=== PATIENT | male | born 1970 | race Caucasian/White ===

== ENCOUNTER 2017-12-03 15:19 | Inpatient (IN) | payer OTHER ==
[2017-12-03] VITALS (12 sets, daily range): BP systolic 71–128; BP diastolic 40–104
[~2017-12-03] VITALS: Ht 172.7 cm; Wt 186.4 kg
--- NOTE | 2017-12-03 15:19 | NUR ---
1516- PATIENT BIBA TO BED 2 AT THIS TIME.
[2017-12-03] MEDS ORDERED: ALBUTEROL 0.083% 2.5 MG/3 ML NEBU INH ONE (15:20)
[2017-12-03] MEDS ORDERED: IPRATROPIUM 0.02% 0.5 MG/2.5 ML NEBU INH ONE (15:20)
[2017-12-03] MEDS ORDERED: methylPREDNISolone SS 125 MG/2 ML VIAL IVP ONE (15:20)
--- NOTE | 2017-12-03 15:21 | NUR ---
PT BIB EMS ON CPAP PLACED ON COOK V60 ON ST 20\5 RR14 FIO2 100 ALARMS ON AND AUDIBLE PT IN HF IRRITABLE PLACED F\F MASK SIZE LG GEL PLACED UNDER MASK BS EXP WHEEZE HHN TO BE ORDERED AND ABG BIPAP PLUGGED INTO RED OUTLET RN UNABLE TO GET BP AT THIS TIME
[2017-12-03] MEDS ORDERED: DOXA2TAB1 PO (15:31)
[2017-12-03] MEDS ORDERED: CAR30 PO (15:31)
[2017-12-03] MEDS ORDERED: GLIM2TAB PO (15:32)
[2017-12-03] MEDS ORDERED: TAMS0.4C96 PO (15:34)
[2017-12-03] MEDS ORDERED: FAMO-90 PO (15:35)
--- NOTE | 2017-12-03 15:35 | NUR ---
DECREASE FIO2 TO 40 INCREASE RR TO [address] YANEZ
[2017-12-03] MEDS ORDERED: IPRA2.5S49 IH (15:37)
[2017-12-03] MEDS ORDERED: METO50TE2 PO (15:39)
[2017-12-03] MEDS ORDERED: PUL.5N INH (15:40)
[2017-12-03] MEDS ORDERED: PRON INH (15:41)
[2017-12-03] MEDS ORDERED: FURO-570 PO (15:43)
[2017-12-03 15:45] LABS: LYMPHOCYTES # (AUTO) 0.8 K/uL (2.0-11.5); MEAN CORPUSCULAR HGB CONC 31 g/dL (33-37)
[2017-12-03] MEDS ORDERED: WARF-18 PO (15:45)
--- NOTE | 2017-12-03 15:45 | NUR ---
X-Ray at bedside.
[2017-12-03] MEDS ORDERED: ACET-2619 PO (15:48)
[2017-12-03 15:53] LABS: BASOPHILS # (AUTO) 0.2 K/uL (0.00-0.22); BASOPHILS % (AUTO) 1.4 % (0.0-2.0); EOSINOPHILS # (AUTO) 0.2 K/uL (0-0.4); HEMOGLOBIN 10.4 g/dL (12.0-18.0); LYMPHOCYTES % (AUTO) 7.3 % (20.5-51.1); MEAN CORPUSCULAR HEMOGLOBIN 27 pg (27-31); MEAN CORPUSCULAR VOLUME 85 fL (80-94); MONOCYTES % (AUTO) 9.4 % (1.7-9.3); NEUTROPHILS # (AUTO) 8.6 K/uL (1.8-7.7); NEUTROPHILS % (AUTO) 79.9 % (42.2-75.2); PLATELET COUNT (AUTO) 247 K/uL (140-450); RED BLOOD CELL COUNT(AUTO) 3.88 MIL/uL (4.20-6.10); RED CELL DISTRIBUTION WIDTH 15.8 % (11.6-13.7); WHITE BLOOD COUNT (AUTO) 10.8 K/uL (4.8-10.8)
[2017-12-03 16:00] LABS: PROTHROMBIN TIME 13.9 secs (10.8-13.4)
[2017-12-03 16:02] LABS: ALBUMIN 3.3 g/dL (3.4-5.0); ANION GAP 15.1 (8-16); CARBON DIOXIDE 24.9 mmol/L (21-32); TOTAL BILIRUBIN 0.9 mg/dL (0.0-1.0)
[2017-12-03 16:07] LABS: CREATININE 4.6 mg/dL (0.7-1.3)
[2017-12-03] MEDS ORDERED: DEXTROSE 50% 50 ML SYR IVP ONE ×3 (16:10→20:20)
[2017-12-03] MEDS ORDERED: INSULIN REGULAR, HUMAN 100 UNIT/ML VIAL SUBQ ONE (16:10)
[2017-12-03] MEDS ORDERED: SODIUM BICARBONATE 8.4% PFS 50 MEQ/50 ML SYR IVP ONE (16:10)
--- NOTE | 2017-12-03 16:15 | NUR ---
patient brought in by ambulance for respiratory distress/sob. bipap applied out in the field by paramedics. patient is alert and oriented x 4. Dr. Linn at bedside when patient was brought in. RT at bedside and provided respiratory treatment. dyspnea observed upon assessment, no cough observed. lung sounds diminished upon auscultation. observed +3 edema to bilateral lower extremities. will continue to monitor.
[2017-12-03] MEDS ORDERED: MORPHINE SULFATE 4 MG/ML SYR IVP PRN ×2 (17:25→23:05)
[2017-12-03] MEDS ORDERED: HYDROcodone/APAP 5/325 MG 1 TAB TAB PO PRN (17:25)
[2017-12-03] MEDS ORDERED: ONDANSETRON 4 MG/2 ML VIAL IVP PRN (17:25)
[2017-12-03] MEDS ORDERED: DEXTROSE 50% 50 ML SYR IVP PRN (17:25)
[2017-12-03] MEDS ORDERED: LORazepam 2 MG/ML VIAL IVP PRN (17:25)
--- NOTE | 2017-12-03 17:35 | NUR ---
ADMITTED PT FROM ER BY [facility], PT ON BIPAP, ABLE TO FOLLOW SIMPLE COMMANDS, BEDSIDE MONITOR SHOWS A-FIB, NO S/S OF RESPIRATORY DISTRESS NOTED. LUNGS SOUND DIMINISHED. LARGE ABDOMEN, GENERALIZED +2 EDEMA NOTED. IV TO RIGHT HAND AV, SITE INTACT AND PATENT. HOB ELEVATED WITH 30 DEGREES WITH LOW BED POSITION, WILL CONTINUE TO MONITOR.
--- NOTE | 2017-12-03 17:39 | NUR ---
INCREASE RR TO 22 Addendum: 12/03/17 at 1741 by Brooke Clements RT TRANSFERRED TO ICU ON COOK V60
--- NOTE | 2017-12-03 17:49 | NUR ---
patient was transferred to ICU, bed 5 for continuation of care. patient is arousable and is able to converse with nurses. RT accompanied patient upon transfer. Patient will be admitted to care of Dr. Gallagher. Admited to ICU 5. Belongings list completed. Report given to REJI Watson.
--- NOTE | 2017-12-03 18:00 | NUR ---
DR. HOWARD IN TO SEE PT, WILL FOLLOW UP.
[2017-12-03] MEDS ORDERED: DEXT 5% / NACL 0.45% 1,000 ML IV SCH (18:05)
[2017-12-03] MEDS ORDERED: WARFARIN 5 MG TAB PO SCH (18:15)
--- NOTE | 2017-12-03 18:30 | NUR ---
PT IS NOT WAKE ENOUGH AT THIS TIME. UNABLE TO GIVE COUMADIN, CHARGE NURSE AWARE.
--- NOTE | 2017-12-03 18:36 | NUR ---
CALLED RT DUE TO O2 SATS DECREASED TO 70S
[2017-12-03] MEDS ORDERED: FUROSEMIDE 100 MG/10 ML VIAL IV SCH (19:00)
--- NOTE | 2017-12-03 19:00 | NUR ---
DR. SOARES IN TO SEE PT, PT'S SON AT BEDSIDE AT THIS TIME.
--- NOTE | 2017-12-03 19:10 | NUR ---
REPORT GIVEN TO MANAGING COGNITIVE ENGINEER RN
[2017-12-03] MEDS: BUDESONIDE 0.5 MG/2 ML NEBU INH SCH (19:16)
[2017-12-03] MEDS: ALBUTEROL SULFATE/IPRATROPIU 3 ML SOL INH PRN (19:17)
--- NOTE | 2017-12-03 19:20 | NUR ---
RECEIVED REPORT FROM MORNING RN FOR CONTINUITY OF CARE. PT LETHARGIC AND AFEBRILE. UNABLE TO COMMUNICATE NEEDS AND FOLLOW INSTRUCTION. VS STABLE AT THIS TIME. NO SIGNS OF RESPIRATORY DISTRESS NOTED. SKIN IS DRY AND WARM TO TOUCH. RESPIRATIONS ARE STRONG, EVEN, AND UNLABORED. LUNG SOUNDS RHONCHI AND COARSE. S1+S2 HEARD. PULSES PALPABLE. RHYTHM IS AFIB. ABDOMEN ROUND AND FIRM. NO URINE OUTPUT NOTED AND MD AWARE. PT HAS RIGHT AC 20G PERIPHERAL IV. LINE PATENT AND ASYMPTOMATIC. FAMILY CURRENTLY AT BEDSIDE. DR SOARES TO SEE PT. WILL CONTINUE TO MONITOR PT.
[2017-12-03 19:55] LABS: ANION GAP 14.7 (8-16); CARBON DIOXIDE 26.3 mmol/L (21-32)
[2017-12-03 20:00] LABS: CREATININE 4.7 mg/dL (0.7-1.3)
--- NOTE | 2017-12-03 20:00 | NUR ---
RECEIVED CRITICAL VALUES FOR POTASSIUM 7.0, CREATININE 4.7, BUN 61. DR. SOARES IN THE UNIT, NEW ORDERS GIVEN.
[2017-12-03] MEDS ORDERED: CALCIUM CHLORIDE 10% 100 MG/ML SYR IVP ONE ×2 (20:04→20:20)
[2017-12-03] MEDS ORDERED: INSULIN REGULAR, HUMAN 100 UNIT/ML VIAL IVP ONE (20:20)
--- NOTE | 2017-12-03 20:25 | NUR ---
I CALLED DR HOWARD AND DR SHAFER ANSWER ANS I TOLD HIM ABOUT THE ABG, AND HE TOLD ME TO INCREASED INSPIRATORY PRESSURE TO 26 FROM 20 , RR 16 AND IO2 OF 30% Addendum: 12/03/17 at 2031 by Binta Harley RT DID NOT WANT TO INTUBATE AT THIS TIME
--- NOTE | 2017-12-03 20:36 | NUR ---
DR. SOARES (CUTTING AND SPLICING SUPERVISOR) WANTED HEMODIALYSIS TO BE DONE [facility], CALLED ANGELICA TRUJILLO, HEMODIALYSIS NURSE AND STATED THAT [facility] WILL BE HERE AT 2130. DR. SOARES AWARE. BLOOD SUGAR AT THIS TIME IS 160.
[2017-12-03] MEDS: AZITHROMYCIN 500 MG in DEXTROSE 5% 250 ML IV SCH (20:42)
[2017-12-03] MEDS: SODIUM CHLORIDE FLUSH 10 ML SYR IVF SCH (20:45)
[2017-12-03] MEDS: BLOOD GLUCOSE MONITORING 1 DEV DEV FS SCH (20:45)
--- NOTE | 2017-12-03 20:50 | NUR ---
DR FULLER AT BEDSIDE ALONG WITH DR SOARES TO INSERT CENTRAL LINE. LINE SUCCESSFULLY INSERTED AND XRAY TO BE TAKEN.
[2017-12-03] MEDS: methylPREDNISolone SS 125 MG/2 ML VIAL IVP SCH (20:53)
[2017-12-03] MEDS: INSULIN LISPRO SLIDING SCALE 100 UNITS/ML VIAL SUBQ PRN (20:55)
--- NOTE | 2017-12-03 20:58 | NUR ---
CHEST X-RAY TAKEN AT BEDSIDE. DR FULLER REVIEWED THE X-RAY AT BEDSIDE AND ACCORDING TO HIM OKAY TO USE.
[2017-12-03] MEDS: FUROSEMIDE 40 MG/4 ML VIAL IVP SCH (21:00)
[2017-12-03] MEDS: DOXAZOSIN 2 MG TAB PO SCH (21:00)
[2017-12-03] MEDS: METOPROLOL SUCCINATE 50 MG TABER PO SCH (21:00)
[2017-12-03] MEDS ORDERED: DILTIAZEM 30 MG TAB PO SCH (21:00)
[2017-12-03] MEDS ORDERED: methylPREDNISolone SS 125 MG in WATER STERILE 2 ML IV SCH (21:00)
[2017-12-03] MEDS: DILTIAZEM 60 MG TAB PO SCH (21:00)
--- NOTE | 2017-12-03 21:32 | NUR ---
SPOKE WITH DR SHAFER REGARDING BREATHING STATUS, ORDERED ANOTHER ABG AND TO REPORT BACK RESULTS
--- NOTE | 2017-12-03 21:55 | NUR ---
ABG RESULTS REPORTED TO DR SHAFER, ORDERED TO CONTACT ER DR TO INTUBATE PER ABG RESULTS.
[2017-12-03] MEDS ORDERED: ALBUMIN HUMAN 25% 200 ML IV SCH (22:05)
[2017-12-03 22:10] LABS: BASOPHILS # (AUTO) 0.1 K/uL (0.00-0.22); BASOPHILS % (AUTO) 1.2 % (0.0-2.0); EOSINOPHILS # (AUTO) 0.1 K/uL (0-0.4); EOSINOPHILS % (AUTO) 1.1 % (0.0-4.0); HEMATOCRIT 32.9 % (36-52); HEMOGLOBIN 10.1 g/dL (12.0-18.0); LYMPHOCYTES # (AUTO) 0.3 K/uL (2.0-11.5); LYMPHOCYTES % (AUTO) 2.6 % (20.5-51.1); MEAN CORPUSCULAR HEMOGLOBIN 26 pg (27-31); MEAN CORPUSCULAR HGB CONC 31 g/dL (33-37); MEAN CORPUSCULAR VOLUME 85 fL (80-94); MONOCYTES % (AUTO) 0.3 % (1.7-9.3); NEUTROPHILS % (AUTO) 94.8 % (42.2-75.2); PLATELET COUNT (AUTO) 242 K/uL (140-450); RED BLOOD CELL COUNT(AUTO) 3.87 MIL/uL (4.20-6.10); RED CELL DISTRIBUTION WIDTH 15.9 % (11.6-13.7); WHITE BLOOD COUNT (AUTO) 10.5 K/uL (4.8-10.8)
[2017-12-03] MEDS ORDERED: NOREPINEPHRINE 4 MG/4 ML VIAL IV ONE (22:14)
[2017-12-03] MEDS: NOREPINEPHRINE 8 MG in DEXTROSE 5% 250 ML IV PRN (22:19)
--- NOTE | 2017-12-03 22:30 | NUR ---
DR. SHAFER AND DR. HOWARD AT BEDSIDE TO INTUBATE PT. WILL FOLLOW-UP WITH ANY NEW ORDERS.
[2017-12-03] MEDS ORDERED: ETOMIDATE 20 MG/10 ML VIAL IVP ONE (22:35)
[2017-12-03] MEDS ORDERED: MIDAZOLAM 2 MG/2 ML VIAL ONE (22:38)
[2017-12-03] MEDS ORDERED: PROPOFOL 1000 MG/100 ML PREMIX 100 ML IV PRN (22:45)
[2017-12-03 22:48] LABS: ANION GAP 14.7 (8-16); CARBON DIOXIDE 25.2 mmol/L (21-32)
[2017-12-03 22:55] LABS: CREATININE 4.7 mg/dL (0.7-1.3); POTASSIUM 6.9 mmol/L (3.5-5.1)
--- NOTE | 2017-12-03 22:55 | NUR ---
ASSISTED INTUBATION SUCCESSFULLY WITH [facility], DR SHAFER AND DR HOWARD, 7.5 ETT SECURED WITH ANCHORFAST AT 23 CM, PLACEMENT CONFRIMED WITH ETCO2 AND BILATERAL BREATH SOUNDS, 02 SAT 99%, VENT SETTINGS RECEIVED FROM DR SHAFER AC 12, VT 600, PEEP 5, FIO2 100%, ABG TO FOLLOW, WILL CONTINUE TO MONITOR.
[2017-12-03] MEDS ORDERED: PROPOFOL 1000 MG/100 ML PREMIX 100 ML IV ONE (22:58)
[2017-12-03] MEDS ORDERED: DESMOPRESSIN 4 MCG/ML AMP IV ONE (23:05)
--- NOTE | 2017-12-03 23:15 | NUR ---
PT STARTED ON DIALYSIS. ANTOINE, DIALYSIS NURSE, AT BEDSIDE.
--- NOTE | 2017-12-03 23:36 | NUR ---
INFORMED DR. SOARES REGARDING BMP RESULT FOR PT. RECEIVED NO NEW ORDERS. INFORMED DR. SOARES THAT PT ALREADY STARTED ON DIALYSIS
--- NOTE | 2017-12-03 23:44 | NUR ---
CALLED DR. SHAFER TO VERIFY THE DDAVP ORDER PER PHARMACY. PER DR. SHAFER D/C THE ORDER OF DDAVP. INFORMED HIM TOO REGARDING THE LOW BP OF PT. RECEIVED NEW ORDERS.
[2017-12-03] MEDS ORDERED: PHENYLEPHRINE 10 MG in NACL 0.9% 250 ML IV PRN (23:50)
[2017-12-03 23:57] LABS: CREATINE KINASE MB 4.9 ng/mL (0-3.6)
[2017-12-04] VITALS (104 sets, daily range): BP systolic 86–157; BP diastolic 37–111
--- NOTE | 2017-12-04 00:20 | NUR ---
PAGED DR SHAFER WITH ABG RESULTS, LISS MENDOZA AWARE
[2017-12-04] MEDS ORDERED: PHENYLEPHRINE 10 MG/ML VIAL ONE (00:25)
[2017-12-04] MEDS: MILD SOAP AND WATER TP SCH ×2 (01:02→16:00)
[2017-12-04] MEDS: ANTIFUNGAL CLEAR OINTMENT TP SCH ×2 (01:02→16:04)
[2017-12-04] MEDS ORDERED: MORPHINE SULFATE 4 MG/ML SYR IVP PRN (01:10)
--- NOTE | 2017-12-04 01:15 | NUR ---
DR SHAFER NOT RESPONDING AT THIS TIME AFTER MULTIPLE PAGES, ADJUSTED RESPIRATORY RATE TO 16 BPM PER ABG RESULTS USING DESIRED CO2 FORMULA, LISS MENDOZA AWARE, WILL CONT TO MONITOR. Addendum: 12/04/17 at 0537 by Herberth Ladnaverde RT RR 14
--- NOTE | 2017-12-04 01:46 | NUR ---
PT STILL HAVING DIALYSIS. VS STABLE AT THIS TIME. NO CHANGE IN CONDITION. NO SIGNS OF DISTRESS NOTED. PT ON LEVOPHED, ETHAN-SYNEPHRINE AND PROPOFOL DRIP. WILL CONTINUE TO MONITOR PT.
[2017-12-04] MEDS: PROPOFOL 1000 MG/100 ML PREMIX 100 ML IV PRN ×11 (02:23→22:38)
--- NOTE | 2017-12-04 02:30 | NUR ---
PT COMPLETED HEMODIALYSIS. 3L WAS REMOVED. VS STABLE AT THIS TIME. PT STILL ON PROPOFOL, LEVOPHED AND NEOSYNEPHRINE DRIP. CALL LIGHT WITHIN REACH, BED AT LOW POSSIBLE POSITION. ALL SAFETY PRECAUTIONS ARE IN PLACE. WILL CONTINUE TO MONITOR PT.
[2017-12-04] MEDS ORDERED: NOREPINEPHRINE 4 MG/4 ML VIAL IV ONE (02:32)
[2017-12-04] MEDS: NOREPINEPHRINE 8 MG in DEXTROSE 5% 250 ML IV PRN ×2 (02:37→22:16)
--- NOTE | 2017-12-04 03:25 | NUR ---
DR. SHAFER CALLED, INFORMED THAT [facility]/ PAGED HIM TO REPORT LAST ABG, GAVE MD THE RESULTS OF ABG, NEW ORDER TO DO ABG AT 0800, BERNIE/ INFORMED.
[2017-12-04 05:14] LABS: PROTHROMBIN TIME 13.6 secs (10.8-13.4)
--- NOTE | 2017-12-04 05:14 | NUR ---
PAGED DR. SHAFER AT 0512 D/T RUNS OF V-TACH. RECEIVED A CALL BACK AT 0514, RECEIVED NEW ORDERS FROM DR. SHAFER. LAB NOTIFIED REGARDING NEW ORDER. EKG TO BE DONE AND CHECKED BY Yana MCINTOSH. WILL CONTINUE TO MONITOR PT.
[2017-12-04 05:19] LABS: ALBUMIN 3.4 g/dL (3.4-5.0); ANION GAP 15.5 (8-16); CARBON DIOXIDE 25.7 mmol/L (21-32); MAGNESIUM 1.9 mg/dL (1.8-2.4); PHOSPHORUS 6.9 mg/dL (2.5-4.9); TOTAL BILIRUBIN 1.2 mg/dL (0.0-1.0)
[2017-12-04] MEDS: methylPREDNISolone SS 125 MG/2 ML VIAL IVP SCH ×3 (05:29→20:28)
[2017-12-04] MEDS: SODIUM CHLORIDE FLUSH 10 ML SYR IVF SCH ×3 (05:30→20:30)
[2017-12-04 05:48] LABS: POTASSIUM 6.2 mmol/L (3.5-5.1)
[2017-12-04 05:49] LABS: CREATININE 4.4 mg/dL (0.7-1.3)
[2017-12-04 05:58] LABS: BASOPHILS # (AUTO) 0.1 K/uL (0.00-0.22); BASOPHILS % (AUTO) 0.4 % (0.0-2.0); EOSINOPHILS # (AUTO) 0.1 K/uL (0-0.4); EOSINOPHILS % (AUTO) 0.8 % (0.0-4.0); HEMATOCRIT 33.9 % (36-52); HEMOGLOBIN 10.7 g/dL (12.0-18.0); LYMPHOCYTES # (AUTO) 0.3 K/uL (2.0-11.5); LYMPHOCYTES % (AUTO) 2.4 % (20.5-51.1); MEAN CORPUSCULAR HEMOGLOBIN 27 pg (27-31); MEAN CORPUSCULAR HGB CONC 31 g/dL (33-37); MEAN CORPUSCULAR VOLUME 86 fL (80-94); MONOCYTES # (AUTO) 0.2 K/uL (0.8-1.0); MONOCYTES % (AUTO) 1.3 % (1.7-9.3); NEUTROPHILS # (AUTO) 12.2 K/uL (1.8-7.7); NEUTROPHILS % (AUTO) 95.1 % (42.2-75.2); PLATELET COUNT (AUTO) 229 K/uL (140-450); RED BLOOD CELL COUNT(AUTO) 3.94 MIL/uL (4.20-6.10); RED CELL DISTRIBUTION WIDTH 15.9 % (11.6-13.7); WHITE BLOOD COUNT (AUTO) 12.9 K/uL (4.8-10.8)
--- NOTE | 2017-12-04 06:13 | NUR ---
AT 0608 DR. SHAFER WAS PAGED. RECEIVED A CALLBACK AT 0613 AND RECEIVED NEW ORDERS.
[2017-12-04] MEDS ORDERED: SODIUM POLYSTYRENE 15 GM/60 ML UDBTL NG ONE (06:25)
[2017-12-04] MEDS ORDERED: MAG SULF 2000 MG/WATER PREMIX 50 ML IV ONE (06:25)
[2017-12-04] MEDS ORDERED: CALCIUM CHLORIDE 10% 100 MG/ML SYR IVP ONE (06:30)
[2017-12-04] MEDS ORDERED: SODIUM BICARBONATE 8.4% PFS 50 MEQ/50 ML SYR IVP ONE (06:30)
[2017-12-04] MEDS: BLOOD GLUCOSE MONITORING 1 DEV DEV FS SCH ×4 (06:48→20:30)
[2017-12-04] MEDS: INSULIN LISPRO SLIDING SCALE 100 UNITS/ML VIAL SUBQ PRN ×4 (06:51→20:31)
[2017-12-04] MEDS: BUDESONIDE 0.5 MG/2 ML NEBU INH SCH ×2 (06:56→20:16)
--- NOTE | 2017-12-04 07:18 | NUR ---
RCV'D PT ON MECHANICAL VENTILATION WITH SETTINGS AC 14,600,60%,+5. PT IS NOT ALERT. VENT IS CONNECTED TO RED OUTLET. ALARMS ARE AUDIBLE.AMBU BAG AT BEDSIDE. NO DISTRESS NOTED. HHN TX OF PULMICORT GIVEN. CUFF PRESSURE [id number]. WILL CONTINUE TO MONITOR. Addendum: 12/04/17 at 0721 by Zuleyka Aden RT 29 CMH2O
--- NOTE | 2017-12-04 07:25 | NUR ---
REPORT GIVEN TO MORNING RN FOR CONTINUITY OF CARE. PT IS STABLE CONDITION
--- NOTE | 2017-12-04 07:25 | NUR ---
RECEIVED REPORT FROM NOC SHIFT RN. PT RESTING IN BED ON SEDATION, RASS -4. ST ON MONITOR. SKIN DRY AND WARM TO TOUCH. PUPILS REACTIVE TO LIGHT. PT ON ETT TO VENT AC 14 FIO2 60 TV 600 PEEP 5. OG TUBE IN PLACE ATTACHED TO CONTAINER, NO DRAINAGE NOTED. RIGHT IJ DOUBLE LUMEN INTACT, WITH GOOD BLOOD RETURNS. LEVOPHED RUNNING AT 5 MCG/MIN AND MG 25 ML/HR. LUNGS SOUND CLEAR ON AUSCULTATION. RIGHT AC INTACT. PROPOFOL RUNNING AT 50 MCG/KG/MIN. ABDOMEN FIRM ROUNG AND NON-TENDER. HYPOACTIVE BOWEL SOUND ON AUSCULTATION. EDEMATOUS SCROTUM NOTED. PT NOTED ON CONDOM CATH NO OUTPUT NOTED. GENERALED BODY EDEMA. TATOOS ON LEFT AND RIGHT ARM. KEPT HOB ELEVATED. BED IN LOW POSITION, LOCKED. WILL CONTINUE TO MONITOR.
--- NOTE | 2017-12-04 07:30 | NUR ---
PT OFF FROM RESTRAIN. ON CONTINUOUS CLOSE MONITORING.
--- NOTE | 2017-12-04 07:33 | NUR ---
PROVIDED MORNING CARE. KEPT PT CLEAN AND DRY.
--- NOTE | 2017-12-04 07:55 | NUR ---
DRESSING CHANGED TO RIGHT IJ. KEPT SITE CLEAN. SITE INTACT WITH GOOD BLOOD RETURNS.
--- NOTE | 2017-12-04 08:01 | NUR ---
ABG DONE WITH NO INCIDENT. PAGED DR SHAFER FOR RESULTS. WILL CONTINUE TO MONITOR.
--- NOTE | 2017-12-04 08:09 | NUR ---
VENT CHECK DONE. STILL WAITING FOR DR SHAFER CALL BACK FOR ABG RESULTS. REJI SANTOS.
[2017-12-04 08:10] LABS: CREATINE KINASE MB 3.5 ng/mL (0-3.6)
[2017-12-04 08:14] LABS: HEPATITIS A ANTIBODY IGM Negative (Negative); HEPATITIS B CORE AB TOTAL Negative (Negative); HEPATITIS B SURFACE ANTIBODY Non Reactive (.); HEPATITIS B SURFACE ANTIGEN Negative (Negative)
--- NOTE | 2017-12-04 08:30 | NUR ---
ABG DRAWN AND GOT RESULT AT [address] HOWARD AND NICHELLE. RECEIVED CALLED FROM [facility], REPORTED ABG VALUES. SAID CONTINUE SAME TREATMENT UNTILL SEEN BY DR HOWARD.
--- NOTE | 2017-12-04 09:20 | NUR ---
PT SEEN BY DR. ALONZO. ORDERED TO KEEP PT ON NPO EXCEPT MEDS. WILL FOLLOW UP ON ORDER.
--- NOTE | 2017-12-04 09:27 | NUR ---
CALLED LAB TO DRAW POTASSIUM LEVEL.
[2017-12-04] MEDS: PANTOPRAZOLE 40 MG INJ VIAL IVP SCH (09:31)
[2017-12-04] MEDS: FUROSEMIDE 40 MG/4 ML VIAL IVP SCH ×2 (09:31→20:29)
[2017-12-04] MEDS: DILTIAZEM 60 MG TAB PO SCH ×4 (09:34→20:28)
[2017-12-04] MEDS: TAMSULOSIN 0.4 MG CAP PO SCH (09:35)
[2017-12-04] MEDS: METOPROLOL SUCCINATE 50 MG TABER PO SCH ×2 (09:36→20:27)
--- NOTE | 2017-12-04 09:43 | NUR ---
PT SEEN BY DR HOWARD. WILL FOLLOW UP ON ORDER.
--- NOTE | 2017-12-04 09:50 | NUR ---
PATIENT HAS BEEN SCREENED AND CATEGORIZED HIGH NUTRITION RISK. PATIENT WILL BE SEEN WITHIN 1-2 DAYS OF ADMISSION. 12/03/18-12/04/[address]
--- NOTE | 2017-12-04 09:50 | NUR ---
GAVE ABG RESULTS TO DR BARRIGA IN ICU. NO CHANGES REQUESTED. KEEPING SAME VENT SETTINGS. VENT CHECK DONE. PT IS NOT AWAKE. SPO2 96% ON 60% FIO2. WILL CONTINUE TO MONITOR.
--- NOTE | 2017-12-04 10:00 | NUR ---
FAMILY AT BED SIDE. UPDATED PT CONDITION TO FAMILY BY DR. HOWARD.
--- NOTE | 2017-12-04 10:43 | NUR ---
CALLED [facility] REGARDING MEDICAL INSURANCE. SS AT BEDSIDE EXPLAINING TO SON.
--- NOTE | 2017-12-04 11:20 | NUR ---
PT SEEN BY DR. SOARES. WILL FOLLOW UP ON ORDER.
--- NOTE | 2017-12-04 11:29 | NUR ---
DR HOWARD MADE CHANGES ON SETTINGS. AC 18,600,60%,+5. PER RN CAROL[place].
--- NOTE | 2017-12-04 11:30 | NUR ---
ABG DONE WITH NO INCIDENT. PAGED DR HOWARD FOR RESULTS. WAITING FOR CALL BACK.
--- NOTE | 2017-12-04 11:50 | NUR ---
PAGED DR HOWARD AGAIN. STILL NO CALL BACK.
--- NOTE | 2017-12-04 11:55 | NUR ---
GOT CALL BACK FROM DR HOWARD. PER DR HOWARD NO CHANGES AND KEEP SAME SETTINGS.
--- NOTE | 2017-12-04 11:59 | NUR ---
VENT CHECK DONE. PT IS IRRITABLE. SENSITIVE TO TOUCH. SXN'D SML AMT OF THIN CLEAR SECRETIONS. NO DISTRESS NOTED. WILL CONTINUE TO MONITOR
--- NOTE | 2017-12-04 12:15 | NUR ---
CALLED [facility] PER FAMILY REQUEST. LEFT VOICE MESSAGED. WAITING FOR CALL BACK.
--- NOTE | 2017-12-04 12:23 | NUR ---
STARTED DIALYSIS AT 1215. DIALYSIS NURSE AT BEDSIDE. FAMILY AT BEDSIDE. NO RESPIRATORY DISTRESS NOTED. VS P 84, BP 124/76, R 18, SPO2 96. WILL CONTINUE TO MONITOR.
--- NOTE | 2017-12-04 12:39 | NUR ---
12/04/2017 RD INITIAL ASSESSMENT COMPLETED PLEASE REFER TO NUTRITION ASSESSMENT UNDER CARE ACTIVITY FOR ESTIMATED NUTRITIONAL NEEDS. DIET CONSULT COMPLETED TODAY, REASON FOR CONSULT: TUBE FEEDING. ESTIMATED CALORIE NEEDS ARE BASED ON ACTUAL BODY WEIGHT 212.7 KG FOR OBESE III, VENT DEPENDENT. CALORIES: 8915-3497 KCAL/DAY (11-14 KCAL/KG ACTUAL BODY WEIGHT) PROTEIN: 127-137 GM PRO/DAY (1.2-1.3 G/KG ADJUSTED BODY WEIGHT) FLUID: PER MD ML/DAY (1 ML/KCAL) PT CURRENTLY RECEIVING PROPOFOL @ 40.53 ML/HR. THIS IS PROVIDING 1069 KCALS/DAY RECOMMENDATION: NOVASOURCE RENAL @ 35 ML/HR + PROTEIN PACK TID THIS WILL PROVIDE 1860 KCALS AND 121 GM PRO/DAY WITH THE ADDITION OF PROPOFOL @ 40.53 ML/HR, PT WILL RECEIVE A TOTAL OF 2929 KCALS AND 121 GM PRO/DAY. THIS WILL MEET 100% ES KCAL AND 95% EST PRO NEEDS/DAY. ONCE PT NO LONGER RECEIVING PROPOFOL, MAY CONSIDER INCREASING RATE OF TUBE FEED AND ELIMINATING PROTEIN PACKS TO: NOVASOURCE RENAL @ 60 ML/HR. THIS WILL PROVIDE 2880 KCALS AND 131 GM PRO/DAY, TO MEET 100% ESTIMATED ENERGY AND PROTEIN NEEDS PER DAY. RD TO FOLLOW-UP IN 2-3 DAYS PATIENT IS HIGH RISK. ZAIN WALDROP RD
--- NOTE | 2017-12-04 15:54 | NUR ---
DIALYSIS COMPLETED AT 1515. DIALYSIS OUTPUT 1.6 LTR NOTED ACCORDING TO DIALYSIS NURSE. BP 124/60 HR 108. NO RESPIRATORY DISTRESS. NO CHANGE IN LOC. WILL CONTINUE TO MONITOR.
--- NOTE | 2017-12-04 16:11 | NUR ---
DECREASED FIO2 TO 40%. SPO2 IS STILL 100%. RN MARY AWARE.
[2017-12-04] MEDS: WARFARIN 5 MG TAB PO SCH (17:38)
--- NOTE | 2017-12-04 17:38 | NUR ---
VENT CHECK DONE. SXN'D SML AMT OF THIN WHITE SECRETION. PT IS RESTING COMFORTABLY. NO DISTRESS NOTED. FAMILY AT BEDSIDE. FIO2 STILL AT 40% WITH SPO2 OF 94%. HME AND BLANK CHANGED. CUFF PRESSURE 29 CMH2O.
--- NOTE | 2017-12-04 17:38 | NUR ---
ADMINISTERED COUMADIN AND HOLD CARDIZEM PER PHARMACY RECOMMENDATION. . TOO CLOSE TO GIVEN NEXT SCHEDULED. 1300 CARDIZEM WAS ADMINISTERED AROUND 1600 BECAUSE PT WAS ON DIALYSIS.
--- NOTE | 2017-12-04 18:12 | NUR ---
PT RESTING IN BED, SEDATED WITH PROPOFOL. RASS -4. NO ACUTE RESPIRATORY DISTRESS NOTED. NO CHANGE IN LOC. HR 76 BP 131/74, RR 19 SPO2 94. WILL CONTINUE TO MONITOR.
--- NOTE | 2017-12-04 19:30 | NUR ---
ENDORSED TO NOC SHIFT RN. PT ON STABLE CONDITION.
--- NOTE | 2017-12-04 19:30 | NUR ---
RECEIVED REPORT FROM MORNING RN FOR CONTINUITY OF CARE. PT VS STABLE AT THIS TIME. AFEBRILE. NO SIGNS OF DISTRESS NOTED. RASS -4. PT OF PROPOFOL AND LEVOPHED DRIP. LUNG SOUNDS RHONCHI AND COARSE. ETT TO VENT WITH SETTINGS: AC18, FIO2 40, TV 600, AND PEEP 5. S1+S2 HEARD. PULSES PALPABLE IN ALL EXTREMITIES. ATRIAL FIBRILLATION ON MONITOR. OGT TO FEEDING. NO RESIDUAL NOTED. PT RECEIVING NOVASOURCE RENAL 40ML/HR WITH H20 FLUSH OF 20ML Q4H. PT HAS CONDOM CATH IN PLACE. NO URINE OUTPUT NOTED. NO BLADDER DISTENTION NOTED. PT HAS RIGHT IJ TRU CATH. DRESSING DRY AND INTACT. SITE CLEAR. LINE IS PATENT AND ASYMPTOMATIC. PT HAS PERIPHERAL IV ON RIGHT AC 20G, LINE PATENT AND ASYMPTOMATIC. HOB AT 30 DEGREES. SIDE RAILS UP. CALL LIGHT WITHIN REACH. BED AT LOW POSSIBLE POSITION. WILL CONTINUE TO MONITOR PT.
[2017-12-04] MEDS: DOXAZOSIN 2 MG TAB PO SCH (20:28)
[2017-12-04] MEDS: AZITHROMYCIN 500 MG in DEXTROSE 5% 250 ML IV SCH (20:30)
--- NOTE | 2017-12-04 20:40 | NUR ---
ALL SCHEDULED MEDICATIONS ADMINISTERED. TOLERATED WELL BY PT. NO CHANGE IN CONDITION AT THIS TIME. WILL CONTINUE TO MONITOR PT.
--- NOTE | 2017-12-04 22:02 | NUR ---
INFORMED ANGELICA TRUJILLO THAT PT HAS HEMODIALYSIS ORDER IN THE MORNING.
--- NOTE | 2017-12-04 23:17 | NUR ---
CALLED DR. SOARES TO REPORT PT'S CURRENT POTASSIUM LEVEL. NO NEW ORDERS. PER DR. SOARES PT TO HAVE HEMODIALYSIS. INFORMED HIM THAT ANGELICA TRUJILLO FROM DIALYSIS CENTER ALREADY NOTIFIED. WILL CONTINUE TO MONITOR PT.
[2017-12-05] VITALS (108 sets, daily range): BP systolic 99–167; BP diastolic 61–110
[2017-12-05] MEDS: PROPOFOL 1000 MG/100 ML PREMIX 100 ML IV PRN ×12 (00:13→22:00)
[2017-12-05] MEDS: ANTIFUNGAL CLEAR OINTMENT TP SCH ×2 (01:42→12:14)
[2017-12-05] MEDS: MILD SOAP AND WATER TP SCH ×2 (01:43→12:22)
--- NOTE | 2017-12-05 02:39 | NUR ---
VS STABLE. NO CHANGE IN PT CONDITION AT THIS TIME. PT NO LONGER ON LEVOPHED DRIP BUT STILL ON PROPOFOL DRIP. RASS -4. NO URINE OUTPUT. CENTRAL LINE PATENT AND INTACT. PERIPHERAL IV PATENT AND INTACT. PT HAS SISTER AT BEDSIDE. AFIB ON MONITOR. ALL SAFETY PRECAUTIONS IN PLACE. WILL CONTINUE TO MONITOR PT.
--- NOTE | 2017-12-05 04:10 | NUR ---
MORNING CARE PROVIDED. LINENS CHANGED. PT TOLERATED BEING TURNED WELL. VS STABLE AT THIS TIME. NO SIGNS OF DISTRESS NOTED. NO CHANGE IN CONDITION AT THIS TIME. CURRENTLY NO URINE OUTPUT. PT STILL ON PROPOFOL DRIP. ALL SAFETY PRECAUTIONS ARE IN PLACE. WILL CONTINUE TO MONITOR PT.
[2017-12-05] MEDS: SODIUM CHLORIDE FLUSH 10 ML SYR IVF SCH ×3 (04:27→20:58)
[2017-12-05] MEDS: methylPREDNISolone SS 125 MG/2 ML VIAL IVP SCH ×3 (04:27→20:57)
[2017-12-05 06:06] LABS: PROTHROMBIN TIME 13.5 secs (10.8-13.4)
[2017-12-05 06:11] LABS: ALBUMIN 2.9 g/dL (3.4-5.0); CARBON DIOXIDE 24.8 mmol/L (21-32); CREATININE 3.8 mg/dL (0.7-1.3); POTASSIUM 4.8 mmol/L (3.5-5.1); TOTAL BILIRUBIN 0.8 mg/dL (0.0-1.0)
--- NOTE | 2017-12-05 06:18 | NUR ---
PAGED DR. SOARES TO REPORT BMP RESULT FOR PT. WILL WAIT FOR A CALL BACK.
--- NOTE | 2017-12-05 06:28 | NUR ---
DR. EMMANUEL CALLED BACK. REPORTED LAB RESULTS. RECEIVED NO NEW ORDERS.
[2017-12-05 07:06] LABS: BASOPHILS % (AUTO) 0.6 % (0.0-2.0); EOSINOPHILS # (AUTO) 0.1 K/uL (0-0.4); EOSINOPHILS % (AUTO) 0.7 % (0.0-4.0); HEMATOCRIT 30.8 % (36-52); HEMOGLOBIN 9.8 g/dL (12.0-18.0); LYMPHOCYTES # (AUTO) 0.4 K/uL (2.0-11.5); LYMPHOCYTES % (AUTO) 5.5 % (20.5-51.1); MEAN CORPUSCULAR HEMOGLOBIN 27 pg (27-31); MEAN CORPUSCULAR HGB CONC 32 g/dL (33-37); MEAN CORPUSCULAR VOLUME 84 fL (80-94); MONOCYTES # (AUTO) 0.3 K/uL (0.8-1.0); MONOCYTES % (AUTO) 3.2 % (1.7-9.3); NEUTROPHILS # (AUTO) 7.1 K/uL (1.8-7.7); PLATELET COUNT (AUTO) 238 K/uL (140-450); RED BLOOD CELL COUNT(AUTO) 3.66 MIL/uL (4.20-6.10); RED CELL DISTRIBUTION WIDTH 15.9 % (11.6-13.7)
[2017-12-05 07:08] LABS: WHITE BLOOD COUNT (AUTO) 7.9 K/uL (4.8-10.8)
--- NOTE | 2017-12-05 07:15 | NUR ---
REPORT GIVEN TO MORNING RN FOR CONTINUITY OF CARE. PT IN STABLE CONDITION
[2017-12-05] MEDS ORDERED: PROBIOTIC SCREEN 1 EA MISC MC PRN (07:20)
--- NOTE | 2017-12-05 07:20 | NUR ---
RECEIVED BEDSIDE REPORT FROM DRAPERY AND UPHOLSTERY ESTIMATOR RNJEANNE FOR CONTINUITY OF CARE. PATIENT IS SEDATED ON PROPOFOL 50 MCG/KG/MIN. PATIENT HAS ETT TO VENT, BILATERAL LUNG SOUNDS ARE DIMINISHED. S1 AND S2 HEART SOUNDS HEARD, ATRIAL FIBRILLATION ON MONITOR, CAP REFILL LESS THAN 3 SECS. PATIENT HAS OG TUBE TO TUBE FEEDING, 50ML RESIDUAL, RETURNED BACK. SKIN IS INTACT, WARM AND DRY, SLIGHT REDNESS IN LOWER ABDOMINAL FOLD. ABDOMEN IS ROUND. PATIENT HAS RIGHT IJ TRU CATH AND RIGHT AC PERIPHERAL SITE, BOTH PATENT, ASYMPTOMATIC. PATIENT HAS A CONDOM CATH TO NO OUTPUT. PATIENT IS LAYING IN BED IN SEMI-FOWLERS IN LOWEST POSSIBLE POSITION, CALL LIGHT WITHIN REACH, NO SIGNS OF DISTRESS NOTED. WILL CONTINUE TO MONITOR.
[2017-12-05] MEDS: BUDESONIDE 0.5 MG/2 ML NEBU INH SCH ×2 (07:25→18:56)
[2017-12-05] MEDS: ALBUTEROL SULFATE/IPRATROPIU 3 ML SOL INH PRN ×2 (07:26→18:56)
[2017-12-05] MEDS: INSULIN LISPRO SLIDING SCALE 100 UNITS/ML VIAL SUBQ PRN ×4 (07:46→21:01)
[2017-12-05] MEDS: BLOOD GLUCOSE MONITORING 1 DEV DEV FS SCH ×4 (07:47→21:00)
--- NOTE | 2017-12-05 08:00 | NUR ---
TURNED AND REPOSITION PATIENT, ORAL CARE GIVEN. PATIENT TOLERATED PROCEDURE WELL. NO SIGNS OF DISTRESS NOTED.
--- NOTE | 2017-12-05 08:11 | NUR ---
SON AT BEDSIDE, UPDATED ON PATIENT'S CONDITION. WILL CONTIUE TO MONITOR.
--- NOTE | 2017-12-05 08:15 | NUR ---
FINANCIAL RESERVE CLERKANTOINE AT BEDSIDE. PATIENT STARTED ON HEMODIALYSIS.
[2017-12-05] MEDS: TAMSULOSIN 0.4 MG CAP PO SCH (08:28)
[2017-12-05] MEDS: PANTOPRAZOLE 40 MG INJ VIAL IVP SCH (08:28)
[2017-12-05] MEDS: LACTOBACILLUS RHAMNOSUS GG 1 EACH CAP NG SCH (08:28)
[2017-12-05] MEDS: FUROSEMIDE 40 MG/4 ML VIAL IVP SCH ×2 (09:00→20:58)
[2017-12-05] MEDS: METOPROLOL SUCCINATE 50 MG TABER PO SCH ×2 (09:00→20:56)
--- NOTE | 2017-12-05 09:28 | NUR ---
AT BEDSIDE, UPDATED ON PATIENT'S CONDITION. WILL FOLLOW UP ON ANY ORDERS.
--- NOTE | 2017-12-05 10:05 | NUR ---
TANDEM MILL OPERATOR AT BEDSIDE FOR ECHOCARDIOGRAM. PATIENT SHOWS NO SIGNS OF DISTRESS AT THIS TIME. HEMODIALYSIS IS STILL ON GOING. WILL CONTINUE TO MONITOR
--- NOTE | 2017-12-05 11:45 | NUR ---
HEMODIALYSIS COMPLETED, 3 LITERS OUTPUT, PER STATION CAPTAINANTOINE. BP IS 128/99, HR 113. NO SIGNS OF DISTRESS NOTED, PATIENT TOLERATED PROCEDURE WELL. WILL CONTINUE TO MONITOR
[2017-12-05] MEDS: DILTIAZEM 60 MG TAB PO SCH ×4 (12:03→20:57)
--- NOTE | 2017-12-05 12:25 | NUR ---
PROVIDED VAP ORAL CARE, PATIENT TOLERATED PROCEDURE WELL. PATIENT'S FAMILY AT BEDSIDE, EDUCATED ON IMPORTANCE OF VAP ORAL CARE. PATIENT SHOWS NO SIGNS OF DISTRESS AT THIS TIME. CALL LIGHT WITHIN REACH. WILL CONTINUE TO MONITOR.
--- NOTE | 2017-12-05 14:14 | NUR ---
CM NOTE NO REVIEW FAXED TO [facility] PER INSURANCE'S REQUEST.
--- NOTE | 2017-12-05 14:45 | NUR ---
CHANGED AND CLEANED PATIENT, NO SIGNS OF DISTRESS NOTED. PATIENT TURNED AND REPOSITIONED, HOB AT 30 DEGREES IN LOWEST POSSIBLE POSITION. CALL LIGHT WITHIN REACH
--- NOTE | 2017-12-05 15:45 | NUR ---
IN TO SEE PATIENT, UPDATED ON PATIENT'S CONDITION. WILL FOLLOW UP ON ANY ORDERS.
--- NOTE | 2017-12-05 16:05 | NUR ---
ORAL CARE GIVEN, VIA VAP ORAL KIT. PATIENT TOLERATED PROCEDURE WELL. WILL CONTINUE TO MONITOR
[2017-12-05] MEDS: WARFARIN 5 MG TAB PO SCH (16:22)
--- NOTE | 2017-12-05 16:41 | NUR ---
PATIENT FAMILY AT BEDSIDE. UPDATED ON PATIENT'S CONDITION
--- NOTE | 2017-12-05 19:06 | NUR ---
RECEIVED PT STABLE ON VENT SUPPORT AT DOCUMENTED SETTINGS, SUCTIONED SMALL AMOUNTS OF THICK CREAMY WHITE SECRETIONS, HHN TX GIVEN, TOLERATED WELL, NO RESP DISTRESS OR SOB NOTED AT THIS TIME, 7.5 ETT SECURED AT 23 CM AT THE GUM/TEETH, ALARMS SET AND AUDIBLE, AMBU BAG AT BEDSIDE, VENT PLUGGED INTO RED OUTLET, WILL CONT TO MONITOR.
--- NOTE | 2017-12-05 19:17 | NUR ---
GAVE BEDSIDE REPORT TO BULLET SLUGS INSPECTOR RN, BRET, FOR CONTINUITY OF CARE. PATIENT SHOWS NO SIGNS OF DISTRESS AT THIS TIME.
--- NOTE | 2017-12-05 19:20 | NUR ---
RECEIVED REPORT FROM MIRI RN AT BEDSIDE, PT IS SEDATED, RASS -4. ETT TO VENT WITH SETTING OF FIO2 35, AC 18, TV 600, PEEP 5, MALCOLM. DIMINISHED LUNG SOUNDS. TRU CATH TO RIJ, PATENT, RUNNING PROPOFOL DRIP AT 45MCG/MIN. A-FIB ON REAL ESTATE INVESTOR, CAP REFILL LESS THAN 3 SECS, GENERALIZED NON-PITTING EDEMA NOTED, OGT IN PLACE, FEEDING WITH NOVASOURCE RENAL AT 40ML/HR, 80ML RESIDUALS NOTED. LARGE ROUND ABDOMEN NOTED, SKIN IS INTACT, WARM AND DRY, SLIGHT REDNESS IN LOWER ABDOMINAL FOLD. SCROTAL SWOLLEN NOTED, PERIPHERAL LINE TO RIGHT AC, 20 GA, PATENT AND SL. NO URINE OUTPUT AND BOWEL MOVEMENT PER REPORT. ORAL CARE PROVIDED, POSITION CHANGED FOR OFF LOAD PRESSURE, SAFETY MEASURES IN PLACE, VSS, WILL CONTINUE TO MONITOR.
[2017-12-05] MEDS: AZITHROMYCIN 500 MG in DEXTROSE 5% 250 ML IV SCH (19:57)
[2017-12-05] MEDS: DOXAZOSIN 2 MG TAB PO SCH (20:56)
--- NOTE | 2017-12-05 22:00 | NUR ---
PT IS AWAKE, TRYING TO PULL THE TUBES, EXPLAINED THE USE OF TUBES, PT CALM DOWN. VSS AT THIS TIME, NO S/S OF DISTRESS, POSITION CHANGED FOR OFF LOAD PRESSURE.
[2017-12-06] VITALS (106 sets, daily range): BP systolic 106–146; BP diastolic 17–99
--- NOTE | 2017-12-06 | NUR ---
NO CHANGE OF CONDITION AT THIS TIME, VSS, ORAL CARE PROVIDED, POSITION CHANGED FOR OFF LOAD PRESSURE.
[2017-12-06] MEDS: PROPOFOL 1000 MG/100 ML PREMIX 100 ML IV PRN ×13 (00:21→22:06)
[2017-12-06] MEDS: MILD SOAP AND WATER TP SCH ×2 (01:00→13:30)
[2017-12-06] MEDS: ANTIFUNGAL CLEAR OINTMENT TP SCH ×2 (01:00→13:30)
--- NOTE | 2017-12-06 02:00 | NUR ---
PT IS STILL SEDATED, RASS -4, VSS, NO S/S OF DISTRESS, POSITION CHANGED FOR OFF LOAD PRESSURE.
--- NOTE | 2017-12-06 04:00 | NUR ---
AM CARE AND ORAL CARE PROVIDED, NO CHANGE OF CONDITION AT THIS TIME, VSS, POSITION CHANGED FOR OFF LOAD PRESSURE.
[2017-12-06] MEDS: SODIUM CHLORIDE FLUSH 10 ML SYR IVF SCH ×3 (04:41→20:59)
[2017-12-06] MEDS: methylPREDNISolone SS 125 MG/2 ML VIAL IVP SCH ×3 (04:41→20:59)
--- NOTE | 2017-12-06 06:00 | NUR ---
VSS, NO S/S OF DISTRESS, STILL ON SEDATION, RASS -4, POSITION CHANGED FOR OFF LOAD PRESSURE.
[2017-12-06 06:12] LABS: PROTHROMBIN TIME 12.4 secs (10.8-13.4)
[2017-12-06] MEDS: BLOOD GLUCOSE MONITORING 1 DEV DEV FS SCH ×4 (06:45→20:59)
[2017-12-06] MEDS: INSULIN LISPRO SLIDING SCALE 100 UNITS/ML VIAL SUBQ PRN ×3 (06:47→21:03)
[2017-12-06] MEDS: ALBUTEROL SULFATE/IPRATROPIU 3 ML SOL INH PRN ×2 (07:06→18:49)
[2017-12-06] MEDS: BUDESONIDE 0.5 MG/2 ML NEBU INH SCH ×2 (07:06→18:49)
--- NOTE | 2017-12-06 07:10 | NUR ---
REPORT GIVEN TO REJI ANDERSON AND MIRI RN AT BEDSIDE FOR CONTINUE OF CARE, PT IS IN STABLE CONDITION AT THIS TIME. VSS.
--- NOTE | 2017-12-06 07:15 | NUR ---
RECEIVED BEDSIDE REPORT FROM HEART SURGEON RNBRET FOR CONTINUITY OF CARE. PATIENT IS SEDATED, ON PROPOFOL 45MCG/KG/MIN, RASS-4. PATIENT HAS A ETT TO VENT, BILATERAL LUNG SOUNDS ARE CLEAR AND SYMMETRICAL. S1 AND S2 HEART SOUNDS HEARD, WOOD LATHE OPERATOR SHOWS A.FIB, CAP REFILL LESS THAN 3 SECS. HYPOACTIVE BOWEL SOUNDS HEARD IN ALL FOUR QUADS, PATIENT HAS OGT TO TUBE FEEDING, NO RESIDUAL OBSERVED. PATIENT HAS SCROTAL SWELLING. PATIENT HAS GENERALIZED EDEMA, SKIN INTACT, SLIGHT REDNESS IN ABDOMINAL FOLDS. PATIENT HAS RIGHT IJ TRU CATH AND RIGHT AC PERIPHERAL LINE 20 GAUGE, BOTH IV SITES ARE ASYMPTOMATIC, PATENT, AND INTACT. NO DISTRESS NOTED AT THIS TIME, CALL LIGHT WITHIN REACH, WILL CONTINUE TO MONITOR.
[2017-12-06 07:37] LABS: HEMATOCRIT 30.8 % (36-52); HEMOGLOBIN 9.8 g/dL (12.0-18.0); MEAN CORPUSCULAR HEMOGLOBIN 26 pg (27-31); MEAN CORPUSCULAR HGB CONC 32 g/dL (33-37); MEAN CORPUSCULAR VOLUME 83 fL (80-94); PLATELET COUNT (AUTO) 227 K/uL (140-450); RED BLOOD CELL COUNT(AUTO) 3.71 MIL/uL (4.20-6.10); RED CELL DISTRIBUTION WIDTH 15.9 % (11.6-13.7); WHITE BLOOD COUNT (AUTO) 8.3 K/uL (4.8-10.8)
[2017-12-06 07:48] LABS: ANION GAP 15.5 (8-16); CARBON DIOXIDE 25.9 mmol/L (21-32); CREATININE 3.5 mg/dL (0.7-1.3); LYMPHOCYTES % (MANUAL) 4 % (20-46); POTASSIUM 4.4 mmol/L (3.5-5.1)
[2017-12-06 07:49] LABS: MONOCYTES % (MANUAL) 4 % (5-12)
--- NOTE | 2017-12-06 07:49 | NUR ---
RECIVED PT ON VENT WITH SETTINGS CHARTED BREATH SOUNDS PRESENT BILAT CLEAR SXN PT WITH SMALL AMT OFF WHITE SECS AMBU BAG AT BEDSIDE VENT PLUGGED INTO RED OUTLET WILL CONTINUE TO MONITOR PT ON VENT
--- NOTE | 2017-12-06 08:00 | NUR ---
TURNED AND REPOSITIONED PATIENT, ORAL CARE GIVEN. PATIENT TOLERATED PROCEDURE WELL, NO SIGNS OF DISTRESS NOTED.
--- NOTE | 2017-12-06 08:05 | NUR ---
PATIENT'S SON AT BEDSIDE, UPDATED ON PATIENT'S CONDITION. WILL NOTIFY PATIENT'S SON WHEN DOCTOR IS IN TO SEE PATIENT.
--- NOTE | 2017-12-06 08:22 | NUR ---
LATE ENTRY. ON 12/04/17 AT 0924A.M. FAXED INITIAL REVIEW TO [facility] AT [phone] PHONE JAMEY [phone] [id number]
[2017-12-06] MEDS: LACTOBACILLUS RHAMNOSUS GG 1 EACH CAP NG SCH (08:24)
[2017-12-06] MEDS: TAMSULOSIN 0.4 MG CAP PO SCH (08:24)
[2017-12-06] MEDS: PANTOPRAZOLE 40 MG INJ VIAL IVP SCH (08:24)
--- NOTE | 2017-12-06 08:28 | NUR ---
ENTRY FOR 12/05/17 RECEIVED FAX FROM JAMEY BACH AT [facility] REF#[id number] INDICATING THAT PER DRG PT HOSPITALIZATION IS APPROVED AND INDICATED "DO NOT FAX DAILY CLINICAL DOCUMENTS OR REVIEWS" AND NEXT REVIEW DATE IS 12/10/17 CONTACT PHONE NUMBER FOR JAMEY IS [phone].
--- NOTE | 2017-12-06 08:35 | NUR ---
BEEF GRINDER AT BEDSIDE, STARTED PATIENT ON HEMODIALYSIS. NO SIGNS OF DISTRESS NOTED.
[2017-12-06] MEDS: METOPROLOL SUCCINATE 50 MG TABER PO SCH ×2 (09:00→21:00)
[2017-12-06] MEDS: DILTIAZEM 60 MG TAB PO SCH ×4 (09:00→21:00)
--- NOTE | 2017-12-06 11:15 | NUR ---
PT. RECEIVING HD AT THIS TIME. WILL VISIT PT. LATER.
--- NOTE | 2017-12-06 12:10 | NUR ---
DR. SOARES IN TO SEE PATIENT, UPDATED ON PATIENT'S CONDITION. WILL FOLLOW UP ON ANY ORDERS.
--- NOTE | 2017-12-06 12:15 | NUR ---
CHECKED PATIENT'S BLADDER WITH BLADDER SCANNER, NO URINE VOLUME NOTED. DR. SOARES MADE AWARE, POSTPONED CONSULTATION WITH DR. IBARRA UNTIL SCROTAL EDEMA DECREASES.
--- NOTE | 2017-12-06 12:32 | NUR ---
HEMODIALYSIS IS COMPLETED, 3.6L OUTPUT PER MEDICAL COLLECTIONS REPRESENTATIVE. PATIENT TOLERATED TREATMENT WELL, NO SIGNS OF DISTRESS AT THIS TIME. WILL CONTINUE TO MONITOR.
--- NOTE | 2017-12-06 13:50 | NUR ---
PATIENT STARTED ON SEDATION VACATION, RT AT BEDSIDE. PATIENT OPENS EYES, TRIED TO PULL OUT TUBES, REORIENTED PATIENT TO HOSPITAL, PATIENT ABLE TO FOLLOW SIMPLE COMMANDS. PUT BACK ON PROPOFOL, NO SIGNS OF DISTRESS AT THIS TIME. WILL CONTINUE TO MONITOR.
--- NOTE | 2017-12-06 14:25 | NUR ---
CLEAN AND CHANGED PATIENT, OBSERVED SCANT AMOUNT OF URINE. NO SIGNS OF DISTRESS AT THIS TIME. WILL CONTINUE TO MONITOR.
--- NOTE | 2017-12-06 14:28 | NUR ---
WOUND CARE EVALUATION NOTE: REASON FOR EVALUATION:LOW KENNEDY SCORE COMPLETE SKIN ASSESSMENT DONE ON THIS 47 Y/O MALE PATIENT ADMITTED TO [facility], WITH INITIAL DIAGNOSIS OF SOB. PAST MEDICAL HX INCLUDES JOSE M, A-FIB, DM, HTN AND OBESITY ALL ABOVE INFORMATION WAS OBTAINED FROM THE ADMISSION H&P . PT IS SEDATED.TRACH TO VENT. HD COMPLETED, RIGHT IJ DIALYSIS CATHETER IN PLACE DRESSING DRY AND INTACT. SKIN WARM AND DRY, TATTOO TO UE, +2 EDEMA BLE, NO HAIR GROWTH AND BILATERAL DORSAL PEDAL PULSES PRESENT. NEEDS MAX ASSISTANCE IN TURNING. INITIAL PLAN OF CARE AND PRESSURE PREVENTIVE MEASURES DISCUSSED WITH PRIMARY RN. INTEGUMENTARY: BLE SKIN DRY AND INTACT INTERTRIGO TO ABDOMEN FOLDS, R/L GROINS AND R/L UPPER THIGHS SCROTUM EDEMA, SKIN INTACT, SHINNING AND TIGHT RECOMMENDATIONS: -APPLY ANTIFUNGAL CREAM TO INTERTRIGO TO ABDOMEN FOLDS, R/L GROINS AND R/L UPPER THIGHS BIDWC AND PRN IF SOILING -APPLY INTER DRY TO FOLDS AREA AND INNER THIGHS TO SHIELD SCROTUM -APPLY MOISTURIZER TO DRY BLE SKIN -TURN AND REPOSITION PATIENT Q2H, ASSESS SKIN -OFFLOAD BILATERAL HEELS BY PLACING PILLOWS UNDER CALVES AT ALL TIMES, UNLESS OTHERWISE CONTRAINDICATED -KEEP SKIN CLEAN AND DRY AT ALL TIMES. -PRESSURE REDISTRIBUTION SURFACE THERAPY. RECOMMENDATIONS DISCUSSED WITH PRIMARY RN. PLEASE CONTACT WOUND CARE NURSE FOR ANY QUESTIONS AND CHANGES IN SKIN CONDITION.
--- NOTE | 2017-12-06 14:45 | NUR ---
IN TO SEE PATIENT, UPDATED ON PATIENT'S CONDITION, NOTIFIED THAT PATIENT HAS NO BM SINCE 3 DAYS. ORDERS RECEIVED. WILL CONTINUE TO MONITOR
[2017-12-06] MEDS: INTERDRY CLOTH TP SCH (15:25)
--- NOTE | 2017-12-06 16:05 | NUR ---
PATIENT'S SON AT BEDSIDE, UPDATED ON PATIENT'S CONDITION.
[2017-12-06] MEDS: WARFARIN 5 MG TAB PO SCH (16:34)
--- NOTE | 2017-12-06 17:42 | NUR ---
continued to monitor pt on vent withg asettings as charted breath sounds present bilat coarse sxn pt with mod amt brownish secs ambu bag at bedside vent plugged into red outlet
--- NOTE | 2017-12-06 18:30 | NUR ---
CALLED ANGELICA TRUJILLO FOR DIALYSIS TOMORROW. CENTRAL LINE DRESSING CHANGED.
--- NOTE | 2017-12-06 19:05 | NUR ---
REPORT GIVEN TO POUAKO KURA KAUPAPA MAORI RNBRET FOR CONTINUITY OF CARE. PATIENT SHOWS NO SIGNS OF DISTRESS AT THIS TIME.
--- NOTE | 2017-12-06 19:07 | NUR ---
RECEIVED REPORT FROM MIRI RN AT BEDSIDE, PT IS SEDATED, RASS -4. ETT TO VENT WITH SETTING OF FIO2 35, AC 14, TV 600, PEEP 5, MALCOLM. DIMINISHED LUNG SOUNDS. TRU CATH TO RIJ, PATENT, RUNNING PROPOFOL DRIP AT 45MCG/MIN. A-FIB ON BANANA RIPENING ROOM SUPERVISOR, CAP REFILL LESS THAN 3 SECS, GENERALIZED NON-PITTING EDEMA NOTED, OGT IN PLACE, FEEDING WITH NOVASOURCE RENAL AT 35ML/HR, 25 ML RESIDUALS AT THIS TIME. LARGE ROUND ABDOMEN NOTED, SKIN IS INTACT, WARM AND DRY, SLIGHT REDNESS IN LOWER ABDOMINAL FOLD. SCROTAL SWOLLEN NOTED, ELEVATED. PERIPHERAL LINE TO RIGHT AC, 20 GA, PATENT AND SL. FEEDING FORMULA CHANGED A NEW BAG, ORAL CARE PROVIDED, POSITION CHANGED FOR OFF LOAD PRESSURE, SAFETY MEASURES IN PLACE, VSS, WILL CONTINUE TO MONITOR.
[2017-12-06] MEDS: AZITHROMYCIN 500 MG in DEXTROSE 5% 250 ML IV SCH (19:28)
[2017-12-06] MEDS: DOXAZOSIN 2 MG TAB PO SCH (20:59)
[2017-12-06] MEDS: POLYETHYLENE GLYCOL 17 GM/PKT PO SCH (21:00)
--- NOTE | 2017-12-06 22:00 | NUR ---
VSS AT THIS TIME, NO S/S OF DISTRESS, POSITION CHANGED FOR OFF LOAD PRESSURE. FAMILY MEMBER AT BEDSIDE.
[2017-12-07] VITALS (106 sets, daily range): BP systolic 95–155; BP diastolic 45–103
--- NOTE | 2017-12-07 | NUR ---
NO CHANGE OF CONDITION AT THIS TIME, VSS, ORAL CARE PROVIDED, POSITION CHANGED FOR OFF LOAD PRESSURE.
[2017-12-07] MEDS: PROPOFOL 1000 MG/100 ML PREMIX 100 ML IV PRN ×11 (00:49→23:50)
[2017-12-07] MEDS: ANTIFUNGAL CLEAR OINTMENT TP SCH ×2 (00:50→13:00)
[2017-12-07] MEDS: MILD SOAP AND WATER TP SCH ×4 (00:50→13:00)
--- NOTE | 2017-12-07 02:00 | NUR ---
NO CHANGE OF CONDITION, RASS -4, VSS, NO S/S OF DISTRESS, POSITION CHANGED FOR OFF LOAD PRESSURE.
--- NOTE | 2017-12-07 04:00 | NUR ---
AM CARE AND ORAL CARE PROVIDED, PT HAD A SMALL SOFT YELLOWISH BOWEL MOVEMENT, FADUMO CARE PROVIDED, VSS, POSITION CHANGED FOR OFF LOAD PRESSURE.
[2017-12-07] MEDS: SODIUM CHLORIDE FLUSH 10 ML SYR IVF SCH ×3 (04:37→20:35)
[2017-12-07] MEDS: methylPREDNISolone SS 125 MG/2 ML VIAL IVP SCH ×3 (04:37→20:34)
--- NOTE | 2017-12-07 06:00 | NUR ---
VSS, NO S/S OF DISTRESS, STILL ON SEDATION, RASS -4, POSITION CHANGED FOR OFF LOAD PRESSURE
[2017-12-07 06:35] LABS: BASOPHILS % (AUTO) 0.4 % (0.0-2.0); EOSINOPHILS % (AUTO) 0.3 % (0.0-4.0); HEMATOCRIT 31.3 % (36-52); LYMPHOCYTES # (AUTO) 0.4 K/uL (2.0-11.5); LYMPHOCYTES % (AUTO) 4.7 % (20.5-51.1); MEAN CORPUSCULAR HEMOGLOBIN 27 pg (27-31); MEAN CORPUSCULAR HGB CONC 32 g/dL (33-37); MEAN CORPUSCULAR VOLUME 84 fL (80-94); MONOCYTES # (AUTO) 0.3 K/uL (0.8-1.0); MONOCYTES % (AUTO) 3.8 % (1.7-9.3); NEUTROPHILS # (AUTO) 8.3 K/uL (1.8-7.7); NEUTROPHILS % (AUTO) 90.8 % (42.2-75.2); PLATELET COUNT (AUTO) 215 K/uL (140-450); RED BLOOD CELL COUNT(AUTO) 3.73 MIL/uL (4.20-6.10); RED CELL DISTRIBUTION WIDTH 16.1 % (11.6-13.7)
[2017-12-07] MEDS: BLOOD GLUCOSE MONITORING 1 DEV DEV FS SCH ×4 (06:44→20:38)
[2017-12-07] MEDS: INSULIN LISPRO SLIDING SCALE 100 UNITS/ML VIAL SUBQ PRN ×4 (06:45→20:43)
[2017-12-07] MEDS: BUDESONIDE 0.5 MG/2 ML NEBU INH SCH ×2 (06:58→19:08)
[2017-12-07 07:00] LABS: ANION GAP 15.1 (8-16); CARBON DIOXIDE 26.2 mmol/L (21-32); CREATININE 3.4 mg/dL (0.7-1.3); POTASSIUM 4.3 mmol/L (3.5-5.1)
--- NOTE | 2017-12-07 07:00 | NUR ---
RECEIVED REPORT FROM BRET. PT SEDATED ON DIPRIVAN. PERRLA AND RESPONDS TO LIGHT PAIN. PT HAS ANASARCA THROUGHOUT ENTIRE BODY, NO PITTING. IN BARIATRIC BED WITH ROTATING SCHEDULE. PT OGT IN PLACE ON NOVOSOURCE WITH PROSOURCE TID. AND CHECKED THROUGH AUSCULTATION, 20MLS RESIDUALS, BOWEL SOUNDS HEARD IN ALL 4 QUADRANTS. 21S2 HEARD. PT ON ETT TO VENT. STOMACH DISTENDED, ROUND, FIRM. CHECKED ABDOMINAL FOLDS FOR IRRIGATION AND ENSURE AREAS WERE DRY. PT HAS SCDS ON. REPOSITIONED PT. FOR COMFORT, LEFT HEAD OF BED 35% AND IN BED LOWEST POSITION FOR SAFETY.
--- NOTE | 2017-12-07 07:07 | NUR ---
RECEIVED INTUBATED PT WITH 7.5 ETT SECURED @22 TEETH/GUMS ON VENT. SETTINGS AC 14, VT 600, PEEP 5 AND FIO2 35%. PT SUCTIONED OBTAINED SMALL AMOUNT OF THICK YELLOW SECRETIONS. AIRWAY IS PATENT AND ETT IS SECURE. PT IS NOT SOB AND NOT IN RESPIRATORY DISTRESS. VENT IS PLUGGED INTO A RED OUTLET WITH ALARMS ON AND FUNCTIONING. WILL CONTINUE TO MONITOR.
--- NOTE | 2017-12-07 07:15 | NUR ---
REPORT GIVEN TO REJI GALLAGHER AT BEDSIDE FOR CONTINUE OF CARE, PT IS IN STABLE CONDITION AT THIS TIME.
[2017-12-07 07:46] LABS: PROTHROMBIN TIME 12.8 secs (10.8-13.4)
--- NOTE | 2017-12-07 08:00 | NUR ---
ORAL CARE PROVIDED PER VAP PROTOCOL
[2017-12-07] MEDS: LACTOBACILLUS RHAMNOSUS GG 1 EACH CAP NG SCH (08:43)
[2017-12-07] MEDS: TAMSULOSIN 0.4 MG CAP PO SCH (08:45)
[2017-12-07] MEDS: PANTOPRAZOLE 40 MG INJ VIAL IVP SCH (08:56)
[2017-12-07] MEDS: DILTIAZEM 60 MG TAB PO SCH ×5 (08:57→21:53)
[2017-12-07] MEDS: METOPROLOL SUCCINATE 50 MG TABER PO SCH ×2 (08:57→20:35)
[2017-12-07] MEDS: MORPHINE SULFATE 2 MG/ML SYR IVP PRN ×2 (09:34→19:29)
--- NOTE | 2017-12-07 10:50 | NUR ---
PTS SON, NICOLE, AT BEDSIDE.
--- NOTE | 2017-12-07 12:00 | NUR ---
VAP ORAL CARE PERFORMED FOR INFECTION PREVENTION PER PROTOCOL
--- NOTE | 2017-12-07 14:28 | NUR ---
DIALYSIS NURSE, LISS MENDOZA., BEGAN DIALYSIS
--- NOTE | 2017-12-07 15:27 | NUR ---
PT REMAINS ON DOCUMENTED SETTINGS NO CHANGES MADE TO VENT. PT RECEIVING DIALYSIS AT THIS TIME. PT NOT SHOWING ANY SIGNS/SYMPTOMS OF RESPIRATORY DISTRESS. WILL CONTINUE TO MONITOR.
[2017-12-07] MEDS ORDERED: WARFARIN 5 MG TAB ONE (16:37)
[2017-12-07] MEDS ORDERED: WARFARIN 5 MG, WARFARIN 1 MG PO SCH ×2 (17:00)
[2017-12-07] MEDS ORDERED: WARFARIN 1 MG TAB ONE (17:10)
--- NOTE | 2017-12-07 17:38 | NUR ---
PT IS NOT DEMONSTRATING ANY SIGNS/SYMPTOMS OF RESPIRATORY DISTRESS. NO CHANGES MADE TO VENTILATOR. VENT ALARMS REMAIN ON AND FUNCTIONING. ETT REMAINS SECURE WITH A PATENT AIRWAY.
--- NOTE | 2017-12-07 19:36 | NUR ---
GAVE REPORT TO RAYA QUEEN RN, FOR CONTINUITY OF CARE. PT IS IN STABLE CONDITION
--- NOTE | 2017-12-07 19:37 | NUR ---
RECEIVED REPORT FROM AILEEN RN AT BEDSIDE, PT IS SEDATED, RASS -4. ETT TO VENT WITH SETTING OF FIO2 35, AC 14, TV 600, PEEP 5, MALCOLM. DIMINISHED LUNG SOUNDS. TRU CATH TO RIJ, PATENT, RUNNING PROPOFOL DRIP AT 35MCG/MIN. A-FIB ON CASE SPECIALIST, CAP REFILL LESS THAN 3 SECS, GENERALIZED NON-PITTING EDEMA NOTED, OGT IN PLACE, FEEDING WITH NOVASOURCE RENAL AT 35ML/HR, 0 ML RESIDUALS AT THIS TIME. LARGE ROUND ABDOMEN NOTED, SKIN IS INTACT, WARM AND DRY, SLIGHT REDNESS IN LOWER ABDOMINAL FOLD. SCROTAL SWOLLEN NOTED. PERIPHERAL LINE TO RIGHT AC, 20 GA, PATENT AND SL. FEEDING FORMULA CHANGED A NEW BAG, ORAL CARE PROVIDED, POSITION CHANGED FOR OFF LOAD PRESSURE, SAFETY MEASURES IN PLACE, VSS, WILL CONTINUE TO MONITOR.
[2017-12-07] MEDS: DOXAZOSIN 2 MG TAB PO SCH (20:35)
[2017-12-07] MEDS: POLYETHYLENE GLYCOL 17 GM/PKT PO SCH (20:35)
--- NOTE | 2017-12-07 22:00 | NUR ---
NO S/S OF DISTRESS, VSS, POSITION CHANGED FOR OFF LOAD PRESSURE. CARDIZEM GIVEN FOR SCHEDULED ONE AT 9PM VIA OGT, PT TOLERATED WELL.
[2017-12-08] VITALS (96 sets, daily range): BP systolic 95–146; BP diastolic 45–98
--- NOTE | 2017-12-08 | NUR ---
NO CHANGE OF CONDITION AT THIS TIME, VSS, ORAL CARE PROVIDED, POSITION CHANGED FOR OFF LOAD PRESSURE.
[2017-12-08] MEDS: ANTIFUNGAL CLEAR OINTMENT TP SCH ×2 (00:22→13:00)
[2017-12-08] MEDS: MILD SOAP AND WATER TP SCH ×4 (00:22→13:00)
--- NOTE | 2017-12-08 02:00 | NUR ---
NO CHANGE OF CONDITION, RASS -4, VSS, NO S/S OF DISTRESS, POSITION CHANGED FOR OFF LOAD PRESSURE.
[2017-12-08] MEDS: PROPOFOL 1000 MG/100 ML PREMIX 100 ML IV PRN ×9 (02:09→22:43)
--- NOTE | 2017-12-08 04:00 | NUR ---
AM CARE AND ORAL CARE PROVIDED, VSS, POSITION CHANGED FOR OFF LOAD PRESSURE.
[2017-12-08] MEDS: methylPREDNISolone SS 125 MG/2 ML VIAL IVP SCH ×3 (04:15→20:27)
[2017-12-08] MEDS: SODIUM CHLORIDE FLUSH 10 ML SYR IVF SCH ×3 (05:00→20:30)
--- NOTE | 2017-12-08 06:00 | NUR ---
VSS, NO S/S OF DISTRESS, STILL ON SEDATION, RASS -4, POSITION CHANGED FOR OFF LOAD PRESSURE
--- NOTE | 2017-12-08 06:10 | NUR ---
BLADDER SCAN DONE WITH RESULT OF GREATER THAN 999ML. Addendum: 12/08/17 at 0707 by Cheryl Moya RN ENDORSED TO AM NURSE TO FOLLOW UP WITH .
[2017-12-08] MEDS: BLOOD GLUCOSE MONITORING 1 DEV DEV FS SCH ×4 (06:49→20:30)
[2017-12-08] MEDS: INSULIN LISPRO SLIDING SCALE 100 UNITS/ML VIAL SUBQ PRN ×4 (06:50→20:24)
--- NOTE | 2017-12-08 07:09 | NUR ---
REPORT GIVEN TO REJI GALLAGHER AT BEDSIDE FOR CONTINUE OF CARE, PT IS IN STABLE CONDITION AT THIS TIME.
[2017-12-08] MEDS: BUDESONIDE 0.5 MG/2 ML NEBU INH SCH ×2 (07:15→19:12)
--- NOTE | 2017-12-08 07:24 | NUR ---
RECEIVED INTUBATED PT WITH 7.5 ETT SECURED @22 TEETH/GUMS ON VENT. SETTINGS AC 14, VT 600, PEEP 5 AND FIO2 35%. PT SUCTIONED OBTAINED SMALL AMOUNT OF THICK YELLOW SECRETIONS. AIRWAY IS PATENT AND ETT IS SECURE. PT IS NOT SOB AND NOT IN RESPIRATORY DISTRESS. PT WILL MOVE ARMS BUT IS NOT AWAKE OR ALERT. VENT IS PLUGGED INTO A RED OUTLET WITH ALARMS ON AND FUNCTIONING. WILL CONTINUE TO MONITOR.
[2017-12-08 07:45] LABS: BASOPHILS # (AUTO) 0.1 K/uL (0.00-0.22); BASOPHILS % (AUTO) 1.8 % (0.0-2.0); EOSINOPHILS % (AUTO) 0.3 % (0.0-4.0); HEMATOCRIT 31.9 % (36-52); HEMOGLOBIN 9.9 g/dL (12.0-18.0); LYMPHOCYTES # (AUTO) 0.4 K/uL (2.0-11.5); LYMPHOCYTES % (AUTO) 5.2 % (20.5-51.1); MEAN CORPUSCULAR HEMOGLOBIN 26 pg (27-31); MEAN CORPUSCULAR HGB CONC 31 g/dL (33-37); MEAN CORPUSCULAR VOLUME 84 fL (80-94); MONOCYTES # (AUTO) 0.1 K/uL (0.8-1.0); MONOCYTES % (AUTO) 1.1 % (1.7-9.3); NEUTROPHILS # (AUTO) 7.2 K/uL (1.8-7.7); NEUTROPHILS % (AUTO) 91.6 % (42.2-75.2); PLATELET COUNT (AUTO) 183 K/uL (140-450); RED BLOOD CELL COUNT(AUTO) 3.79 MIL/uL (4.20-6.10); RED CELL DISTRIBUTION WIDTH 15.7 % (11.6-13.7); WHITE BLOOD COUNT (AUTO) 7.8 K/uL (4.8-10.8)
[2017-12-08 07:56] LABS: PROTHROMBIN TIME 12.7 secs (10.8-13.4)
[2017-12-08 08:01] LABS: ALBUMIN 2.8 g/dL (3.4-5.0); ANION GAP 15.5 (8-16); CARBON DIOXIDE 25.2 mmol/L (21-32); POTASSIUM 4.7 mmol/L (3.5-5.1); TOTAL BILIRUBIN 0.6 mg/dL (0.0-1.0)
[2017-12-08 08:04] LABS: CREATININE 4.1 mg/dL (0.7-1.3)
--- NOTE | 2017-12-08 08:12 | NUR ---
CALLED DR SOARES AND MADE AWARE OF LAB RESULTS. WITH ORDERS FOR DIALYSIS AND U/S OF BLADDER AND KIDNEYS. WILL TRANSCRIBE ORDERS.
[2017-12-08] MEDS: METOPROLOL SUCCINATE 50 MG TABER PO SCH ×2 (09:00→20:28)
[2017-12-08] MEDS: DILTIAZEM 60 MG TAB PO SCH ×4 (09:00→20:29)
--- NOTE | 2017-12-08 09:15 | NUR ---
HEMODIALYSIS ON GOING.
--- NOTE | 2017-12-08 09:31 | NUR ---
PT RECEIVING DIALYSIS AT THIS TIME. PT NOT DEMONSTRATING ANY SIGNS/SYMPTOMS OF RESPIRATORY DISTRESS. WILL CONTINUE TO MONITOR.
[2017-12-08] MEDS ORDERED: ALBUMIN HUMAN 25% 200 ML IV ONE (10:05)
--- NOTE | 2017-12-08 13:20 | NUR ---
HEMODIALYSIS DONE. PER BIAS CUTTING MACHINE OPERATOR VERTICAL PULLED OUT 5L. PATIENT TOLERATED WELL. NOT IN DISTRESS.
--- NOTE | 2017-12-08 13:27 | NUR ---
PT RECEIVING DIALYSIS AT THIS TIME. PT SUCTIONED OBTAINED MODERATE AMOUNT OF THICK YELLOW SECRETIONS, AIRWAY IS PATENT AND ETT IS SECURE. WILL CONTINUE TO MONITOR.
[2017-12-08] MEDS: PANTOPRAZOLE 40 MG INJ VIAL IVP SCH (13:49)
[2017-12-08] MEDS: LACTOBACILLUS RHAMNOSUS GG 1 EACH CAP NG SCH (13:50)
[2017-12-08] MEDS: TAMSULOSIN 0.4 MG CAP PO SCH (13:50)
--- NOTE | 2017-12-08 16:30 | NUR ---
FC INSERTED BY DR. IBARRA. PATIENT TOLERATED PROCEDURE WELL. URINE CULTURE AND UA COLLECTED AND SENT TO LAB.
[2017-12-08] MEDS ORDERED: WARFARIN PO SCH ×2 (17:00)
--- NOTE | 2017-12-08 17:00 | NUR ---
PT SUCTIONED OBTAINED SMALL AMOUNT OF THICK YELLOW SECRETIONS, ETT REMAINS SECURE WITH A PATENT AIRWAY. NO CHANGES MADE TO VENTILATOR, ALARMS REMAIN ON AND FUNCTIONING . PT IS NOT SOB AND NOT DEMONSTRATING ANY SIGNS/SYMPTOMS OF RESPIRATORY DISTRESS.
[2017-12-08] MEDS ORDERED: WARFARIN 1 MG TAB ONE (17:17)
--- NOTE | 2017-12-08 19:30 | NUR ---
REPORT GIVEN TO NIGHT RN FOR CONTINUITY OF CARE. PATIENT IN STABLE CONDITION.
--- NOTE | 2017-12-08 20:00 | NUR ---
PATIENT SEDATED, ON PROPOFOL DRIP AT 35 MCG/KG/MIN AT THIS TIME, ATRIAL FIB ON THE MONITOR, ETT TO VENT, WITH RIJ TRU CATH WITH PIGTAIL, INTACT AND PATENT. PATIENT HAD HEMODIALYSIS TODAY WITH 5000 ML OUTPUT. OGT INTACT, FEEDING OF NOVASOURCE RENAL AT 35 ML/HR. COSTELLO CATHETER PATENT, DRAINING DARK NADJA URINE. HAS IAD ON MALCOLM GROINS. ABDOMINAL FOLDS AND SCROTUM. PATIENT WITH GENERALIZED EDEMA, ON SPECIAL BED, KEPT CLEAN AND COMFORTABLE.
[2017-12-08] MEDS: POLYETHYLENE GLYCOL 17 GM/PKT PO SCH (20:27)
[2017-12-08] MEDS: DOXAZOSIN 2 MG TAB PO SCH (20:28)
--- NOTE | 2017-12-08 20:30 | NUR ---
PATIENT'S FAMILY (SISTER AND SON NICOLE BARRY) HERE TO SEE THE PATIENT.
--- NOTE | 2017-12-08 22:07 | NUR ---
PROPOFOL DRIP REMAINS AT 35 MCG/KG/MIN, RASS -4, CONTINUE TO MONITOR.
[2017-12-08] MEDS: FUROSEMIDE 40 MG/4 ML VIAL IVP SCH (23:48)
[2017-12-09] VITALS (50 sets, daily range): BP systolic 114–145; BP diastolic 52–104
--- NOTE | 2017-12-09 | NUR ---
LASIX 40 MG IVP GIVEN ORDERED, COSTELLO CATH WITH SMALL AMOUNT OF DARK NADJA URINE. PROPOFOL DRIP REMAINS AT 35 MCG/KG/MIN.
[2017-12-09 00:57] LABS: APPEARANCE,URINE CLEAR (CLEAR); BILIRUBIN,URINE 1+ (NEGATIVE); BLOOD, URINE NEGATIVE (NEGATIVE); COLOR,URINE BROWN (YELLOW); LEUKOCYTE ESTERASE ,URINE NEGATIVE (NEGATIVE); NITRITE, URINE NEGATIVE (NEGATIVE); UGLUCOSE NEGATIVE (NEGATIVE)
[2017-12-09] MEDS: ANTIFUNGAL CLEAR OINTMENT TP SCH ×2 (01:05→18:02)
[2017-12-09] MEDS: MILD SOAP AND WATER TP SCH ×4 (01:06→18:00)
[2017-12-09] MEDS: PROPOFOL 1000 MG/100 ML PREMIX 100 ML IV PRN ×8 (01:17→22:15)
[2017-12-09 01:35] LABS: RBC,URINE 0-5 (RARE) /HPF (0-5); WBC,URINE 0-5 (RARE) /HPF (0-5)
--- NOTE | 2017-12-09 02:00 | NUR ---
PATIENT RESTING COMFORTABLY.
--- NOTE | 2017-12-09 04:00 | NUR ---
ORAL CARE PROVIDED WITH VAP KIT, NO RESIDUAL OBTAINED FROM OGT, PROPOFOL DRIP REMAINS AT 35 MCG/KG/MIN.
[2017-12-09] MEDS: INTERDRY CLOTH TP SCH (04:30)
[2017-12-09] MEDS: SODIUM CHLORIDE FLUSH 10 ML SYR IVF SCH ×3 (05:33→20:45)
[2017-12-09] MEDS: methylPREDNISolone SS 125 MG/2 ML VIAL IVP SCH ×3 (05:34→20:45)
[2017-12-09] MEDS: FUROSEMIDE 40 MG/4 ML VIAL IVP SCH (05:36)
--- NOTE | 2017-12-09 06:00 | NUR ---
AM CARE PROVIDED, NO ACUTE RESPIRATORY DISTRESS, FLACC 0.
--- NOTE | 2017-12-09 06:15 | NUR ---
CALLED DR. MAGGIE MCINTOSH TO INFORM REGARDING CARDIO CONSULT ORDERED BY DR. HOWARD, DR. MCINTOSH TO COME AND SEE THE PATIENT TODAY.
[2017-12-09] MEDS: BLOOD GLUCOSE MONITORING 1 DEV DEV FS SCH ×4 (06:35→20:45)
[2017-12-09] MEDS: INSULIN LISPRO SLIDING SCALE 100 UNITS/ML VIAL SUBQ PRN ×3 (06:42→20:49)
[2017-12-09 06:57] LABS: BASOPHILS % (AUTO) 0.3 % (0.0-2.0); EOSINOPHILS # (AUTO) 0.1 K/uL (0-0.4); EOSINOPHILS % (AUTO) 0.9 % (0.0-4.0); HEMATOCRIT 31.3 % (36-52); HEMOGLOBIN 9.9 g/dL (12.0-18.0); LYMPHOCYTES # (AUTO) 0.3 K/uL (2.0-11.5); LYMPHOCYTES % (AUTO) 3.9 % (20.5-51.1); MEAN CORPUSCULAR HEMOGLOBIN 27 pg (27-31); MEAN CORPUSCULAR HGB CONC 32 g/dL (33-37); MEAN CORPUSCULAR VOLUME 84 fL (80-94); MONOCYTES # (AUTO) 0.2 K/uL (0.8-1.0); MONOCYTES % (AUTO) 3.2 % (1.7-9.3); NEUTROPHILS # (AUTO) 6.4 K/uL (1.8-7.7); NEUTROPHILS % (AUTO) 91.7 % (42.2-75.2); PLATELET COUNT (AUTO) 155 K/uL (140-450); RED BLOOD CELL COUNT(AUTO) 3.72 MIL/uL (4.20-6.10); RED CELL DISTRIBUTION WIDTH 15.9 % (11.6-13.7)
[2017-12-09] MEDS: BUDESONIDE 0.5 MG/2 ML NEBU INH SCH ×2 (07:25→19:10)
[2017-12-09] MEDS: ALBUTEROL SULFATE/IPRATROPIU 3 ML SOL INH PRN ×2 (07:26→19:10)
--- NOTE | 2017-12-09 07:30 | NUR ---
RECEIVED REPORT FROM NOC SHIFT RN. PT RESTING IN BED. PUPILS REACTIVE TO LIGHT. SKIN DRY AND WARM TO TOUCH. A FIB ON MONITOR. ETT TO VENT. AC 14 FIO2 50, TV 600, PEEP 5. OGTUBE IN PLACE. FEEDING ON HOLD. RESIDUAL 0. RIGHT IJ INTACT, PROPOFOL RUNNING AT 35 MCG/KG/MIN. PT OPENS EYES ON CALLING, WITHDRAWS TO PAIN. ABLE TO FOLLOW SIMPLE COMMANDS. LUNGS SOUND DIMINISHED ON AUSCULTATION. RIGHT UPPER CHEST COVERED WITH DRESSING. ABDOMEN FIRM ROUND AND NON-TENDER. ABSENT BOWEL SOUND. COSTELLO'S CATH IN PLACE DRAINING SMALL AMOUNT OF URINE VIA GRAVITY. REDNESS ON BILATERAL GROIN AND ABDOMINAL FOLDS. GENERALIZED BODY EDEMA NOTED. TWO SITES ON ABDOMEN COVERED WITH ALCOHOL PADS, SMALL AMOUNT OF BLOOD COMING FROM SITE AND SMALL DRESSING. CALL LIGHT WITHIN REACH, BED IN LOW POSITION LOCKED. WILL CONTINUE TO MONITOR.
[2017-12-09 07:34] LABS: ALBUMIN 2.9 g/dL (3.4-5.0); ANION GAP 15.5 (8-16); CARBON DIOXIDE 24.1 mmol/L (21-32); POTASSIUM 4.6 mmol/L (3.5-5.1); TOTAL BILIRUBIN 0.6 mg/dL (0.0-1.0)
[2017-12-09 07:36] LABS: PROTHROMBIN TIME 12.6 secs (10.8-13.4)
[2017-12-09] MEDS: PANTOPRAZOLE 40 MG INJ VIAL IVP SCH (10:01)
[2017-12-09] MEDS: DILTIAZEM 60 MG TAB PO SCH ×4 (10:02→20:16)
[2017-12-09] MEDS: LACTOBACILLUS RHAMNOSUS GG 1 EACH CAP NG SCH (10:02)
[2017-12-09] MEDS: TAMSULOSIN 0.4 MG CAP PO SCH (10:03)
[2017-12-09] MEDS: METOPROLOL SUCCINATE 50 MG TABER PO SCH ×2 (10:03→20:15)
--- NOTE | 2017-12-09 10:18 | NUR ---
ADMINISTERED MEDICATION PER ORDER. TOLERATING WELL. PT ON CONTINUOUS SEDATION. ST ON MONITOR. WILL CONTINUE TO MONITOR.
--- NOTE | 2017-12-09 11:05 | NUR ---
BP 119/59.
[2017-12-09] MEDS: FUROSEMIDE 100 MG in DEXTROSE 5% 100 ML IV SCH (11:12)
--- NOTE | 2017-12-09 12:15 | NUR ---
STARTED DIALYSIS. HR 92, RR 14, SPO2 94%, BP 131/74. DIALYSIS NURSE AT BEDSIDE. SON AT BEDSIDE. PT ON CONTINUOUS MONITORING
--- NOTE | 2017-12-09 13:58 | NUR ---
CM NOTE NO REVIEW FAXED PER INSURANCE'S REQUEST.
--- NOTE | 2017-12-09 14:10 | NUR ---
PT AGITATED. TURNED OFF THE LIGHT. PT KEPT PT CLEAN AND DRY. ON CONTINUOUS MONITORING. Addendum: 12/09/17 at 1422 by Qi Rowland RN WRONG CHARTING
--- NOTE | 2017-12-09 14:34 | NUR ---
12/09/17 RD FOLLOW UP COMPLETED. PLEASE REFER TO NUTRITION ASSESSMENT UNDER CARE ACTIVITY FOR ESTIMATED NUTRITIONAL NEEDS. AT 35 ML/HR, PROPOFOL IS PROVIDING 924 KCALS/DAY. NOVASOURCE RENAL @ 35 ML/HR + PROTEIN PACK TID IS PROVIDING 1860 KCALS AND 121 GM PRO/DAY. IN TOTAL, PT IS RECEIVING 2784 KCALS AND 121 GM PRO/DAY, MEETING 100% EST KCAL AND 95% EST PRO NEEDS/DAY ONCE PT NO LONGER RECEIVING PROPOFOL, MAY CONSIDER INCREASING RATE OF TUBE FEED AND ELIMINATING PROTEIN PACKS TO: NOVASOURCE RENAL @ 60 ML/HR. THIS WILL PROVIDE 2880 KCALS AND 131 GM PRO/DAY, TO MEET 100% ESTIMATED ENERGY AND PROTEIN NEEDS PER DAY. RD TO FOLLOW-UP IN 2-3 DAYS PATIENT IS HIGH RISK. ZAIN [address]
--- NOTE | 2017-12-09 18:34 | NUR ---
CARDIZEM FOR 1300 ADMINISTERED AT 1600 PT WAS ON DIALYSIS. CARDIZEM FOR 1700 NOT ADMINISTERED. TOO EARLY TO GIVE SECOND DOSE OF CARDIZEM.
--- NOTE | 2017-12-09 18:36 | NUR ---
HEPARIN NOT ADMINISTERED. PT HAS ACTIVE BLEEDING FROM LEFT LOWER QUADRANT AREA INJECTION SITE. DRESSING CHANGED AT THE SITE. NOTIFIED DR. PATINO ABOUT ACTIVE BLEEDING. ORDERED TO STOP HEPARIN UNTIL FURTHER ORDER FROM DR. HOWARD.
--- NOTE | 2017-12-09 18:39 | NUR ---
PT RESTING IN BED. CONTINUE ON PROPOFOL DRIP. RASS -4. ST ON MONITOR. SPO2 96%. BP 125/68. NO ACUTE RESPIRATORY DISTRESS. NO CHANGE IN LOC. WILL CONTINUE TO MONITOR.
--- NOTE | 2017-12-09 19:18 | NUR ---
RECEIVED PT STABLE ON VENT SUPPORT AT DOCUMENTED SETTINGS, SUCTIONED SMALL THICK BROWN YELLOW SECRETIONS, HHN TX GIVEN, TOLERATED WELL, NO RESP DISTRESS OR SOB NOTED AT THIS TIME, 7.5 ETT SECURED AND PATENT AT 22 CM AT THE TEETH/GUM, ALARMS SET AND AUDIBLE, AMBU BAG AT BEDSIDE, VENT PLUGGED INTO RED OUTLET, WILL CONT TO MONITOR.
--- NOTE | 2017-12-09 19:25 | NUR ---
ENDORSED TO NOC SHIFT RN FOR CONTINUITY OF CARE. PT ON STABLE CONDITION.
--- NOTE | 2017-12-09 19:30 | NUR ---
RECEIVED REPORT FROM AM SHIFT. VSS, NO S/S ACUTE DISTRESS NOTED. WILL CONTINUE TO OBSERVE.
--- NOTE | 2017-12-09 20:00 | NUR ---
PT SEDATED, AROUSABLE @ TIMES, ON PROPOFOL DRIP @ 35 MCG, RASS -4. PERRL +3 CONTROLLED AFIB ON MONITOR 80S-110S. GENERALIZED EDEMA NOTED; SEVERE SCROTAL EDEMA PRESENT. LUNGS DIMINISHED PT. ETT TO VENT 7.5, 24 @ LIP. AC 40% FIO2 TV 600 RR 14, PEEP 5. OGT PRESENT, PATENT NOVASOURCE FEEDINGS. COSTELLO CATH IN PLACE DARK NADJA URINE. HD CATH WITH PIGTAIL PRESENT TO R UPPER NECK. SKIN INTACT. NO ACUTE DISTRESS NOTED. WILL CONTINUE TO OBSERVE.
[2017-12-09] MEDS: POLYETHYLENE GLYCOL 17 GM/PKT PO SCH (20:13)
[2017-12-09] MEDS: DOXAZOSIN 2 MG TAB PO SCH (20:13)
--- NOTE | 2017-12-09 20:13 | NUR ---
DR. MCINTOSH @ BEDSIDE. WILL REVIEW ORDERS. NO ACUTE DISTRESS NOTED.
--- NOTE | 2017-12-09 22:00 | NUR ---
PT SUCTIONED, SCANT CREAMY SPUTUM NOTED. VITAL SIGNS STABLE, NO ACUTE DISTRESS NOTED WILL CONTINUE TO OBSERVE.
[2017-12-10] VITALS (40 sets, daily range): BP systolic 108–159; BP diastolic 53–101
--- NOTE | 2017-12-10 | NUR ---
PT AROUSABLE, SUCTIONED SCANT DAMIAN SPUTUM. ORAL CARE PERFORMED. AFIB 80-90S ON MONITOR. PT OLIGURIC, LOW URINE OUTPUT. NO ACUTE S/S OF DISTRESS NOTED. WILL CONTINUE TO MONITOR.
[2017-12-10] MEDS: ANTIFUNGAL CLEAR OINTMENT TP SCH ×2 (01:09→16:43)
[2017-12-10] MEDS: MILD SOAP AND WATER TP SCH ×4 (01:10→13:00)
[2017-12-10] MEDS: MORPHINE SULFATE 2 MG/ML SYR IVP PRN (01:38)
[2017-12-10] MEDS: PROPOFOL 1000 MG/100 ML PREMIX 100 ML IV PRN ×9 (02:15→22:20)
--- NOTE | 2017-12-10 02:30 | NUR ---
VS STABLE AT THIS TIME. NO CHANGE IN CONDITION. NO SIGNS OF DISTRESS NOTED ON PT. STILL ON PROPOFOL DRIP AT 40.53ML/HR. WILL CONTINUE TO MONITOR PT.
--- NOTE | 2017-12-10 04:10 | NUR ---
LINENS CHANGED. NO BM NOTED. PM CARE PROVIDED AND COSTELLO CARE. COSTELLO CATHETER SECURED IN PLACE. PT ABLE TO TOLERATE BEING TURNED AND REPOSITIONED. PT'S BED TURNS HIM [id number]. WILL CONTINUE TO MONITOR PT.
[2017-12-10] MEDS: methylPREDNISolone SS 125 MG/2 ML VIAL IVP SCH ×2 (04:49→20:13)
[2017-12-10] MEDS: SODIUM CHLORIDE FLUSH 10 ML SYR IVF SCH ×3 (04:49→20:13)
--- NOTE | 2017-12-10 06:05 | NUR ---
PT RESTING COMFORTABLE IN BED, FLACC 0 RASS -4. NO ACUTE DISTRESS NOTED. VITAL SIGNS STABLE. WILL CONTINUE TO OBSERVE.
[2017-12-10] MEDS: ALBUTEROL SULFATE/IPRATROPIU 3 ML SOL INH PRN ×2 (06:38→19:36)
--- NOTE | 2017-12-10 06:41 | NUR ---
RECEIVED PT ON [place] ON A/C 14 VT 600 PEEP5 FIO2 40 ALARMS ARE ON AND AUDIBLE PTS ET TUBE SIZE 7.5 IS SECURE 22CM ANCHOR FAST IN PLACE BS WHEEZE HHN GIVEN I\L PT IN HF QUIET WEARING SOFT MITTENS NO APPARENT DISTRESS NOTED VENT PLUGGED INTO RED OUTLET BMV HOB
[2017-12-10] MEDS: BUDESONIDE 0.5 MG/2 ML NEBU INH SCH ×2 (06:50→19:36)
--- NOTE | 2017-12-10 07:15 | NUR ---
RECEIVED BEDSIDE REPORT FROM FARMER TREE FRUIT AND NUT CROPS RNJEANNE. PATIENT IS AAOX2, ABLE TO FOLLOW SIMPLE COMMANDS, PATIENT IS ON PROPOFOL 35MCG/KG/MIN, RASS -4. PATIENT SKIN IS WARM AND DRY, INTACT, REDNESS TO ABDOMINAL FOLDS. PATIENT HAS RIGHT IJ TRU CATH, ASYMPTOMATIC, PATENT, INTACT. BILATERAL LUNG SOUNDS ARE CLEAR, SYMMETRICAL, PATIENT HAS EET TO VENT. S1 AND S2 SOUNDS HEARD, CAP REFILL LESS THAN 3 SECS, A.FIB ON MONITOR. PATIENT HAS OGT TO TUBE FEEDING, NO RESIDUAL, NOVASOURCE 35ML/HR. PATIENT HAS COSTELLO CATHETER TO NADJA URINE, PATIENT HAS SCROTAL EDEMA. NO SIGNS OF DISTRESS AT THIS TIME, BED IS IN SEMI-FOWLERS IN LOWEST POSSIBLE POSITION, CALL LIGHT WITHIN REACH. WILL CONTINUE TO MONITOR
--- NOTE | 2017-12-10 07:25 | NUR ---
REPORT GIVEN TO KAYLAH, RN FOR CONTINUITY OF CARE. PT STABLE AT THIS TIME.
[2017-12-10] MEDS: BLOOD GLUCOSE MONITORING 1 DEV DEV FS SCH ×4 (08:17→20:13)
[2017-12-10] MEDS: LACTOBACILLUS RHAMNOSUS GG 1 EACH CAP NG SCH (08:30)
[2017-12-10] MEDS: PANTOPRAZOLE 40 MG INJ VIAL IVP SCH (08:30)
[2017-12-10] MEDS: TAMSULOSIN 0.4 MG CAP PO SCH (08:30)
[2017-12-10] MEDS: FUROSEMIDE 100 MG in DEXTROSE 5% 100 ML IV SCH (08:36)
[2017-12-10] MEDS: METOPROLOL SUCCINATE 50 MG TABER PO SCH ×2 (09:00→20:19)
[2017-12-10] MEDS: DILTIAZEM 60 MG TAB PO SCH ×4 (09:00→20:20)
--- NOTE | 2017-12-10 09:10 | NUR ---
CONTAINER MAKER AT BEDSIDE, NO SIGNS OF DISTRESS AT THIS TIME, WILL CONTINUE TO MONITOR
[2017-12-10 09:13] LABS: BASOPHILS # (AUTO) 0.1 K/uL (0.00-0.22); BASOPHILS % (AUTO) 1.6 % (0.0-2.0); EOSINOPHILS % (AUTO) 0.7 % (0.0-4.0); HEMATOCRIT 31.5 % (36-52); HEMOGLOBIN 9.9 g/dL (12.0-18.0); LYMPHOCYTES # (AUTO) 0.2 K/uL (2.0-11.5); LYMPHOCYTES % (AUTO) 3.5 % (20.5-51.1); MEAN CORPUSCULAR HEMOGLOBIN 26 pg (27-31); MEAN CORPUSCULAR HGB CONC 31 g/dL (33-37); MEAN CORPUSCULAR VOLUME 83 fL (80-94); MONOCYTES % (AUTO) 0.7 % (1.7-9.3); NEUTROPHILS # (AUTO) 5.4 K/uL (1.8-7.7); NEUTROPHILS % (AUTO) 93.5 % (42.2-75.2); PLATELET COUNT (AUTO) 147 K/uL (140-450); RED CELL DISTRIBUTION WIDTH 15.7 % (11.6-13.7); WHITE BLOOD COUNT (AUTO) 5.8 K/uL (4.8-10.8)
[2017-12-10 09:39] LABS: ANION GAP 18.4 (8-16); CARBON DIOXIDE 24.2 mmol/L (21-32); CREATININE 3.7 mg/dL (0.7-1.3); POTASSIUM 4.6 mmol/L (3.5-5.1)
--- NOTE | 2017-12-10 09:50 | NUR ---
WILLIAM FAY CAME IN TO SEE PT AT BEDSIDE, WINDY SALVADOR D/C BY DR. LR, NEW ORDER OBTAINED, WILL CARRY OUT.
[2017-12-10] MEDS: INSULIN LISPRO SLIDING SCALE 100 UNITS/ML VIAL SUBQ PRN ×4 (09:58→20:26)
--- NOTE | 2017-12-10 12:15 | NUR ---
DISPLAY ARTIST AT BEDSIDE, STARTED PATIENT ON HEMODIALYSIS. NO SIGNS OF DISTRESS AT THIS TIME. WILL CONTINUE TO MONITOR
--- NOTE | 2017-12-10 13:00 | NUR ---
I received a call from Patient's son Anselmo Paz requesting a letter form the hospital stating that patient is unable to attend to any affairs at this time due to his hospitalization and medical condition (verification for hospitalization letter). Jackson stated that [facility] office is requesting it at this time as he is trying to care for some of his father's matters. I informed him that I will speak to my casework specialist supervisor engine repair Blanca to get letter compose and that will be able to provide it for him later today. He thank me and agreed to get the letter, when he comes to visit his father at ICU in the evening.
--- NOTE | 2017-12-10 14:58 | NUR ---
DR. HOWARD IN TO SEE PATIENT, UPDATED ON PATIENT'S CONDITION. WILL FOLLOW UP ON ANY ORDERS.
[2017-12-10] MEDS ORDERED: SODIUM PHOSPHATE 118 ML ENEM RC SCH (15:14)
--- NOTE | 2017-12-10 15:38 | NUR ---
CONCURRENT REVIEW FAXED TO [facility] [phone] PHONE [phone] [facility] CON[employer]PCION [id number]
--- NOTE | 2017-12-10 16:00 | NUR ---
HEMODIALYSIS COMPLETED, 4L OUTPUT PER BEFORE SCHOOL BABYSITTER.
--- NOTE | 2017-12-10 16:30 | NUR ---
CLEANED AND CHANGED PATIENT, ORAL CARE GIVEN, PATIENT WAS TURNED AND REPOSITION, NO SIGNS OF DISTRESS NOTED. WILL CONTINUE TO MONITOR.
--- NOTE | 2017-12-10 18:28 | NUR ---
IN TO SEE PATIENT, UPDATED ON PATIENT'S CONDITION, WILL FOLLOW UP ON ANY ORDERS
--- NOTE | 2017-12-10 19:05 | NUR ---
REPORT GIVEN TO COIN MACHINE SERVICER REPAIRER RN, JEANNE, AT BEDSIDE FOR CONTINUITY OF CARE. NO SIGNS OF DISTRESS AT THIS TIME
--- NOTE | 2017-12-10 19:20 | NUR ---
RECEIVED REPORT FROM MORNING RN FOR CONTINUITY OF CARE. VS STABLE AT THIS TIME. AFEBRILE. PT SEDATED. RASS -3. FLACC 0. PT ON PROPOFOL DRIP. ETT TO VENT WITH SETTINGS: AC14, FIO2 40, TV 600, AND PEEP 5. NO SIGNS OF DISTRESS NOTED. LUNG SOUNDS DIMINISHED. S1+S2 HEARD. PULSES ARE PALPABLE IN EXTREMITIES. AFIB ON MONITOR. OGT TO FEEDING. CHECKED PLACEMENT. NO RESIDUAL NOTED. TOLERATING FEEDING WELL. ABDOMEN ROUND AND BOWEL SOUNDS HYPOACTIVE IN ALL QUADRANTS. PT CURRENTLY HAS NO BM. COSTELLO CATHETER IN PLACE. DRAINING CLEAR, NADJA URINE. PT IN SPECIAL BED THAT TURNS AND REPOSITION HIM. PT HAS RIGHT IJ TRU CATH WITH PIGTAIL. LINE PATENT AND ASYMPTOMATIC. BED AT LOW POSSIBLE POSITION. CALL LIGHT WITHIN REACH. ALL SAFETY PRECAUTION IN PLACE. WILL CONTINUE TO MONITOR PT.
[2017-12-10] MEDS: DOXAZOSIN 2 MG TAB PO SCH (20:17)
[2017-12-10] MEDS: POLYETHYLENE GLYCOL 17 GM/PKT PO SCH (20:18)
--- NOTE | 2017-12-10 20:30 | NUR ---
SCHEDULED MEDICATIONS ADMINISTERED. PT TOLERATED MEDICATIONS WELL. BLOOD SUGAR CHECKED AND PT NEEDED INSULIN COVERAGE. OGT TO FEEDING. HOB AT 30 DEGREES. WILL CONTINUE TO MONITOR PT.
--- NOTE | 2017-12-10 21:45 | NUR ---
PT'S SPECIALIZED BED CHANGED. PT TOLERATED BEING MOVED TO THE NEW BED. NO SIGNS OF DISTRESS NOTED. PT LAYING IN BED COMFORTABLY. FLACC 0. VS STABLE. WILL CONTINUE TO MONITOR PT.
--- NOTE | 2017-12-10 23:02 | NUR ---
VS STABLE AT THIS TIME. NO CHANGE IN PT'S CONDITION AT THIS TIME. OGT TO FEEDING. PT STILL ON PROPOFOL DRIP. WILL CONTINUE TO MONITOR PT.
[2017-12-11] VITALS (26 sets, daily range): BP systolic 109–140; BP diastolic 64–89
[2017-12-11] MEDS: PROPOFOL 1000 MG/100 ML PREMIX 100 ML IV PRN ×4 (01:03→11:26)
[2017-12-11] MEDS: ANTIFUNGAL CLEAR OINTMENT TP SCH ×2 (01:45→13:19)
[2017-12-11] MEDS: MILD SOAP AND WATER TP SCH ×4 (01:45→13:19)
--- NOTE | 2017-12-11 01:53 | NUR ---
PT SEDATED WITH PROPOFOL. NO CHANGE IN CONDITION. VS STABLE AT THIS TIME. NO SIGNS OF DISTRESS NOTED. ATRIAL FIBRILLATION ON MONITOR. OXYGEN SATURATION WNL. WILL CONTINUE TO MONITOR PT.
--- NOTE | 2017-12-11 03:45 | NUR ---
PT CLEANED AND LINENS CHANGED. TOLERATED BEING TURNED AND REPOSITIONED WELL. PT NOTED WITH A BM BUT ONLY A SMEAR. COSTELLO CATHETER CARE PROVIDED. PT STILL SEDATED AND DOES NOT APPEAR TO BE IN ANY DISTRESS. ALL SAFETY PRECAUTIONS ARE IN PLACE. WILL CONTINUE TO MONITOR PT.
[2017-12-11] MEDS: methylPREDNISolone SS 125 MG/2 ML VIAL IVP SCH ×3 (05:25→20:28)
[2017-12-11] MEDS: SODIUM CHLORIDE FLUSH 10 ML SYR IVF SCH ×3 (05:27→20:31)
[2017-12-11 05:31] LABS: ALBUMIN 2.7 g/dL (3.4-5.0); ANION GAP 17.3 (8-16); CARBON DIOXIDE 25.3 mmol/L (21-32); CREATININE 3.5 mg/dL (0.7-1.3); POTASSIUM 4.6 mmol/L (3.5-5.1); TOTAL BILIRUBIN 0.6 mg/dL (0.0-1.0)
[2017-12-11 06:16] LABS: BASOPHILS # (AUTO) 0.3 K/uL (0.00-0.22); BASOPHILS % (AUTO) 3.5 % (0.0-2.0); HEMATOCRIT 31.8 % (36-52); HEMOGLOBIN 10.2 g/dL (12.0-18.0); LYMPHOCYTES # (AUTO) 0.6 K/uL (2.0-11.5); LYMPHOCYTES % (AUTO) 8.9 % (20.5-51.1); MEAN CORPUSCULAR HEMOGLOBIN 27 pg (27-31); MEAN CORPUSCULAR HGB CONC 32 g/dL (33-37); MEAN CORPUSCULAR VOLUME 83 fL (80-94); MONOCYTES # (AUTO) 0.1 K/uL (0.8-1.0); MONOCYTES % (AUTO) 1.6 % (1.7-9.3); NEUTROPHILS # (AUTO) 6.3 K/uL (1.8-7.7); PLATELET COUNT (AUTO) 136 K/uL (140-450); RED BLOOD CELL COUNT(AUTO) 3.82 MIL/uL (4.20-6.10); RED CELL DISTRIBUTION WIDTH 15.2 % (11.6-13.7); WHITE BLOOD COUNT (AUTO) 7.3 K/uL (4.8-10.8)
[2017-12-11] MEDS: BUDESONIDE 0.5 MG/2 ML NEBU INH SCH ×2 (06:29→19:39)
[2017-12-11] MEDS: BLOOD GLUCOSE MONITORING 1 DEV DEV FS SCH ×4 (06:33→20:33)
[2017-12-11] MEDS: INSULIN LISPRO SLIDING SCALE 100 UNITS/ML VIAL SUBQ PRN ×4 (06:34→20:30)
--- NOTE | 2017-12-11 07:05 | NUR ---
REPORT GIVEN TO MORNING RN FOR CONTINUITY OF CARE. PT IN STABLE CONDITION AT THIS TIME.
--- NOTE | 2017-12-11 07:06 | NUR ---
BEDSIDE REPORT RECEIVED FROM JOURNEYMAN PIPE WELDER RN, JEANNE, FOR CONTINUITY OF CARE. PATIENT IS AAOX3, ABLE TO FOLLOW SIMPLE COMMANDS. PATIENT HAS ETT TO VENT, SETTINGS AT AC 14, FIO2 40, TV 600, AND PEEP 5. BILATERAL LUNG SOUNDS ARE SYMMETRICAL AND COARSE. S1 AND S2 HEART SOUNDS HEARD, CAP REFILL LESS THAN 3 SECS, AFIB ON REGIONAL LOSS PREVENTION MANAGER. PATIENT HAS OGT TO TUBE FEEDING AT 35 ML/HOUR, NO RESIDUAL. ACTIVE BOWEL SOUNDS HEARD IN ALL FOUR QUAD. PATIENT HAS COSTELLO CATHETER TO LIGHT NADJA URINE, SCROTAL EDEMA PRESENT. PATIENT SKIN IS INTACT, REDNESS TO ABDOMINAL FOLDS. PATIENT HAS RIGHT IJ TRU CATHETER, ASYMPTOMATIC, INTACT PATENT. HOB IS 30 DEGREES, IN LOWEST POSITION POSSIBLE. PATIENT IS STABLE AT THIS TIME, CALL LIGHT WITHIN REACH, WILL CONTINUE TO MONITOR.
--- NOTE | 2017-12-11 07:48 | NUR ---
PATIENT TURNED AND REPOSITIONED, ORAL CARE GIVEN. PATIENT IS STABLE AT THIS TIME
--- NOTE | 2017-12-11 08:30 | NUR ---
SALESMAN/OWNER AT BEDSIDE FOR CHEST XRAY, PATIENT PRESENTS NO SIGNS OF DISTRESS AT THIS TIME. WILL CONTINUE TO MONITOR
[2017-12-11] MEDS: PANTOPRAZOLE 40 MG INJ VIAL IVP SCH (08:37)
[2017-12-11] MEDS: METOPROLOL SUCCINATE 50 MG TABER PO SCH ×2 (08:38→20:32)
[2017-12-11] MEDS: TAMSULOSIN 0.4 MG CAP PO SCH (08:39)
[2017-12-11] MEDS: DILTIAZEM 60 MG TAB PO SCH ×4 (08:39→20:32)
[2017-12-11] MEDS: LACTOBACILLUS RHAMNOSUS GG 1 EACH CAP NG SCH (08:39)
--- NOTE | 2017-12-11 08:57 | NUR ---
PROPOFOL TURNED OFF FOR VENTILATOR WEENING, PATIENT IS IN STABLE CONDITION AT THIS TIME. WILL MONITOR CLOSELY.
--- NOTE | 2017-12-11 08:59 | NUR ---
vent check, sedation turned off and pt placed on cpap 5 ps 10
--- NOTE | 2017-12-11 09:00 | NUR ---
DR. LR IN TO SEE PATIENT, UPDATED ON PATIENT CONDITION. WILL FOLLOW UP ON ANY ORDERS
--- NOTE | 2017-12-11 09:30 | NUR ---
DR. HOWARD IN TO SEE PATIENT, UPDATED ON PATIENT'S CONDITION, AWARE OF PATIENT BEING OFF PROPOFOL. WILL FOLLOW UP ON ANY ORDERS
[2017-12-11] MEDS ORDERED: DILTIAZEM 25 MG/5 ML VIAL IVP PRN (09:35)
[2017-12-11] MEDS ORDERED: RACEPINEPHRINE 2.25% 13.5 MG/0.5 ML NEBU INH PRN (09:45)
--- NOTE | 2017-12-11 09:50 | NUR ---
ABG DRAWN ON LR WITHOUT INCIDENT AND RESULTS GIVEN TO DR. LORENZO AND PER DR. HOWARD TO PLACE PT BACK ON AC MODE AND START SEDATION AGAIN FOR DIALYSIS THEN WHEN DIALYSIS IS DONE STOP SEDATION AND PLACE ON CPAP 5 PS8 IF PT IS DOING GOOD THEN EXTUBATED PT
--- NOTE | 2017-12-11 09:55 | NUR ---
HOLD TUBE FEEDING FOR EXTUBATION, PER .
--- NOTE | 2017-12-11 09:58 | NUR ---
PATIENT PUT BACK ON PROPOFOL 25MCG/KG/MIN FOR HEMODIALYSIS. CREW CHIEF AT BEDSIDE, PATIENT IS IN STABLE CONDITION. WILL CONTINUE TO MONITOR.
--- NOTE | 2017-12-11 11:06 | NUR ---
vent check, increased fio2 to 40% pt is receiving dialysis and pt is sedated
--- NOTE | 2017-12-11 12:56 | NUR ---
VENT CHECK, NO CHANGES MADE TO VENT PT STILL RECEIVING DIALYSIS
--- NOTE | 2017-12-11 13:28 | NUR ---
CALLED JAMEY TRISTAN GANTT,[phone] [id number]. SHE CONFIRMED SHE RECEIVED MY REVIEW FROM 12/10/17. SHE SAID NO REVIEW NEEDED FOR 7 DAYS.
--- NOTE | 2017-12-11 13:40 | NUR ---
ORAL CARE GIVEN VIA VAP ORAL CARE KIT, PATIENT TOLERATED PROCEDURE WELL. WILL CONTINUE TO MONITOR
--- NOTE | 2017-12-11 14:10 | NUR ---
HEMODIALYSIS COMPLETED, 4L OUTPUT PER SERVICE SPRINKLER HELPER. PATIENT TOLERATED PROCEDURE WELL. PRESENTS NO SIGNS OF DISTRESS AT THIS TIME.
--- NOTE | 2017-12-11 14:15 | NUR ---
APPLIED FUNGAL OINTMENT TO ABDOMINAL FOLDS, PLACE INTER DRY DRESSING, SKIN INTACT.
--- NOTE | 2017-12-11 14:38 | NUR ---
PROPOFOL DRIP HELD, PER , TO START WEENING PATIENT FOR EXTUBATION. NO SIGNS OF DISTRESS NOTED AT THIS TIME. RT AT BEDSIDE. WILL MONITOR CLOSELY
--- NOTE | 2017-12-11 14:43 | NUR ---
PT DONE WITH DIALYSIS AND SEDATION TURNED OFF AND PLACED ON CPAP 5 PS8 PT FOLLOWS COMMANDS HR 105 O2 SAT 95% RR 10 BP 114\84
--- NOTE | 2017-12-11 15:02 | NUR ---
PATIENT IS EXTUBATED BY RT,TAI , RT AT BEDSIDE. SP02 IS 91, HR 114, BP 122/86, RR IS 16. PATIENT IS ON NASAL CANNULA 3L. PATIENT IS ABLE TO FOLLOW COMMANDS AND MAKE NEEDS KNOWN, ADVISED NOT TO TALK UNTIL TOMORROW.
--- NOTE | 2017-12-11 15:02 | NUR ---
PT WAS SNX MODERATE AMT OF SECRETIONS THEN PT WAS EXTUBATED AND PLACED ON 3LNC HR 109 RR 16 O2 SAT 95%
[2017-12-11] MEDS: MORPHINE SULFATE 2 MG/ML SYR IVP PRN (17:34)
--- NOTE | 2017-12-11 17:55 | NUR ---
CLEANED PATIENT AND CHANGED LINENS, PATIENT WAS ABLE TO HELP WITH TURNING, ABLE TO FOLLOW COMMANDS AND MAKE NEEDS KNOWN. PATIENT IS IN STABLE CONDITION, NO SIGNS OF DISTRESS NOTED.
--- NOTE | 2017-12-11 19:05 | NUR ---
BEDSIDE REPORT GIVEN TO TURF FARMER RN, TOMI, FOR CONTINUITY OF CARE. PATIENT IS IN STABLE CONDITION, NO SIGNS OF DISTRESS AT THIS TIME.
--- NOTE | 2017-12-11 19:30 | NUR ---
RECEIVED REPORT FROM AM NURSE. ORDERS LABS AND PLAN OF CARE REVIEWED. WILL CONTINUE TO MONITOR.
--- NOTE | 2017-12-11 20:00 | NUR ---
PT AWAKE SITTING UP IN BED, +3 PERRL, ABLE TO MOVE BUE STRONG FRONT DESK RECEPTIONIST TO HANDS. WEAK LOWER EXTREMITIES. PT ABLE TO VERBALIZE NEEDS. +2 RADIAL, +1 PEDAL PULSES. GENERALIZED EDEMA NOTED. S1 S2, AFIB ON MONITOR 100-120S. LUNGS DIMINISHED. OGT IN PLACE AUSCULTATED FOR PLACEMENT, FLUSHED. COSTELLO CATH IN PLACE SCANT DARK NADJA URINE NOTED. SKIN BREAKDOWN NOTED BETWEEN ABDOMINAL FOLDS. R IJ TRU CATH IN PLACE WITH PIGTAIL; PATENT, FLUSHED IV. PT ON SPECIALTY BED. ALL MONITORS, SAFETY ALARMS REVIEWED BED IN LOWEST POSITION. WILL CONTINUE TO OBSERVE.
[2017-12-11] MEDS: DOXAZOSIN 2 MG TAB PO SCH (20:32)
[2017-12-11] MEDS: POLYETHYLENE GLYCOL 17 GM/PKT PO SCH (20:33)
--- NOTE | 2017-12-11 21:00 | NUR ---
PT RESTING IN BED WATCHING TELEVISION, PT DENIES PAIN @ THIS TIME WILL CONTINUE TO OBSERVE.
--- NOTE | 2017-12-11 22:55 | NUR ---
PT REPOSITIONED; PILLOW PLACED BEHIND HEAD FOR COMFORT, NO S/S OF ACUTE DISTRESS NOTED WILL CONTINUE TO MONITOR
[2017-12-12] VITALS (16 sets, daily range): BP systolic 105–143; BP diastolic 58–101
--- NOTE | 2017-12-12 00:05 | NUR ---
PT AWAKE IN BED, WATCHING TELEVISION. PT C/O LIGHT HEADACHE/ANXIOUS. OFFERED TYLENOL PRN. SEE EMAR FOR DETAIL. WILL CONTINUE TO MONITOR.
[2017-12-12] MEDS: ACETAMINOPHEN 325 MG TAB PO PRN ×3 (00:12→12:17)
[2017-12-12] MEDS: ANTIFUNGAL CLEAR OINTMENT TP SCH ×2 (00:43→13:48)
[2017-12-12] MEDS: MILD SOAP AND WATER TP SCH ×4 (00:44→13:47)
--- NOTE | 2017-12-12 02:03 | NUR ---
PT ASLEEP IN BED, AROUSABLE. AFIB 110S. NO S/S OF RESPIRATORY DISTRESS. SCANT URINE NOTED IN COSTELLO DRAINAGE BAG. PT DENIES PAIN @ THIS TIME. NO FURTHER S/S OF ACUTE DISTRESS NOTED. PT REPOSITIONED FOR COMFORT. WILL CONTINUE TO OBSERVE.
[2017-12-12] MEDS: methylPREDNISolone SS 125 MG/2 ML VIAL IVP SCH ×3 (04:39→20:21)
[2017-12-12] MEDS: SODIUM CHLORIDE FLUSH 10 ML SYR IVF SCH ×3 (04:40→21:00)
--- NOTE | 2017-12-12 04:49 | NUR ---
OFFERED BATH AND CHANGE OF GOWN TO PT. PT REFUSED @ THIS TIME. CHANGED PILLOW COVER AND FLAT SHEET. PT STATES HE IS COMFORTABLE; WAS COMPLIANT TO TURN AND REPOSITION. NO ACUTE S/S OF DISTRES NOTED WILL CONTINUE TO OBSERVE.
--- NOTE | 2017-12-12 06:30 | NUR ---
PT TAUGHT COUGH DEEP BREATHING TECHNIQUE; PT MORE ALERT THIS AM ABLE TO EXPRESS HIS NEEDS. HEART RATE ELEVATES TO 140 DOES NOT SUSTAIN, HR RUNNING IN 110S. PT DENIES PAIN @ THIS TIME. TURNED TO SIDE. NO S/S OF ACUTE DISTRESS NOTED WILL CONTINUE TO OBSERVE.
[2017-12-12] MEDS: ALBUTEROL SULFATE/IPRATROPIU 3 ML SOL INH PRN ×2 (06:44→19:21)
[2017-12-12] MEDS: BUDESONIDE 0.5 MG/2 ML NEBU INH SCH ×2 (06:44→19:21)
--- NOTE | 2017-12-12 06:54 | NUR ---
RECEIVED PT ON 3L NC SPO2 96%. PT IS AWAKE AND ALERT IN BED NO RESPIRATORY DISTRESS NOTED. BREATHING TX PRN ADMINISTERED. PT TOLERATED TX WELL. WILL CONTINUE TO MONITOR.
--- NOTE | 2017-12-12 07:30 | NUR ---
RECEIVED PT FROM ROTO MIXER OPERATOR RN, PT AWAKE, ALERT. PER ROTO MIXER OPERATOR RN, PT EXTUBATED YESTERDAY, PT ABLE TO RESPOND, BEDSIDE MONITOR SHOWS A-FIB, PT ON NC 3L/MIN, NO S/S OF RESPIRATORY DISTRESS NOTED. OGT IN TUBE WITH TUBE FEEDING.COSTELLO CATH IN PLACE WITH 20 MLS YELLOW URINE NOTED. RIGHT IJ TRU CATH NOTED. SKIN NON INTACT( SEE WOUND ASSESSMENT), SAFETY MEASURES AND CALL LIGHT IN PLACE, WILL CONTINUE TO MONITOR.
[2017-12-12] MEDS: BLOOD GLUCOSE MONITORING 1 DEV DEV FS SCH ×4 (07:58→21:00)
[2017-12-12] MEDS: INSULIN LISPRO SLIDING SCALE 100 UNITS/ML VIAL SUBQ PRN ×4 (07:59→20:24)
[2017-12-12] MEDS: LACTOBACILLUS RHAMNOSUS GG 1 EACH CAP NG SCH (09:04)
[2017-12-12] MEDS: DILTIAZEM 60 MG TAB PO SCH ×4 (09:04→20:21)
[2017-12-12] MEDS: TAMSULOSIN 0.4 MG CAP PO SCH (09:04)
[2017-12-12] MEDS: PANTOPRAZOLE 40 MG INJ VIAL IVP SCH (09:04)
[2017-12-12] MEDS: METOPROLOL SUCCINATE 50 MG TABER PO SCH ×2 (09:49→20:21)
--- NOTE | 2017-12-12 09:59 | NUR ---
RECEIVED CALL FROM , NOTIFIED DRJewel CHANGE PT ON O2 NC 3L/MIN, O2 SAT 95% AT THIS MOMENT, PER CHANGE TITRATE O2 TO KEEP O2 SAT AT 88%-92% DUE TO MD DOES NOT WANT PT RETAIN TOO MUCH CO2 AND CHECK ABG. WILL CARRY OUT.
[2017-12-12 10:06] LABS: BASOPHILS # (AUTO) 0.1 K/uL (0.00-0.22); BASOPHILS % (AUTO) 0.6 % (0.0-2.0); EOSINOPHILS % (AUTO) 0.1 % (0.0-4.0); HEMATOCRIT 33.6 % (36-52); HEMOGLOBIN 10.8 g/dL (12.0-18.0); LYMPHOCYTES # (AUTO) 0.3 K/uL (2.0-11.5); LYMPHOCYTES % (AUTO) 2.9 % (20.5-51.1); MEAN CORPUSCULAR HEMOGLOBIN 27 pg (27-31); MEAN CORPUSCULAR HGB CONC 32 g/dL (33-37); MEAN CORPUSCULAR VOLUME 83 fL (80-94); MONOCYTES # (AUTO) 0.1 K/uL (0.8-1.0); MONOCYTES % (AUTO) 1.6 % (1.7-9.3); NEUTROPHILS # (AUTO) 8.7 K/uL (1.8-7.7); NEUTROPHILS % (AUTO) 94.8 % (42.2-75.2); PLATELET COUNT (AUTO) 161 K/uL (140-450); RED BLOOD CELL COUNT(AUTO) 4.04 MIL/uL (4.20-6.10); RED CELL DISTRIBUTION WIDTH 15.5 % (11.6-13.7); WHITE BLOOD COUNT (AUTO) 9.2 K/uL (4.8-10.8)
[2017-12-12 10:24] LABS: ALBUMIN 2.7 g/dL (3.4-5.0); ANION GAP 14.4 (8-16); CARBON DIOXIDE 28.2 mmol/L (21-32); CREATININE 3.5 mg/dL (0.7-1.3); POTASSIUM 4.6 mmol/L (3.5-5.1); TOTAL BILIRUBIN 0.6 mg/dL (0.0-1.0)
--- NOTE | 2017-12-12 10:28 | NUR ---
CALLED DR. SOARES'S OFFICE, FOR BUN 92, CREATINE 3.5, WILL FOLLOW UP.
--- NOTE | 2017-12-12 10:46 | NUR ---
GIVEN ABG RESULTS OVER PHONE . RECOMMENDED TO PHYSICIAN THAT PT BE PLACED ON BIPAP PER ABG RESULTS. PHYSICIAN NEW ORDERS ARE FOR PT NOT TO BE PLACED ON BIPAP YET BUT TO HAVE BIPAP PRN 15/10, R12, FIO2 28% AND TO KEEP SPO2 88-90%. REPEAT ABG 1400.
--- NOTE | 2017-12-12 10:52 | NUR ---
PT NOT SOB AND NOT IN RESPIRATORY DISTRESS AT THIS TIME. PT IS AWAKE AND ALERT WITH SON BEDSIDE. WILL CONTINUE TO MONITOR.
--- NOTE | 2017-12-12 11:21 | NUR ---
FINGER BS CHECKED 251, 6 UNITS INSULIN GIVEN SUBQ
--- NOTE | 2017-12-12 12:40 | NUR ---
12/12/17 RD FOLLOW UP COMPLETED. PLEASE REFER TO NUTRITION ASSESSMENT UNDER CARE ACTIVITY FOR ESTIMATED NUTRITIONAL NEEDS. AT 34.47 ML/HR, PROPOFOL IS PROVIDING 910 KCALS/DAY. NOVASOURCE RENAL @ 35 ML/HR + PROTEIN PACK TID IS PROVIDING 1860 KCALS AND 121 GM PRO/DAY. IN TOTAL, PT IS RECEIVING 2770 KCALS AND 121 GM PRO/DAY, MEETING 100% EST KCAL AND 95% EST PRO NEEDS/DAY ONCE PT NO LONGER RECEIVING PROPOFOL, MAY CONSIDER INCREASING RATE OF TUBE FEED AND ELIMINATING PROTEIN PACKS TO: NOVASOURCE RENAL @ 60 ML/HR. THIS WILL PROVIDE 2880 KCALS AND 131 GM PRO/DAY, TO MEET 100% ESTIMATED ENERGY AND PROTEIN NEEDS PER DAY. RD TO FOLLOW-UP IN 2-3 DAYS PATIENT IS HIGH RISK. ZAIN WALDROP RD
--- NOTE | 2017-12-12 13:10 | NUR ---
IN TO SEE PT, WILL FOLLOW UP.
--- NOTE | 2017-12-12 14:22 | NUR ---
PT PLACED ON BIPAP. 15/10 RATE OF 12. 28% FIO2. PROTECTIVE GEL PLACED UNDER MASK. PATIENT TOLERATING SETTINGS WELL. PT AWAKE, ALERT, RESPONDS WHEN SPOKEN TO.
--- NOTE | 2017-12-12 14:22 | NUR ---
PAGED REGARDING CRITICAL ABG VALUES WAITING FOR CALL BACK. PER ABG RESULTS PT PLACED ON BIPAP PER PHYSICIAN SETTINGS.
--- NOTE | 2017-12-12 14:32 | NUR ---
CM NOTE NO REVIEW FAXED PER INSURANCE'S REQUEST.
--- NOTE | 2017-12-12 14:52 | NUR ---
BIPAP SETTINGS INCREASED TO 18/10 DUE TO INADEQUATE VT.
--- NOTE | 2017-12-12 15:11 | NUR ---
STILL WAITING FOR CALL BACK FROM WILL PAGE A SECOND TIME.
--- NOTE | 2017-12-12 15:49 | NUR ---
SPOKE WITH PHYSICIAN STATES TO COMPLETE ABG POST DIALYSIS. NOT TO OBTAIN 1630 ABG ORDER.
--- NOTE | 2017-12-12 16:05 | NUR ---
DIALYSIS NURSE PRESENT TO PT'S BEDSIDE.
--- NOTE | 2017-12-12 17:04 | NUR ---
PT IS RECEIVING DIALYSIS AT THIS TIME. PT IS ALERT AND RESPONSIVE. CONTINUES TO TOLERATE BIPAP WELL.
--- NOTE | 2017-12-12 17:30 | NUR ---
DIALYSIS IN PROGRESS, PT TOLERATED WELL.
--- NOTE | 2017-12-12 17:41 | NUR ---
* ST PVE NOTE * Clinician attempting Bedside dysphagia and oral mechanism exam but Nsg reporting pt currently receiving HD and also desaturating. Pt thus on bipap and is not appropriate candidate for PO feeding trials at this time. Clinician informing nsg ST eval will be re-attempted tomorrow if pt's condition allows, w/nsg agreeable. Time In/Out 5:30 - 5:45 PM PVE
--- NOTE | 2017-12-12 19:33 | NUR ---
RECEIVED PT FROM AM SHIFT. PT IS AWAKE,ALERT ORIENTED X4. PT IS ON GOING DIALYSIS. DAMARIS PFEIFFER DIALYSIS STAFF AT BED SIDE. PT ON BIPAP WITH SETTING 18/10,RATE 12 AND FIO2 48% TOLERATING WELL. NO S/S OF RESP DISTRESS,NO SOB NOTED AT THIS TIME. RT WAS AT BED SIDE.AFIB ON MONITOR.NO C/O CHEST PAIN AT THIS TIME. TRU TO RIGHT IJ WITH PIGTAIL INTACT WELL.NO S/S OF INFECTION NOTED.OGT INPLACE ,PLACEMENT CONFIRM,WITH NOVASOURCE AT 35 CC/HR AND H2O 20 CC Q 4HRS.GENERALIZED EDEMA NOTED. BUE EDEMA PITTING +2 AND BLE PITTING +1,AREA ELEVATED WITH SOFT PILLOW.GENTLE CARE GIVEN KEPT CLEAN AND DRY. Addendum: 12/12/17 at 2147 by Shania Galvin RN FIO2 AT 28%
--- NOTE | 2017-12-12 20:00 | NUR ---
DIALYSIS DONE TAKE OUT 4 LITER OF FLUIDS, PT NO S/S OF DISTRESS NOTED.
[2017-12-12] MEDS: LACTULOSE 20 GM/30 ML UDC PO SCH (20:19)
[2017-12-12] MEDS: POLYETHYLENE GLYCOL 17 GM/PKT PO SCH (20:19)
[2017-12-12] MEDS: DOXAZOSIN 2 MG TAB PO SCH (20:20)
--- NOTE | 2017-12-12 20:30 | NUR ---
ABG DONE RESULT OF PCO2 TRENDING DOWN FROM 61.41 TO 57.6. PT NO S/S OF DISTRESS AT THIS TIME.
--- NOTE | 2017-12-12 20:50 | NUR ---
NIGHT MEDS GIVEN. BLOOD SUGAR IS 247 INSULIN GIVEN 4 UNITS TOLERATED WELL.HEPARIN GIVEN ORDER PLATELET WAS 161, NO S/S OF BLEEDING AT THIS TIME.
--- NOTE | 2017-12-12 21:08 | NUR ---
DR. CIFUENTES LIMB DRIVER FOR MADE AWARE ABG RESULT PH 7.299 AND PCO2 57.6.PER MD CONTINUE SAME ORDER.
--- NOTE | 2017-12-12 23:00 | NUR ---
PT HAS SMALL BM,SOFT,BROWN COLOR. GOOD PERIANAL CARE GIVEN.
[2017-12-13] VITALS (20 sets, daily range): BP systolic 122–147; BP diastolic 65–99
--- NOTE | 2017-12-13 00:10 | NUR ---
PT SLEEPING WELL,NO S/S OF PAIN OR ANY DISTRESS,CONT ON BIPAP.
[2017-12-13] MEDS: MILD SOAP AND WATER TP SCH ×4 (00:47→12:32)
[2017-12-13] MEDS: ANTIFUNGAL CLEAR OINTMENT TP SCH ×2 (00:47→12:34)
--- NOTE | 2017-12-13 02:20 | NUR ---
PT IS SLEEPING WELL
--- NOTE | 2017-12-13 04:30 | NUR ---
AM CARE GIVEN,SPONGE BATH AND F/C CARE. PT HAS BM X1 LARGE SOFT BROWN GREENISH COLOR.GENTLE CARE GIVEN,KEPT CLEAN AND DRY.
[2017-12-13] MEDS: methylPREDNISolone SS 125 MG/2 ML VIAL IVP SCH ×3 (05:14→20:52)
[2017-12-13] MEDS: SODIUM CHLORIDE FLUSH 10 ML SYR IVF SCH ×3 (05:18→20:56)
--- NOTE | 2017-12-13 06:19 | NUR ---
PT IS AWAKE AND WATCHING TV.200 YELLOW CLOUDY URINE.
[2017-12-13] MEDS: BLOOD GLUCOSE MONITORING 1 DEV DEV FS SCH ×4 (06:33→20:48)
[2017-12-13] MEDS: INSULIN LISPRO SLIDING SCALE 100 UNITS/ML VIAL SUBQ PRN ×3 (06:33→20:56)
--- NOTE | 2017-12-13 07:00 | NUR ---
RECEIVED REPORT FROM TORO. PT AWAKE AND ALERT, A&OX4, WATCHING TV IN BED AND FREELY ABLE TO MOVE BOTH UPPER AND LOWER EXTREMITIES. PT. ON BIPAP. PERLLA. PTS LUNGS ARE DIMINISHED/ CLEAR THROUGHOUT. BOWEL SOUNDS ACTIVE IN ALL FOUR QUADRANTS. PT HAS COSTELLO IN WITH CLOUDY YELLOW URINE. PT RIGHT IJ TRU CATH FLUSHES AND INTACT. PT HAS OGT AND ON NOVASOURCE 35CC/HR, CHECKED PLACEMENT AND NO RESIDUALS IN STOMACH. PT HAS EDEMA ON ALL LIMBS BUT NON PITTING. ORAL CARE PROVIDED AND COSTELLO CATHETER CARE ADMINISTERED. CHECKED PTS SKIN AND INTACT ALTHOUGH REDDENED IN GROIN, UPPER THIGHS, AND SCROTUM.
--- NOTE | 2017-12-13 07:15 | NUR ---
DECREASED FIO2 TO 21% ON BIPAP PT'S SPO2 WAS 99%. REJI ARGUELLES AND MARY ACOSTA. SPO2 NOW IS 96% Addendum: 12/13/17 at 1931 by Zuleyka Aden RT TIME IS 1914
[2017-12-13] MEDS: ALBUTEROL SULFATE/IPRATROPIU 3 ML SOL INH PRN ×2 (07:18→11:16)
[2017-12-13] MEDS: BUDESONIDE 0.5 MG/2 ML NEBU INH SCH ×2 (07:18→19:23)
--- NOTE | 2017-12-13 07:33 | NUR ---
PT REQUESTED SON TO BE CALLED, CALLED SON AT 7:33.
--- NOTE | 2017-12-13 07:50 | NUR ---
PTS SON ARRIVED AND AT BEDSIDE. SON BROUGHT HIS FATHER SOCKS.
[2017-12-13] MEDS: ACETAMINOPHEN 325 MG TAB PO PRN (07:55)
--- NOTE | 2017-12-13 08:30 | NUR ---
REMOVED PT FROM BIPAP AND PLACED ON 3LPM NC PT AWAKE ALERT SPO2 MID .90 LEFT OFF BIPAP X 30 MINUTES TO GIVE PT BREAK FROM MASK RN AWARE
--- NOTE | 2017-12-13 08:30 | NUR ---
RECEIVED CALL FROM DR. HOWARD. UPDATED WITH ABG RESULT. ORDERED FOR CBC, CMP, MG AND ABG AFTER DIALYSIS. WILL CONTINUE TO FOLLOWUP ON ORDER.
[2017-12-13] MEDS: PANTOPRAZOLE 40 MG INJ VIAL IVP SCH (08:39)
[2017-12-13] MEDS: LACTULOSE 20 GM/30 ML UDC PO SCH ×2 (08:39→20:52)
[2017-12-13] MEDS: TAMSULOSIN 0.4 MG CAP PO SCH (08:39)
[2017-12-13] MEDS: LACTOBACILLUS RHAMNOSUS GG 1 EACH CAP NG SCH (08:39)
--- NOTE | 2017-12-13 08:39 | NUR ---
RT AT BEDSIDE. PT ON BIPAP VACATION. NO RESPIRATORY DISTRESS NOTED. PLACED ON O2 AT 4 LTR BY N/C. TOLERATING WELL SPO2 98%. SON AT BEDSIDE. NURSE AT BEDSIDE. WILL CONTINUE TO MONITOR. Addendum: 12/13/17 at 1222 by Qi Rowland RN RT AT BEDSIDE. PT ON BIPAP VACATION. NO RESPIRATORY DISTRESS NOTED. PLACED ON O2 AT 3 LTR BY N/C. TOLERATING WELL SPO2 98%. SON AT BEDSIDE. NURSE AT BEDSIDE. WILL CONTINUE TO MONITOR. Addendum: 12/13/17 at 1223 by Qi Rowland RN RT AT BEDSIDE. PT ON BIPAP VACATION. NO RESPIRATORY DISTRESS NOTED. PLACED ON O2 AT 3 LTR BY N/C. TOLERATING WELL SPO2 98%. SON AT BEDSIDE. NURSE AT BEDSIDE. WILL CONTINUE TO MONITOR.
[2017-12-13] MEDS: METOPROLOL SUCCINATE 50 MG TABER PO SCH ×2 (08:40→20:53)
--- NOTE | 2017-12-13 08:59 | NUR ---
PT BACK ON BIPAP 14/6, R 12, FIO2 28%.
--- NOTE | 2017-12-13 09:10 | NUR ---
HR WENT UP TO 130. CARDIZEM IVP ADMINISTERED ORDER.
--- NOTE | 2017-12-13 09:23 | NUR ---
RT AT BEDSIDE. BIPAP SETTING CHANGED TO 16.
--- NOTE | 2017-12-13 09:31 | NUR ---
PLACED PT BACK ON BIPAP WITH SETTINGS CHARTED IPAP [address] HOW[address]
[2017-12-13] MEDS: DILTIAZEM 60 MG TAB PO SCH ×4 (09:48→20:53)
--- NOTE | 2017-12-13 09:55 | NUR ---
SHODER FILLER, BALAJI, HERE TO DO SWALLOW EVALUATION. BILL, RESPIRATORY AT BEDSIDE TAKING PT OFF BIPAP FOR BALAJI. PT ON NASAL CANULA 3L, SPO2 97%.
--- NOTE | 2017-12-13 10:00 | NUR ---
REMOVED PT FROM BIPAP PLACED ON 3LPM NC SWALLOW EVALE DONE SEEM TO GARY WELL PT IS BEDSIDE PT AWAKE ALERT 0N 37PM NC SPO2.97 WILL CONTINUE TO MONITOR PT
--- NOTE | 2017-12-13 10:41 | NUR ---
HOSPITAL SUPERINTENDENT note (bedside swallow evaluation completed) [id number]. Bedside swallow evaluation completed, please see report for details. HOSPITAL SUPERINTENDENT provided pt with education regarding purpose of evaluation and rationale for recommendations. Pt verbalized understanding and agreement at this time. No family at bedside at this time. Recommend: 1) pureed textures 2) nectar-thick liquids 3) STRICT aspiration precautions (including pt must be fully awake/alert/upright for any PO intakes, alternate small/slow bites and sips, stop giving PO if pt becomes less alert/SOB/coughing) 4) 100% feeding supervision/assistance 5) HOSPITAL SUPERINTENDENT to f/u for dysphagia/diet tolerance 2 x week x 2 weeks, as pt able to participate safely, as appropriate. G-codes: [id number] [facility] NOMS level 4. PVE for d/w RN (Qi) and auto mechanics instructor and NON DESTRUCTIVE TESTER (Aureliano) prior to evaluation completion for d/w RN (Qi) following evaluation. HOSPITAL SUPERINTENDENT gave safe swallow strategies sign to RN (Qi) to place above pt's HOB.
--- NOTE | 2017-12-13 11:16 | NUR ---
PT WAS NAUSEATED. ZOFRAN IVP PRN ADMINISTERED. ON CONTINUOUS MONITORING.
--- NOTE | 2017-12-13 11:17 | NUR ---
SON AT BEDSIDE.
[2017-12-13 11:24] LABS: BASOPHILS % (AUTO) 0.2 % (0.0-2.0); EOSINOPHILS % (AUTO) 0.1 % (0.0-4.0); HEMATOCRIT 34.1 % (36-52); HEMOGLOBIN 10.9 g/dL (12.0-18.0); LYMPHOCYTES # (AUTO) 0.2 K/uL (2.0-11.5); LYMPHOCYTES % (AUTO) 2.3 % (20.5-51.1); MEAN CORPUSCULAR HEMOGLOBIN 26 pg (27-31); MEAN CORPUSCULAR HGB CONC 32 g/dL (33-37); MEAN CORPUSCULAR VOLUME 83 fL (80-94); MONOCYTES # (AUTO) 0.1 K/uL (0.8-1.0); MONOCYTES % (AUTO) 1.3 % (1.7-9.3); NEUTROPHILS # (AUTO) 8.4 K/uL (1.8-7.7); NEUTROPHILS % (AUTO) 96.1 % (42.2-75.2); PLATELET COUNT (AUTO) 158 K/uL (140-450); RED BLOOD CELL COUNT(AUTO) 4.13 MIL/uL (4.20-6.10); RED CELL DISTRIBUTION WIDTH 15.5 % (11.6-13.7); WHITE BLOOD COUNT (AUTO) 8.7 K/uL (4.8-10.8)
[2017-12-13 11:34] LABS: ALBUMIN 2.8 g/dL (3.4-5.0); CARBON DIOXIDE 27.5 mmol/L (21-32); CREATININE 3.2 mg/dL (0.7-1.3); POTASSIUM 4.5 mmol/L (3.5-5.1); TOTAL BILIRUBIN 0.5 mg/dL (0.0-1.0)
--- NOTE | 2017-12-13 11:36 | NUR ---
CALLED DR. HOWARD. UPDATED PT SWALLOW EVAL AND DIET RECOMMENDATION FROM NUT PACKER. FARIHA TO START PT ON ORAL FEEDING WITH PUREED TEXTURES, NECTAR THICK LIQUIDS DIET. WILL FOLLOW UP ON ORDER.
--- NOTE | 2017-12-13 12:06 | NUR ---
LAST REVIEW FAXED ON 12/10/17. PER JAMEY TRISTAN ESPANA, NO REVIEW NEEDED UNTIL 7 DAYS FROM LAST REVIEW.
--- NOTE | 2017-12-13 13:16 | NUR ---
REMOVED PT FROM BIPAP AND PLACED ON 4LPM NC PT AWAKE ALERT RN AWARE
--- NOTE | 2017-12-13 13:38 | NUR ---
SEEN BY DR. EMMANUEL. WILL FOLLOW UP ON ORDER.
--- NOTE | 2017-12-13 13:44 | NUR ---
CALLED [facility] AND LEFT MESSAGE FOR PTS SCHEDULED DIALYSIS.
[2017-12-13] MEDS: INTERDRY CLOTH TP SCH (14:07)
--- NOTE | 2017-12-13 16:31 | NUR ---
PT RESTING IN BED COMFORTABLY. NO RESPIRATORY DISTRESS NOTED. NO CHANGE IN LOC. RT AT BEDSIDE. PT ON BACK TO BIPAP. PT ON DIALYSIS (DIALYSIS STARTED AT 1610). DIALYSIS NURSE AT BEDSIDE. HR 96, BP 133/85, R 11, SPO2 98%. WILL CONTINUE TO MONITOR.
--- NOTE | 2017-12-13 16:33 | NUR ---
PLACED PT BACK ON BIPAP PT FEELS MORE COMFORTABLE ON BIPAP DURING AUTISM MOTOR SPECIALIST AWARE
--- NOTE | 2017-12-13 16:36 | NUR ---
PT SEEN BY DR. MCINTOSH. WILL FOLLOW UP ON ORDER.
--- NOTE | 2017-12-13 19:05 | NUR ---
PT SLEEPING IN BED COMFORTABLY. ON DIALYSIS. DIALYSIS NURSE AT BEDSIDE. NO RESPIRATORY DISTRESS NOTED. NO CHANGE IN LOC. A FIB ON MONITOR. HR 67 BP 124/67, RR 11, SPO2 96%. WILL CONTINUE TO MONITOR.
--- NOTE | 2017-12-13 19:20 | NUR ---
RECEIVED REPORT FROM [employer]. PT AWAKE AND ALERT, A&OX4 ABLE TO ANSWER QUESTIONS AND FOLLOW COMMANDS. PT IS ON DIALYSIS WITH DIALYSIS NURSE AT BEDSIDE. PT ON BIPAP WITH SETTINGS 16/8, RATE 12 FIO2 24%. PT DENIES ANY PAIN OR DISCOMFORT. NO ACUTE DISTRESS NOTED. PT'S LUNGS ARE DIMINISHED, CLEAR THROUGHOUT. BOWEL SOUNDS ACTIVE IN ALL FOUR QUADRANTS. PT HAS COSTELLO IN WITH YELLOW URINE. PT HAS CENTRAL LINE TO RIGHT IJ WITH TRU CATH CLEAN AND INTACT. PT HAS NON PITTING EDEMA ON ALL LIMBS. HOB ELEVATED, CALL LIGHT WITHIN REACH. WILL CONTINUE TO MONITOR.
--- NOTE | 2017-12-13 19:20 | NUR ---
ENDORSED TO NOC SHIFT RN FOR CONTINUITY OF CARE. PT ON STABLE CONDITION.
--- NOTE | 2017-12-13 19:31 | NUR ---
RCV'D PT ON BIPAP WITH SETTINGS 16/8 RATE 12 FIO2 24%. DECREASED FIO2 TO 21 % PT'S SPO2 WAS 99%. PT IS AWAKE AND ALERT FOLLOWS COMMANDS. BIPAP IS CONNECTED TO RED OUTLET ALARMS ARE AUDIBLE. AMBU BAG AND IS AT BEDSIDE. PT CURRENTLY ON DIALYSIS. NO SOB OR DISTRESS NOTED. COMFORTABLE WITH BIPAP AND MASK. CLEAR BREATH SOUNDS. 82 HR SOP2 95%. HHN TX OF PULMICORT GIVEN. WILL CONTINUE TO MONITOR.
--- NOTE | 2017-12-13 20:00 | NUR ---
HEMODIALYSIS DONE AT 1945, RECEIVED REPORT FROM DIALYSIS NURSE. PT TOLERATED WELL, FLUID REMOVED 3L FROM PT. VS IS STABLE, ORIENTED AND ALERT X4 VERBALLY RESPONSIVE. WILL CONTINUE TO MONITOR.
--- NOTE | 2017-12-13 20:29 | NUR ---
PT WAS ON 21% FIO2 WHEN ABG WAS DRAWN. POST ABG RESULTS INCREASED FIO2 TO 24%. SEE ABG RESULTS IN [facility]
--- NOTE | 2017-12-13 20:50 | NUR ---
PT'S SON AT BEDSIDE AT THIS TIME TO HELP FEEDING THE DINNER UNDER NURSE'S OBSERVATION . PT CONSUMED 100% FOR DINNER. NO ACUTE RESPIRATORY DISTRESS NOTED. PT TOLERATED WELL FOR PUREE DIET WITH THICKEN LIQUID.
[2017-12-13] MEDS: POLYETHYLENE GLYCOL 17 GM/PKT PO SCH (20:51)
[2017-12-13] MEDS: DOXAZOSIN 2 MG TAB PO SCH (20:54)
--- NOTE | 2017-12-13 21:15 | NUR ---
ADMINISTERED SCHEDULED MEDICATIONS ORDERED WITH CRUSHED WITH APPLE SOURCE, TOLERATED WELL. BS CHECKED, 238 NOTED, 4 UNITS OF INSULIN ADMINISTERED. NO ACUTE DISTRESS NOTED. PT'S SON IS AT BEDSIDE AT THIS TIME. VSS. WILL CONTINUE TO MONITOR.
--- NOTE | 2017-12-13 23:20 | NUR ---
PT IS IN ASLEEP AT THIS TIME, AROUSABLE TO VOICE. NO ACUTE DISTRESS NOTED. PT IS ON BIPAP, VS IS STABLE. A-FIB ON DEPUTY SHERIFF BUILDING GUARD WITH PULSE IN 80'S. WILL CONTINUE TO MONITOR.
[2017-12-14] VITALS (18 sets, daily range): BP systolic 125–166; BP diastolic 11–105
[2017-12-14] MEDS: ANTIFUNGAL CLEAR OINTMENT TP SCH ×2 (00:26→13:04)
[2017-12-14] MEDS: MILD SOAP AND WATER TP SCH ×4 (00:26→13:04)
--- NOTE | 2017-12-14 01:00 | NUR ---
PT IS IN ASLEEP WITH BIPAP, AROUSABLE TO VOICE. PT'S SON IS AT THE BEDSIDE. A-FIB ON CINEMA OR THEATRE MANAGER. PULSE IS ON 90'S. NO ACUTE RESPIRATORY DISTRESS NOTED. WILL CONTINUE TO MONITOR.
--- NOTE | 2017-12-14 03:00 | NUR ---
PT IS AWAKE, AAO X 4, VERBALLY RESPONSIBLE. NO ACUTE DISTRESS NOTED. A-FIB ON EDUCATION RESEARCH ANALYST. PULSE IS IN 90'S. WILL CONTINUE TO MONITOR.
--- NOTE | 2017-12-14 04:08 | NUR ---
CHECKING ON PATIENT. FOUND PT ON BIPAP ASLEEP COMFORTABLY. PT WAS PUT ON BIPAP BY RN. NO SOB OR DISTRESS NOTED. WILL CONTINUE TO MONITOR. SPO2 93% HR 92 CLEAR BREATH SOUNDS.
--- NOTE | 2017-12-14 04:30 | NUR ---
DR. BRANHAM AT BEDSIDE AT THIS TIME. WILL FOLLOW THE ORDER.
[2017-12-14] MEDS: SODIUM CHLORIDE FLUSH 10 ML SYR IVF SCH ×3 (05:15→21:57)
[2017-12-14] MEDS: methylPREDNISolone SS 125 MG/2 ML VIAL IVP SCH ×3 (05:18→21:35)
[2017-12-14 05:33] LABS: ANION GAP 13.6 (8-16); CARBON DIOXIDE 28.1 mmol/L (21-32); CREATININE 3.1 mg/dL (0.7-1.3); POTASSIUM 4.7 mmol/L (3.5-5.1)
--- NOTE | 2017-12-14 05:34 | NUR ---
PT AWAKE AND ALERT. RESTING COMFORTABLY ON BIPAP AND WATCHING TV. RN AT BEDSIDE. PT ASKED IF HIS SON LEFT CELL PHONE. TOLD PT THERE IS NOTHING ON COUNTER OR CHAIR. NO SOB OR DISTRESS NOTE. DIMINISHED BREATH SOUNDS. SPO2 96% HR 105. WILL CONTINUE TO MONITOR.
[2017-12-14 06:01] LABS: BASOPHILS % (AUTO) 0.1 % (0.0-2.0); EOSINOPHILS # (AUTO) 0.1 K/uL (0-0.4); EOSINOPHILS % (AUTO) 0.8 % (0.0-4.0); HEMATOCRIT 33.6 % (36-52); HEMOGLOBIN 10.2 g/dL (12.0-18.0); LYMPHOCYTES # (AUTO) 0.1 K/uL (2.0-11.5); MEAN CORPUSCULAR HEMOGLOBIN 26 pg (27-31); MEAN CORPUSCULAR HGB CONC 31 g/dL (33-37); MEAN CORPUSCULAR VOLUME 84 fL (80-94); MONOCYTES # (AUTO) 0.1 K/uL (0.8-1.0); MONOCYTES % (AUTO) 2.2 % (1.7-9.3); NEUTROPHILS # (AUTO) 6.4 K/uL (1.8-7.7); NEUTROPHILS % (AUTO) 94.9 % (42.2-75.2); PLATELET COUNT (AUTO) 172 K/uL (140-450); RED BLOOD CELL COUNT(AUTO) 3.99 MIL/uL (4.20-6.10); WHITE BLOOD COUNT (AUTO) 6.8 K/uL (4.8-10.8)
[2017-12-14] MEDS: BUDESONIDE 0.5 MG/2 ML NEBU INH SCH ×2 (06:43→19:05)
--- NOTE | 2017-12-14 06:43 | NUR ---
RECEIVED PT ON COOK V60 ST 09/20 RR 12 FIO2 24 ALARMS ARE ON AND AUDIBLE PT IN HF ALERT WEARING F\F MASK SIZE LARGE BS DIMINSHED HHN GIVEN I\L WITH 0.5 MG PULMICORT NO APPARENT DISTRESS BIPAP PLUGGED INTO RED OUTLET Addendum: 12/14/17 at 1013 by Brooke Clements RT GEL UNDER MASK Addendum: 12/14/17 at 1127 by Brooke Clements RT CORRECT IPAP SETTING IS 16
[2017-12-14] MEDS: BLOOD GLUCOSE MONITORING 1 DEV DEV FS SCH ×4 (07:00→21:57)
--- NOTE | 2017-12-14 07:00 | NUR ---
RECEIVED REPORT FROM DAMIEN. PT IN BED ON BIPAP, AWAKE, ALERT AND ORIENTED X4. PT SPEECH IS CLEAR AND HE FOLLOWS COMMANDS, HELPFUL IN REPOSITIONING WITH ASSISTANCE. PERRLA. PTS LUNG SOUNDS ARE CLEAR/DIMINISHED BILATERALLY IN UPPER LOBES AND DIMINISHED IN LOWER. ACTIVE BOWEL SOUNDS IN ALL 4 QUADRANTS. PTS SKIN IS DRY AND INTACT WITH REDNESS IN FOLDS OF LOWER ABDOMEN, UPPER THIGHS AND GROIN, INTERDRY IN PLACE. REMOVED BIPAP, ON 1L NASAL CANULA TO KEEP SPO2 BETWEEN 88-90%. PTS. RIGHT IJ INTACT, FLUSHED AND PATENT. PT HAS ANASARCA THROUGHOUT BODY AND CURRENTLY WEIGHTS 418LBS. A.FIB ON MONITOR.
[2017-12-14] MEDS: INSULIN LISPRO SLIDING SCALE 100 UNITS/ML VIAL SUBQ PRN ×4 (07:04→22:09)
--- NOTE | 2017-12-14 07:20 | NUR ---
REPORT GIVEN TO RATANA. MENDOZA, GAVY. MENDOZA. NO ACUTE DISTRESS NOTE. VSS.
--- NOTE | 2017-12-14 07:45 | NUR ---
PT REQUESTED SON TO BE CALLED AT 7:15, CALLED AT 7:20 AND SON ARRIVED AT 7:35. FED HIS FATHER AT 7:50. PT ATE/ DRANK 1 CRANBERRY JUICE (THICKENED), 2 APPLE JUICES AND 50% TRAY MEAL.
--- NOTE | 2017-12-14 08:00 | NUR ---
ORAL CARE PROVIDED, BED BATH, SKIN ASSESSMENT TO ENSURE SKIN IS DRY.
[2017-12-14] MEDS: PANTOPRAZOLE 40 MG INJ VIAL IVP SCH (08:26)
[2017-12-14] MEDS: METOPROLOL SUCCINATE 50 MG TABER PO SCH ×2 (08:27→21:34)
[2017-12-14] MEDS: LACTULOSE 20 GM/30 ML UDC PO SCH ×2 (08:27→21:37)
[2017-12-14] MEDS: DILTIAZEM 60 MG TAB PO SCH ×4 (08:27→21:37)
[2017-12-14] MEDS: LACTOBACILLUS RHAMNOSUS GG 1 EACH CAP NG SCH (08:28)
[2017-12-14] MEDS: TAMSULOSIN 0.4 MG CAP PO SCH (08:28)
[2017-12-14] MEDS: ACETAMINOPHEN 325 MG TAB PO PRN ×2 (08:54→14:08)
--- NOTE | 2017-12-14 10:09 | NUR ---
BIPAP CHECK BS DIMINISHED DECREASED FIO2 TO 22%GEL UNDER MASK
--- NOTE | 2017-12-14 11:18 | NUR ---
SPOKE WITH DR. DURANT FOR MEDICATION FOR ABDOMINAL BLOATING. NEW ORDERS RECEIVED.
--- NOTE | 2017-12-14 11:28 | NUR ---
12/14/17 RD FOLLOW UP COMPLETED PLEASE REFER TO NUTRITION PROGRESS NOTE UNDER CARE ACTIVITY FOR ESTIMATED NUTRITION NEEDS. RD RECOMMENDATIONS: 1- RECOMMEND CONTINUE PUREE DIET 2- MONITOR PO INTAKE & TOLERANCE 3- RD F/U 2-3 DAYS; HIGH RISK 4- RE-EVALUATE DIET AND NEED TO ADD ANY RESTRICTIONS (DIABETIC/RENAL), MODIFICATIONS (ADVANCE TEXTURE) & OR SUPPLEMENTS (TO HELP MEET ESTIMATED NEEDS). HECTOR HA MBA, RD
--- NOTE | 2017-12-14 12:40 | NUR ---
CALLED DR. HOWARD/DR. CARLEEN GARCIA EXCHANGE TO ASK FOR MEDICATION FOR BLOATING.
--- NOTE | 2017-12-14 13:11 | NUR ---
CALLED [facility] AGAIN FOR DR. DURANT FOR MEDICATION FOR ABDOMINAL BLOATING FOR PT.
[2017-12-14] MEDS ORDERED: SIMETHICONE 80 MG TAB.CHEW PO PRN (13:20)
[2017-12-14] MEDS ORDERED: FAMOTIDINE 20 MG TAB PO SCH (13:23)
--- NOTE | 2017-12-14 13:30 | NUR ---
DR. DURANT CALLED BACK TO GIVE ORDERS FOR BLOATING. OVER THE PHONE ORDERS RECEIVED, READ BACK AT 1331.
--- NOTE | 2017-12-14 14:20 | NUR ---
COSTELLO CATH CARE PROVIDED. SKIN ASSESSMENT TO ENSURE SKIN WAS DRY. BARRIER CREAM APPLIED TO BOTTOM, SCROTUM, FOLDS OF LEGS AND ABDOMEN
--- NOTE | 2017-12-14 14:40 | NUR ---
PT REQUESTED TO BE PLACED BACK ON BIPAP. RESPIRATORY, MARIA LUISA, NOTIFIED.
--- NOTE | 2017-12-14 14:41 | NUR ---
HEMODIALYSIS, ANTOINE MENDOZA, STARTING TIME 1441. ORDERS AND LABS PRINTED FOR REJI SCHULTZ.
--- NOTE | 2017-12-14 15:15 | NUR ---
PT NOTE 1513 UNABLE TO SEE Pt DUE TO ONGOING DIALYSIS; WILL FOLLOW UP W/Pt SATURDAY, RN NOTIFIED.
--- NOTE | 2017-12-14 17:40 | NUR ---
ANTOINE INSURANCE EXAMINER, CHANGED CENTRAL DRESSING ON TRU CATH
--- NOTE | 2017-12-14 18:00 | NUR ---
SKIN ASSESSMENT TO ENSURE SKIN FOLDS WERE DRY. CHANGED PT LINENS AND GOWN. GAVE PT'S SON TRAY AND PT SITTING IN BED 45% HOB EATING WITH SONS ASSISTANCE.
[2017-12-14] MEDS: ALBUTEROL SULFATE/IPRATROPIU 3 ML SOL INH PRN (19:05)
--- NOTE | 2017-12-14 19:31 | NUR ---
RECEIVED REPORT FROM AM NURSE; ORDERS/LABS/POC UPDATED. PT AWAKE SITTING UP IN BED, DENIES PAIN @ THIS TIME. NO S/S OF ACUTE DISTRESS NOTED. AWAITING BED FOR TRANSFER.
--- NOTE | 2017-12-14 19:40 | NUR ---
PT AWAKE SITTING UP IN BED; AOX4 PERRL+3; ABLE TO MOVE ALL EXTREMITIES. LUNGS CTA, PT AFIB ON MONITOR 80-90S. GEN EDEMA NOTED; WITH SEVERE EDEMA TO SCROTAL AREA. PT TOLERATING PO; NECTAR THICK. F/C DRAINING NADJA CLOUDY URINE. R IJ TRU CATH NOTED WITH PIGTAIL. INTERTRIGO NOTED BETWEEN ABD FOLDS; NO OTHER SKIN BREAKDOWN NOTED. PT DENIES PAIN @ THIS TIME. WILL CONTINUE TO OBSERVE.
--- NOTE | 2017-12-14 19:43 | NUR ---
TRANSFER TO BED 121B; VITAL SIGNS WNL; NO RESP DISTRESS NOTED. NO OTHER S/S OF ACUTE DISTRESS. WILL TRANSFER PT.
--- NOTE | 2017-12-14 20:00 | NUR ---
PHONE CALL MADE TO PTS SON NICOLE.MADE AWARE OF THE PTS TRANSFER TO 121 B.HE SAID HE WILL BE IN TO SEE PT LATER.PT AWARE. PT TRANSFERRED TO 121B WITH NO INCIDENT.PT ON SALESPERSON PIANOS AND ORGANS.ON 02NC AT 2LPM.TRU CATHETER INTACT.COSTELLO CATHETER INTACT.
--- NOTE | 2017-12-14 20:10 | NUR ---
RECEIVED PT ON THE UNIT FROM ICU. PT IN STABLE CONDITION. NO S/S OF DISTRESS NOTED. R TRU CATHETER TRIPLE LUMEN, PIGTAIL NOTED, PATENT AND FLUSHING. REDNESS NOTED ON ABDOMEN SKIN FOLDS. SKIN WARM AND DRY TO TOUCH, PT ON 2L O2 VIA NC. INITIAL ASSESSMENT COMPLETED, PLAN OF CARE DISCUSSED WITH PT, ALL SAFETY PRECAUTIONS MET, CALL LIGHT WITHIN REACH, WILL CONTINUE TO MONITOR.
[2017-12-14] MEDS: DOXAZOSIN 2 MG TAB PO SCH (21:34)
[2017-12-14] MEDS: POLYETHYLENE GLYCOL 17 GM/PKT PO SCH (21:35)
--- NOTE | 2017-12-14 21:45 | NUR ---
DR. ENCINAS PAGED REGARDING PTS BS OF [id number]
--- NOTE | 2017-12-14 21:50 | NUR ---
DR. ENCINAS PAGED BACK. DR. ENCINAS STATED TO GIVE 12 UNITS INSULIN
--- NOTE | 2017-12-14 22:00 | NUR ---
ALL DUE MEDICATIONS GIVEN, PT TOLERATED WELL. WILL CONTINUE TO MONITOR
--- NOTE | 2017-12-14 22:30 | NUR ---
PT REQUESTED TO BE ON BI-PAP, PAGED RT. THEY WILL COME
--- NOTE | 2017-12-14 22:40 | NUR ---
PT ON BI-PAP TOLERATING WELL. O2 SAT 96%
[2017-12-15] VITALS (7 sets, daily range): BP systolic 120–154; BP diastolic 68–101
--- NOTE | 2017-12-15 | NUR ---
PT RESTING IN BED COMFORTABLY NO S/S OF DISTRESS NOTED. RR EVEN/UNLABORED
[2017-12-15] MEDS: ANTIFUNGAL CLEAR OINTMENT TP SCH ×2 (01:02→13:06)
[2017-12-15] MEDS: MILD SOAP AND WATER TP SCH ×4 (01:03→13:07)
--- NOTE | 2017-12-15 02:30 | NUR ---
PT RESTING IN BED, NO S/S OF DISTRESS. WILL CONTINUE TO MONITOR
[2017-12-15] MEDS: SODIUM CHLORIDE FLUSH 10 ML SYR IVF SCH ×3 (05:08→21:35)
[2017-12-15] MEDS: methylPREDNISolone SS 125 MG/2 ML VIAL IVP SCH ×3 (05:12→21:05)
[2017-12-15] MEDS: INSULIN LISPRO SLIDING SCALE 100 UNITS/ML VIAL SUBQ PRN ×4 (06:08→21:35)
[2017-12-15] MEDS: BUDESONIDE 0.5 MG/2 ML NEBU INH SCH ×2 (06:29→18:32)
[2017-12-15] MEDS: ACETAMINOPHEN 325 MG TAB PO PRN ×2 (06:51→13:37)
[2017-12-15 07:00] LABS: HEMATOCRIT 31.8 % (36-52); HEMOGLOBIN 10.3 g/dL (12.0-18.0); MEAN CORPUSCULAR HEMOGLOBIN 27 pg (27-31); MEAN CORPUSCULAR HGB CONC 32 g/dL (33-37); MEAN CORPUSCULAR VOLUME 83 fL (80-94); PLATELET COUNT (AUTO) 157 K/uL (140-450); RED BLOOD CELL COUNT(AUTO) 3.86 MIL/uL (4.20-6.10); RED CELL DISTRIBUTION WIDTH 15.1 % (11.6-13.7); WHITE BLOOD COUNT (AUTO) 7.4 K/uL (4.8-10.8)
[2017-12-15] MEDS: BLOOD GLUCOSE MONITORING 1 DEV DEV FS SCH ×4 (07:34→21:35)
--- NOTE | 2017-12-15 07:36 | NUR ---
REPORT GIVEN TO DAY NURSE FOR CONTINUITY OF CARE, PT IN STABLE CONDITION.
[2017-12-15 07:37] LABS: ANION GAP 12.8 (8-16); CARBON DIOXIDE 30.5 mmol/L (21-32); CREATININE 3.1 mg/dL (0.7-1.3); POTASSIUM 4.3 mmol/L (3.5-5.1)
[2017-12-15 07:38] LABS: ANION GAP 13.5 (8-16); CARBON DIOXIDE 28.8 mmol/L (21-32); CREATININE 3.1 mg/dL (0.7-1.3); PHOSPHORUS 5.7 mg/dL (2.5-4.9); POTASSIUM 4.3 mmol/L (3.5-5.1)
--- NOTE | 2017-12-15 07:38 | NUR ---
REPROT RECIEVED FROM FUNERAL PLANNING COUNSELOR NURSE, DIEGO, PT RESTING QUIETLY IN NAD, RESP EVEN UNLABORED ON 2L NC O2, SKIN WARM DRY COLOR WNL, COSTELLO DRAINING WELL DARK NADJA URINE, PT ON FLAKEBOARD LINE TENDER, PLAN OF CARE REVIEWED, PT DENIES PAIN OR DISCOMFORT, WILL CONTINUE TO MONITOR./
[2017-12-15 08:11] LABS: BASOPHILS % (MANUAL) 0 % (0-2); EOSINOPHILS % (MANUAL) 0 % (0-4); LYMPHOCYTES % (MANUAL) 3 % (20-46); MONOCYTES % (MANUAL) 7 % (5-12)
--- NOTE | 2017-12-15 08:15 | NUR ---
DR GONCALVES AT BEDSIDE FOR EVAL.
[2017-12-15] MEDS: LACTULOSE 20 GM/30 ML UDC PO SCH ×2 (08:54→21:07)
[2017-12-15] MEDS: LACTOBACILLUS RHAMNOSUS GG 1 EACH CAP NG SCH (08:55)
[2017-12-15] MEDS: METOPROLOL SUCCINATE 50 MG TABER PO SCH ×2 (08:55→21:07)
[2017-12-15] MEDS: FAMOTIDINE 20 MG TAB PO SCH (08:56)
[2017-12-15] MEDS: TAMSULOSIN 0.4 MG CAP PO SCH (08:56)
[2017-12-15] MEDS: DILTIAZEM 60 MG TAB PO SCH ×4 (08:56→21:07)
[2017-12-15] MEDS: FUROSEMIDE 40 MG/4 ML VIAL IVP SCH ×2 (08:57→17:40)
[2017-12-15] MEDS: PANTOPRAZOLE 40 MG INJ VIAL IVP SCH (08:57)
--- NOTE | 2017-12-15 10:30 | NUR ---
PT REFUSED BED BATH, PT STATES HE WAS CLEANED UP EARLIER THIS AM, WILL TRY LATER TODAY.
--- NOTE | 2017-12-15 12:13 | NUR ---
8 UNITS INSULIN GIVEN PER SLIDING SCALE FOR BLOOD SUGAR 306
--- NOTE | 2017-12-15 12:54 | NUR ---
MEDICATED PER ORDER, PT GARY WELL, SKIN FOLDS CLEANED WITH SOAP AND WATER, PAT DRIED, OINTMENT APPLIED, AND INTER DRY APPLIED. PT REMAINS ON 2L NC 02, RESP EVEN UNLABORED, DENIES SOB OR PAIN, WILL CONTINUE TO MONITOR.
--- NOTE | 2017-12-15 13:37 | NUR ---
PT C/O WASSERMAN, TYLENOL GIVEN PER PT REQUEST, PT SITTING UP TALKING WITH SON, RESP EVEN UNLABORED ON 2L NC.
--- NOTE | 2017-12-15 15:20 | NUR ---
PT RESITING QUIELTY IN NAD, RESP EVEN UNLABORED, SKIN WARM DRY COLOR WNL, DENIES ANY IMMEDIATE NEEDS, WILL CONTINUE TO MONITOR.
[2017-12-15] MEDS: ALBUTEROL SULFATE/IPRATROPIU 3 ML SOL INH PRN (18:32)
--- NOTE | 2017-12-15 19:35 | NUR ---
REPORT GIVEN TO DOBBY LOOM CHAIN PEGGER NURSE BRUCE CORTEZ IN STABLE CONDITION.
--- NOTE | 2017-12-15 19:36 | NUR ---
RECEIVED PT FROM FLORENTINO RN, PT IN STABLE CONDITION. NO S/S OF DISTRESS NOTED. R TRU CATHETER TRIPLE LUMEN, PIGTAIL NOTED, PATENT AND FLUSHING. REDNESS NOTED ON ABDOMEN SKIN FOLDS. SKIN WARM AND DRY TO TOUCH, PT ON 2L O2 VIA NC. INITIAL ASSESSMENT COMPLETED, PLAN OF CARE DISCUSSED WITH PT, ALL SAFETY PRECAUTIONS MET, CALL LIGHT WITHIN REACH, WILL CONTINUE TO MONITOR.
[2017-12-15] MEDS: POLYETHYLENE GLYCOL 17 GM/PKT PO SCH (21:06)
[2017-12-15] MEDS: DOXAZOSIN 2 MG TAB PO SCH (21:08)
[2017-12-16] VITALS: BP 126/68
[2017-12-16] MEDS: MILD SOAP AND WATER TP SCH ×4 (01:46→15:03)
[2017-12-16] MEDS: ANTIFUNGAL CLEAR OINTMENT TP SCH ×2 (01:46→13:00)
--- NOTE | 2017-12-16 02:45 | NUR ---
PAGED DR. VELAZCO FOR PTS HR EPISODE OF 45, NO NEW ORDERS
[2017-12-16 04:00] VITALS: BP 128/64
[2017-12-16] MEDS: SODIUM CHLORIDE FLUSH 10 ML SYR IVF SCH ×3 (05:41→20:40)
[2017-12-16] MEDS: methylPREDNISolone SS 125 MG/2 ML VIAL IVP SCH ×3 (05:41→20:30)
--- NOTE | 2017-12-16 05:57 | NUR ---
PAGED DR. VELAZCO BECAUSE PT STATES HE IS FEELING ANXIOUS AND WANTS TO TAKE MEDICATION FOR IT
[2017-12-16] MEDS: INSULIN LISPRO SLIDING SCALE 100 UNITS/ML VIAL SUBQ PRN ×3 (06:13→20:35)
[2017-12-16] MEDS: BUDESONIDE 0.5 MG/2 ML NEBU INH SCH ×2 (06:25→19:37)
--- NOTE | 2017-12-16 06:30 | NUR ---
DR. VELAZCO STATED IT IS NOT SAFE TO GIVE ATIVAN
[2017-12-16] MEDS: BLOOD GLUCOSE MONITORING 1 DEV DEV FS SCH ×4 (06:41→20:05)
[2017-12-16 07:05] LABS: BASOPHILS % (AUTO) 0.2 % (0.0-2.0); EOSINOPHILS # (AUTO) 0.1 K/uL (0-0.4); EOSINOPHILS % (AUTO) 0.8 % (0.0-4.0); HEMATOCRIT 32.1 % (36-52); HEMOGLOBIN 10.1 g/dL (12.0-18.0); LYMPHOCYTES # (AUTO) 0.3 K/uL (2.0-11.5); LYMPHOCYTES % (AUTO) 3.7 % (20.5-51.1); MEAN CORPUSCULAR HEMOGLOBIN 26 pg (27-31); MEAN CORPUSCULAR HGB CONC 32 g/dL (33-37); MEAN CORPUSCULAR VOLUME 84 fL (80-94); MONOCYTES # (AUTO) 0.3 K/uL (0.8-1.0); MONOCYTES % (AUTO) 3.7 % (1.7-9.3); NEUTROPHILS # (AUTO) 7.1 K/uL (1.8-7.7); NEUTROPHILS % (AUTO) 91.6 % (42.2-75.2); PLATELET COUNT (AUTO) 159 K/uL (140-450); RED BLOOD CELL COUNT(AUTO) 3.83 MIL/uL (4.20-6.10); RED CELL DISTRIBUTION WIDTH 15.5 % (11.6-13.7); WHITE BLOOD COUNT (AUTO) 7.9 K/uL (4.8-10.8)
--- NOTE | 2017-12-16 07:27 | NUR ---
REPORT GIVEN TO DAY NURSE AT BEDSIDE, PT IN STABLE CONDITION NO S/S OF DISTRESS NOTED.
[2017-12-16 07:28] LABS: ANION GAP 14.4 (8-16); CARBON DIOXIDE 28.6 mmol/L (21-32); CREATININE 3.5 mg/dL (0.7-1.3)
--- NOTE | 2017-12-16 07:28 | NUR ---
RECEIVED REPORT FROM GALVANIZER ZINC NURSE DIEGO AT BEDSIDE FOR CONTINUITY OF CARE. PT IS AWAKE AND ORIENTED. INTRODUCED SELF AND UPDATED BOARD. PT'S SON AT BEDSIDE. PT DENIES SOB. DENIES PAIN. REDNESS ON ABD FOLDS NOTED. BS PRESENT. GENERALIZED PITTING EDEMA +2 NOTED ON BUE AND BLE. COSTELLO CATHETER IN PLACE. CLEAR DARK NADJA URINE NOTED. RIJ TRIPLE LUMEN CATHETER IN PLACE. PT ON BEDREST. BED IN LOW POSITION, WHEELS LOCKED, CALL LIGHT WITHIN REACH. WILL CONTINUE TO MONITOR.
[2017-12-16 07:30] LABS: MAGNESIUM 1.9 mg/dL (1.8-2.4); PHOSPHORUS 6.6 mg/dL (2.5-4.9)
--- NOTE | 2017-12-16 07:45 | NUR ---
CALLED DR. ALONZO AND REPORTED LAB GLUCOSE 425, BUN 108, CREATININE 3.5 AND PT TOLERATED PUREE DIET. ORDERS RECEIVED.
[2017-12-16 08:00] VITALS: BP 143/95
[2017-12-16] MEDS: METOPROLOL SUCCINATE 50 MG TABER PO SCH ×2 (09:00→20:31)
[2017-12-16] MEDS: FUROSEMIDE 40 MG/4 ML VIAL IVP SCH ×2 (09:00→17:04)
[2017-12-16] MEDS: DILTIAZEM 60 MG TAB PO SCH ×4 (09:00→20:31)
[2017-12-16] MEDS: LACTOBACILLUS RHAMNOSUS GG 1 EACH CAP NG SCH (09:03)
[2017-12-16] MEDS: LACTULOSE 20 GM/30 ML UDC PO SCH ×2 (09:04→20:32)
[2017-12-16] MEDS: FAMOTIDINE 20 MG TAB PO SCH (09:04)
[2017-12-16] MEDS: TAMSULOSIN 0.4 MG CAP PO SCH (09:04)
[2017-12-16] MEDS: PANTOPRAZOLE 40 MG INJ VIAL IVP SCH (09:04)
[2017-12-16] MEDS: ACETAMINOPHEN 325 MG TAB PO PRN ×3 (09:12→23:55)
--- NOTE | 2017-12-16 09:12 | NUR ---
ADMINISTERED SCHEDULED MEDS. HELD HTN MEDS AND LASIX. PT COMPLAINED OF HEADACHE WITH MILD PAIN /. ADMINISTERED TYLENOL PO. PT TOLERATED MEDS WELL. PHYSICAL THERAPY CAME IN. PT UNABLE TO SIT AT EDGE OF BED OR STAND FOR P/T. PT WAS ANXIOUS AND REQUESTED TO BE PLACED BACK ON BIPAP. CALLED R/T. AFTER PT WAS PLACED BACK TO BED, DID NOT REQUEST BIPAP. CURRENTLY ON O2 NC 2L/MIN. O2 SAT 96%. NO SIGNS OF RESPIRATORY DISTRESS. WILL CONTINUE TO MONITOR.
[2017-12-16] MEDS: INSULIN LANTUS 100 UNITS/ML 10 ML VIAL SUBQ SCH (09:28)
[2017-12-16 12:00] VITALS: BP 142/89
--- NOTE | 2017-12-16 12:28 | NUR ---
CALLED DR. MEJIAS COVERING FOR DR. ALONZO. REPORTED BS 415. RECEIVED ORDER TO GIVE LANTUS 10UNITS NOW.
[2017-12-16] MEDS ORDERED: INSULIN LANTUS 100 UNITS/ML 10 ML VIAL SUBQ SCH (12:45)
--- NOTE | 2017-12-16 13:49 | NUR ---
FAXED INFORMATION TO [facility] FOR OP HD FAX [phone] PHONE TARI [phone]
--- NOTE | 2017-12-16 14:30 | NUR ---
WOUND CARE RE-EVALUATION NOTE: COMPLETE SKIN ASSESSMENT DONE ON THIS 47 Y/O MALE PATIENT ADMITTED TO [facility], WITH INITIAL DIAGNOSIS OF SOB. PAST MEDICAL HX INCLUDES CHF, A-FIB, DM, HTN AND OBESITY ALL ABOVE INFORMATION WAS OBTAINED FROM THE ADMISSION H&P . PATIENT IS AWAKE, ALERT AND ORIENTED AT THIS TIME. HD COMPLETED, RIGHT IJ DIALYSIS CATHETER IN PLACE DRESSING DRY AND INTACT. SKIN WARM AND DRY, TATTOO TO UE, +1EDEMA BLE, NO HAIR GROWTH AND BILATERAL DORSAL PEDAL PULSES PRESENT. COSTELLO CATHETER IN PLACE. PATIENT ABLE TO ASSIST WITH TURNING. PATIENT EDUCATED TO SHIFT WEIGHT EVERY TWO HOURS. PATIENT VERBALIZED UNDERSTANDING. INITIAL PLAN OF CARE AND PRESSURE PREVENTIVE MEASURES DISCUSSED WITH PRIMARY RN. INTEGUMENTARY: BLE SKIN DRY AND INTACT INTERTRIGO TO ABDOMEN FOLDS, R/L GROINS AND R/L UPPER THIGHS SCROTUM EDEMA IMPROVED. SKIN INTACT RECOMMENDATIONS: -APPLY ANTIFUNGAL CREAM TO INTERTRIGO TO ABDOMEN FOLDS, R/L GROINS AND R/L UPPER THIGHS BIDWC AND PRN IF SOILING -APPLY INTER DRY TO FOLDS AREA AND INNER THIGHS TO SHIELD SCROTUM -APPLY MOISTURIZER TO DRY BLE SKIN -TURN AND REPOSITION PATIENT Q2H, ASSESS SKIN -OFFLOAD BILATERAL HEELS BY PLACING PILLOWS UNDER CALVES AT ALL TIMES, UNLESS OTHERWISE CONTRAINDICATED -KEEP SKIN CLEAN AND DRY AT ALL TIMES. -PRESSURE REDISTRIBUTION SURFACE THERAPY. RECOMMENDATIONS DISCUSSED WITH PRIMARY RN. PLEASE CONTACT WOUND CARE NURSE FOR ANY QUESTIONS AND CHANGES IN SKIN CONDITION.
--- NOTE | 2017-12-16 15:04 | NUR ---
MIXING PLANT OPERATOR note (dysphagia therapy and discharge summary report) [phone]. S/O: Dysphagia therapy provided following clearance by RN (Eliz). Pt's son at bedside during dysphagia therapy session. Pt awake/alert/pleasant/cooperative. Pt's vocal intensity has improved significantly since Saturday. Physician team has advanced pt's diet textures to regular textures with thin liquids. A/P: Pt tolerating current textures (regular textures with thin liquids) without overt signs/symptoms of aspiration provided pt takes small/slow bites and sips and does not attempt to talk with PO in his mouth. MIXING PLANT OPERATOR provided education to pt and pt's son regarding safe swallow strategies and importance of strict compliance with same. Pt and pt's son verbalized agreement and understanding at this time. Discharge Summary Report Pt was provided with bedside swallow evaluation on 12/13/2017 with recommendations for pureed textures, nectar-thick liquids, strict aspiration precautions, feeding assistance, dysphagia therapy. Pt was provided with dysphagia therapy on 12/16/2017 and pt tolerating regular textures and thin liquids. Recommend: 1) continue physician-ordered regular textures with thin liquids 2) general aspiration precautions (including pt to be fully upright/awake/alert for any PO intakes, alternate small/slow bites and sips, stop giving PO if pt becomes less alert/SOB/coughing) 3) discharge pt from MIXING PLANT OPERATOR intervention at this time. Physician may reorder if further concerns arise, as appropriate. G-codes: [id number] [facility] NOMS level 6. PVE for d/w RN (Eliz) prior to and following dysphagia therapy session.
--- NOTE | 2017-12-16 15:20 | NUR ---
PATIENT FINISHED WITH DIALYSIS. OFF BIPAP. PATIENT PLACED BACK ON 2L NC.
[2017-12-16 16:00] VITALS: BP 142/82
--- NOTE | 2017-12-16 16:20 | NUR ---
PATIENT REQUESTED TO BE PLACED ON BIPAP FOR NAP. PROTECTIVE GEL IN PLACE. PATIENT TOLERATING BIPAP WELL.
--- NOTE | 2017-12-16 16:50 | NUR ---
REPORTED TO DR. MEJIAS PT'S BS 471. ORDER TO GIVE 10 UNITS INSULIN.
[2017-12-16] MEDS: SEVELAMER CARBONATE 800 MG TAB PO SCH (17:06)
--- NOTE | 2017-12-16 19:15 | NUR ---
ENDORSED PT TO OPTICAL MANAGER NURSE MONIQUE AT BEDSIDE FOR CONTINUITY OF CARE. PT IS AWAKE AND ORIENTED. SON AT BEDSIDE. PT IN STABLE CONDITION.
--- NOTE | 2017-12-16 19:17 | NUR ---
RECEIVED REPORT FROM DAY SHIFT NURSE. PT LYING IN BED, AWAKE WITH BIPAP. NO DISTRESS NOTED. PT HAS RIGHT IJ TRIPLE LUMEN, DRESSING CLEAN, DRY AND INTACT. PT HAS COSTELLO CATH DRAINING CLEAR DARK NADJA URINE. DISCUSSED PLAN OF CARE, PT VERBALIZED UNDERSTANDING. FALL/SAFETY PRECAUTION IN PLACE. CALL LIGHT WITHIN REACH.
[2017-12-16] MEDS: ALBUTEROL SULFATE/IPRATROPIU 3 ML SOL INH PRN (19:37)
[2017-12-16 20:00] VITALS: BP 119/69
--- NOTE | 2017-12-16 20:05 | NUR ---
BS CHECKED 427. PAGED DR. ALONZO. DR. WATSON SERVICE LINE BUS CLEANER. WAITING FOR CALL BACK.
--- NOTE | 2017-12-16 20:18 | NUR ---
RECEIVED CALL BACK FROM DR. WATSON. ORDERED 12 UNITS OF HUMALOG SUBQ. ORDER NOTED AND WILL CARRY OUT.
[2017-12-16] MEDS: POLYETHYLENE GLYCOL 17 GM/PKT PO SCH (20:31)
[2017-12-16] MEDS: DOXAZOSIN 2 MG TAB PO SCH (20:40)
--- NOTE | 2017-12-16 22:37 | NUR ---
PT RESTING IN BED WITH EYES CLOSED, EASILY AROUSABLE. NO S/S OF DISTRESS. PT'S SON AT BEDSIDE. ALL NEEDS MET AT THIS TIME. FALL PRECAUTION IN PLACE. CALL LIGHT WITHIN REACH.
[2017-12-17] VITALS: BP 147/92
[2017-12-17] MEDS: ANTIFUNGAL CLEAR OINTMENT TP SCH ×2 (00:47→13:22)
--- NOTE | 2017-12-17 00:55 | NUR ---
PT WAS CLEANED AND CHANGED. PT REPOSITIONED. NO C/O PAIN. ALL NEEDS MET AT THIS TIME. FALL PRECAUTION IN PLACE. CALL LIGHT WITHIN REACH.
[2017-12-17] MEDS: MILD SOAP AND WATER TP SCH ×4 (01:52→13:23)
--- NOTE | 2017-12-17 03:35 | NUR ---
PT SLEEPING BUT EASILY AROUSABLE. NO S/S OF DISTRESS. PT'S SON AT BEDSIDE. FALL PRECAUTION IN PLACE. CALL LIGHT WITHIN REACH.
[2017-12-17 04:00] VITALS: BP 139/77
[2017-12-17] MEDS: methylPREDNISolone SS 125 MG/2 ML VIAL IVP SCH ×3 (05:02→20:39)
[2017-12-17] MEDS: SODIUM CHLORIDE FLUSH 10 ML SYR IVF SCH ×3 (05:03→20:43)
[2017-12-17] MEDS: INSULIN LISPRO SLIDING SCALE 100 UNITS/ML VIAL SUBQ PRN ×3 (06:43→17:06)
[2017-12-17] MEDS: BLOOD GLUCOSE MONITORING 1 DEV DEV FS SCH ×4 (06:45→20:14)
--- NOTE | 2017-12-17 06:45 | NUR ---
BS CHECKED 398. INSULIN COVERAGE GIVEN PER SLIDING SCALE. NO S/S OF DISTRESS. CALL LIGHT WITHIN REACH.
[2017-12-17] MEDS: BUDESONIDE 0.5 MG/2 ML NEBU INH SCH ×2 (06:55→21:20)
--- NOTE | 2017-12-17 07:08 | NUR ---
decreased NC to 1lpm pt satting at 98
--- NOTE | 2017-12-17 07:15 | NUR ---
ENDORSED PT TO DAY SHIFT NURSE. PT IN STABLE CONDITION.
--- NOTE | 2017-12-17 07:16 | NUR ---
RECEIVED REPORT FROM COURT WORKER NURSE MONIQUE AT BEDSIDE FOR CONTINUITY OF CARE. PT IS AWAKE AND ORIENTED. INTRODUCED SELF AND UPDATED BOARD. PT'S SON AT BEDSIDE. NO SIGNS OF RESPIRATORY DISTRESS. PT ON BIPAP. COSTELLO CATHETER IN PLACE. BED IN LOW POSITION. WHEELS LOCKED, CALL LIGHT WITHIN REACH. WILL CONTINUE TO MONITOR.
[2017-12-17 08:00] VITALS: BP 133/91
[2017-12-17 08:01] LABS: CARBON DIOXIDE 29.9 mmol/L (21-32); CREATININE 3.4 mg/dL (0.7-1.3); POTASSIUM 4.9 mmol/L (3.5-5.1)
--- NOTE | 2017-12-17 08:08 | NUR ---
PAGED FOR DR. MEJIAS, COVERING FOR DR. ALONZO. NO CALLBACK YET.
[2017-12-17 08:18] LABS: HEPATITIS B CORE AB TOTAL Negative (Negative); HEPATITIS B SURFACE ANTIBODY Non Reactive (.); HEPATITIS B SURFACE ANTIGEN Negative (Negative)
[2017-12-17] MEDS: FUROSEMIDE 40 MG/4 ML VIAL IVP SCH ×2 (09:00→17:00)
--- NOTE | 2017-12-17 09:21 | NUR ---
CONTACTED DR. DURANT ABOUT PT'S ABG RESULTS. SAID TO MAINTAIN THERAPY AND KEEP SATS ABOVE 92% AND KEEP BIPAP PRN
[2017-12-17] MEDS: LACTULOSE 20 GM/30 ML UDC PO SCH ×2 (09:50→20:36)
[2017-12-17] MEDS: SEVELAMER CARBONATE 800 MG TAB PO SCH ×3 (09:50→17:03)
[2017-12-17] MEDS: FAMOTIDINE 20 MG TAB PO SCH (09:51)
[2017-12-17] MEDS: PANTOPRAZOLE 40 MG INJ VIAL IVP SCH (09:51)
[2017-12-17] MEDS: LACTOBACILLUS RHAMNOSUS GG 1 EACH CAP NG SCH (09:51)
[2017-12-17] MEDS: DILTIAZEM 60 MG TAB PO SCH ×4 (09:51→20:34)
[2017-12-17] MEDS: TAMSULOSIN 0.4 MG CAP PO SCH (09:51)
[2017-12-17] MEDS: METOPROLOL SUCCINATE 50 MG TABER PO SCH ×2 (09:52→20:34)
[2017-12-17] MEDS: INSULIN LANTUS 100 UNITS/ML 10 ML VIAL SUBQ SCH (09:53)
[2017-12-17] MEDS: ACETAMINOPHEN 325 MG TAB PO PRN (10:10)
--- NOTE | 2017-12-17 10:38 | NUR ---
FAXED CONCURRENT REVIEW TO [facility] [phone] PHONE JAMEY [phone] X [phone]. CALLED JAMEY FROM [facility] AND LEFT MESSAGE THAT THIS PATIENT WILL NEED OP HD AND PROBABLY SNF.
[2017-12-17 12:00] VITALS: BP 146/102
--- NOTE | 2017-12-17 12:16 | NUR ---
FOR DISCHARGE PLANNING. GAVE INFORMATION TO DESTINY FROM [facility].
--- NOTE | 2017-12-17 14:37 | NUR ---
CALLED DR. LR. CLARIFIED PT ORDER TO HAVE DIALYSIS TODAY AND TOMORROW. CALLED ANGELICA AND MADE AWARE.
--- NOTE | 2017-12-17 14:43 | NUR ---
RUMA FROM [facility] CALLED . SHE WAS CALLING FOR [facility]. JAMEY SAID THAT WHEREVER THE PATIENT GOES, FOR TRANSPORT FROM FACILITY TO THE HD CENTER, CALL [facility], . NO AUTH NEEDED. ALSO LET JAMEY KNOW WHICH FACILITY HE GOES TO. RECEIVED A CALL FROM TEJAS FROM [facility]. I INFORMED HER HE STILL DIDN'T HAVE THE TUNNELED CATH PLACED YET. SHE DID DAY THE CHAIR TIME FOR THIS PATIENT WILL BE MWF AT 1:30P.M. AT [facility] [phone]. SHE IS AWARE THAT THE WEIGHT OF THE PATIENT IS 190KG
--- NOTE | 2017-12-17 15:00 | NUR ---
CLEANED PT AND CHANGED LINENS. PT REFUSED TO BE TURNED. STATED HE DOES NOT LIKE PILLOWS ON HIS BACK. EDUCATED PT ON TURNING Q2H. PT STILL REFUSED.
--- NOTE | 2017-12-17 15:59 | NUR ---
12/17/17 RD FOLLOW UP COMPLETED. PLEASE REFER TO NUTRITION ASSESSMENT UNDER CARE ACTIVITY FOR ESTIMATED NUTRITIONAL NEEDS. CONTINUE CURRENT DIET TOLERATED, CONTINUE TO ENCOURAGE ADEQUATE INTAKE PT IS CONSUMING AN ESTIMATED 2000 KCALS AND 115 GM PRO TO MEET 85% ESTIMATED ENERGY AND 91% ESTIMATED PROTEIN NEEDS PER DAY--INADEQUATE RD TO FOLLOW-UP IN 2-3 DAYS PATIENT IS HIGH RISK. ZAIN WALDROP, RD
[2017-12-17 16:00] VITALS: BP 127/81
--- NOTE | 2017-12-17 16:15 | NUR ---
CALLED DR. MEJIAS. PT'S BS 408. RECEIVED ORDER TO GIVE HUMALOG 5UNITS WITH MEALS.
[2017-12-17] MEDS ORDERED: SEVELAMER CARBONATE 800 MG TAB PO SCH (17:00)
[2017-12-17] MEDS: INSULIN LISPRO 100 UNITS/ML VIAL SUBQ SCH (17:04)
--- NOTE | 2017-12-17 18:35 | NUR ---
CALLED DR. WATSON AND TOLD HIM THAT DR. FULLER ALREADY CAME IN FOR CONSULT FOR PERMA CATH BUT UNABLE TO HAVE DONE AT [facility] DUE TO PT'S WEIGHT AND CAN BE DONE AT [facility]. RECEIVED ORDER FOR PLAN TO TRANSFER PT TO [facility].
[2017-12-17] MEDS: Z-GUARD PASTE TP SCH (18:43)
--- NOTE | 2017-12-17 19:25 | NUR ---
ENDORSED PT TO GAS STATION SUPERVISOR NURSE DIEGO AT BEDSIDE FOR CONTINUITY OF CARE. PT GETTING DIALYSIS. SON AT BEDSIDE. PT IN STABLE CONDITION.
--- NOTE | 2017-12-17 19:26 | NUR ---
RECEIVED PT FROM JACE RN, PT IN STABLE CONDITION. NO S/S OF DISTRESS NOTED. R TRU CATHETER TRIPLE LUMEN, PIGTAIL NOTED, PATENT AND FLUSHING. REDNESS NOTED ON ABDOMEN SKIN FOLDS. SKIN WARM AND DRY TO TOUCH, PT ON 2L O2 VIA NC. INITIAL ASSESSMENT COMPLETED, PLAN OF CARE DISCUSSED WITH PT, ALL SAFETY PRECAUTIONS MET, CALL LIGHT WITHIN REACH, WILL CONTINUE TO MONITOR.
--- NOTE | 2017-12-17 19:55 | NUR ---
DIALYSIS NURSE FINISHED. OUTPUT 4L, VSS. NO S/S OF DISTRESS NOTED.
[2017-12-17 20:00] VITALS: BP 126/68
[2017-12-17] MEDS: DOXAZOSIN 2 MG TAB PO SCH (20:33)
[2017-12-17] MEDS: POLYETHYLENE GLYCOL 17 GM/PKT PO SCH (20:36)
[2017-12-17] MEDS: ALBUTEROL SULFATE/IPRATROPIU 3 ML SOL INH PRN (21:19)
--- NOTE | 2017-12-17 22:53 | NUR ---
HAND OFF REPORT GIVEN TO LIYAH MENDOZA FOR CONTINUITY OF CARE, PT IN STABLE CONDITION.
--- NOTE | 2017-12-17 22:54 | NUR ---
RECEIVED BEDSIDE REPORT FROM REJI CORTEZ, PT SLEEPING, NO DISTRESS NOTED, PT ON BIPAP, NO SOB. PT STABLE, FAMILY BY BEDSIDE, WILL CONTINUE TO MONITOR.
[2017-12-18] VITALS (10 sets, daily range): BP systolic 0–159; BP diastolic 0–96
--- NOTE | 2017-12-18 00:05 | NUR ---
CHECKED ON PT, PT SLEEPING, NO DISTRESS NOTED, PT ON BIPAP, NO SOB, CALL LIGHT WITHIN REACH, WILL CONTINUE TO MONITOR.
[2017-12-18] MEDS: MILD SOAP AND WATER TP SCH ×6 (00:50→20:45)
[2017-12-18] MEDS: ANTIFUNGAL CLEAR OINTMENT TP SCH ×3 (00:50→20:45)
--- NOTE | 2017-12-18 02:10 | NUR ---
PT SLEEPING, NO DISTRESS NOTED, CALL LIGHT WITHIN REACH, WILL CONTINUE TO MONITOR.
--- NOTE | 2017-12-18 04:00 | NUR ---
REPOSITIONED PT, PT TOLERATED WELL, OPEN BLISTER TO THE BACK NEAR THE SCROTUM AND SKIN TEAR ON THE SCROTUM NOTED, TOOK PICTURE, COVERED WITH OPTIFOAM, PT STABLE, NO DISTRESS NOTED, CALL LIGHT WITHIN REACH, WILL CONTINUE TO MONITOR.
[2017-12-18] MEDS: SODIUM CHLORIDE FLUSH 10 ML SYR IVF SCH ×3 (05:22→20:42)
[2017-12-18] MEDS: methylPREDNISolone SS 125 MG/2 ML VIAL IVP SCH ×3 (05:22→20:40)
--- NOTE | 2017-12-18 05:31 | NUR ---
DUE MEDICATION GIVEN, PT TOLERATED WELL, NO DISTRESS NOTED, CALL LIGHT WITHIN REACH, WILL CONTINUE TO MONITOR.
[2017-12-18] MEDS: INSULIN LISPRO SLIDING SCALE 100 UNITS/ML VIAL SUBQ PRN ×4 (05:38→20:39)
[2017-12-18] MEDS: BLOOD GLUCOSE MONITORING 1 DEV DEV FS SCH ×4 (05:39→20:42)
--- NOTE | 2017-12-18 07:24 | NUR ---
ENDORSED PLAN OF CARE TO DAY SHIFT NURSE ALFREDO MENDOZA, PT STABLE, NO DISTRESS NOTED, CALL LIGHT WITHIN REACH, WILL CONTINUE TO MONITOR.
--- NOTE | 2017-12-18 07:25 | NUR ---
RECEIVED REPORT FROM THE DOG BARBER NURSE AT BEDSIDE FOR CONTINUITY OF CARE. PT IS AWAKE AND ORIENTED. SON AT BEDSIDE. INTRODUCED MYSELF AND UPDATED THE BOARD. PT IS BEDBOUND. PT HAS NC O2 2L. PT HAS R IJ TRIPLE LUMEN, SL. PT HAS F/C FOR URINE RETENTION. PT HAS A SKIN TEAR ON SIDE OF PENIS AND AN OPEN BLISTER ON RECTUM. Z GUARD ORDERED. PT IS TO BE TRANSFERRED TO [place] FOR HD CATH PLACEMENT. V/S WITHIN NORMAL RANGE, BP SLIGHTLY HIGH. WE WILL CONTINUE TO MONITOR PT.
--- NOTE | 2017-12-18 07:29 | NUR ---
RECEIVED ON A ALTA Veratect V60 BIPAP PLUGGED INTO RED OUTLET TO A LARGE FACIAL MASK SECURED WITH HEAD STRAP LOC AWAKE AND ALERT "TALKING ON CELL PHONE THROUGH MASK" NO EVIDENCE OF PULMONARY DISTRESS NOTED PATIENT REQUEST TO CONSUME BREAKFAST TRAY AT THIS TIME REMOVED FROM BIPAP TO MASK PLACED ON SUPPLEMENTAL OXYGEN AT 2 LPM VIA NC ICT HELP DESK TECHNICIAN TO MONITOR FOR OXYGEN TITRATION ICT HELP DESK TECHNICIAN TO ATTEMPT HHN THERAPY AT A LATER TIME Addendum: 12/18/17 at 0848 by Sanya Saldaña RT SATURATION 97% ON 2 LPM VIA NC HR 87 RR 20
[2017-12-18 07:41] LABS: ALBUMIN 2.9 g/dL (3.4-5.0); CARBON DIOXIDE 27.8 mmol/L (21-32); CREATININE 3.1 mg/dL (0.7-1.3); POTASSIUM 4.8 mmol/L (3.5-5.1); TOTAL BILIRUBIN 0.5 mg/dL (0.0-1.0)
[2017-12-18] MEDS: BUDESONIDE 0.5 MG/2 ML NEBU INH SCH ×2 (08:29→20:05)
[2017-12-18] MEDS: ALBUTEROL SULFATE/IPRATROPIU 3 ML SOL INH PRN ×2 (08:29→20:05)
--- NOTE | 2017-12-18 08:29 | NUR ---
SATURATION 97% ON SUPLLEMENTAL OXYGEN AT 2 LPM VIA NC POST HHN THERAPY TITRATED FIO2 TO 1 LPM OPERATIONAL ASSISTANT TO MONITOR OPERATIONAL ASSISTANT TO NOTIFY ALFREDO/REJI
[2017-12-18] MEDS: TAMSULOSIN 0.4 MG CAP PO SCH (08:58)
[2017-12-18] MEDS: FAMOTIDINE 20 MG TAB PO SCH (08:59)
[2017-12-18] MEDS: SEVELAMER CARBONATE 800 MG TAB PO SCH ×3 (08:59→18:17)
[2017-12-18] MEDS: LACTOBACILLUS RHAMNOSUS GG 1 EACH CAP NG SCH (08:59)
[2017-12-18] MEDS: ACETAMINOPHEN 325 MG TAB PO PRN ×2 (08:59→20:40)
[2017-12-18] MEDS: METOPROLOL SUCCINATE 50 MG TABER PO SCH ×2 (09:00→20:41)
[2017-12-18] MEDS: DILTIAZEM 60 MG TAB PO SCH ×4 (09:00→20:41)
[2017-12-18] MEDS: FUROSEMIDE 40 MG/4 ML VIAL IVP SCH ×2 (09:01→18:17)
[2017-12-18] MEDS: LACTULOSE 20 GM/30 ML UDC PO SCH ×2 (09:01→20:42)
[2017-12-18] MEDS: PANTOPRAZOLE 40 MG INJ VIAL IVP SCH (09:01)
[2017-12-18] MEDS: INSULIN LISPRO 100 UNITS/ML VIAL SUBQ SCH ×3 (09:03→17:00)
[2017-12-18] MEDS: INSULIN LANTUS 100 UNITS/ML 10 ML VIAL SUBQ SCH (09:04)
[2017-12-18] MEDS: Z-GUARD PASTE TP SCH (09:19)
--- NOTE | 2017-12-18 09:19 | NUR ---
ADMINISTERED MORNING MEDS. PT TOLERATED WELL. LAB ALSO NEEDED A REDRAW OF BLOOD. DUGLAS IS HERE. FLUSHED 10CC NS, DISCARDED 40CC, AND GLADYS UP 1 PURPLE TUBE. FLUSHED AGAIN WITH 10 CC OF NS. PT TOLERATED WELL. WILL CONTINUE TO MONITOR PT.
[2017-12-18 09:42] LABS: HEMATOCRIT 31.3 % (36-52); HEMOGLOBIN 10.1 g/dL (12.0-18.0); MEAN CORPUSCULAR HEMOGLOBIN 27 pg (27-31); MEAN CORPUSCULAR HGB CONC 32 g/dL (33-37); MEAN CORPUSCULAR VOLUME 83 fL (80-94); RED BLOOD CELL COUNT(AUTO) 3.78 MIL/uL (4.20-6.10); RED CELL DISTRIBUTION WIDTH 15.5 % (11.6-13.7); WHITE BLOOD COUNT (AUTO) 8.7 K/uL (4.8-10.8)
[2017-12-18 09:56] LABS: PLATELET COUNT (AUTO) 90 K/uL (140-450)
[2017-12-18 10:09] LABS: LYMPHOCYTES % (MANUAL) 2 % (20-46)
[2017-12-18 10:10] LABS: EOSINOPHILS % (MANUAL) 1 % (0-4)
[2017-12-18 10:11] LABS: MONOCYTES % (MANUAL) 2 % (5-12)
--- NOTE | 2017-12-18 10:23 | NUR ---
PATIENT FOUND ON BIPAP TO MASK ACCORDING TO SON AT BEDSIDE PATIENT C/O SLIGHT SOB SON THEREFORE PUT PATIENT ON BIPAP AT 1005 EDUCATED SON ON CALLING FOR ASSISTANCE
--- NOTE | 2017-12-18 10:30 | NUR ---
CM NOTE [facility] W/ [facility] FOR [facility] (C: [phone] X [phone]) RE. POSSIBLE TRANSFER TO [facility] FOR TUNNEL CATH PLACEMENT.
--- NOTE | 2017-12-18 11:25 | NUR ---
P/T IS THERE WORKING WITH PT. PT HAS HIS BIPAP ON. LYFT DRIVER THERE TO DO ADL'S. PT WILL NEED TO HAVE HIS CENTRAL LINE DRESSING REDONE. WILL CHANGE DRESSING ONCE EVERYONE IS DONE WITH PT.
[2017-12-18 12:12] LABS: FREE T4 (FREE THYROXINE) 0.7 ng/dL (0.76-1.46); THYROID STIMULATING HORMONE 0.36 uIU/mL (0.34-3.74)
--- NOTE | 2017-12-18 12:33 | NUR ---
DR MEJISA HERE TO SEE PT. NOTIFIED HIM OF 439 BS. OK WITH GIVING 12 UNITS OF HUMALOG AND THE 5 UNITS SCHEDULED. PER MD, INCREASE HUMALOG TO 8 UNITS TID AND LANTUS TO 20 UNITS Q DAY.
--- NOTE | 2017-12-18 13:12 | NUR ---
CM NOTE CONCURRENT REVIEW FAXED TO [facility] / FAX# [phone] , ATTN: JAMEY #[phone] [id number].
--- NOTE | 2017-12-18 13:24 | NUR ---
CM NOTE SECOND CALL OUT TO [facility] FOR [facility] RE. POSSIBLE TRANSFER TO [facility]
--- NOTE | 2017-12-18 13:58 | NUR ---
ASLEEP RESTING COMFORTABLY TOLERATING BIPAP TO MASK NO PULMONARY DISTRESS NOTED BREATH SOUNDS CLEAR BILATERAL WITH GOOD CHEST RISE SATURATION 99% ON FIO2 OF 35% TITRATED FIO2 TO 28% ALFREDO/RN NOTIFIED
--- NOTE | 2017-12-18 14:14 | NUR ---
CM NOTE [facility] W/ [facility] FOR [facility]. MADE AWARE OF CHANGE IN DISCHARGE PLAN. WILL BE WORKING ON AUTH FOR SNF & TRANSPORT.
--- NOTE | 2017-12-18 15:15 | NUR ---
CM NOTE UPDATED PHYSICAL THERAPY NOTES FAXED TO [facility]. [facility] W/ [facility], ADMIN. FOR [facility], RE. POSSIBLE TRANSFER TONIGHT OR TOMORROW.
--- NOTE | 2017-12-18 15:49 | NUR ---
PHYSICALLY IMPAIRED TEACHER IS HERE WITH PT. PER RN, PT C/O SOB. O2 SAT IS 94%, ON BIPAP. WILL CONTINUE TO MONITOR PT.
--- NOTE | 2017-12-18 15:49 | NUR ---
CM NOTE AUTH# PROVIDED BY [facility]: - SNF #[id number] - [facility] #[id number] (# TO SET UP TRANSPORT: [phone]) PENDING BED PLACEMENT FROM [facility].
--- NOTE | 2017-12-18 16:10 | NUR ---
CM NOTE PER RAVI FROM [facility], UNABLE TO ACCEPT THE PATIENT.
--- NOTE | 2017-12-18 17:05 | NUR ---
UNABLE TO GIVE 1700 MEDS. STILL GETTING DIALYSIS. PER HD NURSE, PT HAS ANOTHER 1 HR TO GO. WILL HOLD ALL MEDS UNTIL PT IS DONE.
--- NOTE | 2017-12-18 17:07 | NUR ---
RESTING WELL REMAINS ON BIPAP TO MASK TOLERATING WELL BREATH SOUNDS DECREASED BILATERAL WITH GOOD CHEST RISE HEMODIALYSIS IN PROGRESS PER STANDING TITRATION ORDER IPAP [id number] EPAP 6 cmH2O SUPPLIER DIVERSITY DIRECTOR TO MONITOR
--- NOTE | 2017-12-18 17:12 | NUR ---
AWAKE AND ALERT TOLERATING BIPAP PRESSURE ADJUSTMENT WITHOUT INCIDENT HEMODIALYSIS REMAINS IN PROGRESS SON AT BEDSIDE Addendum: 12/18/17 at 1726 by Sanya Saldaña RT ALFREDO MENDOZA NOTIFIED OF IPAP/EPAP ADJUSTMENTS
--- NOTE | 2017-12-18 18:30 | NUR ---
ADMINISTERED 1700 MEDS NOW. PT TOLERATED WELL. PT JUST FINISHED DIALYSIS. 3L. NOW READY FOR DINNER. SPOKE TO PT ABOUT PLAN FOR TOMORROW. POSSIBLY TRANSFER TO SNF. PT DOES NOT WANT TO GO TO A SNF. HE WOULD LIKE TO GO HOME, POSSIBLY HAVE HH COME OUT TO THE HOUSE WITH P/T. PT ALSO WOULD LIKE A BEDSIDE COMMODE. WILL DISCUSS WITH MD. WILL CONTINUE TO MONITOR PT.
--- NOTE | 2017-12-18 19:15 | NUR ---
ENDORSED PT TO THE BONDING MOLDER NURSE AT BEDSIDE FOR CONTINUITY OF CARE. PT IS IN STABLE CONDITION.
--- NOTE | 2017-12-18 19:30 | NUR ---
RECEIVED REPORT FROM AM NURSE. PT'S SON AT BEDSIDE. PT RESTING IN BED, AOX4, BEDREST AT THIS TIME WITH GENERALIZED WEAKNESS, ABLE TO VERBALIZE NEEDS. ASSOCIATE DRAFTER IN PLACE. PT DENIES CHEST PAIN OR SOB. PT IS ON O2 1L NC AT THIS TIME. PT HAS COSTELLO CATH IN PLACE, DRAINING CLEAR YELLOW URINE. PT REPORTS SLIGHT DISCOMFORT AND BURNING AT THIS TIME. PT REPORTS HEADACHE, WILL MEDICATE WITH TYLENOL PO PRN. R IJ 3X LUMEN NOTED, ASYMPTOMATIC, PATENT AND INTACT. DISCUSSED AND REVIEWED PLAN OF CARE WITH PT, PT VERBALIZED UNDERSTANDING. ALL NEEDS MET. SAFETY MEASURES ENSURED. CALL LIGHT WITHIN REACH.
[2017-12-18] MEDS: POLYETHYLENE GLYCOL 17 GM/PKT PO SCH (20:40)
[2017-12-18] MEDS: DOXAZOSIN 2 MG TAB PO SCH (20:41)
--- NOTE | 2017-12-18 20:45 | NUR ---
BLOOD GLUCOSE 399, INSULIN COVERAGE ADMINISTERED WITH EDUCATION. ADMINISTERED REMAINING DUE MEDS WITH EDUCATION. PT VERBALIZED UNDERSTANDING, TOLERATED MEDS WELL. PT HAD SMALL LOOSE BM, PT CLEANED. WOUND CARE PERFORMED, COVERED WITH OPTIFOAM DRESSINGS. ABD FOLDS, GROIN AND UPPER THIGH CLEANSED, APPLIED ANTIFUNGAL, COVERED WITH INTERDRY. PT TURNED AND REPOSITIONED, OFFLOADED PRESSURE AREAS. PT TOLERATED WELL. SPO2 95% ON BIPAP, RR 16 EVEN AND UNLABORED. ALL NEEDS MET. SAFETY MEASURES ENSURED. CALL LIGHT WITHIN REACH.
[2017-12-19] VITALS: BP 123/73
--- NOTE | 2017-12-19 00:01 | NUR ---
PT SLEEPING COMFORTABLY, AROUSABLE TO NAME, SPO2 95% ON BIPAP, RR 14 EVEN AND UNLABORED. PT REFUSED TO TURN AND REPOSITION AT THIS TIME DESPITE EDUCATION, OFFLOADED PRESSURE AREAS. ALL NEEDS MET. SAFETY MEASURES ENSURED. CALL LIGHT WITHIN REACH.
[2017-12-19 04:00] VITALS: BP 143/88
[2017-12-19] MEDS: SODIUM CHLORIDE FLUSH 10 ML SYR IVF SCH ×3 (04:06→21:12)
[2017-12-19] MEDS: methylPREDNISolone SS 125 MG/2 ML VIAL IVP SCH ×3 (04:06→21:15)
--- NOTE | 2017-12-19 04:06 | NUR ---
ADMINISTERED DUE MED WITH EDUCATION. PT VERBALIZED UNDERSTANDING, TOLERATED MED WELL. ALL NEEDS MET. SAFETY MEASURES ENSURED. CALL LIGHT WITHIN REACH.
[2017-12-19 06:20] LABS: EOSINOPHILS # (AUTO) 0.1 K/uL (0-0.4); HEMOGLOBIN 9.7 g/dL (12.0-18.0); LYMPHOCYTES # (AUTO) 0.1 K/uL (2.0-11.5); LYMPHOCYTES % (AUTO) 1.5 % (20.5-51.1); MEAN CORPUSCULAR HEMOGLOBIN 26 pg (27-31); MEAN CORPUSCULAR HGB CONC 31 g/dL (33-37); MEAN CORPUSCULAR VOLUME 83 fL (80-94); MONOCYTES % (AUTO) 0.6 % (1.7-9.3); NEUTROPHILS % (AUTO) 96.9 % (42.2-75.2); PLATELET COUNT (AUTO) 77 K/uL (140-450); RED BLOOD CELL COUNT(AUTO) 3.73 MIL/uL (4.20-6.10); RED CELL DISTRIBUTION WIDTH 14.9 % (11.6-13.7); WHITE BLOOD COUNT (AUTO) 8.2 K/uL (4.8-10.8)
[2017-12-19] MEDS: LORazepam 1 MG TAB PO PRN (06:34)
--- NOTE | 2017-12-19 06:34 | NUR ---
BLOOD GLUCOSE 401, CALLED DR WATSON, RADIO REPAIRER FOR DR ALONZO TO MAKE MD AWARE THAT IT IS OVER SLIDING SCALE. PT C/O ANXIETY, ADMINISTERED ATIVAN PO PRN WITH EDUCATION. HD NURSES AT BEDSIDE GETTING PT READY FOR DIALYSIS AT THIS TIME.
[2017-12-19 06:54] LABS: ALBUMIN 2.9 g/dL (3.4-5.0); ANION GAP 10.7 (8-16); CARBON DIOXIDE 29.8 mmol/L (21-32); POTASSIUM 4.5 mmol/L (3.5-5.1); TOTAL BILIRUBIN 0.4 mg/dL (0.0-1.0)
[2017-12-19] MEDS: BLOOD GLUCOSE MONITORING 1 DEV DEV FS SCH ×4 (07:12→21:12)
[2017-12-19] MEDS: INSULIN LISPRO SLIDING SCALE 100 UNITS/ML VIAL SUBQ PRN ×4 (07:13→21:32)
--- NOTE | 2017-12-19 07:15 | NUR ---
BLOOD GLUCOSE 401, UNABLE TO RECEIVE CALLBACK FROM DR WATSON AFTER 2 PAGES, MOTOR POOL DRIVER FOR DR ALONZO AT THIS TIME. ADMINISTERED 10 UNITS HUMALOG COVERAGE AT THIS TIME PER SLIDING SCALE, NOTIFIED AM NURSE TO ASK MD IF ADDITIONAL COVERAGE IS NEEDED. ENDORSED PLAN OF CARE TO AM NURSE, CONDITION STABLE.
--- NOTE | 2017-12-19 07:16 | NUR ---
PT AWAKE AND ORIENTED. PT HAS HIS BIPAP ON. INTRODUCED MYSELF AND UPDATED THE BOARD. PER PT, PT SLEPT WELL. R IJ TRIPLE LUMEN SL. SKIN: REDNESS ON ABD FOLDS, SACRAL AND GROIN AREA. SKIN TEAR ON PENIS AND OPEN BLISTER ON RECTUM AREA NEAR SCROTAL SAC. PT ON BEDREST, GENERALIZED WEAKNESS. PT IS MORBIDLY OBESE. WILL CONTINUE TO EDUCATE PT ABOUT DIET AND EXERCISE, DM CONTROL, AND D/C. PT HAD A BM DURING CHIEF PSYCHOLOGY. HD SCHEDULED TODAY. WILL CONTINUE TO MONITOR PT.
[2017-12-19] MEDS: BUDESONIDE 0.5 MG/2 ML NEBU INH SCH ×2 (07:18→19:55)
[2017-12-19 08:00] VITALS: BP 156/91
--- NOTE | 2017-12-19 08:20 | NUR ---
ENDORSED PT TO REJI [place] AT BEDSIDE FOR CONTINUITY OF CARE. PT IS STARTING HD. 2 HD RN'S IN ROOM. PT IN STABLE CONDITION.
--- NOTE | 2017-12-19 08:30 | NUR ---
ENDORSEMENT RECEIVED FROM ALFREDO MENDOZA. PATIENT AWAKE, ALERT. DIALYSIS AT BEDSIDE. RESPIRATION EVEN, UNLABOR ON BIPAP. SKIN DRY AND WARM. PICC LINE RIGHT IJ DRY, INTACT. DENIED PAIN, SOB AT THIS TIME. PLAN OF CARE WAS DISCUSSED WITH PATIENT. BED AT LOW POSITION, CALL LIGHT WITHIN REACH
[2017-12-19] MEDS: TAMSULOSIN 0.4 MG CAP PO SCH (08:49)
[2017-12-19] MEDS: LACTOBACILLUS RHAMNOSUS GG 1 EACH CAP NG SCH (08:50)
[2017-12-19] MEDS: FAMOTIDINE 20 MG TAB PO SCH (08:50)
[2017-12-19] MEDS: SEVELAMER CARBONATE 800 MG TAB PO SCH ×3 (08:50→16:48)
[2017-12-19] MEDS: INSULIN LISPRO 100 UNITS/ML VIAL SUBQ SCH ×3 (08:53→16:53)
[2017-12-19] MEDS: INSULIN LANTUS 100 UNITS/ML 10 ML VIAL SUBQ SCH (08:54)
[2017-12-19] MEDS: Z-GUARD PASTE TP SCH (08:56)
[2017-12-19] MEDS: DILTIAZEM 60 MG TAB PO SCH ×4 (09:00→21:13)
[2017-12-19] MEDS: FUROSEMIDE 40 MG/4 ML VIAL IVP SCH (09:00)
[2017-12-19] MEDS: PANTOPRAZOLE 40 MG INJ VIAL IVP SCH (09:00)
[2017-12-19] MEDS: METOPROLOL SUCCINATE 50 MG TABER PO SCH ×2 (09:00→21:16)
[2017-12-19] MEDS: LACTULOSE 20 GM/30 ML UDC PO SCH ×2 (09:00→21:12)
--- NOTE | 2017-12-19 11:05 | NUR ---
FOUND PT OFF BIPAP. PT SATURATION 88-90%. PT REQUESTED TO TAKE BREAK AND RETURN TO BIPAP WHEN HE GETS CLEANED AND REPOSITIONED. NURSE PADMINI AWARE TO CALL ME.
[2017-12-19 12:00] VITALS: BP 137/90
--- NOTE | 2017-12-19 12:50 | NUR ---
PATIENT IS AWAKE, ALERT. RESPIRATION EVEN, UNLABOR ON 3L NC. DRESSING WAS CHANGED. NO DISTRESS NOTED AT THIS TIME. DENIED SOB. COMPLAINED OF HEADACHE, MED WAS GIVEN PER ORDER. FAMILY AT BEDSIDE. CALL LIGHT WITHIN REACH
--- NOTE | 2017-12-19 13:00 | NUR ---
Wastewater Supervisor notes: * Late entry* These Job Hand met with patient and son Anselmo Werner At bedside. I check in with Patient on his progress and informed him that with a lot of effort and advocacy from teleservices representative department, and case supervisor a placement for SNF has been found in [place] at ([facility]). Mr. Paz stated that has been thinking that he has made some progress and that he should be D/C to go home with home health. I attempted to explain to Mr. Paz that even thought he has made progress while hospitalized; he still needs to continue working on his health and progress. I let him know that the facility will be ready and prepare for his needs, and provide him with P.T. Medications management and transport to his scheduled and needed dialysis. I also explained to patient that his stay in the facility will not only assure his progress with the assistance provided by will also minimized the chances for incompliance. Mr. Paz agreed to points I made in regards to his care, however; responded that he still wants to go home with his family. Patient's son (Anselmo Werner) Stated " I already told him Deisi; but he just wont listen to any of us" " we told him that we are not able to give him the care he needs and that we don't even have the equipment at home that he will needs. "He should get those services and care he needs from the facility instead of home" " He just making this decisions with out thinking what its best for him and ignoring Doctor's recommendations " I normalized Patient's sons concerns and attempted again to verbalized the concerns for his needed care and resources available but Jackson still declined the SNF and stated wanting to go home with Home health care. Patient and son thank me and health care social worker department for all the assistance they have been provided and I left the room.
[2017-12-19] MEDS: ACETAMINOPHEN 325 MG TAB PO PRN (13:05)
[2017-12-19] MEDS: ANTIFUNGAL CLEAR OINTMENT TP SCH ×2 (13:18→21:32)
[2017-12-19] MEDS: MILD SOAP AND WATER TP SCH ×4 (13:18→21:32)
--- NOTE | 2017-12-19 14:07 | NUR ---
CM NOTE PER HARLAN FROM [facility], UNABLE TO PROVIDE SERVICES TO PATIENT. PER KIMBERLEY FROM [facility], UNABLE PROVIDE SERVICES TO PATIENT. PER ELINA FROM [facility], NOT CONTRACTED W/ [facility]. PER SADIE FROM [facility], NOT CONTRACTED W/ [facility]. PER SELVIN FROM [facility], NOT CONTRACTED W/ [facility]. PER USMAN FROM [facility], NOT CONTRACTED W/ [facility]. PER JEFFERY FROM [facility], UNABLE TO PROVIDE SERVICES TO PATIENT. PER CHARLIE FROM [facility], UNABLE TO PROVIDE SERVICES TO PATIENT.
--- NOTE | 2017-12-19 14:29 | NUR ---
ISREAL NOTE FAXED PATIENT INFORMATION TO [facility] / FAX# [phone], ATTN: AUGUSTINE #[phone] Addendum: 12/19/17 at 1515 by Rodrigo Torres RN PER [facility] NOT RHIANNON W/ BERNIE HARRIS.
--- NOTE | 2017-12-19 15:24 | NUR ---
CM NOTE PER MARLYN FROM [employer] [facility], CONTRACTED W/ [facility] FOR DME. PATIENT INFORMATION FAXED TO [employer] (FAX# [phone], ATTN: MARLYN #[phone]) AND [facility] (FAX# [phone])
[2017-12-19 15:37] VITALS: BP 144/102
--- NOTE | 2017-12-19 15:55 | NUR ---
CM NOTE FAXED PATIENT INFORMATION TO [facility] / FAX# [phone], ATTN: RICO #[phone]
--- NOTE | 2017-12-19 16:20 | NUR ---
PATIENT IS AWAKE, ALERT. RESPIRATION EVEN, UNLABOR ON 3L NC. DENIED SOB, PAIN AT THIS TIME. PT WAS AT BEDSIDE. NO DISTRESS NOTED. CALL LIGHT WITHIN REACH
[2017-12-19] MEDS: FUROSEMIDE 40 MG TAB PO SCH (16:49)
--- NOTE | 2017-12-19 19:24 | NUR ---
ENDORSEMENT GIVEN TO THE LOADER MACHINE NURSE. PATIENT IS STABLE AT THIS TIME.
--- NOTE | 2017-12-19 19:35 | NUR ---
RECEIVED REPORT FROM AM NURSE. PT'S SON AT BEDSIDE. PT RESTING IN BED, AOX4, BEDREST AT THIS TIME WITH GENERALIZED WEAKNESS, ABLE TO VERBALIZE NEEDS. RESEARCH ASSISTANT MEMBER IN PLACE. PT DENIES CHEST PAIN, SOB OR PAIN. SPO2 95% ON BIPAP, RR 13 EVEN AND UNLABORED AT THIS TIME. PT HAS COSTELLO CATH IN PLACE, DRAINING CLEAR NADJA URINE. PT REPORTS HEADACHE, WILL MEDICATE WITH TYLENOL PO PRN. R IJ 3X LUMEN NOTED, ASYMPTOMATIC, PATENT AND INTACT. DISCUSSED AND REVIEWED PLAN OF CARE WITH PT, PT VERBALIZED UNDERSTANDING. ALL NEEDS MET. SAFETY MEASURES ENSURED. CALL LIGHT WITHIN REACH.
[2017-12-19] MEDS: ALBUTEROL SULFATE/IPRATROPIU 3 ML SOL INH PRN (19:55)
[2017-12-19 20:00] VITALS: BP 140/92
--- NOTE | 2017-12-19 21:09 | NUR ---
PT TAKEN OFF BIPAP AT THIS TIME TO VISIT WITH GUEST, PT WILL CALL WHEN READY TO BE PLACED BACK ON.
[2017-12-19] MEDS: DOXAZOSIN 2 MG TAB PO SCH (21:16)
[2017-12-19] MEDS: POLYETHYLENE GLYCOL 17 GM/PKT PO SCH (21:17)
--- NOTE | 2017-12-19 21:32 | NUR ---
BLOOD GLUCOSE 385, INSULIN COVERAGE ADMINISTERED WITH EDUCATION. ADMINISTERED REMAINING DUE MEDS WITH EDUCATION. PT VERBALIZED UNDERSTANDING, TOLERATED MEDS WELL. ALL NEEDS MET. SAFETY MEASURES ENSURED. CALL LIGHT WITHIN REACH. Addendum: 12/20/17 at 0647 by Saud Solomon RN HELD HEPARIN SUBQ DUE TO PLT 77
[2017-12-20] VITALS (7 sets, daily range): BP systolic 129–154; BP diastolic 84–96
--- NOTE | 2017-12-20 00:30 | NUR ---
PT SLEEPING COMFORTABLY, AROUSABLE TO NAME, SPO2 95% ON BIPAP, RR 12 EVEN AND UNLABORED. ALL NEEDS MET. SAFETY MEASURES ENSURED. CALL LIGHT WITHIN REACH.
[2017-12-20] MEDS: methylPREDNISolone SS 125 MG/2 ML VIAL IVP SCH ×3 (05:51→21:20)
[2017-12-20] MEDS: SODIUM CHLORIDE FLUSH 10 ML SYR IVF SCH ×3 (05:51→21:32)
[2017-12-20] MEDS: BLOOD GLUCOSE MONITORING 1 DEV DEV FS SCH ×4 (05:54→20:16)
[2017-12-20] MEDS: INSULIN LISPRO SLIDING SCALE 100 UNITS/ML VIAL SUBQ PRN ×4 (06:08→21:30)
--- NOTE | 2017-12-20 06:08 | NUR ---
BLOOD GLUCOSE 279, INSULIN COVERAGE ADMINISTERED WITH EDUCATION. ADMINISTERED DUE MEDS WITH EDUCATION, PT VERBALIZED UNDERSTANDING, TOLERATED MEDS WELL. ALL NEEDS MET. SAFETY MEASURES ENSURED. CALL LIGHT WITHIN REACH.
[2017-12-20] MEDS: ACETAMINOPHEN 325 MG TAB PO PRN (06:39)
--- NOTE | 2017-12-20 06:40 | NUR ---
PT C/O GENERALIZED PAIN, SEE PAIN ASSESSMENT, ADMINISTERED TYLENOL PO PRN WITH EDUCATION.
[2017-12-20 07:08] LABS: ANION GAP 11.9 (8-16); CARBON DIOXIDE 31.4 mmol/L (21-32); CREATININE 2.6 mg/dL (0.7-1.3); POTASSIUM 4.3 mmol/L (3.5-5.1)
[2017-12-20] MEDS: BUDESONIDE 0.5 MG/2 ML NEBU INH SCH ×2 (07:16→19:21)
--- NOTE | 2017-12-20 07:20 | NUR ---
ENDORSED PLAN OF CARE TO AM NURSE. CONDITION STABLE.
--- NOTE | 2017-12-20 07:25 | NUR ---
TITRATED FI02 FROM 28% TO 24% PER SATURATION OF 98%
--- NOTE | 2017-12-20 07:27 | NUR ---
REPORT RECEIVED FROM DICTAPHONE OPERATOR NURSE, PT AWAKE ALERT RESP EVEN UNLABORED ON NEB TREATMENT AT THIS TIME, SKIN WARM DRY COLOR WNL, PT DENIES ANY PAIN OR DISCOMFORT, COSTELLO DRAINING, PLAN OF CARE REVIEWED, SON AT BEDSIDE, ALL SAFETY MEASURES IN PLACE, WILL CONTINUE TO MONITOR.
[2017-12-20] MEDS: LACTULOSE 20 GM/30 ML UDC PO SCH ×2 (08:42→21:22)
[2017-12-20] MEDS: DILTIAZEM 60 MG TAB PO SCH ×4 (08:43→21:21)
[2017-12-20] MEDS: FAMOTIDINE 20 MG TAB PO SCH (08:44)
[2017-12-20] MEDS: SEVELAMER CARBONATE 800 MG TAB PO SCH ×3 (08:44→17:37)
[2017-12-20] MEDS: PANTOPRAZOLE 40 MG INJ VIAL IVP SCH (08:44)
[2017-12-20] MEDS: TAMSULOSIN 0.4 MG CAP PO SCH (08:45)
[2017-12-20] MEDS: FUROSEMIDE 40 MG TAB PO SCH ×2 (08:45→17:38)
[2017-12-20] MEDS: LACTOBACILLUS RHAMNOSUS GG 1 EACH CAP NG SCH (08:45)
[2017-12-20] MEDS: METOPROLOL SUCCINATE 50 MG TABER PO SCH ×2 (08:46→21:21)
[2017-12-20] MEDS: Z-GUARD PASTE TP SCH (08:51)
[2017-12-20] MEDS: INSULIN LISPRO 100 UNITS/ML VIAL SUBQ SCH ×3 (08:59→17:34)
[2017-12-20 09:23] LABS: RED BLOOD CELL COUNT(AUTO) 3.61 MIL/uL (4.20-6.10)
[2017-12-20 09:24] LABS: HEMATOCRIT 30.2 % (36-52); HEMOGLOBIN 9.7 g/dL (12.0-18.0); MEAN CORPUSCULAR HEMOGLOBIN 27 pg (27-31); MEAN CORPUSCULAR HGB CONC 32 g/dL (33-37); MEAN CORPUSCULAR VOLUME 84 fL (80-94); PLATELET COUNT (AUTO) 59 K/uL (140-450); RED CELL DISTRIBUTION WIDTH 16.2 % (11.6-13.7)
[2017-12-20 09:29] LABS: LYMPHOCYTES % (AUTO) 1.5 % (20.5-51.1); NEUTROPHILS % (AUTO) 96.5 % (42.2-75.2)
[2017-12-20 09:30] LABS: LYMPHOCYTES # (AUTO) 0.1 K/uL (2.0-11.5); MONOCYTES # (AUTO) 0.1 K/uL (0.8-1.0); NEUTROPHILS # (AUTO) 6.8 K/uL (1.8-7.7)
--- NOTE | 2017-12-20 10:05 | NUR ---
BED BATH GIVEN PERICARE DONE, OINTMENT APPLIED, POSITIONED FOR COMFORT, WILL CONTINUE TO MONTIOR. LANTUS NOT AVAILABLE, PHARMACY CALLED FOR NEW VIAL.
[2017-12-20] MEDS: INSULIN LANTUS 100 UNITS/ML 10 ML VIAL SUBQ SCH (11:16)
--- NOTE | 2017-12-20 12:55 | NUR ---
PHYSICAL THERAPY AT BEDSIDE
[2017-12-20] MEDS: ANTIFUNGAL CLEAR OINTMENT TP SCH (13:00)
[2017-12-20] MEDS: MILD SOAP AND WATER TP SCH ×2 (13:00)
[2017-12-20] MEDS: LORazepam 1 MG TAB PO PRN (13:02)
--- NOTE | 2017-12-20 13:25 | NUR ---
DR GALVEZ AT BEDSIDE, PT SCHEDULED FOR OUTPT HD M.W.., IF PT DC'S OR TRANSFERS TODAY, NOTIFY DR GALVEZ TO SCHEDULE EXTRA HD THIS SATURDAY, IF PT STAYS HERE, PT TO RECEIVE HD TOMORROW.
--- NOTE | 2017-12-20 13:29 | NUR ---
PT C/O FEELING ANXIOUS, MEDICATED WITH PRN ATIVAN. SON AT BEDSIDE ASSISTING WITH FEEDING, WILL CONTINUE TO MONITOR.
--- NOTE | 2017-12-20 13:37 | NUR ---
SPOKE WITH NEISHA FROM FROM [facility]. HE NEEDED THE HEPATITIS PANEL FAXED TO HIM WHICH I DID. I INFORMED NEISHA THAT HE IS A LARGE PERSON, MAY NEED VANGIE LIFT. I ALSO INFORMED HIM THAT HE ONLY HAS A TRU CATH IN. JOSÉ SAID HIS CHAIR TIME IS MWF AT 1:30P.M. BE THERE ON SATURDAY AT 1245P.M.
--- NOTE | 2017-12-20 14:16 | NUR ---
CALLED CLAIR FROM [facility] AND TOLD HER THAT THIS PATIENT IS NOW AGREEING TO GO TO SNF. SHE SAID SHE WOULD CALL ME BACK WITH ROOM. I SPOKE WITH JOSÉ FROM [facility]. HE SAID THE CHAIR TIME FOR THIS PATIENT IS MWF AT 1:30P.M., PATIENT TO BE THERE AT 12:30P.M. ON FIRST DAY. PHONE [phone]. SPOKE WITH RONA AT [facility]. HE SAID THEY HAVE A CONTRACT WITH [employer]. I FAXED INQUIRY TO HIM AT [phone]. I CALLED JAMEY AT [employer] AND LEFT A MESSAGE TO SEE IF THEY COULD AUTHORIZE [facility].
[2017-12-20] MEDS: INTERDRY CLOTH TP SCH (14:19)
--- NOTE | 2017-12-20 15:00 | NUR ---
PHYSICAL THERAPY CO-SIGN The Physical Therapy Progress Notes documented by Network Support Manager have been reviewed. I concur with the documentation of this SAFETY LAMP KEEPER. Patient is for possible DC later and may benefit from more rehab services to help achieve his maximum functional potential. Reviewed/Co-Signed by: Dione Hagen PT Documentation Done by: Willi Mcdonald, SAFETY LAMP KEEPER Addendum: 12/20/17 at 1524 by Dione Hagen PT Amended: Links added. Addendum: 12/21/17 at 0813 by Dione Hagen PT WEEKLY SUMMARY (LATE ENTRY) Patient continues to require a lot of maximum assistance of 3-4 people to get him out of bed and still unable to initiate any steps at this time. Patient tends to be self limiting at times possible due to fear of falling because of weakness. He reports being able to stand very few seconds (not even 5 sec per son) then (B) knees buckle. Plan: we'll continue with the plan of care as per the recommendations of the evaluating Therapist but will decrease the frequency to 5x a week x 1 week then we'll reassess again if he remains in this hospital.
--- NOTE | 2017-12-20 16:10 | NUR ---
1100 MET WITH PT AT BEDSIDE TO DISCUSS DISCHARGE PLAN AND HIS REQUEST TO GO HOME AND THAT AT THIS TIME PT HAS NOT BEEN ABLE TO WALK AND IT WOULD NOT BE A SAFE DISCHARGE HE NEEDS TO BE ABLE TO GET TO OUTPATIENT DIALYSIS. ADVISED PT THAT SNF FOR PT WOULD BE A MORE REALISTIC AND SAFER PLAN. PTS SON ARRIVED DURING VISIT AND SUPPORTED PT GOING TO SNF. PT FINALLY AGREED THAT HE WOULD GO TO A FACILITY. PT'S SON TO [place] [facility] [place] TODAY.
--- NOTE | 2017-12-20 16:35 | NUR ---
RECEIVED A CALL FROM DAVID FROM [facility]. SHE WILL COME HERE TOMORROW TO SEE PATIENT. I RECEIVED CALL FROM CLAIR AT [facility]. UNABLE TO GET THE MATTRESS, AND EQUIPMENT FOR THIS PATIENT UNTIL SATURDAY. Addendum: 12/20/17 at 1850 by Alisson Nix CM PHONE FOR DAVID FROM [facility],[phone]. FAX FOR [facility] [phone].
--- NOTE | 2017-12-20 17:44 | NUR ---
PT SLEEPING QUIETLY COMFORTABLY W BIPAP, AROUSES EASILY, SCHEDULED MEDS GIVEN, 18 UNITS INSULIN GIVEN PER SLIDING SCALE ORDER, PATIENT TOLERATED WELL, WILL COUNT W PLAN OF CARE, WILL COUNT. TO MONITOR
[2017-12-20] MEDS: ALBUTEROL SULFATE/IPRATROPIU 3 ML SOL INH PRN (19:21)
--- NOTE | 2017-12-20 19:36 | NUR ---
REPORT GIVEN TO [facility] NURSE, PT IN STABLE CONDITION
--- NOTE | 2017-12-20 19:40 | NUR ---
RECEIVED REPORT FROM DAY SHIFT NURSE, PATIENT RESTING IN BED, AWAKE ALERT, ORIENTED X4, NO S/S OF DISTRESS NOTED, RESPIRATION EVEN AND UNLABORED, ON BIPAP. SISTER IS AT THE BEDSIDE. TRIPLE LUMEN RT IJ NOTED, FLUSHED WITH 10 CC NS, PATENT AND INTACT. WOUND BED IS ACTIVATED, BOTH FEET ELEVATED ON ONE PILLOW. CALL LIGHT WITHIN REACH, SAFETY MEASURE ENSURED, WILL CONTINUE TO MONITOR.
[2017-12-20] MEDS: POLYETHYLENE GLYCOL 17 GM/PKT PO SCH (21:21)
--- NOTE | 2017-12-20 21:29 | NUR ---
ARRIVED AT BEDSIDE AND SON STATED HE PLACE BIPAP ON STANDBY AND PUT NC ON PATIENT AT 1LPM NASAL CANNULA, NURSE SATHYA ALSO AT BEDSIDE GIVEN MEDICATIONS TO PATIENT. PATIENT STATED HE ALSO HAS A BIPAP AT HOME BUT DOES NOT WHAT ARE SET PRESSURES
[2017-12-20] MEDS: DOXAZOSIN 2 MG TAB PO SCH (21:31)
--- NOTE | 2017-12-20 21:33 | NUR ---
PLT COUNT 59, HEPARIN HELD.
--- NOTE | 2017-12-20 21:42 | NUR ---
DUE MEDICATION GIVEN, PATIENT TOLERATED WELL. NO S/S OF DISTRESS NOTED, RESPIRATION EVEN AND UNLABORED, CALL LIGHT WITHIN REACH, SAFETY MEASURE ENSURED, WILL CONTINUE TO MONITOR.
--- NOTE | 2017-12-20 22:52 | NUR ---
PATIENT STILL ON N/C 1LPM, BIPAP STANDBY, NO SIGNS OF DISTRESS NOTED, RR-18BPM, SAO2 95%, HR-101
[2017-12-21] VITALS: BP 141/91
--- NOTE | 2017-12-21 00:15 | NUR ---
SON STATED HE PLACED PATIENT BACK ON BIPAP AT THIS TIME WITH SAME PRESENT SETTINGS 09/18, RR 12, FIO2 28%
[2017-12-21] MEDS: ANTIFUNGAL CLEAR OINTMENT TP SCH ×2 (00:44→12:17)
[2017-12-21] MEDS: MILD SOAP AND WATER TP SCH ×4 (00:46→12:31)
--- NOTE | 2017-12-21 00:48 | NUR ---
ANTIFUNGAL OINTMENT IS NOT AVAILABLE, CONCRETE PAVEMENT INSTALLER COULDN'T GET THE MEDICATION EITHER, WILL ENDORSE DAY SHIFT NURSE TO ORDER ANOTHER ONE.
--- NOTE | 2017-12-21 02:33 | NUR ---
HAD BOWEL MOVEMENT. PATIENT RESTING IN BED, NO S/S OF DISTRESS NOTED, RESPIRATION EVEN AND UNLABORED, ON BIPAP, CALL LIGHT WITHIN REACH, SAFETY MEASURE ENSURED, WILL CONTINUE TO MONITOR.
[2017-12-21 04:00] VITALS: BP 144/89
--- NOTE | 2017-12-21 04:45 | NUR ---
PLT COUNT 59, HEPARIN HELD.
[2017-12-21] MEDS: methylPREDNISolone SS 125 MG/2 ML VIAL IVP SCH ×3 (04:48→20:49)
[2017-12-21] MEDS: SODIUM CHLORIDE FLUSH 10 ML SYR IVF SCH ×3 (04:48→20:48)
[2017-12-21] MEDS: BLOOD GLUCOSE MONITORING 1 DEV DEV FS SCH ×4 (06:45→20:48)
[2017-12-21] MEDS: INSULIN LISPRO SLIDING SCALE 100 UNITS/ML VIAL SUBQ PRN ×4 (06:54→21:01)
--- NOTE | 2017-12-21 07:20 | NUR ---
ENDORSED PLAN OF CARE TO DAY SHIFT RN, PATIENT IS IN STABLE CONDITION.
--- NOTE | 2017-12-21 07:25 | NUR ---
RECEIVED REPORT FROM POULTRY PROCESSOR NURSE,PT IS RESTING IN BED, SEMI FOWLERS POSITION, AAOX4, BEDBOUND, PT IS ON O2 3L NC, BI PAP MACHINE IS AT PATIENT'S BEDSIDE TO BE USED PRN, PT HAS RIGHT IJ X3 LUMEN, PATENT, INTACT, FLUSHING WELL, NO S/S OF RESPIRATORY DISTRESS OR DISCOMFORT NOTED, PT HAS SKIN TEAR ON BUTTOCKS, COSTELLO CATHETER IS IN PLACE, PATIENT'S SON IS AT BEDSIDE, DISCUSSED PLAN OF CARE WITH PT AND SON, BOTH VERBALIZED UNDERSTANDING, SAFETY/FALL PRECAUTIONS ARE IN PLACE, CALL LIGHT IS WITHIN REACH, WILL CONTINUE TO MONITOR.
[2017-12-21] MEDS: BUDESONIDE 0.5 MG/2 ML NEBU INH SCH ×2 (07:41→19:02)
--- NOTE | 2017-12-21 07:51 | NUR ---
PT REMAINS ON 1L NC SPO2 94%.PT IS AWAKE AND ALERT IN BED WATCHING TV. PT NOT SOB AND NOT IN RESPIRATORY DISTRESS. SON IS BEDSIDE AT THIS TIME. WILL CONTINUE TO MONITOR.
[2017-12-21 08:00] VITALS: BP 126/96
[2017-12-21] MEDS: SEVELAMER CARBONATE 800 MG TAB PO SCH ×3 (08:56→16:15)
[2017-12-21] MEDS: LACTOBACILLUS RHAMNOSUS GG 1 EACH CAP NG SCH (08:56)
[2017-12-21] MEDS: TAMSULOSIN 0.4 MG CAP PO SCH (08:56)
[2017-12-21] MEDS: LACTULOSE 20 GM/30 ML UDC PO SCH ×2 (08:56→20:51)
[2017-12-21] MEDS: DILTIAZEM 60 MG TAB PO SCH ×4 (08:56→20:50)
[2017-12-21] MEDS: PANTOPRAZOLE 40 MG INJ VIAL IVP SCH (08:56)
[2017-12-21] MEDS: FAMOTIDINE 20 MG TAB PO SCH (08:57)
[2017-12-21] MEDS: METOPROLOL SUCCINATE 50 MG TABER PO SCH ×2 (08:57→20:52)
[2017-12-21] MEDS: FUROSEMIDE 40 MG TAB PO SCH ×2 (08:57→16:15)
[2017-12-21] MEDS: Z-GUARD PASTE TP SCH (08:57)
--- NOTE | 2017-12-21 08:57 | NUR ---
DUE MEDICATION GIVEN, PT TOLERATED WELL, ALL NEEDS ARE MET AT THIS TIME, CALL LIGHT WITHIN REACH, WILL CONTINUE TO MONITOR.
[2017-12-21] MEDS: INSULIN LANTUS 100 UNITS/ML 10 ML VIAL SUBQ SCH (08:59)
[2017-12-21] MEDS: INSULIN LISPRO 100 UNITS/ML VIAL SUBQ SCH ×3 (08:59→16:24)
--- NOTE | 2017-12-21 09:05 | NUR ---
PATIENT AWAKE AND ALERT. PLACED ON BIPAP BY NURSE LORRI. PATIENT STATED HE WAS ANXIOUS AND SOB. TOLERATING BIPAP WELL. SON AT BEDSIDE.
--- NOTE | 2017-12-21 09:05 | NUR ---
Social Service Note: Per Edna from [facility] , she will come to hospital to evaluate patient this morning, charge nurse Cori made aware.
--- NOTE | 2017-12-21 10:37 | NUR ---
Social Service Note: Per Patricia from [facility] , they will not be able to come and evaluate patient today because they do not have an authorization from [employer]. I called and spoke with Gideon from [employer] ([employer]end [employer]) . Per Gideon, their medical tech is the one who approves authorization for acute rehab and he is only available Saturday-Saturday. Gideon stated she is unable to provide me with authorization for [facility].
--- NOTE | 2017-12-21 11:06 | NUR ---
PT RESTING IN BED AT THIS TIME, PT ON BI PAP MACHINE, PATIENT'S SON IS AT BEDSIDE.
[2017-12-21 12:00] VITALS: BP 148/77
[2017-12-21] MEDS: ACETAMINOPHEN 325 MG TAB PO PRN (13:33)
[2017-12-21] MEDS: LORazepam 1 MG TAB PO PRN (13:35)
--- NOTE | 2017-12-21 13:46 | NUR ---
PATIENT IS RESTING QUIETLY. RESPONSIVE. NO SOB OR RESPIRATORY DISTRESS NOTED AT THIS TIME. FAMILY AT BEDSIDE. TOLERATING BIPAP WELL.
--- NOTE | 2017-12-21 14:50 | NUR ---
12/21/17 RD FOLLOW UP COMPLETED PLEASE REFER TO NUTRITION PROGRESS NOTE UNDER CARE ACTIVITY FOR ESTIMATED NUTRITION NEEDS. RD RECOMMENDATIONS: 1. CONTINUE CCHO 60 GM WITH RENAL DIET TOLERATED. -NOTE PT WITH GOOD APPETITE, MEETING ~87% ESTIMATED ENERGY NEEDS AND ~98% ESTIMATED PROTEIN NEEDS 2. RD PROVIDED VERBAL DIET EDUCATION ON DM AND RENAL DIET TO PT AND PTS SON. EDUCATIONAL HANDOUTS ON THESE TOPICS WERE ALSO PROVIDED. 3. RD WILL F/U 3-5 DAYS; MODERATE RISK. TYESHA KAPLAN, RD
--- NOTE | 2017-12-21 15:19 | NUR ---
CALLED DIALYSIS NURSE ANGELICA. I LET HER KNOW I WAS CALLING TO FOLLOW UP REGARDING THE PATIENT HAVING DIALYSIS DONE TODAY. PER ANGELICA SHE THOUGHT PATIENT HAD BEEN DISCHARGED YESTERDAY, I LET HER KNOW PATIENT WAS STILL HERE AND AT THIS TIME THERE WAS NO PLAN OF DISCHARGING HIM YET.
[2017-12-21 16:00] VITALS: BP 134/77
--- NOTE | 2017-12-21 16:00 | NUR ---
PT REMAINS ON BIPAP AT THIS TIME. PT NOT IN RESPIRATORY DISTRESS. BIPAP ALARMS REMAIN ON AND FUNCTIONING. WILL CONTINUE TO MONITOR.
--- NOTE | 2017-12-21 16:16 | NUR ---
PT SLEEPING IN BED AT THIS TIME, PT EASILY AWAKEN, DUE MEDICATIONS GIVEN, PT IS ON BI PAP MACHINE, NO S/S OF RESPIRATORY DISTRESS OR DISCOMFORT NOTED, CALL LIGHT WITHIN REACH.
--- NOTE | 2017-12-21 18:10 | NUR ---
PATIENT'S BI PAP MASK RE ADJUSTED FOR COMFORT, PT RESTING IN BED, CALL LIGHT WITHIN REACH.
--- NOTE | 2017-12-21 18:44 | NUR ---
CALLED DIALYSIS NURSE, ANGELICA. I REACHED HER VOICEMAIL. I LET HER KNOW I WAS CALLING TO FOLLOW UP AGAIN AND ASK WHAT TIME THEY WOULD BE COMING IN TODAY TO DO DIALYSIS THAT WERE ORDERED FOR TODAY.
[2017-12-21] MEDS: ALBUTEROL SULFATE/IPRATROPIU 3 ML SOL INH PRN (19:02)
--- NOTE | 2017-12-21 19:30 | NUR ---
ENDORSED PT TO UNIT TECHNICIAN NURSE FOR CONTINUITY OF CARE, PT STABLE AT THIS TIME.
--- NOTE | 2017-12-21 19:31 | NUR ---
RECEIVED REPORT FROM DAY SHIFT RN, PT IS A/OX4, ON BIPAP. PT HAS RIGHT IJ TRIPLE LUMEN, LUMEN IS FOR MEDICATIONS, THE OTHERS FOR DIALYSIS. PT IS BEDBOUND, AND HAS BUTTOCK AND TESTICLE WOUNDS. UPDATED BOARD. DISCUSSED PLAN OF CARE WITH PT, PT VERBALIZED UNDERSTANDING. VITAL SIGNS WITHIN NORMAL LIMITS. PT IN STABLE CONDITION, NO SIGNS OF DISTRESS NOTED. BED IN LOWEST POSITION, CALL LIGHT WITHIN REACH. WILL CONTINUE TO MONITOR.
[2017-12-21 20:00] VITALS: BP 131/84
--- NOTE | 2017-12-21 20:15 | NUR ---
WAS INFORMED BY DIALYSIS NURSE THAT PT REFUSES TO HAVE DIALYSIS AT THIS TIME BECAUSE PT STATES THAT HE'S "TOO TIRED." DIALYSIS NURSE SAYS SHE PAGED DR LR TO INFORM HIM. WILL PAGE DR LR WELL.
--- NOTE | 2017-12-21 20:30 | NUR ---
INFORMED BENDING MACHINE OPERATOR DR FOR DR LR, DR EMMANUEL, ABOUT PT REFUSAL TO RECEIVE DIALYSIS. SAID "OK" AND HUNG UP.
[2017-12-21] MEDS: DOXAZOSIN 2 MG TAB PO SCH (20:50)
[2017-12-21] MEDS: POLYETHYLENE GLYCOL 17 GM/PKT PO SCH (20:52)
[2017-12-22] VITALS (7 sets, daily range): BP systolic 128–151; BP diastolic 74–100
--- NOTE | 2017-12-22 | NUR ---
VITAL SIGNS WITHIN NORMAL LIMITS. PT IN STABLE CONDITION, NO SIGNS OF DISTRESS NOTED. BED IN LOWEST POSITION, CALL LIGHT WITHIN REACH. WILL CONTINUE TO MONITOR.
[2017-12-22] MEDS: ANTIFUNGAL CLEAR OINTMENT TP SCH ×2 (01:42→12:43)
[2017-12-22] MEDS: MILD SOAP AND WATER TP SCH ×4 (01:43→12:43)
--- NOTE | 2017-12-22 04:00 | NUR ---
VITAL SIGNS WITHIN NORMAL LIMITS. PT IN STABLE CONDITION, NO SIGNS OF DISTRESS NOTED. BED IN LOWEST POSITION, CALL LIGHT WITHIN REACH. WILL CONTINUE TO MONITOR.
[2017-12-22] MEDS: SODIUM CHLORIDE FLUSH 10 ML SYR IVF SCH ×3 (05:41→21:46)
[2017-12-22] MEDS: methylPREDNISolone SS 125 MG/2 ML VIAL IVP SCH ×2 (05:41→21:43)
[2017-12-22] MEDS: BUDESONIDE 0.5 MG/2 ML NEBU INH SCH ×2 (07:38→19:30)
--- NOTE | 2017-12-22 07:39 | NUR ---
ENDORSED PT IN STABLE CONDITION TO DAY SHIFT NURSE FOR CONTINUITY OF CARE.
--- NOTE | 2017-12-22 07:40 | NUR ---
RECEIVED REPORT FROM TREE CLIMBER NURSE,PT IS RESTING IN BED, SEMI FOWLERS POSITION, AAOX4, BEDBOUND, PT IS ON BI PAP MACHINE, PT HAS RIGHT IJ X3 LUMEN, PATENT, INTACT, FLUSHING WELL, NO S/S OF RESPIRATORY DISTRESS OR DISCOMFORT NOTED, PT HAS SKIN TEAR ON BUTTOCKS, COSTELLO CATHETER IS IN PLACE, PATIENT'S SON IS AT BEDSIDE, DISCUSSED PLAN OF CARE WITH PT AND SON, BOTH VERBALIZED UNDERSTANDING, SAFETY/FALL PRECAUTIONS ARE IN PLACE, CALL LIGHT IS WITHIN REACH, WILL CONTINUE TO MONITOR.
--- NOTE | 2017-12-22 07:54 | NUR ---
ADMIN PULMICORT INLINE BIPAP WHILE PT WAS ASLEEP. AFTER TX PT WANTED OFF OF BIPAP. PLACED PT ON 1L N/C. PT WAS NOT IN DISTRESS.
[2017-12-22] MEDS: INSULIN LISPRO 100 UNITS/ML VIAL SUBQ SCH ×3 (08:00→17:04)
[2017-12-22] MEDS: INSULIN LISPRO SLIDING SCALE 100 UNITS/ML VIAL SUBQ PRN ×5 (08:05→22:00)
[2017-12-22] MEDS: BLOOD GLUCOSE MONITORING 1 DEV DEV FS SCH ×4 (08:05→21:33)
--- NOTE | 2017-12-22 08:05 | NUR ---
SCHEDULED HUMALOG FOR 0800 HELD BECAUSE PIPE FITTER MARINE NURSE ADMINISTERED 10 UNITS OF HUMALOG AT THIS TIME.
[2017-12-22] MEDS: ACETAMINOPHEN 325 MG TAB PO PRN ×3 (08:06→22:09)
[2017-12-22 08:27] LABS: ANION GAP 11.7 (8-16); CREATININE 2.8 mg/dL (0.7-1.3); POTASSIUM 4.7 mmol/L (3.5-5.1)
[2017-12-22] MEDS: LACTOBACILLUS RHAMNOSUS GG 1 EACH CAP NG SCH (08:38)
[2017-12-22] MEDS: FAMOTIDINE 20 MG TAB PO SCH (08:39)
[2017-12-22] MEDS: SEVELAMER CARBONATE 800 MG TAB PO SCH ×3 (08:39→17:00)
[2017-12-22] MEDS: TAMSULOSIN 0.4 MG CAP PO SCH (08:39)
[2017-12-22] MEDS: DILTIAZEM 60 MG TAB PO SCH ×4 (08:40→21:42)
[2017-12-22] MEDS: FUROSEMIDE 40 MG TAB PO SCH ×2 (08:41→17:00)
[2017-12-22] MEDS: METOPROLOL SUCCINATE 50 MG TABER PO SCH ×2 (08:41→21:42)
[2017-12-22] MEDS: PANTOPRAZOLE 40 MG INJ VIAL IVP SCH (08:42)
[2017-12-22] MEDS: LACTULOSE 20 GM/30 ML UDC PO SCH ×2 (08:42→21:44)
--- NOTE | 2017-12-22 08:42 | NUR ---
DUE MEDICATION GIVEN, PT TOLERATED WELL, CALL LIGHT IS WITHIN REACH, WILL CONTINUE TO MONITOR.
[2017-12-22] MEDS: INSULIN LANTUS 100 UNITS/ML 10 ML VIAL SUBQ SCH (08:51)
[2017-12-22] MEDS ORDERED: INSULIN LANTUS 100 UNITS/ML 10 ML VIAL SUBQ SCH ×2 (09:00→10:12)
[2017-12-22] MEDS: Z-GUARD PASTE TP SCH (09:10)
--- NOTE | 2017-12-22 10:40 | NUR ---
PATIENT WOUND CARE GIVEN, PT DRESSING CHANGED, PT TOLERATED WELL, CALL LIGHT WITHIN REACH, PATIENT'S SON IS AT BEDSIDE.
[2017-12-22] MEDS: ALBUTEROL SULFATE/IPRATROPIU 3 ML SOL INH PRN ×2 (12:44→21:39)
[2017-12-22] MEDS ORDERED: methylPREDNISolone SS 125 MG/2 ML VIAL IVP SCH (13:00)
--- NOTE | 2017-12-22 14:06 | NUR ---
SPOKE TO DR. LADD ON THE PHONE. I LET HER KNOW THE PATIENT'S CURRENT BLOOD SUGAR WAS 485, PER DR. LADD GIVE HUMALOG 20 UNITS.
--- NOTE | 2017-12-22 17:00 | NUR ---
DIALYSIS NURSE IS IN PATIENT'S ROOM STARTING DIALYSIS.
--- NOTE | 2017-12-22 18:40 | NUR ---
PATIENTS BLOOD SUGAR RECHECKED AT THIS TIME, PT CURRENT BLOOD SUGAR 352.
--- NOTE | 2017-12-22 19:15 | NUR ---
ENDORSED PT TO CUSTOMER SERVICE REPRESENTATIVE TEACHER NURSE FOR CONTINUITY OF CARE. PT STABLE AT THIS TIME. DIALYSIS NURSE IS AT BEDSIDE.
--- NOTE | 2017-12-22 19:30 | NUR ---
RECEIVED REPORT FROM DAY SHIFT RN, PATIENT RESTING IN BED, NO S/S OF DISTRESS NOTED, RESPIRATION EVEN AND UNLABORED, ON BIPAP. DIALYSIS NURSE AT THE BEDSIDE, PATIENT IS CURRENTLY RECEIVING DIALYSIS. COSTELLO IN PLACE, WOUND BED IS ACTIVATED. CALL LIGHT WITHIN REACH, SAFETY MEASURE ENSURED, WILL CONTINUE TO MONITOR.
[2017-12-22] MEDS: POLYETHYLENE GLYCOL 17 GM/PKT PO SCH (21:42)
[2017-12-22] MEDS: DOXAZOSIN 2 MG TAB PO SCH (21:44)
--- NOTE | 2017-12-22 21:45 | NUR ---
HEPARIN HELD DUE TO NO PLT COUNT AVAILABLE. CHARGE NURSE IS AWARE.
--- NOTE | 2017-12-22 22:19 | NUR ---
DIALYSIS DONE, 3L OUTPUT. PATIENT IS EATING DINNER AT THIS TIME. SON IS AT THE BEDSIDE. CALL LIGHT WITHIN REACH, SAFETY MEASURE ENSURED, WILL CONTINUE TO MONITOR.
[2017-12-23] VITALS (7 sets, daily range): BP systolic 0–150; BP diastolic 0–94
[2017-12-23] MEDS: MILD SOAP AND WATER TP SCH ×6 (00:01→23:52)
--- NOTE | 2017-12-23 00:45 | NUR ---
PATIENT IS SLEEPING, NO S/S OF DISTRESS NOTED, RESPIRATION EVEN AND UNLABORED, ON BIPAP. CALL LIGHT WITHIN REACH, SAFETY MEASURE ENSURED, WILL CONTINUE TO MONITOR.
[2017-12-23] MEDS: LORazepam 1 MG TAB PO PRN (02:08)
--- NOTE | 2017-12-23 02:13 | NUR ---
PATIENT SAID," I AM ANXIOUS, I NEED MEDICATION." RR19, HR 109, BP 128/74, ATIVAN ADMINISTERED ORDERED. PATIENT IS ON BIPAP NOW, CALL LIGHT WITHIN REACH, SAFETY MEASURE ENSURED, WILL CONTINUE TO MONITOR.
--- NOTE | 2017-12-23 04:45 | NUR ---
HEPARIN HELD DUE TO PLT COUNT NOT AVAILABLE. CHARGE NURSE IS AWARE.
[2017-12-23] MEDS: SODIUM CHLORIDE FLUSH 10 ML SYR IVF SCH ×3 (04:48→21:30)
[2017-12-23] MEDS: BLOOD GLUCOSE MONITORING 1 DEV DEV FS SCH ×4 (06:36→21:11)
[2017-12-23] MEDS: INSULIN LISPRO SLIDING SCALE 100 UNITS/ML VIAL SUBQ PRN ×4 (07:00→21:29)
[2017-12-23 07:02] LABS: BASOPHILS # (AUTO) 0.1 K/uL (0.00-0.22); BASOPHILS % (AUTO) 0.9 % (0.0-2.0); EOSINOPHILS # (AUTO) 0.1 K/uL (0-0.4); EOSINOPHILS % (AUTO) 0.7 % (0.0-4.0); HEMATOCRIT 29.5 % (36-52); HEMOGLOBIN 9.6 g/dL (12.0-18.0); LYMPHOCYTES # (AUTO) 0.1 K/uL (2.0-11.5); LYMPHOCYTES % (AUTO) 1.3 % (20.5-51.1); MEAN CORPUSCULAR HEMOGLOBIN 27 pg (27-31); MEAN CORPUSCULAR HGB CONC 33 g/dL (33-37); MEAN CORPUSCULAR VOLUME 82 fL (80-94); MONOCYTES # (AUTO) 0.1 K/uL (0.8-1.0); NEUTROPHILS # (AUTO) 10.6 K/uL (1.8-7.7); NEUTROPHILS % (AUTO) 96.1 % (42.2-75.2); PLATELET COUNT (AUTO) 47 K/uL (140-450); RED BLOOD CELL COUNT(AUTO) 3.61 MIL/uL (4.20-6.10); RED CELL DISTRIBUTION WIDTH 15.1 % (11.6-13.7)
--- NOTE | 2017-12-23 07:30 | NUR ---
ENDORSED PLAN OF CARE TO DAY SHIFT RN, PATIENT IS IN STABLE CONDITION.
--- NOTE | 2017-12-23 07:31 | NUR ---
RECEIVED REPORT FROM HEADING AND PRIMING TOOL SETTER NURSE. PATIENT LYING DOWN IN BED SLEEPING, AROUSABLE BY VOICE. BIPAP MASK ON PATIENT. NO DISTRESS NOTED. DENIES ANY PAIN AT THIS TIME. AAOX4, CALM, COOPERATIVE, SKIN COLOR APPROPRIATE TO ETHNICITY, WARM TO TOUCH. HAS BUTTOCK SKIN TEAR WITH DRESSING DRY AND INTACT. LUNGS CTA ON ALL LOBES. ABDOMEN SOFT, OBESE. HAS RIGHT IJ TRIPLE LUMEN THAT IS INTACT, PATENT, AND ON SALINE LOCK. RIGHT IJ LUMEN HAS TEMPORARY DIALYSIS ACCESS THAT IS WRAPPED IN [place]ZE. REVIEWED PLAN OF CARE WITH PATIENT. PATIENT VERBALIZED UNDERSTANDING. SAFETY MEASURES IN PLACE, CALL LIGHT WITHIN REACH. WILL CONTINUE TO MONITOR.
[2017-12-23] MEDS: BUDESONIDE 0.5 MG/2 ML NEBU INH SCH ×2 (07:36→19:39)
[2017-12-23] MEDS: ALBUTEROL SULFATE/IPRATROPIU 3 ML SOL INH PRN ×2 (07:37→19:39)
[2017-12-23 07:49] LABS: ANION GAP 8.6 (8-16); CARBON DIOXIDE 31.6 mmol/L (21-32); CREATININE 2.3 mg/dL (0.7-1.3); POTASSIUM 4.2 mmol/L (3.5-5.1)
[2017-12-23] MEDS ORDERED: INSULIN LANTUS 100 UNITS/ML 10 ML VIAL SUBQ SCH (09:00)
[2017-12-23] MEDS: METOPROLOL SUCCINATE 50 MG TABER PO SCH ×2 (09:00→21:24)
[2017-12-23] MEDS: LACTOBACILLUS RHAMNOSUS GG 1 EACH CAP NG SCH (09:00)
[2017-12-23] MEDS: FUROSEMIDE 40 MG TAB PO SCH ×2 (09:00→18:24)
[2017-12-23] MEDS: ACETAMINOPHEN 325 MG TAB PO PRN (09:01)
[2017-12-23] MEDS: DILTIAZEM 60 MG TAB PO SCH ×4 (09:01→21:24)
[2017-12-23] MEDS: FAMOTIDINE 20 MG TAB PO SCH (09:01)
[2017-12-23] MEDS: SEVELAMER CARBONATE 800 MG TAB PO SCH ×3 (09:02→17:33)
[2017-12-23] MEDS: PANTOPRAZOLE 40 MG TABEC PO SCH (09:02)
[2017-12-23] MEDS: LACTULOSE 20 GM/30 ML UDC PO SCH ×2 (09:02→21:23)
[2017-12-23] MEDS: TAMSULOSIN 0.4 MG CAP PO SCH (09:02)
[2017-12-23] MEDS: methylPREDNISolone SS 125 MG/2 ML VIAL IVP SCH ×2 (09:03→21:23)
--- NOTE | 2017-12-23 09:16 | NUR ---
PATIENT LYING DOWN IN BED TALKING WITH FAMILY MEMBER AT BEDSIDE. NO DISTRESS NOTED. COMPLAINS OF 4/10 HEADACHE, TYLENOL GIVEN. OTHER SCHEDULED MEDICATIONS DUE GIVEN. PERFORMED COSTELLO CATHETER CARE. PATIENT COMPLAINS OF BURNING SENSATION IN COSTELLO CATHETER, WILL NOTIFY MD. ASSISTED PATIENT IN USING BEDPAN AND CLEANING. WOUND DRESSING CHANGED ON SACRAL AREA PER MD ORDERS. SAFETY MEASURES IN PLACE, CALL LIGHT WITHIN REACH. WILL CONTINUE TO MONITOR.
[2017-12-23] MEDS: INSULIN LISPRO 100 UNITS/ML VIAL SUBQ SCH ×3 (09:45→17:34)
[2017-12-23] MEDS: Z-GUARD PASTE TP SCH (09:46)
[2017-12-23] MEDS ORDERED: LACT10CA NG (10:22)
[2017-12-23] MEDS ORDERED: LANTUS SUBQ (10:22)
[2017-12-23] MEDS ORDERED: GLUC-805 FS (10:22)
[2017-12-23] MEDS ORDERED: LORA-476 PO (10:22)
[2017-12-23] MEDS ORDERED: FURO40TA9 PO (10:22)
[2017-12-23] MEDS ORDERED: METO50TE2 PO (10:22)
[2017-12-23] MEDS ORDERED: TAMS0.4C96 PO (10:22)
[2017-12-23] MEDS ORDERED: HUM SUBQ (10:22)
[2017-12-23] MEDS ORDERED: HEPA500056 SUBQ (10:22)
[2017-12-23] MEDS ORDERED: LACT10SO11 PO (10:22)
[2017-12-23] MEDS ORDERED: SIME80CT27 PO (10:22)
[2017-12-23] MEDS ORDERED: HUMSLIDE SUBQ (10:22)
[2017-12-23] MEDS ORDERED: PANT40EC28 PO (10:22)
[2017-12-23] MEDS ORDERED: DILT60TA94 PO (10:22)
[2017-12-23] MEDS ORDERED: SEVE800T6 PO (10:22)
[2017-12-23] MEDS ORDERED: PUL.5N INH (10:22)
[2017-12-23] MEDS ORDERED: IPRA3AMP INH (10:22)
[2017-12-23] MEDS ORDERED: DOXA2TAB1 PO (10:22)
[2017-12-23] MEDS ORDERED: LORazepam 1 MG TAB PO SCH ×3 (12:00→21:00)
[2017-12-23] MEDS: ANTIFUNGAL CLEAR OINTMENT TP SCH ×3 (12:13→23:52)
--- NOTE | 2017-12-23 12:23 | NUR ---
PATIENT LYING DOWN IN BED WATCHING TV. SON AT BEDSIDE. NO DISTRESS NOTED. DENIES ANY PAIN. CONDITION UNCHANGED. SCHEDULED MEDICATIONS DUE GIVEN. WILL CONTINUE TO MONITOR.
--- NOTE | 2017-12-23 13:30 | NUR ---
HEMODIALYSIS NURSE AT BEDSIDE GETTING READY TO PERFORM HD. RESPIRATORY THERAPIST CALLED TO PUT ON BIPAP PER PATIENT REQUEST. WILL CONTINUE TO MONITOR.
--- NOTE | 2017-12-23 14:44 | NUR ---
CM NOTE LM FOR NADA FROM [facility] RE. ADMISSION ASSESSMENT (C: [phone])
--- NOTE | 2017-12-23 14:55 | NUR ---
PT COMPLAINED OF SOB BUT UPON ASSESSMENT PT WAS ANXIOUS. SAT 96, HR 132, AND RR 21. BS CLEAR DIMINISHED ANT BILAT. INFORMED TANIA MENDOZA.
[2017-12-23] MEDS ORDERED: LORazepam 2 MG/ML VIAL IVP SCH (15:15)
--- NOTE | 2017-12-23 15:17 | NUR ---
PT NOTES CHART REVIEWED, BUT UNABLE TO SEE PATIENT IN AFTERNOON D/T DIALYSIS TREATMENT AT THIS TIME. WILL FOLLOW UP PATIENT TOMORROW IF POSSIBLE. RN AWARE. Addendum: 12/24/17 at 0855 by Cici Townsend PT PHYSICAL THERAPY CO-SIGN The Physical Therapy Progress Notes documented by First Leveler have been reviewed. Reviewed/Co-Signed by: Cici Townsend PT Documentation Done by: SYLVIE HANSON TUBE WORKER NO TX RENDERED TODAY DUE TO HD.
--- NOTE | 2017-12-23 17:25 | NUR ---
PLACED PT OFF OF BIPAP AND PLACED PT ON 2LPM NASAL CANNULA. HR 83 SAT 99 RR19 BS DIMINISHED BILAT. WILL CONT TO MONITOR PT.
--- NOTE | 2017-12-23 17:30 | NUR ---
HEMODIALYSIS COMPLETED, 3 LITER REMOVED FROM HD PER HD NURSE. PATIENT IN STABLE CONDITION. WILL CONTINUE TO MONITOR.
--- NOTE | 2017-12-23 17:45 | NUR ---
ASSISTED SENIOR INVESTMENT ANALYST IN CLEANING AND REPOSITIONING PATIENT. HEPARIN GIVEN BY HD NURSE FOR HEPARIN LOCK. CONDITION UNCHANGED. WILL CONTINUE TO MONITOR.
--- NOTE | 2017-12-23 18:35 | NUR ---
PATIENT LYING IN BED SLEEPING, AROUSABLE BY VOICE. NO DISTRESS NOTED. DENIES ANY PAIN. CONDITION UNCHANGED. WILL CONTINUE TO MONITOR.
--- NOTE | 2017-12-23 19:20 | NUR ---
SEEN PT AWAKE, ALERT AND ORIENTED APPEARS COMFORTABLE. SON AT BEDSIDE AND WANTS TO STAY TONIGHT. PT IS ON BARIATRIC BED. CALL LIGHT W/IN REACH. SAFETY REINFORCED.
--- NOTE | 2017-12-23 19:30 | NUR ---
GAVE REPORT TO ELECTRO MECHANICAL ENGINEER NURSE FOR CONTINUITY OF CARE. PATIENT IN STABLE CONDITION.
--- NOTE | 2017-12-23 21:20 | NUR ---
SEEN PT ON BIPAP ASLEEP BUT AROUSABLE. BIPAP MASK TAKEN OFF. INITIAL ASSESSMENT DONE. VITAL SIGNS WERE CHECKED BY STUDENT NURSE. BLOOD SUGAR:246. WILL GIVE INSULIN COVERAGE. PO/IVP MEDICATIONS GIVEN ORDERED W/ TEACHINGS. PT TOLERATED MEDICATIONS WELL. PT KEPT COMFORTABLE. PT DENIES ANY NEEDS RIGHT NOW. WILL CONTINUE TO MONITOR.
[2017-12-23] MEDS: LORazepam 1 MG TAB PO SCH (21:24)
[2017-12-23] MEDS: DOXAZOSIN 2 MG TAB PO SCH (21:25)
[2017-12-23] MEDS: POLYETHYLENE GLYCOL 17 GM/PKT PO SCH (21:25)
[2017-12-23] MEDS: INSULIN LANTUS 100 UNITS/ML 10 ML VIAL SUBQ SCH (21:28)
[2017-12-24] VITALS: BP 155/86
--- NOTE | 2017-12-24 00:30 | NUR ---
SEEN PT SLEEPING COMFORTABLY. VITAL SIGNS CHECKED. PT REPOSITIONED FOR COMFORT. WILL CONTINUE TO MONITOR.
[2017-12-24 04:50] VITALS: BP 131/76
--- NOTE | 2017-12-24 04:50 | NUR ---
SEEN PT AWAKE. PT SAID HE HAD BM. VITAL SIGNS CHECKED. PT DENIES ANY PAIN. PT HAD LARGE, BROWN, PASTY STOOL. PERICARE RENDERED. PT REPOSITIONED FOR COMFORT. RT CAME TO TURNED OFF BIPAP PER PT'S REQUEST. PT IS ON 2L OXYGEN VIA NASAL CANNULA. PT KEPT COMFORTABLE.
[2017-12-24] MEDS: SODIUM CHLORIDE FLUSH 10 ML SYR IVF SCH ×3 (05:00→21:00)
--- NOTE | 2017-12-24 05:12 | NUR ---
PT TAKEN OFF BIPAP AT THIS TIME, PLACED ON 2LPM NC, TOLERATING WELL, 02 SAT 96%, WILL CONT TO MONITOR.
--- NOTE | 2017-12-24 06:40 | NUR ---
BLOOD SUGAR QVIXSWS=[id number]. WILL GIVE COVERAGE ORDERED. PT WANTS TO BE BACK ON BIPAP. WILL NOTIFY RT. SEEN RT AND INFORMED HIM AND HE SAID HE'LL COME AND SEE PT. PT MADE AWARE.
[2017-12-24] MEDS: BLOOD GLUCOSE MONITORING 1 DEV DEV FS SCH ×4 (06:48→21:15)
[2017-12-24] MEDS: INSULIN LISPRO SLIDING SCALE 100 UNITS/ML VIAL SUBQ PRN ×4 (06:50→22:38)
--- NOTE | 2017-12-24 06:50 | NUR ---
PT GIVEN 8UNITS OF LISPRO SUBQ ON RT ARM. PT DENIES ANY OTHER NEEDS.
--- NOTE | 2017-12-24 07:10 | NUR ---
RECEIVED PATIENT REPORT AT BEDSIDE FROM NIGHT NURSE. PATIENT IS SLEEPING, EASILY AROUSABLE WITH VOICE AND DENIES PAIN AT THIS TIME. PATIENT ON TELE MONITOR. NOTED OPTIFOAM DRX CLEAN DRY AND INTACT ON THE SACRUM, INTERDRY AT ABD FOLDS, PATIENT ALSO HAS BUE/BLE EDEMA. PATIENT IS ON O2 @ 2L VIA NC, BIPAP AT BEDSIDE, COSTELLO CATHETER IN PLACE DRAINING CLOUDY YELLOW URINE, IV ON THE RIGHT IJ FOR HD, AND DOUBLE LUMEN PORT PATENT AND INTACT. PATIENT WAS EXPLAINED POC FOR TODAY, SAFETY AND FALL PRECAUTIONS IN PLACE AND HE VERBALIZED UNDERSTANDING OF CARE. BED IN LOW POSITION WITH CALL LIGHT WITHIN REACH.
[2017-12-24 08:00] VITALS: BP 133/88
--- NOTE | 2017-12-24 08:05 | NUR ---
AWAKE AND ALERT RESPONSIVE SFW POSITION NO APPARENT SOB NOTED PATIENT STATES "HE WANTS TO EAT FIRST" MANAGER MULTICULTURAL TO ATTEMPT HHN THERAPY AT A LATER TIME SON AT BEDSIDE
[2017-12-24] MEDS: SEVELAMER CARBONATE 800 MG TAB PO SCH ×3 (08:18→17:32)
[2017-12-24] MEDS: methylPREDNISolone SS 125 MG/2 ML VIAL IVP SCH (08:19)
[2017-12-24] MEDS: LACTOBACILLUS RHAMNOSUS GG 1 EACH CAP NG SCH (08:19)
[2017-12-24] MEDS: LACTULOSE 20 GM/30 ML UDC PO SCH ×2 (08:20→21:54)
[2017-12-24] MEDS: DILTIAZEM 60 MG TAB PO SCH ×4 (08:20→21:54)
[2017-12-24] MEDS: LORazepam 1 MG TAB PO SCH (08:20)
[2017-12-24] MEDS: TAMSULOSIN 0.4 MG CAP PO SCH (08:21)
[2017-12-24] MEDS: FAMOTIDINE 20 MG TAB PO SCH (08:21)
[2017-12-24] MEDS: FUROSEMIDE 40 MG TAB PO SCH ×2 (08:21→17:31)
[2017-12-24] MEDS: PANTOPRAZOLE 40 MG TABEC PO SCH (08:22)
[2017-12-24] MEDS: METOPROLOL SUCCINATE 50 MG TABER PO SCH ×2 (08:22→21:54)
--- NOTE | 2017-12-24 08:30 | NUR ---
ADMINISTERED SCHEDULED MEDICATIONS, BS IS 224, HUMALOG 12 UNITS SQ AND LANTUS 18 UNITS SQ GIVEN. PATIENT SWALLOWED MEDICATION WITHOUT DIFFICULTY, ALL NEEDS MET AT THIS TIME. SON AT BEDSIDE.
[2017-12-24] MEDS: Z-GUARD PASTE TP SCH (08:35)
[2017-12-24] MEDS: INSULIN LISPRO 100 UNITS/ML VIAL SUBQ SCH ×3 (08:39→17:35)
[2017-12-24] MEDS: INSULIN LANTUS 100 UNITS/ML 10 ML VIAL SUBQ SCH ×2 (08:39→21:45)
[2017-12-24] MEDS: BUDESONIDE 0.5 MG/2 ML NEBU INH SCH ×2 (08:52→18:52)
[2017-12-24] MEDS: ALBUTEROL SULFATE/IPRATROPIU 3 ML SOL INH PRN ×2 (08:52→16:15)
--- NOTE | 2017-12-24 08:52 | NUR ---
ASLEEP RESTING COMFORTABLY NO EVIDENCE OF PULMONARY DISTRESS NOTED SFW POSITION BIPAP TO MASK NOT REQUIRED AT THIS TIME [facility] [employer] V60 BIPAP AT BEDSIDE EQUIPMENT CHANGED: HHN, AEROSOL MASK AND NASAL CANNULA
[2017-12-24 12:00] VITALS: BP 118/93
[2017-12-24] MEDS: LORazepam 0.5 MG TAB PO SCH ×2 (12:06→17:30)
[2017-12-24] MEDS: ANTIFUNGAL CLEAR OINTMENT TP SCH (12:08)
[2017-12-24] MEDS: MILD SOAP AND WATER TP SCH ×2 (12:08)
[2017-12-24] MEDS: ACETAMINOPHEN 325 MG TAB PO PRN (12:58)
--- NOTE | 2017-12-24 13:05 | NUR ---
PATIENT ASKED TO BE ON BIPAP MACHINE, STATES, "IT HELPS ME WITH MY ANXIETY, PATIENT EDUCATED ON THE USE OF BIPAP, SON HAD ALREADY PLACED PATIENT ON BIPAP, SON IS AWARE NOT TO PLACE PATIENT ON BIPAP WITHOUT THE SUPERVISION OF HCP. PATIENT VERBALIZED UNDERSTANDING. SABINO DEMARCO IS AWARE. PATIENT IS RESTING COMFORTABLE BUT DID C/O OF HEADACHE, GAVE TYLENOL 650 MG PO. ALL OF PATIENT'S NEEDS MET AT THIS TIME.
--- NOTE | 2017-12-24 14:15 | NUR ---
PATIENT PROVIDED WITH WOUND CARE AT SACRAL AREA, DRX CHANGED, CLEANSED WITH NS, PAT DRY, Z GAURD APPLIED, AND DRX APPLIED. PATIENT TOLERATED ACTIVITY WELL, PT CAME TO ENCOURAGE PATIENT OOB;HOWEVER, PATIENT REFUSED PT AT THIS TIME.
--- NOTE | 2017-12-24 15:57 | NUR ---
1500 MET WITH PT AND SON NICOLE AT BEDSIDE AND DISCUSSED WITH THEM THAT THE PURPOSE OF PT GOING TO [facility] IS FOR REHAB BUT IF PT IS RELUCTANT TO PARTICIPATE WITH THERAPY REPORTED BY PT TODAY THEN AN ALTERNATE PLAN NEEDS TO BE DISCUSSED. PER SON HE UNDERSTANDS AND PT WOULD NOT UNCOVER HIS FACE AND ACKNOWLEDGE. ALSO SPOKE WITH SON REGARDING HAS BEEN REPORTED THAT HE HAS BEEN APPLYING THE BIPAP AND THAT IT IS THE GOAL TO WEAN PT AND NOT BECOME DEPENDENT ON THE BIPAP AND HE VOICED HIS UNDERSTANDING.
[2017-12-24 16:00] VITALS: BP 127/84
--- NOTE | 2017-12-24 16:05 | NUR ---
CALLED CLAIR AT [facility] ABOUT WHETHER EVERYTHING WAS IN PLACE FOR THIS PATIENT. I ALSO INFORMED HER THAT HE USES BIPAP PRN. SHE SAID SHE WOULD CALL MED BACK.
--- NOTE | 2017-12-24 16:15 | NUR ---
PATIENT NOTED TO BE HOLDING PROVENTIL INHALER IN LEFT HAND CHHAYA/RN NOTIFIED
--- NOTE | 2017-12-24 17:00 | NUR ---
PHYSICAL THERAPY CO-SIGN The Physical Therapy Progress Notes documented by Tassel Maker have been reviewed. I CONCUR W/ACETONE RECOVERY WORKER NOTE; CONT PER TX PLAN Reviewed/Co-Signed by: Shiela Ortiz, PT Documentation Done by: AMIE OVALLES, BLANCHE Addendum: 12/25/17 at 0906 by Shiela Ortiz PT Amended: Links added.
--- NOTE | 2017-12-24 17:40 | NUR ---
PATIENT MEDICATIONS GIVEN, BS IS 337, SCHEDULED HUMALOG 12 UNITS SQ WAS GIVEN WELL AT SLIDING SCALE HUMALOG 14 UNIT SQ GIVEN. PATIENT ON O2 @ 2L VIA NC, ALL NEEDS MET AT THIS TIME.
--- NOTE | 2017-12-24 19:03 | NUR ---
PT IS OFF BIPAP AT THIS TIME
--- NOTE | 2017-12-24 19:25 | NUR ---
PATIENT REPORT GIVEN TO MARIELENA RN AT BEDSIDE, PATIENT ENDORSED IN STABLE CONDITION.
--- NOTE | 2017-12-24 19:26 | NUR ---
RECEIVED PATIENT REPORT AT BEDSIDE FROM MORNING NURSE. PATIENT IS ASLEEP, RESTING COMFORTABLY IN BED, BUT EASY TO AWAKEN. NO SIGNS AND SYMPTOMS OF DISTRESS NOTED AT THIS TIME. PATIENT IS ON O2 2L VIA NC. PATIENT'S SON IS AT BEDSIDE. COSTELLO CATHETER IS IN PLACE DRAINING YELLOW URINE. IV STIE NOTED ON THE RIGHT IJ FOR HD, WITH A DOUBLE LUMEN PORT. PLAN OF CARE DISCUSSED WITH PATIENT AND SON. BOTH VERBALIZED UNDERSTANDING. ALL SAFETY PRECAUTIONS IN PLACE. BED IN LOWEST POSITION, SIDE RAILS UP AND CALL LIGHT WITHIN REACH.
[2017-12-24] MEDS: methylPREDNISolone SS 40 MG/ML VIAL IVP SCH (21:55)
[2017-12-24] MEDS: POLYETHYLENE GLYCOL 17 GM/PKT PO SCH (21:55)
[2017-12-24] MEDS: DOXAZOSIN 2 MG TAB PO SCH (21:55)
--- NOTE | 2017-12-24 22:28 | NUR ---
LATE ENTRY FOR 12/23/17 SPOKE WITH ALIYAH AT [facility] AND PER ALIYAH THEIR LIAISON DID NOT VISIT ON THURSDAY 12/21 TO EVALUATE PATIENT PER THEIR SR. PAYROLL PROCESSORSUPERVISOR PIPE MANUFACTURE NOTES FAXED THAT THE SR. PAYROLL PROCESSOR REVIEWED DID NOT REFLECT THAT PT IS AT A HIGH ENOUGH FUNCTIONAL LEVEL TO MEET THE CRITERIA FOR ACUTE REHAB AND THAT CASE WILL BE RE-EVALUATED UPON REQUEST IF PT PROGRESSES WITH PT. PER RUEL THEIR ADMISSIONS DEPARTMENT CAN BE CONTACTED AT [phone].
[2017-12-25] MEDS: MILD SOAP AND WATER TP SCH ×4 (00:22→12:03)
[2017-12-25] MEDS: ANTIFUNGAL CLEAR OINTMENT TP SCH ×2 (00:22→12:03)
--- NOTE | 2017-12-25 01:50 | NUR ---
CHECKED ON PATIENT PATIENT IS ASLEEP, STILL ON BIPAP. NO SIGNS AND SYMPTOMS OF DISTRESS NOTED. WILL CONTINUE TO MONITOR.
[2017-12-25 04:00] VITALS: BP 130/88
[2017-12-25] MEDS: SODIUM CHLORIDE FLUSH 10 ML SYR IVF SCH ×3 (04:00→21:40)
[2017-12-25] MEDS: INSULIN LISPRO SLIDING SCALE 100 UNITS/ML VIAL SUBQ PRN ×4 (05:25→21:39)
[2017-12-25] MEDS: BLOOD GLUCOSE MONITORING 1 DEV DEV FS SCH ×4 (06:55→21:27)
[2017-12-25] MEDS: BUDESONIDE 0.5 MG/2 ML NEBU INH SCH ×2 (07:16→19:18)
--- NOTE | 2017-12-25 07:16 | NUR ---
PATIENT IS QUIET AND RESTING. EASILY AROUSABLE AND RESPONSIVE WHEN ADDRESSED VERBALLY. BIPAP CHECK AND TX GIVEN. TOLERATING BIPAP WELL. PROTECTIVE GEL IN PLACE. BIPAP SETTINGS CHARTED. CONTINUOUS PULSE OX AT BEDSIDE. TOLERATED TX WELL. NO SOB OR RESPIRATORY DISTRESS NOTED AT THIS TIME.
--- NOTE | 2017-12-25 07:30 | NUR ---
PATIENT REPORT GIVEN TO MORNING NURSE AT BEDSIDE FOR CONTINUITY OF CARE. PATIENT IS IN STABLE CONDITION.
--- NOTE | 2017-12-25 07:35 | NUR ---
RECEIVED PATIENT REPORT AT BEDSIDE FROM NIGHT NURSE. PATIENT IS SLEEPING, EASILY AROUSABLE WITH VOICE AND DENIES PAIN AT THIS TIME. AAOX4,PATIENT ON TELE MONITOR. NOTED OPTIFOAM DRX CLEAN DRY AND INTACT ON THE SACRUM, INTERDRY AT ABD FOLDS, PATIENT ALSO HAS BUE/BLE EDEMA. PATIENT IS ON O2 @ 2L VIA NC, BIPAP AT BEDSIDE, COSTELLO CATHETER IN PLACE DRAINING CLOUDY YELLOW URINE, IV ON THE RIGHT IJ FOR HD, AND DOUBLE LUMEN PORT PATENT AND INTACT. PATIENT WAS EXPLAINED POC FOR TODAY, SAFETY AND FALL PRECAUTIONS IN PLACE AND HE VERBALIZED UNDERSTANDING OF CARE. BED IN LOW POSITION WITH CALL LIGHT WITHIN REACH.
[2017-12-25 08:00] VITALS: BP 121/94
[2017-12-25] MEDS: TAMSULOSIN 0.4 MG CAP PO SCH (08:30)
[2017-12-25] MEDS: SEVELAMER CARBONATE 800 MG TAB PO SCH ×3 (08:30→16:06)
[2017-12-25] MEDS: LACTOBACILLUS RHAMNOSUS GG 1 EACH CAP NG SCH (08:30)
[2017-12-25] MEDS: LORazepam 0.5 MG TAB PO SCH ×4 (08:31→16:06)
[2017-12-25] MEDS: FAMOTIDINE 20 MG TAB PO SCH (08:31)
[2017-12-25] MEDS: FUROSEMIDE 40 MG TAB PO SCH ×2 (08:31→16:06)
[2017-12-25] MEDS: LACTULOSE 20 GM/30 ML UDC PO SCH ×2 (08:31→21:13)
[2017-12-25] MEDS: PANTOPRAZOLE 40 MG TABEC PO SCH (08:31)
[2017-12-25] MEDS: METOPROLOL SUCCINATE 50 MG TABER PO SCH ×2 (08:32→21:15)
[2017-12-25] MEDS: methylPREDNISolone SS 40 MG/ML VIAL IVP SCH ×2 (08:32→21:14)
[2017-12-25] MEDS: DILTIAZEM 60 MG TAB PO SCH ×4 (08:33→21:15)
[2017-12-25] MEDS: INSULIN LISPRO 100 UNITS/ML VIAL SUBQ SCH ×3 (08:48→16:25)
[2017-12-25] MEDS: Z-GUARD PASTE TP SCH (08:49)
[2017-12-25] MEDS: INSULIN LANTUS 100 UNITS/ML 10 ML VIAL SUBQ SCH ×2 (08:49→21:37)
[2017-12-25] MEDS: ACETAMINOPHEN 325 MG TAB PO PRN ×2 (08:54→15:49)
--- NOTE | 2017-12-25 08:56 | NUR ---
ADMINISTERED SCHEDULED MEDICATIONS, BS IS 259, HUMALOG 12 UNITS SQ AND LANTUS 18 UNITS SQ GIVEN. PATIENT SWALLOWED PO MEDICATIONS WITHOUT DIFFICULTY, THEN PATIENT C/O OF HEADACHE AND WAS GIVEN TYLENOL 650 MG PO. ALL NEEDS MET AT THIS TIME. BED IN LOW POSITION WITH CALL LIGHT WITHIN REACH, SON AT BEDSIDE.
--- NOTE | 2017-12-25 10:30 | NUR ---
PATIENT C/O NOT RECEIVING ATIVAN MEDICATION, PATIENT WAS EXPLAINED AND EDUCATED THAT HE RECEIVED HIS ATIVAN THIS AM WITH HIS AM MEDICATIONS. PATIENT STATED, "I NEED MORE OF IT." PATIENT WAS EXPLAINED HE RECEIVES IT TID AND IT IS SCHEDULED. PATIENT SHOOK HIS HEAD AND DID NOT REPLY BACK ON EDUCATION. PATIENT THEN STATED HE WANTED TO BE ON BIPAP HOWEVER PATIENT WAS EXPLAINED DR ORDERS TO KEEP HIM OFF OF BIPAP, PATIENT'S V/S ARE WNL. PATIENT THEN CALLED ARACELI CHARGE NURSE, TAI DEMARCO WAS CALLED AND PER FAMILY AND PATIENT HE WANTS TO BE ON BIPAP, "I FEEL BETTER WITH IT ON."
--- NOTE | 2017-12-25 10:40 | NUR ---
pt and and son request that pt be placed back on bipap during dialysis
--- NOTE | 2017-12-25 10:45 | NUR ---
PATIENT RECEIVING HD AT THIS TIME, PATIENT IN STABLE CONDITION.
--- NOTE | 2017-12-25 11:01 | NUR ---
CALLED [facility] AND SPOKE WITH STACEY AND THEN EDELMIRA. THE SCHEDULE IS STILL MWF AT 1:30P.M., MUST BE THERE 12:45 ON IST DAY. THEY ARE AWARE THAT THE PATIENT WEIGHS 186.426 KG., AND HE WILL BE COMING IN [facility]. THEY HAVE A LIFT THAT ACCOMMODATED 450LBS. OKAY FOR O2. I SPOKE WITH CLAIR AT [facility] AND SAID HE WOULD NEED A SLING.
--- NOTE | 2017-12-25 13:00 | NUR ---
PATIENT SHOWS NO S/S OF ACUTE DISTRESS AT THIS TIME. PATIENT CONTINUING HD, BED IN LOW POSITION WITH CALL LIGHT WITHIN REACH.
--- NOTE | 2017-12-25 14:05 | NUR ---
HD ENDED AND OUTPUT WAS 1.5L. PATIENT SHOWS NO S/S OF ACUTE DISTRESS ON O2 @ 2L VIA NC.
--- NOTE | 2017-12-25 14:52 | NUR ---
RECEIVED A CALL FROM CLAIR FROM [facility] [place]. SHE SAID EVERYTHING IS SET UP FOR TIS PATIENT. THE PATIENT CAN GO TO ROOM 34B UNDER DR. Dino ERAZO. I ALSO GAVE CLAIR THE PHONE NUMBER TO JAMEY FROM [facility]. I CALLED BACK AND SPOKE WITH ELENA AND TOLD THE THE AUTH NUMBER TO HER SO SHE COULD INFORM CLAIR. AUTH # [id number]. CLAIR DID SAY THAT THE TRANSPORT TO THE DIALYSIS CENTER HAS BEEN SET UP WITH [facility] AND IT WILL BE GURNEY WITH VANESSA[facility] FOR [facility] LIFT.
--- NOTE | 2017-12-25 15:00 | NUR ---
REPORT GIVEN TO ZAIN FROM [facility], NURSE VERBALIZED UNDERSTANDING, OF CONTINUITY OF CARE.
--- NOTE | 2017-12-25 15:00 | NUR ---
PATIENT WAS GIVEN PERINEAL CARE AND BED BATH, DRX CHANGE DONE ORDERED. PATIENT REPOSITIONED AND IS RESTING COMFORTABLY IN BED WITH NOT S/S OF ACUTE DISTRESS ON O2 @ 2L VIA NC.
--- NOTE | 2017-12-25 15:16 | NUR ---
1130 SPOKE WITH PT'S SON NICOLE AND HE STATED THAT PT DOES HAVE CPAP AT HOME. INFORMED HIM THAT HE WILL NEED TO TAKE IT TO [facility] WHEN A BED BECOMES AVAILABLE. ALSO DISCUSSED WITH HIM THE IMPORTANCE THAT HE SUPPORT HIS FATHER BUT NOT TO ENABLE ANY NEGATIVE BEHAVIORS REGARDING NON COMPLIANCE WITH PT OR HIS DIET. NICOLE STATED THAT HE REALIZES THAT HE WOULD NOT BE ABLE TO CARE FOR HIS FATHER AND THAT IT IS BEST HE GO TO SNF. 1500 CALLED [facility] AT [phone] AND SPOKE WITH PHILOMENA AND SCHEDULED BARIATRIC GURNEY AND O2 AND LAN/WAN ENGINEER FOR 5PM AND PT WILL GO TO [facility] ROOM 34B.
--- NOTE | 2017-12-25 15:27 | NUR ---
PATIENT HAS BEEN SCREENED AND CATEGORIZED MODERATE NUTRITION RISK. PATIENT WILL BE SEEN WITHIN 3-5 DAYS OF ADMISSION. 12/27/17 - 12/29/[address] Addendum: 12/25/17 at [address] NOTE ABOVE WAS PUT IN ERROR. WRONG PATIENT. NANI SANTOS RD
--- NOTE | 2017-12-25 15:47 | NUR ---
CALLED [facility] AND LEFT A MESSAGE FOR JAMEY TO CALL ME BACK ABOUT PLACEMENT FOR THIS PATIENT. RUMA FROM [facility] CALLED ME BACK AND I TOLD HER I WOULD FAX CLINICAL., WHICH I DID. SHE SAID SHE WOULD HAVE JAMEY CALL ME BACK PHONE [phone] X [phone].
[2017-12-25] MEDS ORDERED: INFLUENZA VIRUS VACCINE QUAD 0.5 ML SYR IMVAC SCH (15:50)
[2017-12-25] MEDS ORDERED: PNEUMOCOCCAL VACCINE 23 MCG/0.5 ML VIAL IMVAC SCH (15:50)
--- NOTE | 2017-12-25 16:06 | NUR ---
PHYSICAL THERAPY CO-SIGN The Physical Therapy Progress Notes documented by Profiler Hand have been reviewed. Reviewed/Co-Signed by: Cici Townsend PT Documentation Done by: Blake Damon ENGINEERING SPECIALIST TECHNICIAN Pt limited to bedside mobility and exercise today as he was feeling "irritated." Patient needed much vc's for encouragement today. Addendum: 12/26/17 at 1007 by Cici Townsend PT Amended: Links added.
--- NOTE | 2017-12-25 16:30 | NUR ---
ADMINISTERED SCHEDULED MEDICATIONS, PATIENT SWALLOWED WITHOUT DIFFICULTY, ALL NEEDS MET AT THIS TIME.
--- NOTE | 2017-12-25 17:02 | NUR ---
RECEIVED A CALL FROM RUMA FROM [facility]. THE AUTH FOR [facility] IS [id number]. I CALLED [facility] AND INFORMED CLAIR. THE AUTH FOR [facility] TO [facility] IS [id number]. I CALLED [facility] AND SPOKE WITH JOSE F AND INFORMED HIM.
--- NOTE | 2017-12-25 19:25 | NUR ---
GAVE PATIENT REPORT AT BEDSIDE TO NIGHT NURSE, PT ENDORSED IN STABLE CONDITION.
--- NOTE | 2017-12-25 19:26 | NUR ---
RECEIVED BEDSIDE REPORT FROM DAY SHIFT NURSE CHHAYA RN, PT STABLE, NO DISTRESS NOTED, TRU CATH ON THE R IJ PATENT, PT ON 2LPM O2 VIA NC, NO SOB, FAMILY BY BEDSIDE, INITIAL ASSESSMENT DONE, ALL SAFETY PRECAUTION MET, WILL CONTINUE TO MONITOR.
[2017-12-25 20:00] VITALS: BP 147/70
--- NOTE | 2017-12-25 20:05 | NUR ---
[facility] CALLED REGARDING PT TRANSPORT, STATED THAT THEY WILL CALL WHEN THEY ARE READY, NO ETA AT THIS TIME.
--- NOTE | 2017-12-25 20:33 | NUR ---
[facility] CALLED REGARDING PT TRANSPORT, STATED THAT THEY WILL COME IN 50 MINUTES, CALLED [facility] REGARDING PT STATUS TO BE TRANSPORTED IN 50 MINUTES, STATED UNDERSTANDING. Addendum: 12/25/17 at 2304 by Erin Arreola RN WRONG TIME
--- NOTE | 2017-12-25 21:06 | NUR ---
PT ON BIPAP HE REQUESTED. SETTINGS / RATE OF 12, FIO2 28%. PT IS AWAKE AND ALERT NO SOB OR DISTRESS NOTED. BIPAP CONNECTED TO RED OUTLET. ALARMS ARE FUNCTIONING. SON AT BEDSIDE. TOLD SON TO NOT TOUCH BIPAP WITHOUT LETTING LABEL TACKER MELT SUPERINTENDANT AWARE. SON AWARE THAT NO ONE IS ALLOWED TO TOUCH BIPAP OTHER THAN LABEL TACKER MELT SUPERINTENDANT. SPO2 96% HR 113. DIMINISHED BREATH SOUNDS. WILL CONTINUE TO MONITOR.
[2017-12-25] MEDS: DOXAZOSIN 2 MG TAB PO SCH (21:14)
[2017-12-25] MEDS: POLYETHYLENE GLYCOL 17 GM/PKT PO SCH (21:15)
--- NOTE | 2017-12-25 22:33 | NUR ---
[facility] CALLED REGARDING PT TRANSPORT, STATED THAT THEY WILL COME IN 50 MINUTES, CALLED [facility] REGARDING PT STATUS TO BE TRANSPORTED IN 50 MINUTES, STATED UNDERSTANDING.
--- NOTE | 2017-12-25 23:18 | NUR ---
TOLERATING BIPAP WELL. PT ASLEEP COMFORTABLY. SON AT BEDSIDE. PT IS WAITING FOR TRANSPORT. NO SOB OR DISTRESS NOTED.
[2017-12-26] VITALS: BP 154/79
--- NOTE | 2017-12-26 00:13 | NUR ---
PT LEFT UNIT VIA GURNEY, PT ON STABLE CONDITION, NO DISTRESS NOTED, WRISTBAND TAKEN OFF, COSTELLO IN PLACE, ALL BELONGING WITH PT'S SON, PT SON ACCOMPANIED PT.
== END 2017-12-26 00:15 | DRG 720 ==
LOC: MED 15:19 → MIC 17:29 → MTU 12-14 20:00
PROVIDERS: ADMIT Hospitalist; ATTEND Hospitalist
PROC: 5A09357 Assistance with Respiratory Ventilation, Less than 24 Consecutive Hours, Continuous Positive Airway Pressure (ICD-10-PCS; 2017-12-03)
PROC: 02HV33Z Insertion of Infusion Device into Superior Vena Cava, Percutaneous Approach (ICD-10-PCS; 2017-12-03)
PROC: B548ZZA Ultrasonography of Superior Vena Cava, Guidance (ICD-10-PCS; 2017-12-03)
PROC: 0BH17EZ Insertion of Endotracheal Airway into Trachea, Via Natural or Artificial Opening (ICD-10-PCS; 2017-12-03)
PROC: 05HM33Z Insertion of Infusion Device into Right Internal Jugular Vein, Percutaneous Approach (ICD-10-PCS; 2017-12-03)
PROC: B543ZZA Ultrasonography of Right Jugular Veins, Guidance (ICD-10-PCS; 2017-12-03)
PROC: 5A1D70Z Performance of Urinary Filtration, Intermittent, Less than 6 Hours Per Day (ICD-10-PCS; 2017-12-03)
PROC: 5A1955Z Respiratory Ventilation, Greater than 96 Consecutive Hours (ICD-10-PCS; principal; 2017-12-04)
PROC: 5A1D70Z Performance of Urinary Filtration, Intermittent, Less than 6 Hours Per Day (ICD-10-PCS; 2017-12-04)
PROC: 5A1D70Z Performance of Urinary Filtration, Intermittent, Less than 6 Hours Per Day (ICD-10-PCS; 2017-12-05)
PROC: 5A1D70Z Performance of Urinary Filtration, Intermittent, Less than 6 Hours Per Day (ICD-10-PCS; 2017-12-06)
PROC: 5A1D70Z Performance of Urinary Filtration, Intermittent, Less than 6 Hours Per Day (ICD-10-PCS; 2017-12-07)
PROC: 5A1D70Z Performance of Urinary Filtration, Intermittent, Less than 6 Hours Per Day (ICD-10-PCS; 2017-12-08)
PROC: 5A1D70Z Performance of Urinary Filtration, Intermittent, Less than 6 Hours Per Day (ICD-10-PCS; 2017-12-09)
PROC: 5A1D70Z Performance of Urinary Filtration, Intermittent, Less than 6 Hours Per Day (ICD-10-PCS; 2017-12-10)
PROC: 5A1D70Z Performance of Urinary Filtration, Intermittent, Less than 6 Hours Per Day (ICD-10-PCS; 2017-12-11)
PROC: 5A09357 Assistance with Respiratory Ventilation, Less than 24 Consecutive Hours, Continuous Positive Airway Pressure (ICD-10-PCS; 2017-12-12)
PROC: 5A1D70Z Performance of Urinary Filtration, Intermittent, Less than 6 Hours Per Day (ICD-10-PCS; 2017-12-12)
PROC: 5A09357 Assistance with Respiratory Ventilation, Less than 24 Consecutive Hours, Continuous Positive Airway Pressure (ICD-10-PCS; 2017-12-13)
PROC: 5A1D70Z Performance of Urinary Filtration, Intermittent, Less than 6 Hours Per Day (ICD-10-PCS; 2017-12-13)
PROC: 5A09357 Assistance with Respiratory Ventilation, Less than 24 Consecutive Hours, Continuous Positive Airway Pressure (ICD-10-PCS; 2017-12-14)
PROC: 5A09357 Assistance with Respiratory Ventilation, Less than 24 Consecutive Hours, Continuous Positive Airway Pressure (ICD-10-PCS; 2017-12-14)
PROC: 5A09357 Assistance with Respiratory Ventilation, Less than 24 Consecutive Hours, Continuous Positive Airway Pressure (ICD-10-PCS; 2017-12-14)
PROC: 5A1D70Z Performance of Urinary Filtration, Intermittent, Less than 6 Hours Per Day (ICD-10-PCS; 2017-12-14)
PROC: 5A09357 Assistance with Respiratory Ventilation, Less than 24 Consecutive Hours, Continuous Positive Airway Pressure (ICD-10-PCS; 2017-12-15)
PROC: 5A09357 Assistance with Respiratory Ventilation, Less than 24 Consecutive Hours, Continuous Positive Airway Pressure (ICD-10-PCS; 2017-12-16)
PROC: 5A1D70Z Performance of Urinary Filtration, Intermittent, Less than 6 Hours Per Day (ICD-10-PCS; 2017-12-16)
PROC: 5A09357 Assistance with Respiratory Ventilation, Less than 24 Consecutive Hours, Continuous Positive Airway Pressure (ICD-10-PCS; 2017-12-17)
PROC: 5A1D70Z Performance of Urinary Filtration, Intermittent, Less than 6 Hours Per Day (ICD-10-PCS; 2017-12-17)
PROC: 5A09357 Assistance with Respiratory Ventilation, Less than 24 Consecutive Hours, Continuous Positive Airway Pressure (ICD-10-PCS; 2017-12-18)
PROC: 5A1D70Z Performance of Urinary Filtration, Intermittent, Less than 6 Hours Per Day (ICD-10-PCS; 2017-12-18)
PROC: 5A1D70Z Performance of Urinary Filtration, Intermittent, Less than 6 Hours Per Day (ICD-10-PCS; 2017-12-19)
PROC: 5A09357 Assistance with Respiratory Ventilation, Less than 24 Consecutive Hours, Continuous Positive Airway Pressure (ICD-10-PCS; 2017-12-20)
PROC: 5A1D70Z Performance of Urinary Filtration, Intermittent, Less than 6 Hours Per Day (ICD-10-PCS; 2017-12-20)
PROC: 5A09357 Assistance with Respiratory Ventilation, Less than 24 Consecutive Hours, Continuous Positive Airway Pressure (ICD-10-PCS; 2017-12-21)
PROC: 5A1D70Z Performance of Urinary Filtration, Intermittent, Less than 6 Hours Per Day (ICD-10-PCS; 2017-12-22)
PROC: 5A1D70Z Performance of Urinary Filtration, Intermittent, Less than 6 Hours Per Day (ICD-10-PCS; 2017-12-23)
PROC: 5A09357 Assistance with Respiratory Ventilation, Less than 24 Consecutive Hours, Continuous Positive Airway Pressure (ICD-10-PCS; 2017-12-25)
PROC: 3E0234Z Introduction of Serum, Toxoid and Vaccine into Muscle, Percutaneous Approach (ICD-10-PCS; 2017-12-25)
PROC: 3E0234Z Introduction of Serum, Toxoid and Vaccine into Muscle, Percutaneous Approach (ICD-10-PCS; 2017-12-25)
PROC: 5A1D70Z Performance of Urinary Filtration, Intermittent, Less than 6 Hours Per Day (ICD-10-PCS; 2017-12-25)
DX: A41.9 Sepsis, unspecified organism (principal); N17.0 Acute kidney failure with tubular necrosis; J96.22 Acute and chronic respiratory failure with hypercapnia; R65.21 Severe sepsis with septic shock; I47.2 Ventricular tachycardia; G93.41 Metabolic encephalopathy; J18.9 Pneumonia, unspecified organism; I50.41 Acute combined systolic (congestive) and diastolic (congestive) heart failure; N18.6 End stage renal disease; I42.0 Dilated cardiomyopathy; J44.0 Chronic obstructive pulmonary disease with (acute) lower respiratory infection; I13.2 Hypertensive heart and chronic kidney disease with heart failure and with stage 5 chronic kidney disease, or end stage renal disease; E11.21 Type 2 diabetes mellitus with diabetic nephropathy; E87.6 Hypokalemia; I48.2 Chronic atrial fibrillation; J44.1 Chronic obstructive pulmonary disease with (acute) exacerbation; N40.0 Benign prostatic hyperplasia without lower urinary tract symptoms; R79.1 Abnormal coagulation profile; R18.8 Other ascites; N50.89 Other specified disorders of the male genital organs; E11.22 Type 2 diabetes mellitus with diabetic chronic kidney disease; N13.9 Obstructive and reflux uropathy, unspecified; E87.5 Hyperkalemia; J45.901 Unspecified asthma with (acute) exacerbation; D64.9 Anemia, unspecified; E66.01 Morbid (severe) obesity due to excess calories; Z99.89 Dependence on other enabling machines and devices; Z68.44 Body mass index [BMI] 60.0-69.9, adult; Z99.2 Dependence on renal dialysis; Z83.3 Family history of diabetes mellitus; Z79.4 Long term (current) use of insulin; Z79.01 Long term (current) use of anticoagulants; Z23 Encounter for immunization
CPT/HCPCS: 36415; 36600; 71045; 76770; 80048; 80053; 81001; 82040; 82140; 82435; 82550; 82553; 82565; 82803; 82947; 82948; 83036; 83605; 83735; 83880; 84100; 84132; 84295; 84439; 84443; 84484; 84520; 85025; 85610; 85730; 86704; 86706; 86708; 86709; 86803; 87040; 87070; 87081; 87086; 87205; 87340; 87536; 87804; 90658; 90732; 90935; 92610; 92700; 93005; 94003; 94640; 94660; 96374; 96375; 97110; 97140; 97530; 97799; 99291; C9113; J0456; J0696; J1644; J1815; J1940; J2060; J2250; J2270; J2370; J2405; J2704; J2920; J2930; J3475; J3490; J7030; J7060; J7613; J7620; J7626; J7644; P9046; Q0092

== ENCOUNTER 2018-02-14 13:30 | Inpatient (IN) | payer OTHER ==
[2018-02-14] VITALS (24 sets, daily range): BP systolic 70–136; BP diastolic 42–82
[~2018-02-14] VITALS: Ht 167.6 cm; Wt 167.8 kg
[~2018-02-14 13:30] MED LIST: DILT60TA94 PO; DOXA2TAB1 PO; FAMO-90 PO; FURO40TA9 PO; GLIM2TAB PO; GLUC-805 FS; HEPA500056 SUBQ; HUM SUBQ; HUMSLIDE SUBQ; IPRA3AMP INH; LACT10CA NG; LACT10SO11 PO; LANTUS SUBQ; LORA-476 PO; METO50TE2 PO; PANT40EC28 PO; PUL.5N INH; SEVE800T6 PO; SIME80CT27 PO; TAMS0.4C96 PO
[2018-02-14] MEDS ORDERED: VITA1TAB44 PO (13:47)
[2018-02-14] MEDS ORDERED: SEVE800T6 PO (13:47)
[2018-02-14] MEDS ORDERED: ASPIRIN 81 MG TAB.CHEW PO ONE (13:50)
[2018-02-14] MEDS ORDERED: DILTIAZEM 25 MG/5 ML VIAL IVP ONE (13:50)
--- NOTE | 2018-02-14 13:57 | NUR ---
RT AT BEDSIDE AT THIS TIME.
--- NOTE | 2018-02-14 13:57 | NUR ---
Xray at bedside at this time.
--- NOTE | 2018-02-14 14:00 | NUR ---
PT PLACED ON BIPAP 12/6 R 14 FIO2 50%. PROTECTA GEL PLACED UNDER MASK. BIPAP ALARMS ON AND FUNCTIONING.
--- NOTE | 2018-02-14 14:09 | NUR ---
LAB AT BEDSIDE AT THIS TIME.
[2018-02-14 14:21] LABS: BASOPHILS # (AUTO) 0.1 K/uL (0.00-0.22); EOSINOPHILS % (AUTO) 0.4 % (0.0-4.0); HEMATOCRIT 36.6 % (36-52); HEMOGLOBIN 10.6 g/dL (12.0-18.0); LYMPHOCYTES # (AUTO) 1.2 K/uL (2.0-11.5); LYMPHOCYTES % (AUTO) 15.7 % (20.5-51.1); MEAN CORPUSCULAR HEMOGLOBIN 27 pg (27-31); MEAN CORPUSCULAR HGB CONC 29 g/dL (33-37); MEAN CORPUSCULAR VOLUME 92.3 fL (80-94); MONOCYTES # (AUTO) 1.3 K/uL (0.8-1.0); MONOCYTES % (AUTO) 17.1 % (1.7-9.3); NEUTROPHILS # (AUTO) 5.1 K/uL (1.8-7.7); NEUTROPHILS % (AUTO) 65.8 % (42.2-75.2); PLATELET COUNT (AUTO) 167 K/uL (140-450); RED BLOOD CELL COUNT(AUTO) 3.97 MIL/uL (4.20-6.10); RED CELL DISTRIBUTION WIDTH 19.2 % (11.6-13.7); WHITE BLOOD COUNT (AUTO) 7.8 K/uL (4.8-10.8)
--- NOTE | 2018-02-14 14:25 | NUR ---
PT PLACED ON BI-PAP BY RT. 50% O2. PT TOLERATED WELL. RESTING ON [facility] AT THIS TIME. WILL CONTINUE TO MONITOR.
[2018-02-14 14:31] LABS: ALBUMIN 3.1 g/dL (3.4-5.0); CARBON DIOXIDE 36.2 mmol/L (21-32); POTASSIUM 5.2 mmol/L (3.5-5.1); TOTAL BILIRUBIN 0.3 mg/dL (0.0-1.0)
[2018-02-14 14:37] LABS: CREATININE 6.3 mg/dL (0.7-1.3)
--- NOTE | 2018-02-14 14:40 | NUR ---
ABG RESULTS GIVEN TO PER ABG RESULTS NEW BIPAP SETTINGS MADE BY PHYSICIAN 16/, R 18 AND FIO2 INCREASED TO 100%. SON IS BEDSIDE AT THIS TIME. BIPAP ALARMS REMAIN ON AND FUNCTIONING.
--- NOTE | 2018-02-14 15:07 | NUR ---
REJI HUNTER REP FROM [facility] CALLED REGARDING PT BEING ADMITTED TO FACILITY.
[2018-02-14] MEDS ORDERED: NACL 0.9% 1,000 ML IV SCH (15:18)
[2018-02-14] MEDS ORDERED: ACETAMINOPHEN 325 MG TAB PO PRN (15:20)
[2018-02-14] MEDS ORDERED: HYDROcodone/APAP 7.5/325 MG 1 TAB PO PRN (15:20)
[2018-02-14] MEDS ORDERED: ONDANSETRON 4 MG/2 ML VIAL IVP PRN ×2 (15:20→16:00)
--- NOTE | 2018-02-14 15:38 | NUR ---
INFORMED BY ADMITTING THAT PT WILL ACTUALLY GO TO [facility] DUE TO HAVING [facility]
[2018-02-14] MEDS ORDERED: HYDROcodone/APAP 5/325 MG 1 TAB TAB PO PRN ×2 (16:00)
[2018-02-14 16:23] LABS: APPEARANCE,URINE SL CLOUDY (CLEAR); BILIRUBIN,URINE NEGATIVE (NEGATIVE); BLOOD, URINE 3+ (NEGATIVE); COLOR,URINE YELLOW (YELLOW); LEUKOCYTE ESTERASE ,URINE 2+ (NEGATIVE); NITRITE, URINE NEGATIVE (NEGATIVE); PH,URINE 5.5 (5.0-9.0); UGLUCOSE NEGATIVE (NEGATIVE)
[2018-02-14 16:36] LABS: BARBITURATE, URINE NEG. ng/ml (NEG <=200); BENZODIAZEPINE, URINE NEG. ng/mL (NEG <=200); CANNABINOID, URINE NEG. ng/mL (NEG <=50); COCAINE, URINE NEG. ng/mL (NEG <=300); OPIATE, URINE NEG. ng/mL (NEG <=2000); PHENCYCLIDINE SCREEN,URINE NEG. ng/mL (NEG <=25)
[2018-02-14 16:38] LABS: CHOL/HDL RATIO 3.4 (1-4.5); FREE T4 (FREE THYROXINE) 0.65 ng/dL (0.76-1.46); MAGNESIUM 2.4 mg/dL (1.8-2.4); PHOSPHORUS 6.7 mg/dL (2.5-4.9)
--- NOTE | 2018-02-14 16:45 | NUR ---
RECEIVED PATIENT FROM DIRECTOR OF CURRICULUM FOR CONTINUITY OF CARE. PATIENT IS AAOX2, ABLE TO FOLLOW SIMPLE COMMANDS, LETHARGIC. SKIN IS INTACT, WARM AND DRY, PERIPHERAL IV SITE TO LEFT HAND, 24 GAUGE, ASYMPTOMATIC, PATENT AND INTACT. HE IS ON BIPAP AT FIO2 70%, BREATHING IS UNLABORED AND EVEN, SPO2 IS 100%. ST ON MONITOR, DENIES ANY PAIN AT THIS TIME. ABD IS SOFT AND NON TENDER. PATIENT HAS COSTELLO CATHETER IN PLACE TO YELLOW URINE. HOB IS 30 DEGREES IN A LOWEST POSITION, NO SIGNS OF DISTRESS NOTED, CALL LIGHT WITHIN REACH. WILL CONTINUE TO MONITOR
--- NOTE | 2018-02-14 16:48 | NUR ---
Patient will be admitted to care of [facility]. Admited to ICU. Will go to room 5. Belongings list completed. Report to REJI Fish.
--- NOTE | 2018-02-14 16:55 | NUR ---
FIO2 TITRATED FROM 70% TO 60%. SPO2 REMAINS AT 95%. PT TRANSPORTED FROM ER TO ICU ON BIPAP WITHOUT INCIDENT.
--- NOTE | 2018-02-14 17:34 | NUR ---
PT TOLERATING BIPAP WELL AT THIS TIME. PT WILL OPEN EYES WHEN SPOKEN TO AND NODS TO QUESTIONS. BIPAP ALARMS REMAIN ON AND FUNCTIONING.
[2018-02-14] MEDS ORDERED: SIMETHICONE 80 MG TAB.CHEW PO PRN (17:50)
[2018-02-14] MEDS ORDERED: DIGOXIN 0.25 MG/ML AMP IV SCH (17:53)
[2018-02-14] MEDS ORDERED: INSULIN LISPRO SLIDING SCALE 100 UNITS/ML VIAL SUBQ PRN (18:00)
[2018-02-14] MEDS: DILTIAZEM 30 MG TAB PO SCH ×2 (18:03→23:40)
--- NOTE | 2018-02-14 18:08 | NUR ---
PAGED MULTIPLE TIMES REGARDING ABG RESULTS WAITING FOR CALL BACK.
--- NOTE | 2018-02-14 18:26 | NUR ---
RN NOTIFIED DR. HOWARD OF ABG RESULTS. BIPAP SETTINGS CHANGED TO 20/6. DR. HOWARD ORDERED ABG TO BE DRAWN IN ONE HOUR. WILL CONTINUE TO MONITOR.
[2018-02-14] MEDS: DILTIAZEM 25 MG/5 ML VIAL IVP PRN (18:55)
--- NOTE | 2018-02-14 18:55 | NUR ---
DR. BRANHAM IN TO SEE PATIENT, UPDATED ON PATIENT'S CONDITIONS. WILL FOLLOW UP ON ANY ORDERS.
--- NOTE | 2018-02-14 19:05 | NUR ---
IN TO SEE AND EXAMINE PATIENT, UPDATED ON PATIENT'S CONDITION. WILL FOLLOW UP ON ANY ORDERS.
[2018-02-14 19:07] LABS: RBC,URINE 3-10 (FEW) /HPF (0-5)
[2018-02-14 19:08] LABS: URINE AMORPHOUS URATE 1+ /HPF (None Seen); WBC,URINE 20-60 /HPF (0-5); YEAST,URINE Moderate /HPF (None Seen)
[2018-02-14] MEDS ORDERED: PROPOFOL 1000 MG/100 ML PREMIX 100 ML IV ONE (19:12)
--- NOTE | 2018-02-14 19:20 | NUR ---
RECEIVED REPORT FROM MORNING RN. VS STABLE AT THIS TIME. PT AFEBRILE, RESPONSIVE AND ABLE TO MAKE NEEDS KNOWN. PT ABLE TO MOVE EXTREMITIES. LUNG SOUNDS COURSE. PT ON BIPAP AND APPEARS TO BE HAVING SOB. PER REPORT, DR. HOWARD IIS COMING IN TO INTUBATE PT. S1+S2 HEARD. AFIB ON MONITOR. PULSES ARE PALPABLE IN ALL EXTREMITIES. ABDOMEN ROUND, SOFT AND NONDISTENDED. BS ACTIVE IN ALL QUADRANTS. COSTELLO CATHETER IN PLACE AND CLEAR, AND YELLOW URINE. PT HAS PERIPHERAL IV ACCESS 24G ON LEFT HAND WHICH IS INTACT, PATENT AND ASYMPTOMATIC. PT HAS RIGHT UPPER CHEST PERMACATH. DR. BRANHAM CURRENTLY AT BEDSIDE AND ORDERED HEMODIALYSIS THAT IS TO BE DONE AFTER PT IS INTUBATED AND STABLE. ANGELICA TRUJILLO MADE AWARE OF PREVIOUS SHIFT. PT HAS SCROTAL EDEMA AND GENERALIZED EDEMA. BED KEPT AT LOW POSSIBLE POSITION. CALL LIGHT WITHIN REACH. WILL CONTINUE TO MONITOR PT.
--- NOTE | 2018-02-14 19:20 | NUR ---
REPORT FOR CONTINUITY OF CARE GIVEN TO GENERATOR REPAIRER RN, PATIENT IS IN NO DISTRESS AT THIS TIME.
[2018-02-14] MEDS: PROPOFOL 1000 MG/100 ML PREMIX 100 ML IV PRN ×2 (19:30→22:18)
--- NOTE | 2018-02-14 19:30 | NUR ---
PT INTUBATED AND STARTED ON PROPOFOL DRIP PER DR. HOWARD; CENTRAL LINE INSERTION NEEDED AND PER DR. HOWARD, CALL DR. FULLER. DR. FULLER NOTIFIED REGARDING CENTRAL LINE INSERTION.
--- NOTE | 2018-02-14 19:30 | NUR ---
ABG DRAWN AT 190. DR. HOWARD AT BEDSIDE. ABG RESULTS GIVEN TO DR. HOWARD. PATIENT INTUBATED AT [address] HOWARD. 7.5 ETT. 25 CM AT THE LIP. EQUAL BILATERAL BREATH SOUNDS. PLACED ON VENT. ORDERED VENT SETTINGS: AC 550, 16, +5, 50%. TO MAINTAIN O2 SAT 88-90%. WILL CONTINUE TO MONITOR.
--- NOTE | 2018-02-14 20:09 | NUR ---
PT'S SON AT BEDSIDE. GAVE PT BELONGINGS TO SON. PT HAS NO BELONGINGS KEPT AT BEDSIDE.
[2018-02-14] MEDS: BUDESONIDE 0.5 MG/2 ML NEBU INH SCH (20:27)
--- NOTE | 2018-02-14 20:28 | NUR ---
SCHEDULED BREATHING TX ADMINISTERED. GARY TX WELL. NO ADVERSE SIDE EFFECTS. WILL CONTINUE TO MONITOR.
--- NOTE | 2018-02-14 20:30 | NUR ---
DIALYSIS NURSE AT BEDSIDE. PT STARTED ON DIALYSIS.
[2018-02-14] MEDS ORDERED: ALBUMIN HUMAN 25% 100 ML IV ONE ×2 (20:50→21:10)
[2018-02-14] MEDS ORDERED: DOCUSATE SODIUM 100 MG GELCAP PO SCH (21:00)
[2018-02-14] MEDS ORDERED: DOXAZOSIN 2 MG TAB PO SCH (21:00)
[2018-02-14] MEDS: LACTULOSE 20 GM/30 ML UDC PO SCH (21:00)
[2018-02-14] MEDS: METOPROLOL 50 MG TAB PO SCH (21:00)
--- NOTE | 2018-02-14 21:00 | NUR ---
WAITING FOR OGT PLACEMENT TO BE CONFIRMED BY CHEST X-RAY.
--- NOTE | 2018-02-14 21:05 | NUR ---
PETROS DRAWN. DR. HOWARD PAGED FOR RESULTS. WAITING FOR CALL BACK.
[2018-02-14] MEDS: BLOOD GLUCOSE MONITORING 1 DEV DEV FS SCH (21:24)
[2018-02-14] MEDS: INSULIN LANTUS 100 UNITS/ML 10 ML VIAL SUBQ SCH (21:30)
--- NOTE | 2018-02-14 21:31 | NUR ---
INFORMED DR. HOWARD THAT WHILE PT IS ON DIALYSIS, SBP WENT DOWN TO 50S. MADE AWARE THAT PT CURRENTLY DO NOT HAVE CENTRAL LINE AND ONLY HAS PERIPHERAL IV ACCESS. RECEIVED NEW ORDERS. WILL FOLLOW UP AGAIN WITH DR. FULLER REGARDING CENTRAL LINE INSERTION AND WILL ATTEMPT TO INSERT ANOTHER IV ACCESS.
--- NOTE | 2018-02-14 21:32 | NUR ---
ABG RESULTS GIVEN TO DR. HOWARD. VENT SETTINGS CHANGED AT THIS TIME PER MD. RATE INCREASED TO 20. TIDAL VOLUME INCREASED TO 600. ABG TO BE REPEATED AT 7AM. WILL CONTINUE TO MONITOR PATIENT.
[2018-02-14] MEDS ORDERED: DOPamine 400 MG/D5W PREMIX 250 ML IV SCH (21:35)
[2018-02-14] MEDS ORDERED: NOREPINEPHRINE 4 MG in DEXTROSE 5% 250 ML IV PRN (21:35)
--- NOTE | 2018-02-14 21:52 | NUR ---
PER . HE UNABLE COME TONIGHT . WILL COME AT IN AM BETWEEN 9 TO 10 AM, FOR ANY EMERGENCY TO ASK ER DOCTOR TO INSERT CENTRAL LINE.
--- NOTE | 2018-02-14 22:45 | NUR ---
DR. CHRISTIANSEN AT BEDSIDE TO SEE PT. WILL FOLLOW-UP WITH ANY NEW ORDER.
--- NOTE | 2018-02-14 23:01 | NUR ---
VENT CHECK DONE. PATIENT RESTING QUIETLY AT THIS TIME. NO RESPIRATORY DISTRESS NOTED. TOLERATING VENT WELL. VENT ALARMS ON AND AUDIBLE. WILL CONTINUE TO MONITOR.
[2018-02-14 23:49] LABS: CREATINE KINASE MB 4.1 ng/mL (0-3.6)
[2018-02-15] VITALS (98 sets, daily range): BP systolic 69–149; BP diastolic 37–105
--- NOTE | 2018-02-15 00:11 | NUR ---
DECREASE FIO2 BY DR. HOWARD TO 30%
--- NOTE | 2018-02-15 01:15 | NUR ---
VENT CHECK DONE. SUCTIONED SCANT AMOUNT OF THICK PALE YELLOW SECRETIONS. WILL CONTINUE TO MONITOR.
[2018-02-15] MEDS: PROPOFOL 1000 MG/100 ML PREMIX 100 ML IV PRN ×8 (01:31→21:46)
--- NOTE | 2018-02-15 02:17 | NUR ---
VS STABLE AT THIS TIME. PT BP WNL. AFIB ON MONITOR. NO CHANGE IN CONDITION AT THIS TIME. RASS -4 CURRENTLY. PT STILL ON PROPOFOL DRIP. BED AT LOW POSSIBLE POSITION. CALL LIGHT WITHIN REACH. WILL CONTINUE TO MONITOR PT.
--- NOTE | 2018-02-15 05:20 | NUR ---
MORNING CARE PROVIDED TO PT. LINENS CHANGED AND PT CLEANED. PT HAD A LARGE BM. PT TURNED AND REPOSITIONED. ORAL CARE PROVIDED. VS STABLE. WILL CONTINUE TO MONITOR PT.
--- NOTE | 2018-02-15 05:25 | NUR ---
VENT CHECK DONE. TOLERATING VENT WELL. AMBU BAG AT BEDSIDE. VENT PLUGGED INTO RED OUTLET. VENT ALARMS ON AND AUDIBLE. NO RESPIRATORY DISTRESS NOTED AT THIS TIME. WILL CONTINUE TO MONITOR.
[2018-02-15] MEDS: DILTIAZEM 30 MG TAB PO SCH ×3 (05:55→18:00)
[2018-02-15] MEDS: PANTOPRAZOLE 40 MG TABEC PO SCH (05:55)
[2018-02-15] MEDS: BLOOD GLUCOSE MONITORING 1 DEV DEV FS SCH ×3 (06:16→20:58)
[2018-02-15 06:53] LABS: BASOPHILS # (AUTO) 0.1 K/uL (0.00-0.22); EOSINOPHILS # (AUTO) 0.2 K/uL (0-0.4); HEMOGLOBIN 9.2 g/dL (12.0-18.0); MEAN CORPUSCULAR VOLUME 89.4 fL (80-94); NEUTROPHILS # (AUTO) 3.6 K/uL (1.8-7.7); WHITE BLOOD COUNT (AUTO) 5.6 K/uL (4.8-10.8)
[2018-02-15 07:01] LABS: BASOPHILS % (AUTO) 1.2 % (0.0-2.0); HEMATOCRIT 30.5 % (36-52); LYMPHOCYTES % (AUTO) 18.5 % (20.5-51.1); MEAN CORPUSCULAR HEMOGLOBIN 27 pg (27-31); MEAN CORPUSCULAR HGB CONC 30 g/dL (33-37); MONOCYTES # (AUTO) 0.7 K/uL (0.8-1.0); MONOCYTES % (AUTO) 12.8 % (1.7-9.3); NEUTROPHILS % (AUTO) 64.5 % (42.2-75.2); PLATELET COUNT (AUTO) 155 K/uL (140-450); RED BLOOD CELL COUNT(AUTO) 3.42 MIL/uL (4.20-6.10); RED CELL DISTRIBUTION WIDTH 18.8 % (11.6-13.7)
[2018-02-15] MEDS: BUDESONIDE 0.5 MG/2 ML NEBU INH SCH ×2 (07:12→19:02)
--- NOTE | 2018-02-15 07:24 | NUR ---
RECEIVED INTUBATED PT WITH 7.5 ETT SECURED @25 TEETH/GUMS ON VENT. SETTINGS AC 20, VT 600, PEEP 5 AND FIO2 30%. ETT PLACEMENT CONFIRMED WITH CXR. PT IS SLIGHTLY IRRITABLE AND PERIODICALLY BITES ETT. PT SUCTIONED OBTAINED SMALL AMOUNT OF THICK CLEAR/WHITE SECRETIONS, AIRWAY IS PATENT AND ETT IS SECURE. VENT IS PLUGGED INTO A RED OUTLET WITH ALARMS ON AND FUNCTIONING. AMBU BAG IS PRESENT AT BEDSIDE. WILL CONTINUE TO MONITOR.
--- NOTE | 2018-02-15 07:28 | NUR ---
RECEIVED REPORT FROM NOC SHIFT RN. PT RESTING IN BED. SR ON MONITOR. VS WNL. PUPILS REACTIVE TO LIGHT. SKIN DRY AND WARM TO TOUCH. PT ON ETT TO VENT AC 20 FIO2 30% TV [address]EEP [address] OGTUBE IN PLACE, POSITIVE PLACEMENT. DIALYSIS PORT ON RIGHT UPPER CHEST, DRESSING INTACT. PERIPHERAL LINE ON LEFT HAND 24G, INTACT. PROPOFOL RUNNING AT 30 MCG/KG/MIN. RASS -4. WHEEZING LUNGS SOUND. ABDOMEN FIRM, ROUND AND NON-TENDER. ACTIVE BOWEL SOUND. GENERALIZED BODY SWELLING. KEPT HOB ELEVATED. BED IN LOW POSITION LOCKED. WILL CONTINUE TO MONITOR.
--- NOTE | 2018-02-15 07:28 | NUR ---
REPORT GIVEN TO MORNING RN FOR CONTINUITY OF CARE. PT IN STABLE CONDITION AT THIS TIME.
[2018-02-15 07:54] LABS: ALBUMIN 2.8 g/dL (3.4-5.0); ANION GAP 12.2 (8-16); CARBON DIOXIDE 32.6 mmol/L (21-32); POTASSIUM 3.8 mmol/L (3.5-5.1); TOTAL BILIRUBIN 0.5 mg/dL (0.0-1.0)
[2018-02-15 07:55] LABS: CREATININE 5.4 mg/dL (0.7-1.3)
[2018-02-15 08:03] LABS: CREATINE KINASE MB 2.1 ng/mL (0-3.6)
[2018-02-15] MEDS ORDERED: FUROSEMIDE 40 MG TAB PO SCH (09:00)
[2018-02-15] MEDS: METOPROLOL 50 MG TAB PO SCH (09:00)
[2018-02-15] MEDS: INSULIN LANTUS 100 UNITS/ML 10 ML VIAL SUBQ SCH ×2 (09:00→21:04)
--- NOTE | 2018-02-15 09:17 | NUR ---
SEEN BY DR. HOWARD. UPDATED PT CONDITION. WILL FOLLOW UP ON ORDER.
--- NOTE | 2018-02-15 09:22 | NUR ---
PATIENT HAS BEEN SCREENED AND CATEGORIZED HIGH NUTRITION RISK. PATIENT WILL BE SEEN WITHIN 1-2 DAYS OF ADMISSION. 02/15/18-02/16/[address]
--- NOTE | 2018-02-15 09:26 | NUR ---
SEEN BY DR. CHRISTIANSEN
[2018-02-15] MEDS: SEVELAMER CARBONATE 800 MG TAB PO SCH ×2 (09:38→12:29)
[2018-02-15] MEDS: INSULIN LISPRO 100 UNITS/ML VIAL SUBQ SCH ×3 (09:38→17:00)
[2018-02-15] MEDS: LACTULOSE 20 GM/30 ML UDC PO SCH ×2 (09:39→20:58)
[2018-02-15] MEDS: TAMSULOSIN 0.4 MG CAP PO SCH (09:39)
[2018-02-15] MEDS: FAMOTIDINE 20 MG TAB PO SCH (09:40)
[2018-02-15] MEDS: VIT-B COMP/VIT-C/FOLIC ACID 1 TAB PO SCH (09:41)
--- NOTE | 2018-02-15 10:07 | NUR ---
FOLLOWED UP WITH PHYS THERAPIST FOR FEEDING ORDER PER DR. HOWARD.
--- NOTE | 2018-02-15 10:54 | NUR ---
PT RESTING IN BED COMFORTABLY. NO CHANGE IN LOC. WILL CONTINUE TO MONITOR.
--- NOTE | 2018-02-15 10:58 | NUR ---
VENT CHECK COMPLETED. PT IS ASLEEP AT THIS TIME. PT IS NOT SOB AND NOT IN RESPIRATORY DISTRESS. WILL CONTINUE TO MONITOR.
--- NOTE | 2018-02-15 13:20 | NUR ---
PT RESTING IN BED. NO CHANGE IN LOC. ON RASS -4. VS WITHIN NORMAL RANGE. WILL CONTINUE TO MONITOR.
--- NOTE | 2018-02-15 14:14 | NUR ---
PAGED DR. FULLER FOR CENTRAL LINE USE.
--- NOTE | 2018-02-15 14:27 | NUR ---
02/15/18 RD INITIAL ASSESSMENT COMPLETED PLEASE REFER TO NUTRITION ASSESSMENT UNDER CARE ACTIVITY FOR ESTIMATED NUTRITIONAL NEEDS. RD RECOMMENDATIONS: 1.CONTINUE NPO MEDICALLY APPROPRIATE. IF/WHEN PT IS MEDICALLY STABLE TO BEGIN TUBE FEEDING, RECOMMEND NOVASOURCE RENAL AT GOAL RATE OF 40 ML/HR VIA OG TUBE. AT GOAL RATE, TUBE FEEDING WILL PROVIDE 906 ML TOTAL VOLUME, 1920 KCAL, 87 GM OF PROTEIN, AND 688 ML OF FREE WATER (ADEQUATE TO MEET 100% OF ESTIMATED ENERGY AND PROTEIN NEEDS). -NOTE WATER FLUSH RECOMMENDATIONS PER MD DUE TO PT WITH CHF, FLUID OVERLOAD, AND ESRD ON HD. 2. RD WILL F/U 2-3 DAYS; HIGH RISK. TYESHA KAPLAN RD
--- NOTE | 2018-02-15 17:00 | NUR ---
PT RESTING IN BED. CONTINUE ON PROPOFOL DRIP. RASS -4. NO CHANGE IN LOC. WILL CONTINUE TO MONITOR.
--- NOTE | 2018-02-15 17:26 | NUR ---
PT REMAINS ON DOCUMENTED VENT SETTINGS. PT NOT SOB AND NOT IN RESPIRATORY DISTRESS AT THIS TIME. ETT REMAINS SECURE WITH A PATENT AIRWAY. VENT ALARMS REMAIN ON AND FUNCTIONING.
[2018-02-15] MEDS ORDERED: ALBUMIN HUMAN 25% 100 ML IV ONE (18:10)
--- NOTE | 2018-02-15 18:27 | NUR ---
CARDIZEM NOT ADMINISTERED PER DIALYSIS NURSE. PT ON GOING TO HAVE DIALYSIS IN SHORT.
--- NOTE | 2018-02-15 19:13 | NUR ---
REPORT GIVEN TO NOC SHIFT RN FOR CONTINUITY OF CARE. PT ON STABLE CONDITION.
--- NOTE | 2018-02-15 19:30 | NUR ---
RECEIVED REPORT FROM DAY NURSE, NO ACUTE DISTRESS WILL CONTINUE TO OBSERVE.
--- NOTE | 2018-02-15 19:38 | NUR ---
PT ASLEEP ON SEDATION PROPOFOL DRIP CURRENTLY @ 45 MCG/KG/MIN. RASS -3 OPENING EYES SPONTANEOUSLY. MOVING UPPER EXTREMITIES. NEEDING FREQUENT REMINDERS TO KEEP ARMS DOWN. PT AFIB ON MONITOR-100S CONTROLLED. +2 EDEMA GENERALIZED, SCROTAL EDEMA NOTED WELL. LUNGS CLEAR/ DIMINISHED @ BASES. ETT TO VENT AC 30% TV 600 R 20 PEEP 5. PT OBESE ACTIVE BOWEL SOUNDS OGT IN PLACE WITH FEEDING @ 20 ML @ THIS TIME. F/C IN PLACE PT OLIGURIC. SKIN INTACT @ THIS TIME REDNESS TO ABDOMINAL FOLD. SCDS IN PLACE. L IJ TRIPLE LUMEN CENTRAL LINE IN PLACE. R UPPER CHEST PERMACATH WITH HD TREATMENT @ THIS TIME. NO OTHER S/S OF ACUTE DISTRESS NOTED. WILL CONTINUE TO OBSERVE.
--- NOTE | 2018-02-15 20:00 | NUR ---
PT NOW ON 50 MCG PROPOFOL; PT STILL WANTING TO PULL ET TUBE; REORIENTED. WILL CONTINUE TO OBSERVE.
--- NOTE | 2018-02-15 22:00 | NUR ---
HEPARIN 5000 UNITS X2 , TAKEN OUT FOR DIALYSIS NURSE FOR PERMACATH. HD NURSE TO ADMINISTER. NO ACUTE DISTRESS WILL CONTINUE TO OBSERVE
--- NOTE | 2018-02-15 22:30 | NUR ---
PT STILL WANTING TO PULL ET TUBE, EYES OPEN, REORIENTED. REDIRECTED AND EDUCATED ABOUT IMPORTANCE OF ETT. WILL CONTINUE TO OBSERVE.
--- NOTE | 2018-02-15 22:45 | NUR ---
DR. ЕЛЕНА LUCIANO; EXCHANGE STATED DR. Fede LR RADIATOR FITTER. INFORMED MD ABOUT CURRENT PT STATUS OF WANTING TO PULL ET TUBE, PT DID RESPOND AND SAID HE WAS IN PAIN. INFORMED MD THAT PT RECEIVED NORCO EARLIER IN SHIFT AND WAS NOT EFFECTIVE AT THIS TIME. NEW ORDER FOR MORPHINE 5 MG IVP Q2H PRN GIVEN. WILL CONTINUE TO OBSERVE.
[2018-02-15] MEDS: MORPHINE SULFATE 5 MG/ML VIAL IVP PRN (23:09)
[2018-02-16] VITALS (105 sets, daily range): BP systolic 76–118; BP diastolic 40–79
[2018-02-16] MEDS: PROPOFOL 1000 MG/100 ML PREMIX 100 ML IV PRN ×10 (00:04→22:00)
--- NOTE | 2018-02-16 00:34 | NUR ---
PT RESTING COMFORTABLY IN BED, PROPOFOL @ 45 MCG. VSS NO ACUTE DISTRESS WILL CONTINUE TO MONITOR.
[2018-02-16] MEDS: MORPHINE SULFATE 5 MG/ML VIAL IVP PRN ×3 (02:07→13:13)
--- NOTE | 2018-02-16 03:00 | NUR ---
PT MOVING ARMS, C/O PAIN FROM ET TUBE. PRN PAIN MEDS ORDERED. WILL ADMINISTER, NO OTHER ACUTE DISTRESS NOTED. WILL CONTINUE TO MONITOR
[2018-02-16 05:40] LABS: BASOPHILS % (AUTO) 0.7 % (0.0-2.0); EOSINOPHILS # (AUTO) 0.2 K/uL (0-0.4); EOSINOPHILS % (AUTO) 3.6 % (0.0-4.0); HEMATOCRIT 28.9 % (36-52); HEMOGLOBIN 8.8 g/dL (12.0-18.0); LYMPHOCYTES # (AUTO) 1.2 K/uL (2.0-11.5); LYMPHOCYTES % (AUTO) 17.7 % (20.5-51.1); MEAN CORPUSCULAR HEMOGLOBIN 27 pg (27-31); MEAN CORPUSCULAR HGB CONC 31 g/dL (33-37); MONOCYTES # (AUTO) 0.9 K/uL (0.8-1.0); MONOCYTES % (AUTO) 13.4 % (1.7-9.3); NEUTROPHILS # (AUTO) 4.2 K/uL (1.8-7.7); NEUTROPHILS % (AUTO) 64.6 % (42.2-75.2); PLATELET COUNT (AUTO) 138 K/uL (140-450); RED BLOOD CELL COUNT(AUTO) 3.28 MIL/uL (4.20-6.10); RED CELL DISTRIBUTION WIDTH 18.6 % (11.6-13.7); WHITE BLOOD COUNT (AUTO) 6.6 K/uL (4.8-10.8)
[2018-02-16] MEDS: DILTIAZEM 30 MG TAB PO SCH ×5 (06:00→23:40)
[2018-02-16 06:17] LABS: ANION GAP 10.3 (8-16); CARBON DIOXIDE 30.9 mmol/L (21-32); POTASSIUM 3.2 mmol/L (3.5-5.1)
[2018-02-16 06:22] LABS: MAGNESIUM 1.7 mg/dL (1.8-2.4); PHOSPHORUS 3.2 mg/dL (2.5-4.9)
[2018-02-16 06:30] LABS: CREATININE 4.5 mg/dL (0.7-1.3)
[2018-02-16] MEDS: PANTOPRAZOLE 40 MG TABEC PO SCH (06:30)
--- NOTE | 2018-02-16 06:36 | NUR ---
PRN PAIN MED GIVEN. PROPOFOL BOTTLE CHANGED, PT REPOSITIONED. NO OTHER ACUTE DISTRESS NOTED. WILL CONTINUE TO OBSERVE.
[2018-02-16] MEDS: BLOOD GLUCOSE MONITORING 1 DEV DEV FS SCH ×4 (06:40→21:49)
[2018-02-16] MEDS: BUDESONIDE 0.5 MG/2 ML NEBU INH SCH ×2 (07:03→18:59)
--- NOTE | 2018-02-16 07:13 | NUR ---
RECEIVED INTUBATED PT WITH 7.5 ETT SECURED @25 TEETH/GUMS ON VENT. SETTINGS AC 20, VT 600, PEEP 5 AND FIO2 30%. PT WILL GRIMACE WHEN SUCTIONED, ACTIVE GAG REFLEX. NOT SOB AND NOT IN RESPIRATORY DISTRESS. PT SUCTIONED OBTAINED SMALL AMOUNT OF THIN CLEAR/WHITE SECRETIONS, AIRWAY IS PATENT AND ETT IS SECURE. VENT IS PLUGGED INTO A RED OUTLET WITH ALARMS ON AND FUNCTIONING. AMBU BAG IS PRESENT AT BEDSIDE. WILL CONTINUE TO MONITOR.
--- NOTE | 2018-02-16 07:26 | NUR ---
REPORT GIVEN TO DAY NURSE. POC ENDORSED TO MARY MENDOZA. NO ACUTE DISTRESS.
--- NOTE | 2018-02-16 07:26 | NUR ---
RECEIVED REPORT FROM NOC SHIFT RN. PT RESTING IN BED COMFORTABLY. A FIB ON MONITOR. VS WITHIN NORMAL RANGE. PUPILS REACTIVE TO LIGHT. SKIN DRY AND WARM TO TOUCH. ETT TO VENT AC 20 FIO2 30 TV [address] OGTUBE IN PLACE, POSITIVE PLACEMENT, RESIDUAL 0. LUNGS WHEEZING. RIGHT PERMA CATH INTACT DRESSING. LEFT IJ TRIPLE LUMEN CENTRAL LINE INTACT WITH GOOD BLOOD RETURNS. PROPOFOL RUNNING AT 40 MCG/KG/MIN. LEFT HAND PERIPHERAL LINE INTACT. ABDOMEN FIRM, LARGE AND NON-TENDER. ACTIVE BOWEL SOUND. COSTELLO'S CATH IN PLACE DRAINING MINIMAL AMOUNT OF URINE BROWN IN COLOR. GENERALIZED PITTING EDEMA. HOB ELEVATED. BED IN LOW POSITION LOCKED. WILL CONTINUE TO MONITOR.
--- NOTE | 2018-02-16 07:53 | NUR ---
SEEN BY DR. ENCINAS. UPDATED PT CONDITION. WILL FOLLOW UP ON ORDER.
[2018-02-16] MEDS: INSULIN LISPRO 100 UNITS/ML VIAL SUBQ SCH ×3 (08:00→17:00)
--- NOTE | 2018-02-16 08:29 | NUR ---
MORNING CARE PROVIDED. KEPT PT CLEAN AND DRY. WILL CONTINUE TO MONITOR.
[2018-02-16] MEDS: TAMSULOSIN 0.4 MG CAP PO SCH (08:43)
[2018-02-16] MEDS: LACTULOSE 20 GM/30 ML UDC PO SCH ×2 (08:43→21:53)
[2018-02-16] MEDS: VIT-B COMP/VIT-C/FOLIC ACID 1 TAB PO SCH (08:44)
[2018-02-16] MEDS: FAMOTIDINE 20 MG TAB PO SCH (08:44)
--- NOTE | 2018-02-16 08:59 | NUR ---
ADMINISTERED MEDICATION ORDERED. TOLERATING WELL WILL CONTINUE TO MONITOR.
[2018-02-16] MEDS: INSULIN LANTUS 100 UNITS/ML 10 ML VIAL SUBQ SCH ×2 (09:00→21:52)
[2018-02-16] MEDS ORDERED: DIGOXIN 0.25 MG/ML AMP IV SCH (09:01)
--- NOTE | 2018-02-16 09:05 | NUR ---
SEEN BY DR. CHRISTIANSEN. UPDATED PT CONDITION. WILL FOLLOW UP ON ORDER.
[2018-02-16] MEDS ORDERED: POTASSIUM CHL 20 MEQ / DEXT 5% 1,000 ML IV STA (09:10)
[2018-02-16] MEDS ORDERED: KCL 20 MEQ/WATER INJ PREMIX 100 ML IV SCH (09:20)
[2018-02-16] MEDS ORDERED: VANCOMYCIN PER PHARMACY MC PRN ×2 (09:35)
--- NOTE | 2018-02-16 10:08 | NUR ---
SISTER AT BEDSIDE.
--- NOTE | 2018-02-16 10:08 | NUR ---
NOTIFIED DR. HOWARD ABOUT LOW BS AND HELDING INSULIN. OKAY TO HELD INSULIN FOR LOW BS.
--- NOTE | 2018-02-16 10:45 | NUR ---
DR. RAWLS AT BED SIDE EVALUATING PT AND EXPLAINING SISTER ABOUT PT CONDITION.
[2018-02-16] MEDS ORDERED: VANCOMYCIN IV SCH (11:00)
[2018-02-16] MEDS ORDERED: DEXTROSE 50% IV SCH (11:00)
[2018-02-16 11:05] LABS: BASOPHILS # (AUTO) 0.1 K/uL (0.00-0.22); BASOPHILS % (AUTO) 0.9 % (0.0-2.0); EOSINOPHILS # (AUTO) 0.2 K/uL (0-0.4); EOSINOPHILS % (AUTO) 3.6 % (0.0-4.0); HEMATOCRIT 29.2 % (36-52); HEMOGLOBIN 8.9 g/dL (12.0-18.0); LYMPHOCYTES % (AUTO) 15.1 % (20.5-51.1); MEAN CORPUSCULAR HEMOGLOBIN 27 pg (27-31); MEAN CORPUSCULAR HGB CONC 30 g/dL (33-37); MEAN CORPUSCULAR VOLUME 88.3 fL (80-94); MONOCYTES # (AUTO) 0.7 K/uL (0.8-1.0); MONOCYTES % (AUTO) 10.1 % (1.7-9.3); NEUTROPHILS # (AUTO) 4.7 K/uL (1.8-7.7); NEUTROPHILS % (AUTO) 70.3 % (42.2-75.2); PLATELET COUNT (AUTO) 146 K/uL (140-450); RED CELL DISTRIBUTION WIDTH 18.6 % (11.6-13.7); WHITE BLOOD COUNT (AUTO) 6.7 K/uL (4.8-10.8)
--- NOTE | 2018-02-16 11:06 | NUR ---
PT TOLERATING VENT SETTINGS WELL AT THIS TIME. PT NOT SOB. FAMILY IS BEDSIDE. PT SUCTIONED OBTAINED SMALL AMOUNT OF THIN CLEAR/WHITE SECRETIONS, AIRWAY IS PATENT.
[2018-02-16] MEDS: CEFEPIME 1,000 MG in DEXTROSE 5% 50 ML IV SCH (12:08)
--- NOTE | 2018-02-16 12:26 | NUR ---
PT RESTING IN BED COMFORTABLY. NO CHANGE IN LOC. BP 93/57. CONTINUE ON PROPOFOL DRIP. WILL CONTINUE TO MONITOR.
--- NOTE | 2018-02-16 13:25 | NUR ---
PT OPENS EYES UNABLE TO COMMUNICATE DUE TO ETT. SON IS BEDSIDE. PT NOT SOB AT THIS TIME.
--- NOTE | 2018-02-16 13:41 | NUR ---
SON AT BEDSIDE.
--- NOTE | 2018-02-16 16:02 | NUR ---
IV KCL 20 MEQ NOT MISSED.
--- NOTE | 2018-02-16 17:17 | NUR ---
PT REMAINS ON SETTINGS AC 20, VT 600, PEEP 5 AND FIO2 30%. ETT REMAINS SECURE WITH A PATENT AIRWAY. VENT ALARMS REMAIN ON AND FUNCTIONING. THERE IS NO BITING OR KINKING OF ETT AT THIS TIME.
--- NOTE | 2018-02-16 17:40 | NUR ---
CALLED DR. MCINTOSH. MADE AWARE OF PT'S LOW BP. GAVE AN ORDER FOR LEVOPHED TO KEEP MEAN PRESSURE ABOVE 60.
[2018-02-16] MEDS ORDERED: NOREPINEPHRINE 4 MG/4 ML VIAL IV ONE (17:41)
--- NOTE | 2018-02-16 17:45 | NUR ---
LEVOPHED 8 MG IN 250 ML D5W STARTED AT 5 MCG/MIN VIA LEFT IJ TLC.
--- NOTE | 2018-02-16 18:00 | NUR ---
PT RESTING IN BED COMFORTABLY. ON PROPOFOL DRIP, RASS -4. VS WITHIN NORMAL RANGE. WILL CONTINUE TO MONITOR.
--- NOTE | 2018-02-16 19:13 | NUR ---
REPORT GIVEN TO NOC SHIFT RN FOR CONTINUITY OF CARE. PT ON STABLE CONDITION.
--- NOTE | 2018-02-16 19:20 | NUR ---
RECEIVED REPORT FROM MORNING RN FOR CONTINUITY OF CARE. VS STABLE AT THIS TIME. PT AFEBRILE. RASS -4. LUNG SOUNDS COARSE. ETT TO VENT WITH SETTINGS AC20, FIO2 30%, TV 600, AND PEEP. 5. NO SIGNS OF RESPIRATORY DISTRESS NOTED. S1+S2 HEARD. AFIB ON MONITOR. PULSES ARE PALPABLE IN ALL EXTREMITIES. OGT IN PLACE. CHECKED PLACEMENT. PT ON DIABETISOURCE 40ML/HR, AND ASPIRATED 50ML RESIDUAL. ABDOMEN ROUND, SOFT AND NONDISTENDED. COSTELLO CATHETER IN PLACE WITH BROWN AND CLOUDY URINE. PT HAS RIGHT UPPER CHEST PERMACATH. LEFT IJ TRIPLE LUMEN THAT HAS NO BLEEDING NOTED ON SITE. RECEIVED PT ON LEVOPHED AT 5MCG AND PROPOFOL AT 40MCG. PT HAS NO OPEN AREA BUT HAS GENERALIZED EDEMA AND SCROTAL SWELLING. BED AT LOW POSSIBLE POSITION. CALL LIGHT WITHIN REACH. ALL SAFETY PRECAUTIONS ARE IN PLACE. WILL CONTINUE TO MONITOR PT.
--- NOTE | 2018-02-16 22:30 | NUR ---
VS STABLE AT THIS TIME. NO CHANGE IN CONDITION. PT STILL ON PROPOFOL AND LEVOPHED DRIP. OGT CONNECTED TO FEEDING. ALL SAFETY PRECAUTIONS STILL IN PLACE. WILL CONTINUE TO MONITOR PT.
[2018-02-17] VITALS (99 sets, daily range): BP systolic 89–129; BP diastolic 45–96
--- NOTE | 2018-02-17 01:08 | NUR ---
RASS -4. PT OCCASIONALLY MOVES EXTREMITIES. RT AT BEDSIDE TO CHECK ON PT. VS STABLE. AFIB ON MONITOR. WILL CONTINUE TO MONITOR PT.
[2018-02-17] MEDS: PROPOFOL 1000 MG/100 ML PREMIX 100 ML IV PRN ×8 (03:00→21:00)
--- NOTE | 2018-02-17 04:30 | NUR ---
MORNING CARE PROVIDED TO PT. TOLERATED BEING TURNED AND REPOSITIONED. PT ABLE TO OPEN EYES. PT STILL ON PROPOFOL AND LEVOPHED DRIP. RESIDUAL 30ML ON OGT. FEEDING RUNNING CONTINUOUSLY. VS STABLE AT THIS TIME. NO CHANGE IN CONDITION. NO BM. NO SKIN BREAKDOWN NOTED.
[2018-02-17] MEDS: PANTOPRAZOLE 40 MG TABEC PO SCH (05:36)
[2018-02-17] MEDS: DILTIAZEM 30 MG TAB PO SCH ×3 (05:38→17:05)
[2018-02-17 05:43] LABS: BASOPHILS # (AUTO) 0.1 K/uL (0.00-0.22); BASOPHILS % (AUTO) 0.9 % (0.0-2.0); EOSINOPHILS # (AUTO) 0.3 K/uL (0-0.4); EOSINOPHILS % (AUTO) 4.2 % (0.0-4.0); HEMATOCRIT 30.7 % (36-52); HEMOGLOBIN 9.5 g/dL (12.0-18.0); LYMPHOCYTES # (AUTO) 1.4 K/uL (2.0-11.5); LYMPHOCYTES % (AUTO) 18.9 % (20.5-51.1); MEAN CORPUSCULAR HEMOGLOBIN 27 pg (27-31); MEAN CORPUSCULAR HGB CONC 31 g/dL (33-37); MONOCYTES # (AUTO) 0.8 K/uL (0.8-1.0); MONOCYTES % (AUTO) 10.9 % (1.7-9.3); NEUTROPHILS # (AUTO) 4.7 K/uL (1.8-7.7); NEUTROPHILS % (AUTO) 65.1 % (42.2-75.2); PLATELET COUNT (AUTO) 151 K/uL (140-450); RED BLOOD CELL COUNT(AUTO) 3.49 MIL/uL (4.20-6.10); WHITE BLOOD COUNT (AUTO) 7.2 K/uL (4.8-10.8)
[2018-02-17 06:20] LABS: ANION GAP 9.1 (8-16); CARBON DIOXIDE 31.2 mmol/L (21-32); POTASSIUM 3.3 mmol/L (3.5-5.1)
[2018-02-17] MEDS: BLOOD GLUCOSE MONITORING 1 DEV DEV FS SCH ×4 (06:36→20:41)
--- NOTE | 2018-02-17 07:12 | NUR ---
RECEIVED REPORT AT BEDSIDE FROM ENDBAND CUTTER HAND RN, FOR CONTINUITY OF CARE. PATIENT IS AAOX4, ON SEDATION, PROPOFOL DRIP, RASS -4. SKIN IS WARM AND DRY AND INTACT, HE HAS A LEFT IJ TRIPLE LUMEN AND RIGHT SUBCLAVIAN PERMACATH. PATIENT HAS AN ETT TO VENT, SETTINGS ARE AC 20, FIO2 30, TV 600, PEEP 5. BREATHING IS UNLABORED AND EVEN, LUNG SOUNDS CLEAR AND DIMINISHED AT THE BASES. SR ON MONITOR, CAP REFILL LESS THAN 3 SECS. HE HAS AN OGT TO NOVASOURCE FEEDING AT 40 ML/HR WITH 100ML FLUSH QSHIFT. PATIENT HAS A COSTELLO CATHETER IN PLACE TO YELLOW URINE. HOB IS 30 DEGREES IN LOWEST POSSIBLE POSITION. CALL LIGHT IS WITHIN REACH, NO SIGNS OF DISTRESS NOTED AT THIS TIME. WILL CONTINUE TO MONITOR
[2018-02-17] MEDS: BUDESONIDE 0.5 MG/2 ML NEBU INH SCH ×2 (07:19→18:59)
--- NOTE | 2018-02-17 07:23 | NUR ---
REPORT GIVEN TO MORNING RN FOR CONTINUITY OF CARE. PT IN STABLE CONDITION AT THIS TIME.
--- NOTE | 2018-02-17 07:28 | NUR ---
RCV'D PT ON CHARTED SETTINGS WITH 7.5 ETT AT 24 CM AT LIP. VENT IS CONNECTED TO RED OUTLET, ALARMS ARE AUDIBLE. AMBU BAG AT BEDSIDE. NO SOB OR DISTRESS NOTED. DIMINISHED BS. PT IS QUIET. HHN TX OF PULMICORT IS GIVEN WITH NO ADVERSE REACTION. NO SOB OR DISTRESS NOTED. WILL CONTINUE TO MONITOR.
[2018-02-17] MEDS: INSULIN LISPRO 100 UNITS/ML VIAL SUBQ SCH ×3 (09:20→17:00)
[2018-02-17] MEDS: TAMSULOSIN 0.4 MG CAP PO SCH (09:21)
[2018-02-17] MEDS: LACTULOSE 20 GM/30 ML UDC PO SCH ×2 (09:21→20:41)
[2018-02-17] MEDS: FAMOTIDINE 20 MG TAB PO SCH (09:21)
[2018-02-17] MEDS: VIT-B COMP/VIT-C/FOLIC ACID 1 TAB PO SCH (09:21)
[2018-02-17] MEDS: INSULIN LANTUS 100 UNITS/ML 10 ML VIAL SUBQ SCH ×2 (09:29→20:44)
--- NOTE | 2018-02-17 10:36 | NUR ---
MARINE FUEL DOCK ATTENDANT AT BEDSIDE, TO START PATIENT ON HEMODIALYSIS. NO SIGNS OF DISTRESS NOTED AT THIS TIME
[2018-02-17] MEDS: CEFEPIME 1,000 MG in DEXTROSE 5% 50 ML IV SCH (11:05)
--- NOTE | 2018-02-17 11:17 | NUR ---
FAXED INITIAL REVIEW TO [facility] [phone] PHONE [phone] X [phone] JAMEY
--- NOTE | 2018-02-17 12:09 | NUR ---
VENT CHECK DONE. PT ON DIALYSIS. ASLEEP COMFORTABLY. NO SOB OR DISTRESS NOTED. WILL CONTINUE TO MONITOR.
[2018-02-17] MEDS: MORPHINE SULFATE 5 MG/ML VIAL IVP PRN ×2 (13:42→18:05)
[2018-02-17] MEDS ORDERED: PROBIOTIC SCREEN 1 EA MISC MC PRN (13:50)
--- NOTE | 2018-02-17 14:23 | NUR ---
HEMODIALYSIS COMPLETE, 4 LITERS OUT PER REHABILITATION CASEWORKER, PATIENT TOLERATED PROCEDURE WELL. NO SIGNS OF DISTRESS NOTED. WILL CONTINUE TO MONITOR
[2018-02-17] MEDS: NOREPINEPHRINE 8 MG in DEXTROSE 5% 250 ML IV PRN (17:13)
--- NOTE | 2018-02-17 19:07 | NUR ---
RECEIVED CALL FROM , UPDATED ON PATIENT'S CONDITION. AWARE OF PATIENT'S HR, STATES TO NOT GIVE CARDIZIEM IF HR IS NOT HIGHER THAN 100
--- NOTE | 2018-02-17 19:09 | NUR ---
RECEIVED PT STABLE ON VENT SUPPORT AT DOCUMENTED SETTINGS, SUCTIONED SCANT AMOUNTS OF CLEAR THIN SECRETIONS, HHN TX GIVEN, TOLERATED WELL, NO RESP DISTRESS OR SOB NOTED, SON AT BEDSIDE, PT ALERT ABLE TO RESPOND TO COMMANDS, 7.5 ETT SECURED AT 24 CM AT THE TEETH/GUM, ALARMS SET AND AUDIBLE, AMBU BAG AT BEDSIDE, VENT PLUGGED INTO RED OUTLET, PULSE OX, WILL CONT TO MONITOR.
--- NOTE | 2018-02-17 19:20 | NUR ---
ENDORSED CONTINUITY OF CARE TO TIGHTENING MACHINE OPERATOR RN, PATIENT PRESENTS NO SIGNS OF DISTRESS AT THIS TIME.
--- NOTE | 2018-02-17 19:25 | NUR ---
RECEIVED REPORT FROM MORNING RN FOR CONTINUITY OF CARE. VS STABLE AT THIS TIME. RASS -3. PT AFEBRILE. PERRL. ETT TO VENT WITH SETTINGS AC 20, FIO2 30%, TV 600, AND PEEP 5. LUNG SOUNDS COARSE AND DIMINISHED. NO SIGNS OF RESPIRATORY DISTRESS NOTED. S1+S2 HEARD. AFIB ON MONITOR. PER REPORT, PT HAS BEEN HAVING EPISODES OF BRADYCARDIA. OGT IN PLACE. PLACEMENT CHECKED. NOVASOURCE RUNNING AT 45ML/HR. 20ML RESIDUAL ASPIRATED. ABDOMEN ROUND, SOFT AND NONDISTENDED. BOWEL SOUNDS ACTIVE IN ALL QUADRANTS. PT HAS SCROTAL SWELLING. COSTELLO CATHETER IN PLACE AND HAS CLOUDY AND NADJA BROWN URINE OUTPUT THAT IS MINIMAL. PT HAS LEFT IJ CENTRAL LINE, TRIPLE LUMEN. LINE IS PATENT, INTACT, AND ASYMPTOMATIC. PT HAS LEFT HAND PERIPHERAL IV 24G. LINE STILL PATENT AND INTACT. BED AT LOW POSSIBLE POSITION. CALL LIGHT WITHIN REACH. ALL SAFETY PRECAUTIONS ARE IN PLACE. WILL CONTINUE TO MONITOR PT.
--- NOTE | 2018-02-17 23:10 | NUR ---
DR. HOWARD AT BEDSIDE TO SEE PT. UPDATED MD REGARDING PT CONDITION. WILL FOLLOW-UP WITH ANY NEW ORDERS.
[2018-02-18] VITALS (102 sets, daily range): BP systolic 93–132; BP diastolic 36–96
[2018-02-18] MEDS: PROPOFOL 1000 MG/100 ML PREMIX 100 ML IV PRN ×3 (01:07→08:57)
--- NOTE | 2018-02-18 02:19 | NUR ---
PT ASLEEP AT THIS TIME. SINUS RHYTHM ON MONITOR. FLACC 0. RASS -4. DOES NOT APPEAR TO BE IN ANY PAIN OR DISCOMFORT. WILL CONTINUE TO MONITOR PT.
--- NOTE | 2018-02-18 05:00 | NUR ---
PT GIVEN BED BATH. VS STABLE. PT ABLE TO ASSIST WITH TURNING AND REPOSITIONING. PT ON PROPOFOL AND LEVOPHED DRIP. SKIN WARM AND DRY TO TOUCH. NO OPEN AREA NOTED. WILL CONTINUE TO MONITOR PT.
[2018-02-18 05:34] LABS: CARBON DIOXIDE 32.2 mmol/L (21-32); POTASSIUM 3.2 mmol/L (3.5-5.1)
[2018-02-18 05:53] LABS: CREATININE 4.3 mg/dL (0.7-1.3)
[2018-02-18] MEDS: DILTIAZEM 30 MG TAB PO SCH ×4 (06:00→21:19)
[2018-02-18] MEDS: PANTOPRAZOLE 40 MG TABEC PO SCH (06:05)
[2018-02-18] MEDS: BLOOD GLUCOSE MONITORING 1 DEV DEV FS SCH ×3 (06:11→18:21)
--- NOTE | 2018-02-18 06:45 | NUR ---
RECEIVED PATIENT 7.5 ETT TO VENT. ETT 24 CM AT THS LIP. PATIENT ON VENT SETTINGS: AC 20, 600, 30%, +5. PATIENT TOLERATING VENT. VENT PLUGGED INTO RED OUTLET. VENT ALARMS ON AND AUDIBLE. AMBU BAG AT HEAD OF BED. PULSE OX ON AND FUNCTIONING. SCHEDULED BREATHING TX ADMINISTERED. TOLERATED TX WELL, NO ADVERSE SIDE EFFECTS. SUCTIONED SCANT AMOUNT OF THIN CLEAR/WHITE SECRETIONS. NO RESPIRATORY DISTRESS NOTED AT THIS TIME. WILL CONTINUE TO MONITOR.
[2018-02-18] MEDS: BUDESONIDE 0.5 MG/2 ML NEBU INH SCH ×2 (07:10→19:36)
--- NOTE | 2018-02-18 07:30 | NUR ---
REPORT GIVEN TO MORNING RN FOR CONTINUITY OF CARE. PT IN STABLE CONDITION AT THIS TIME.
--- NOTE | 2018-02-18 07:30 | NUR ---
RECEIVED REPORT FROM NOC SHIFT RN. PT RESTING IN BED COMFORTABLY. PUPILS REACTIVE TO LIGHT. SKIN DRY AND WARM TO TOUCH. ON ETT TO VENT AC 20 FIO2 30% TV [address] OGTUBE IN PLACE, POSITIVE PLACEMENT, RESIDUAL 30 ML NOTED. ON NOVASOURCE 45 ML/HR. PERMA CATH ON RIGHT UPPER CHEST, DRESSING INTACT. LEFT IJ TRIPLE LUMEN INTACT WITH GOOD BLOOD RETURNS. PROPOFOL RUNNING AT 35 MCG/KG/MIN, RASS -4, LEVOPHED AT 3 MCG/MIN. WHEEZING LUNGS SOUND. PERIPHERAL LINE NOTED ON LEFT HAND 24 G, SITE WAS SWOLLEN, CANNULA TAKEN OUT. ABDOMEN FIRM, LARGE, NON-TENDER. ACTIVE BOWEL SOUND. COSTELLO'S CATHETER IN PLACE DRAINING MINIMAL URINE VIA CATHETER. GENERALIZED BODY EDEMA, PITTING. KEPT HOB ELEVATED. BED IN LOW POSITION, LOCKED. WILL CONTINUE TO MONITOR.
[2018-02-18] MEDS: INSULIN LISPRO 100 UNITS/ML VIAL SUBQ SCH ×3 (08:00→17:00)
[2018-02-18] MEDS ORDERED: VANCOMYCIN 1,500 MG in DEXTROSE 5% 500 ML IV SCH (08:00)
[2018-02-18] MEDS: LACTULOSE 20 GM/30 ML UDC PO SCH ×2 (08:38→21:19)
[2018-02-18] MEDS: TAMSULOSIN 0.4 MG CAP PO SCH (08:38)
[2018-02-18] MEDS: LACTOBACILLUS RHAMNOSUS GG 1 EACH CAP PO SCH (08:38)
[2018-02-18] MEDS: FAMOTIDINE 20 MG TAB PO SCH (08:39)
[2018-02-18] MEDS: VIT-B COMP/VIT-C/FOLIC ACID 1 TAB PO SCH (08:39)
--- NOTE | 2018-02-18 09:11 | NUR ---
VENT CHECK DONE. NO DISTRESS NOTED AT THIS TIME. WILL CONTINUE TO MONITOR.
[2018-02-18] MEDS: INSULIN LANTUS 100 UNITS/ML 10 ML VIAL SUBQ SCH ×2 (09:12→21:22)
--- NOTE | 2018-02-18 10:16 | NUR ---
PT SEEN BY DR. CHRISTIANSEN UPDATED PT CONDITION. WILL FOLLOW UP ON ORDER.
--- NOTE | 2018-02-18 11:10 | NUR ---
VENT CHECK DONE. NO RESPIRATORY DISTRESS NOTED AT THIS TIME. WILL CONTINUE TO MONITOR.
--- NOTE | 2018-02-18 11:39 | NUR ---
PT ON DIALYSIS.
[2018-02-18] MEDS: CEFEPIME 1,000 MG in DEXTROSE 5% 50 ML IV SCH (11:49)
[2018-02-18] MEDS: ACETAMINOPHEN 325 MG TAB PO PRN (11:50)
--- NOTE | 2018-02-18 11:54 | NUR ---
SEEN BY DR. MCINTOSH. WILL FOLOW UP ON ORDER.
--- NOTE | 2018-02-18 11:57 | NUR ---
PT SEEN BY DR. LR. FARIHA TO D/C COSTELLO'S. WILL FOLLOW UP ON ORDER.
[2018-02-18] MEDS ORDERED: POTASSIUM CHLORIDE 20% 40 MEQ/15 ML UDC GT SCH (12:30)
[2018-02-18] MEDS ORDERED: DILTIAZEM 30 MG TAB PO SCH (13:00)
--- NOTE | 2018-02-18 13:02 | NUR ---
FAXED PROGRESS NOTES AND MEDICATION LIST AND MICRO TO [facility] CHART REVIEWED.
--- NOTE | 2018-02-18 13:10 | NUR ---
VENT CHECK DONE. NO RESPIRATORY DISTRESS NOTED AT THIS TIME. WILL CONTINUE TO MONITOR.
--- NOTE | 2018-02-18 14:17 | NUR ---
02/18/18 RD FOLLOW UP COMPLETED PLEASE REFER TO NUTRITION PROGRESS NOTE UNDER CARE ACTIVITY FOR ESTIMATED NUTRITIONAL NEEDS. 1. CONTINUE TF DIET TOLERATED WITH GOAL RATE OF NOVASOURCE RENAL @40ML/HR, PROVIDING 960ML TOTAL VOLUME, 1920 KCAL, 87GM PROTEIN, AND 688ML FREE WATER. THIS IS ADEQUATE TO MEET 100% ESTIMATED ENERGY AND PROTEIN NEEDS. 2. WILL FOLLOW MD FOR WATER FLUSH RECOMMENDATION DUE TO PT WITH CHF, FLUID OVERLOAD, AND ESRD ON HD. 3. RD TO FOLLOW-UP 2-3 DAYS, HIGH RISK MARITZA ALFORD RD
--- NOTE | 2018-02-18 15:40 | NUR ---
DISCONTINUED COSTELLO'S CATH PER ORDER.
--- NOTE | 2018-02-18 17:02 | NUR ---
PT ON CPAP. RT AT BEDSIDE. DR. HOWARD IN ICU.
--- NOTE | 2018-02-18 17:07 | NUR ---
DR. HOWARD AT BEDSIDE EVALUATING PT.
--- NOTE | 2018-02-18 17:30 | NUR ---
WEANING TRIAL BEGAN AT 1700. PT PLACED ON CPAP. PEEP 5 PS 10. ABG DRAWN. RESULTS GIVEN TO DR. HOWARD. PER DR. HOWARD LEAVE PATIENT ON CPAP FOR ONE HOUR AND REPEAT ABG AND THEN CALL MD WITH RESULTS. WILL CONTINUE TO MONITOR.
[2018-02-18] MEDS: DILTIAZEM 25 MG/5 ML VIAL IVP PRN (17:50)
--- NOTE | 2018-02-18 18:53 | NUR ---
FAMILY AT BEDSIDE.
--- NOTE | 2018-02-18 19:10 | NUR ---
ABG DONE, CALLED DR HOWARD, .EXTUBATE PT AND PLACED HIM IN NC 3L TO KEEP SAT 88%-90%, AND BIPAP PRN. PT IS STABLE AT THIS TIME
--- NOTE | 2018-02-18 19:14 | NUR ---
REPORT GIVEN TO NOC SHIFT RN FOR CONTINUITY OF CARE. PT ON STABLE CONDITION.
--- NOTE | 2018-02-18 19:15 | NUR ---
REPORT RECEIVED FROM MARY MENDOZA. RT WHITTAKER AT BEDSIDE; PT EXTUBATED ORDERED BY DR HOWARD.ON 02NC AT 2LPM.SECRETIONS SUCTIONED.WILL CONTINUE TO CLOSELY MONITOR PT
--- NOTE | 2018-02-18 19:30 | NUR ---
INITIAL ASSESSMENT COMPLETED..PT ALERT AND ORIENTED.ON 02NC AT 2LPM.AFIB ON MONITOR.TLC TO LT IJ INTACT.INFUSING LEVOPHED AT 3MCG/KG/MIN.W/ HD CATHETER TO RT SUBCLAVIAN.W/DRY AND INTACT DRESSING.PT SCHEDULED FOR HD IN AM.GENERALIZED EDEMA NOTED.SCROTAL EDEMA ALSO NOTED.SKIN INTACT WITH MULTIPLE TATTOOS.PT UNABLE TO AMBULATE.DENIES PAIN.REFUSED TO BE REPOSITIONED.
--- NOTE | 2018-02-18 20:14 | NUR ---
DR. MAGGIE MCINTOSH INFORMED THAT PATIENT'S HR STILL ELEVATED, FROM 120-150, PRN Q4H CARDIZEM 10 MG IVP WAS GIVEN AT 1750. DR. MCINTOSH ORDERED TO GIVE ONE DOSE OF CARDIZEM 10 MG IVP NOW.
--- NOTE | 2018-02-18 20:14 | NUR ---
DR. WOLFE INFORMED ALSO THAT THERE'S SCHDULED CARDIZEM 60 MG PO AT 2100, PER "ITS OK JUST GIVE IT".
--- NOTE | 2018-02-18 20:15 | NUR ---
PT PLACED ON BIPAP 12/6 RATE OF 12 AND FIO2 30%.
[2018-02-18] MEDS ORDERED: DILTIAZEM 25 MG/5 ML VIAL IVP SCH (20:30)
--- NOTE | 2018-02-18 21:00 | NUR ---
NGT INSERTED TO RT NARES; PLACEMENT VERIFIED WITH CELIA MENDOZA.NGT FEEDING NOVASOURCE RENAL RESTARTED ORDERED.
--- NOTE | 2018-02-18 22:00 | NUR ---
PT REFUSED TO BE REPOSITIONED.EXPLAINED TO PT THE NEED FOR HIM TO BE REPOSITIONED; STILL REFUSING
[2018-02-19] VITALS (94 sets, daily range): BP systolic 90–132; BP diastolic 32–89
--- NOTE | 2018-02-19 | NUR ---
PT ASLEEP;EASILY AROUSABLE.NO SOB NOTED.BS 100.DENIES PAIN
[2018-02-19] MEDS: BLOOD GLUCOSE MONITORING 1 DEV DEV FS SCH ×5 (00:10→23:54)
--- NOTE | 2018-02-19 03:00 | NUR ---
PTS CONDITION REMAINS UNCHANGED.STILL ON BIPAP FIO2 30%.TLC TO LT IJ INTACT INFUSING LEVOPHED AT 3MG/KG/MIN.HD ACCESS D/I.NO PAIN NOTED.
[2018-02-19] MEDS: NOREPINEPHRINE 8 MG in DEXTROSE 5% 250 ML IV PRN (03:10)
--- NOTE | 2018-02-19 04:00 | NUR ---
RESIDUALS CHECKED, 40ML.CONTINUED ON NGT FEEDING ORDERED
--- NOTE | 2018-02-19 05:00 | NUR ---
DUE MEDICATION GIVEN; 150ML RESIDUAL NOTED; NGT FEEDING ON HOLD AT THIS TIME.
[2018-02-19] MEDS: DILTIAZEM 30 MG TAB PO SCH ×3 (05:02→21:00)
--- NOTE | 2018-02-19 05:17 | NUR ---
MORNING CARE OFFERED,PT REFUSED.
[2018-02-19 05:34] LABS: ANION GAP 9.6 (8-16); CARBON DIOXIDE 32.4 mmol/L (21-32)
--- NOTE | 2018-02-19 05:38 | NUR ---
fio2 to 35%
--- NOTE | 2018-02-19 05:38 | NUR ---
PT ASLEEP, GARY WELL , FIO2 TO 355
[2018-02-19] MEDS: PANTOPRAZOLE 40 MG TABEC PO SCH (05:52)
[2018-02-19 06:22] LABS: CREATININE 4.9 mg/dL (0.7-1.3)
[2018-02-19] MEDS: BUDESONIDE 0.5 MG/2 ML NEBU INH SCH ×2 (06:41→19:30)
--- NOTE | 2018-02-19 06:41 | NUR ---
REC'D PT ON ALTA V60 BIPAP SETTINGS / RR12 FIO2 35% ALARMS AUDIBLE AND AMBU BAG AT SIDE OF BIPAP, BIPAP IS PLUGGE INTO RED OUTLET, I\L TX GIVEN WITH PULMICORT 0.5MG WITH NO ADVERSE REACTION POST TX, B\S ARE CLEAR PT IS WEARING LARGE FACE MASK WITH GEL PROTETIC IN PLACE AND SKIN INTEGRITY IS INTACT
--- NOTE | 2018-02-19 07:10 | NUR ---
RECEIVED REPORT FROM NOC SHIFT RN. PT RESTING IN BED. A FIB ON MONITOR. V/S WITHIN NORMAL LIMITS. PT ALERT AND AWAKE, ABLE TO MAKE NEEDS KNOWN. PUPILS REACTIVE TO LIGHT. SKIN DRY AND WARM TO TOUCH. PT ON BIPAP12/6RR12 FIO2 35%. PERMA CATH ON RIGHT UPPER CHEST, DRESSING INTACT. LEFT IJ TRIPLE LUMEN, INTACT HAVE GOOD BLOOD RETURNS ON TWO LINES. LEVOPHED RUNNING AT 3 MCG/KG/MIN. OGT IN PLACE, POSITIVE PLACEMENT. RESIDUAL 0, RESUMED OGT FEEDING. WHEEZING ON LUNGS AUSCULTATION. ABDOMEN FIRM, ROUND AND NON-TENDER. ACTIVE BOWEL SOUND. GENERALIZED BODY EDEMA. KEPT HEELS OFFLOADED. HOB ELEVATED. BED IN LOW POSITION, LOCKED. WILL CONTINUE TO MONITOR.
[2018-02-19] MEDS: INSULIN LISPRO 100 UNITS/ML VIAL SUBQ SCH ×3 (08:00→17:24)
[2018-02-19] MEDS: INSULIN LANTUS 100 UNITS/ML 10 ML VIAL SUBQ SCH ×2 (08:28→21:07)
[2018-02-19] MEDS: LACTOBACILLUS RHAMNOSUS GG 1 EACH CAP PO SCH (08:29)
[2018-02-19] MEDS: LACTULOSE 20 GM/30 ML UDC PO SCH ×2 (08:29→20:50)
[2018-02-19] MEDS: TAMSULOSIN 0.4 MG CAP PO SCH (08:29)
[2018-02-19] MEDS: VIT-B COMP/VIT-C/FOLIC ACID 1 TAB PO SCH (08:29)
[2018-02-19] MEDS: FAMOTIDINE 20 MG TAB PO SCH (08:30)
--- NOTE | 2018-02-19 09:03 | NUR ---
RT AT BED SIDE.
--- NOTE | 2018-02-19 09:10 | NUR ---
BI PAP CHECK GOOD VT PATIENT SLEEPING NO SIGNS OF STRESS AT THIS TIME.
--- NOTE | 2018-02-19 09:35 | NUR ---
PT REFUSED MORNING CARE.
--- NOTE | 2018-02-19 10:55 | NUR ---
PT OFF BIPAP PLACED ON 3LNC PT IS AWAKE AND ALERT HR 84 O2 SAT 94% WITH NO SIGNS OF DISTRESS NOTED AT THIS TIME
--- NOTE | 2018-02-19 11:00 | NUR ---
PT ON NC AT 3 LTR/MIN. TOLERATING WELL. NO ACUTE RESPIRATORY DISTRESS NOTED. NO CHANGE IN LOC. WILL CONTINUE TO MONITOR.
[2018-02-19] MEDS: CEFEPIME 1,000 MG in DEXTROSE 5% 50 ML IV SCH (11:29)
--- NOTE | 2018-02-19 12:38 | NUR ---
SISTER AT BEDSIDE TALKING WITH PATIENT.
--- NOTE | 2018-02-19 13:55 | NUR ---
SEEN BY DR. CHRISTIANSEN. WILL FOLLOW UP ON ORDER.
--- NOTE | 2018-02-19 15:26 | NUR ---
BLADDER SCAN DONE SHOWED 999ML. DR. LR MADE AWARE.
--- NOTE | 2018-02-19 15:51 | NUR ---
UROLOGIST RODNEY CALLED BY DR. LR FOR COSTELLO'S CATH INSERTION.
--- NOTE | 2018-02-19 15:55 | NUR ---
DIALYSIS NURSE AT BEDSIDE.
--- NOTE | 2018-02-19 16:44 | NUR ---
CALLED TO BEDSIDE DUE TO PAT DESAT TO 86% ON 3LNC I PLACED PT ON 6L OXYMIZER O2 SAT IS 92% PT IS RECEIVING DIALYSIS AT THIS TIME
--- NOTE | 2018-02-19 17:01 | NUR ---
FAXED PROGRESS NOTES AND MEDICATION LIST TO [facility] [phone] PHONE [phone] X [phone] JAMEY
--- NOTE | 2018-02-19 17:02 | NUR ---
US PELVIC DONE. DR. STEVENS MADE AWARE ABOUT US ABDOMEN FINDING BY US TECH. PT HAS NO DESIRE TO VOID, DENIES BLADDER DISCOMFORT. SAID CAN DO COSTELLO'S INSERTION PRN WHEN PT HAVE DESIRE FOR URINATION. Addendum: 02/19/18 at 1759 by Qi Rowland RN US PELVIC DONE. DR. STEVENS MADE AWARE ABOUT US ABDOMEN FINDING BY US TECH, ASCITIS NO FULL BLADDER PER US TECH. PT HAS NO DESIRE TO VOID, DENIES BLADDER DISCOMFORT. DR. STEVENS SAID CAN DO COSTELLO'S INSERTION PRN WHEN PT HAVE DESIRE FOR URINATION. PT HAS NO DESIRE TO URINATE AT THIS TIME.
--- NOTE | 2018-02-19 17:48 | NUR ---
PT ON DIALYSIS. PT TOLERATING WELL. DIALYSIS NURSE AT BEDSIDE. PT IS TACHYCARDIAC. HOLD PRN CARDIZEM AT THIS TIME PER DIALYSIS NURSE. CHARGE NURSE MADE AWARE.
--- NOTE | 2018-02-19 17:50 | NUR ---
PAGED DR. LR. WAITING FOR CALL BACK.
--- NOTE | 2018-02-19 18:13 | NUR ---
NO ACUTE RESPIRATORY DISTRESS NOTED. NO CHANGE IN LOC. WILL CONTINUE TO MONITOR.
--- NOTE | 2018-02-19 18:13 | NUR ---
CENTRAL LINE DRESSING CHANGED. SITE INTACT.
--- NOTE | 2018-02-19 19:10 | NUR ---
REPORT GIVEN TO NOC SHIFT RN FOR CONTINUITY OF CARE. PT ON STABLE CONDITION.
--- NOTE | 2018-02-19 20:22 | NUR ---
TX NOT GIVEN DUE TO ELEVATED HR. WILL CONTINUE TO MONITOR.
--- NOTE | 2018-02-19 21:10 | NUR ---
dr pollack,pulmn aquatics manager at bedside. updated on pts present condition.new orders received.carried out.will hold transfer to telemetry unit. nurse quality supervisor, shelley akins, notified. Addendum: 02/20/18 at 0116 by Jonelle Graham RN DR POLLACK MADE AWARE THAT 2100 CARDIZEM NOT GIVEN DUE TO BP.DIGOXIN ORDERED INSTEAD
--- NOTE | 2018-02-19 21:23 | NUR ---
digoxin ivp given as ordered by dr pollack, will continue to closely monitor pt
[2018-02-19] MEDS ORDERED: DIGOXIN 0.25 MG/ML AMP IV SCH (21:30)
--- NOTE | 2018-02-19 21:45 | NUR ---
DR MILLER AT BEDSIDE.UPDATE GIVEN; PER MD, PT NOT ON CONTACT ISOLATION.
--- NOTE | 2018-02-19 22:45 | NUR ---
pt put on bipap; 09/18 rate 12 fio2 35%.
--- NOTE | 2018-02-19 22:45 | NUR ---
PLACED PT ON BIPAP ON DOCUMENTED SETTINGS. PT TOLERATING BIPAP. WILL CONTINUE TO MONITOR
[2018-02-20] VITALS (18 sets, daily range): BP systolic 86–114; BP diastolic 47–74
--- NOTE | 2018-02-20 | NUR ---
BS 94; NO INSULIN COVERAGE REQUIRED.PT AFEBRILE.NO SOB NOTED ON BIPAP.WILL CONTINUE TO CLOSELY MONITOR PT
[2018-02-20] MEDS: Z-GUARD PASTE TP SCH ×2 (00:32→13:00)
--- NOTE | 2018-02-20 02:00 | NUR ---
PT ASLEEP; EASILY AROUSABLE.NO SOB NOTED;STILL ON BIPAP.
--- NOTE | 2018-02-20 04:00 | NUR ---
PTS CONDITION REMAINS UNCHANGED.NO S/SX OF PAIN NOTED.REFUSED TO BE REPOSITIONED
[2018-02-20] MEDS: DILTIAZEM 30 MG TAB PO SCH ×3 (04:51→21:00)
--- NOTE | 2018-02-20 05:01 | NUR ---
0500 CARDIZEM NOT GIVEN PER PARAMETER.
[2018-02-20 05:46] LABS: CARBON DIOXIDE 33.2 mmol/L (21-32); POTASSIUM 4.2 mmol/L (3.5-5.1)
[2018-02-20] MEDS: PANTOPRAZOLE 40 MG TABEC PO SCH (05:49)
[2018-02-20] MEDS: BLOOD GLUCOSE MONITORING 1 DEV DEV FS SCH ×3 (05:50→17:56)
[2018-02-20 05:54] LABS: CREATININE 4.1 mg/dL (0.7-1.3)
--- NOTE | 2018-02-20 05:56 | NUR ---
BS 73 NO INSULIN REQUIRED.MORNING CARE DONE.EXCORIATION TO LT ABDOMINAL FOLDS NOTED.Z GUARD APPLIED TO SACROCOCCYGEAL AREA
[2018-02-20] MEDS: BUDESONIDE 0.5 MG/2 ML NEBU INH SCH ×2 (07:20→19:14)
--- NOTE | 2018-02-20 07:20 | NUR ---
RECEIVED REPORT FROM REJI ARGUELLES. PT IS A&0X4. PT FOLLOWS COMMANDS. PERRLA. PT HAS BEEN TRANSFERRED FROM BIPAP OVER NIGHT TO OXYMIZER 6L, SPO2 95%. PT HAS RIGHT NARE, NGT; 0 RESIDUAL; 40ML/HR (WITH NO WATER FLUSH) NOVASOURCE RENAL RUNNING. PT HAS LEFT IJ, TRIPLE LUMEN; BLUE AND WHITE PORT FLUSH AND HAVE GOOD BLOOD RETURN; BROWN PORT DOES NOT FLUSH NOR HAVE BLOOD RETURN. PTS LUNG SOUNDS ARE DIMINISHED WITH INTERMITTENT WHEEZE AT BASE OF BOTH LOWER LOBES. S1S2 HEARD. BOWEL SOUNDS ARE ACTIVE AND PRESENT IN ALL 4 QUADRANTS. PT SKIN IS INTACT ALTHOUGH HAS EXCORIATION IN ABDOMINAL FOLDS AND SLIGHT REDNESS ON BUTTOCKS. PT IS EDEMATOUS; ANASARCA, PITTING 2+. PT'S BED IS LOWEST POSITION, LOCKED AND ALARM ON. CALL LIGHT WITHIN REACH.
[2018-02-20] MEDS: INSULIN LISPRO 100 UNITS/ML VIAL SUBQ SCH ×3 (08:00→17:00)
--- NOTE | 2018-02-20 08:15 | NUR ---
SON AT BEDSIDE. PT IS RESTING COMFORTABLY ON OXYMIZER. BED IN LOWEST POSITION, HOB ELEVATED, PT'S BED IS LOCKED WITH ALARM ON. CALL LIGHT WITHIN REACH
--- NOTE | 2018-02-20 08:20 | NUR ---
RECIVEDT ON BIPAP WITH SETTINGS CHARTRED BREATH SOUNDS PRESENT BILAT DIM REMOVED FROM BIPAP AND PLACED ON 4LPM OXYMIZER PT GARY OXYMIZER WILL CONTINUE TO MONITOR
[2018-02-20] MEDS: VIT-B COMP/VIT-C/FOLIC ACID 1 TAB PO SCH (08:49)
[2018-02-20] MEDS: TAMSULOSIN 0.4 MG CAP PO SCH (08:51)
[2018-02-20] MEDS: FAMOTIDINE 20 MG TAB PO SCH (08:51)
[2018-02-20] MEDS: LACTOBACILLUS RHAMNOSUS GG 1 EACH CAP PO SCH (08:52)
[2018-02-20] MEDS: LACTULOSE 20 GM/30 ML UDC PO SCH ×2 (08:52→20:57)
[2018-02-20] MEDS: DIGOXIN 0.125 MG TAB PO SCH (08:53)
[2018-02-20] MEDS: INSULIN LANTUS 100 UNITS/ML 10 ML VIAL SUBQ SCH ×2 (09:00→21:02)
--- NOTE | 2018-02-20 10:37 | NUR ---
CALLED ANGELICA TRUJILLO TO NOTIFY OF DIALYSIS TODAY
--- NOTE | 2018-02-20 10:40 | NUR ---
SWALLOW EVALUATION TAKING PLACE AT BEDSIDE. RECOMMENDATIONS: Recommend: 1) Mech soft-ground texture + thin liquids for all PO intake. 2) Upright at 90 during and 15 min after intake. 3) 1:1 feeder assistance for safety, weaning off as pt improves. 4) Small bites/sips, slow rate, alternate bites/sips. Straw ok, single sips only. 5) DC NGT prior to PO initiation 6) PRODUCTION SANITIZER to follow 2x/wk [id number] for diet safety and advancement as tolerated.
--- NOTE | 2018-02-20 10:49 | NUR ---
CALL WORKER NOTE [id number] Bedside swallow evaluation completed following clearance by REJI Owens. Please refer to swallow evaluation for full report. Recommend: 1) Mech soft-ground texture + thin liquids for all PO intake. 2) Upright at 90 during and 15 min after intake. 3) 1:1 feeder assistance for safety, weaning off as pt improves. 4) Small bites/sips, slow rate, alternate bites/sips. Straw ok, single sips only. 5) DC NGT prior to PO initiation 6) CALL WORKER to follow 2x/wk [id number] for diet safety and advancement as tolerated. PVE w/RN re: results and recommendations. G8996: CK G8997: CI Swallow NOMS 1
[2018-02-20] MEDS ORDERED: AMIODARONE 450 MG in DEXTROSE 5% 250 ML IV SCH (12:05)
--- NOTE | 2018-02-20 12:50 | NUR ---
PT IS GOING BACK ON BIPAP DUE TO ABG RESULTS
--- NOTE | 2018-02-20 12:53 | NUR ---
PT PLACED BACK ON BIPAP WITH SETTINGS CHARTED POST ABG WITH ELEVATED CO2 LEVEL DR TOLBERT NOTIFIED
[2018-02-20] MEDS ORDERED: AMIODARONE 150 MG in DEXTROSE 5% 100 ML IV SCH (13:33)
--- NOTE | 2018-02-20 14:00 | NUR ---
HEMODIALYSIS STARTED, NU FRANCIS RN AT BEDSIDE.
--- NOTE | 2018-02-20 14:10 | NUR ---
BIPAP CHANGES PER DR TOLBERT CHARTED PER ABG RESULTS
[2018-02-20] MEDS ORDERED: ALBUMIN HUMAN 25% 200 ML IV SCH (15:02)
--- NOTE | 2018-02-20 15:45 | NUR ---
Concurrent review faxed to Surjit and clinical notes faxed at [phone]
--- NOTE | 2018-02-20 16:58 | NUR ---
PT IS RESTING IN BED, HEMODIALYSIS STILL IN PROCESS.
--- NOTE | 2018-02-20 17:38 | NUR ---
CONTINUED TO MONITOR PT ON BIPAP PT QUIET AND TTOL AT THIS TIME BIPAP PLUGGED INTO RED OUTLET AMBU BAG AT BEDSIDE
[2018-02-20] MEDS: CEFEPIME 1,000 MG in DEXTROSE 5% 50 ML IV SCH (18:55)
--- NOTE | 2018-02-20 19:15 | NUR ---
GAVE REPORT TO NIGHT RN FOR CONTINUATION OF CARE
--- NOTE | 2018-02-20 19:30 | NUR ---
RECEIVED REPORT FROM MORNING NURSE. PT IS A&OX4. PERRL. ON BIPAP I:E=16:6. R18 AND FIO2 35. PT TOLERATING BIPAP WELL. DENIES PAIN OR DISCOMFORT. BILATERAL LUNGS SOUND CLEAR. LEFT IJ CENTRAL LINE WITH TRIPLE LUMEN. BROWN LINE DOES NOT FLUSH AND MORNING NURSE IS SINCE THIS MORNING AND MD AWARE. RIGHT SUBCLAVIAN PERMA CATH FOR DIALYSIS SITE. PT DIALYSIS RECEIVED TODAY AND TOOK 3.5 L OUT. CAP REFILL WITHIN 3 SEC. BOWEL SOUNDS ACTIVE FROM ALL 4 QUADS. NGT TO RIGHT NARE AND IN PLACE. RESIDUAL ZERO. FEEDING RUNNING ORDERED. BILATERAL HANDS GRASP STRENGTH EQUAL. NOTED ABDOMINAL FONDS AND LEFT ARM UNDER ARM WITH REDNESS WITH INTACT SKIN. ON CONTINUOUS FIELD SERVICE TECH WITH AFIB ON MONITOR. HOB ELEVATED TO 30 DEGREES. BED KEPT TO THE LOWEST AND LOCKED. CALL LIGHT IN REACH. WILL CONTINUE TO MONITOR.
--- NOTE | 2018-02-20 20:43 | NUR ---
DR. MILLER IN TO SEE PT. UPDATED PT'S CONDITION.
--- NOTE | 2018-02-20 21:03 | NUR ---
CARDIZEM HELD DUE TO SBP<90.
--- NOTE | 2018-02-20 22:15 | NUR ---
REPOSITIONED AND ORAL CARE PROVIDED. TOLERATED WELL.
[2018-02-21] VITALS (34 sets, daily range): BP systolic 69–134; BP diastolic 50–85
[2018-02-21] MEDS: BLOOD GLUCOSE MONITORING 1 DEV DEV FS SCH ×5 (00:03→23:56)
--- NOTE | 2018-02-21 00:04 | NUR ---
BS=88 AT THIS TIME. PT DENIES PAIN OR DISCOMFORT. REPOSITIONED.
[2018-02-21] MEDS: Z-GUARD PASTE TP SCH ×2 (01:00→13:00)
--- NOTE | 2018-02-21 02:15 | NUR ---
REPOSITIONED. DENIES PAIN OR DISCOMFORT. CONTINUING WITH BIPAP WITH THE SAME SETTING. VSS. PT WENT BACK TO SLEEP AT THIS TIME. WILL CONTINUE TO MONITOR.
--- NOTE | 2018-02-21 04:00 | NUR ---
REPOSITIONED. AFEBRILE. DENIES PAIN OR DISCOMFORT. GASTRIC RESIDUAL ZERO. WILL CONTINUE TO MONITOR.
[2018-02-21] MEDS: DILTIAZEM 30 MG TAB PO SCH ×3 (04:48→21:05)
[2018-02-21] MEDS: PANTOPRAZOLE 40 MG TABEC PO SCH (06:02)
--- NOTE | 2018-02-21 06:15 | NUR ---
REPOSITIONED. ASSISTED WITH MORNING CARE. TOLERATED WELL.
[2018-02-21 06:19] LABS: BASOPHILS # (AUTO) 0.1 K/uL (0.00-0.22); BASOPHILS % (AUTO) 0.8 % (0.0-2.0); EOSINOPHILS # (AUTO) 0.3 K/uL (0-0.4); EOSINOPHILS % (AUTO) 3.9 % (0.0-4.0); HEMOGLOBIN 9.1 g/dL (12.0-18.0); LYMPHOCYTES # (AUTO) 1.2 K/uL (2.0-11.5); LYMPHOCYTES % (AUTO) 14.9 % (20.5-51.1); MEAN CORPUSCULAR HEMOGLOBIN 27 pg (27-31); MEAN CORPUSCULAR HGB CONC 30 g/dL (33-37); MEAN CORPUSCULAR VOLUME 89.2 fL (80-94); MONOCYTES % (AUTO) 12.8 % (1.7-9.3); NEUTROPHILS # (AUTO) 5.3 K/uL (1.8-7.7); NEUTROPHILS % (AUTO) 67.6 % (42.2-75.2); PLATELET COUNT (AUTO) 127 K/uL (140-450); RED BLOOD CELL COUNT(AUTO) 3.37 MIL/uL (4.20-6.10); RED CELL DISTRIBUTION WIDTH 18.2 % (11.6-13.7); WHITE BLOOD COUNT (AUTO) 7.8 K/uL (4.8-10.8)
[2018-02-21 06:31] LABS: ANION GAP 7.2 (8-16); CARBON DIOXIDE 33.9 mmol/L (21-32); CREATININE 3.6 mg/dL (0.7-1.3); POTASSIUM 4.1 mmol/L (3.5-5.1)
[2018-02-21] MEDS: BUDESONIDE 0.5 MG/2 ML NEBU INH SCH (06:37)
[2018-02-21 06:42] LABS: MAGNESIUM 1.8 mg/dL (1.8-2.4); PHOSPHORUS 3.5 mg/dL (2.5-4.9)
--- NOTE | 2018-02-21 07:19 | NUR ---
REPORT GIVEN TO MORNING NURSE FOR CONTINUITY OF CARE. VSS AND ALL SAFETY PRECAUTIONS ARE IN PLACE.
[2018-02-21] MEDS: INSULIN LISPRO 100 UNITS/ML VIAL SUBQ SCH ×3 (08:00→17:00)
--- NOTE | 2018-02-21 08:00 | NUR ---
ASSUMED PATIENT CARE, CONCUR WITH PREVIOUS ASSESSMENTS. MAINTAINED ON BIPAP SUPPORT.
[2018-02-21] MEDS: INSULIN LANTUS 100 UNITS/ML 10 ML VIAL SUBQ SCH ×2 (09:00→21:00)
--- NOTE | 2018-02-21 09:37 | NUR ---
ABG RESULTS CALLED INTO DR HOWARD KEEP SPO2 .88 DECREASED EIO2 TO .24 RN AWARE
[2018-02-21] MEDS: FAMOTIDINE 20 MG TAB PO SCH (09:38)
[2018-02-21] MEDS: LACTOBACILLUS RHAMNOSUS GG 1 EACH CAP PO SCH (09:38)
[2018-02-21] MEDS: DIGOXIN 0.125 MG TAB PO SCH (09:38)
[2018-02-21] MEDS: VIT-B COMP/VIT-C/FOLIC ACID 1 TAB PO SCH (09:41)
[2018-02-21] MEDS: LACTULOSE 20 GM/30 ML UDC PO SCH ×2 (09:42→21:00)
--- NOTE | 2018-02-21 09:45 | NUR ---
BIPAP SETTINGS PER DRUG WORKER. MAINTAINED AT 35 DEGREES SEMI-BEGUM'S POSITION.
--- NOTE | 2018-02-21 09:47 | NUR ---
PRESSURE STEAMER TENDER NOTE 0947 Services held d/t pt being on bipap 2/2 poor ABG results. PRESSURE STEAMER TENDER to continue to monitor for improved status. Recommendations: Do not feed pt PO while on bipap 2/2 significant aspiration risk.
--- NOTE | 2018-02-21 11:59 | NUR ---
BIPAP CHANGES I PAP TO 20 EPAP [address] TOLBERT
--- NOTE | 2018-02-21 14:00 | NUR ---
TF HELD FOR DIARRHEAL STOOLS, WILL MONITOR ACCORDINGLY.
--- NOTE | 2018-02-21 14:20 | NUR ---
02/21/18 RD FOLLOW UP COMPLETED PLEASE REFER TO NUTRITION PROGRESS NOTE UNDER CARE ACTIVITY FOR ESTIMATED NUTRITIONAL NEEDS. 1. CONTINUE TF DIET TOLERATED WITH GOAL RATE OF NOVASOURCE RENAL @40ML/HR, PROVIDING 960ML TOTAL VOLUME, 1920 KCAL, 87GM PROTEIN, AND 688ML FREE WATER. THIS IS ADEQUATE TO MEET 100% ESTIMATED ENERGY AND PROTEIN NEEDS. 2. WILL FOLLOW MD FOR WATER FLUSH RECOMMENDATIONS DUE TO PT WITH CHF, FLUID OVERLOAD, AND ESRD ON HD. 3. RD TO FOLLOW-UP 2-3 DAYS, HIGH RISK MARITZA ALFORD RD
--- NOTE | 2018-02-21 15:30 | NUR ---
CHART REVIEW FAXED PROGRESS NOTES AND MEDICATION LIST TO MALORIE [phone] PHONE [phone] X [phone] JAMEY
[2018-02-21] MEDS: HYDROcodone/APAP 10/325 MG 1 TAB TAB PO PRN ×2 (15:43→21:21)
--- NOTE | 2018-02-21 16:00 | NUR ---
PT SHOWING SOME SKIN BREAK DOWN OVER BRIDGE OF NOSE PUT OINTMENT AND PLACED BANDAID OVER IT AND PLACED MASK BACK ON PT PT BECOMING MORE AND MORE ANXIOUS WITH BIPAP MASK RN AWARE
[2018-02-21] MEDS: CEFEPIME 1,000 MG in DEXTROSE 5% 50 ML IV SCH (17:06)
--- NOTE | 2018-02-21 17:21 | NUR ---
WOOD CARVING MACHINE OPERATOR AT BEDSIDE, COORDINATED WITH HD CARE.
--- NOTE | 2018-02-21 17:46 | NUR ---
CONTINUED TO MONITOR PT ON VENT WITH SETTINGS CHARTED BREATH SOUNDS PRESENT BILAT COARSE DIMINISNED PT ANXIOUS TIRED OF BIPAP MACHINE STILL GARY WELL AMBU BAG AT BEDSIDE BIPAP PLUGGED INTO RED OUTLET
--- NOTE | 2018-02-21 18:34 | NUR ---
PATIENT TOLERATING CURRENT BIPAP SETTINGS, INTERMITTENT SHIFTS BETWEEN UNCONTROLLED AFIB AND CONTROLLED AFIB, DENIES CP, NO DISTRESS. HD STILL ONGOING AT THIS TIME.
--- NOTE | 2018-02-21 19:19 | NUR ---
PATIENT CARE REPORT TO
--- NOTE | 2018-02-21 19:20 | NUR ---
RECEIVED REPORT AT PT BEDSIDE FROM DAY SHIFT COURSE DEVELOPER, FOR CONTINUITY OF CARE. PATIENT IS AWAKE ON BIPAP SUPPORT. ABLE TO MAKE NEEDS KNOWN, ABLE TO FOLLOW COMMANDS. PT SKIN INTACT, WARM AND DRY. PATIENT HAS A RIGHT SUBCLAVIAN TRU CATH FOR HD, AND IS CURRENTLY BEING DIALYZED. PT ALSO HAS A LEFT IJ TRIPLE LUMEN CATH, ASYMPTOMATIC, INTACT, PATENT, WITH GOOD BLOOD RETURN FROM ALL THREE PORTS. PT HAS NGT TO RIGHT NARES, PT NOT RECEIVING TUBE FEEDING BECAUSE ACCORDING TO REPORT PT HAD DIARRHEA WHEN TUBE FEEDING ON. PT STABLE, NO SIGNS OF DISTRESS NOTED AT THIS TIME.WILL CONTINUE TO MONITOR.
--- NOTE | 2018-02-21 19:50 | NUR ---
PT CENTRAL LINE DRESSING WAS BLOODY. CHANGED DRESSING USING STERILE TECHNIQUE, PT TOLERATED PROCEDURE WELL.
--- NOTE | 2018-02-21 20:51 | NUR ---
DR MILLER CAME TO SEE PT, UPDATED HIM ON PT STATUS. NO NEW ORDERS GIVEN.
--- NOTE | 2018-02-21 21:25 | NUR ---
ADMINISTERED SCHEDULED MEDICATIONS, PT TOLERATED WELL. HELD INSULIN BECAUSE BLOOD SUGAR HAS BEEN IN THE 70'S (83 AT THE MOMENT) WITHOUT LANTUS ADMINISTRATION, ALSO HELD LACTULOSE BECAUSE PT HAS BEEN HAVING DIARRHEA TODAY. ALSO ADMINISTERED NORCO PER ORDER FOR PT C/O GENERALIZED PAIN 04/22.
--- NOTE | 2018-02-21 22:25 | NUR ---
REASSESSED PT FOR PAIN, PT DENIES HAVING ANY PAIN AT THE MOMENT. NO SIGNS OF DISTRESS NOTED AT THIS TIME. WILL CONTINUE TO MONITOR.
--- NOTE | 2018-02-21 23:15 | NUR ---
STARTED NEW BAG OF FEEDING ALONG WITH TUBING AND WATER. NO SIGNS OF DISTRESS NOTED AT THIS TIME. WILL CONTINUE TO MONITOR. Addendum: 02/21/18 at 2342 by Paulina Gant RN DISREGARD, PLEASE.
[2018-02-22] VITALS (23 sets, daily range): BP systolic 89–137; BP diastolic 45–90
--- NOTE | 2018-02-22 01:15 | NUR ---
PT STABLE, NO SIGNS OF DISTRESS NOTED AT THIS TIME.WILL CONTINUE TO MONITOR.
[2018-02-22] MEDS: Z-GUARD PASTE TP SCH ×2 (01:24→12:42)
[2018-02-22] MEDS: DILTIAZEM 30 MG TAB PO SCH ×3 (05:00→20:13)
--- NOTE | 2018-02-22 05:35 | NUR ---
HELD ELLIE BECAUSE BP AT THE MOMENT IS 94/58.
[2018-02-22 05:47] LABS: HEMATOCRIT 30.9 % (36-52); HEMOGLOBIN 9.1 g/dL (12.0-18.0); MEAN CORPUSCULAR HEMOGLOBIN 26 pg (27-31); MEAN CORPUSCULAR HGB CONC 30 g/dL (33-37); MEAN CORPUSCULAR VOLUME 89.2 fL (80-94); PLATELET COUNT (AUTO) 162 K/uL (140-450); RED BLOOD CELL COUNT(AUTO) 3.46 MIL/uL (4.20-6.10); RED CELL DISTRIBUTION WIDTH 18.2 % (11.6-13.7); WHITE BLOOD COUNT (AUTO) 8.2 K/uL (4.8-10.8)
[2018-02-22 06:23] LABS: MAGNESIUM 1.8 mg/dL (1.8-2.4); PHOSPHORUS 3.6 mg/dL (2.5-4.9)
--- NOTE | 2018-02-22 06:30 | NUR ---
RECEIVED PT ON COOK V60 ON ST 20\5 RR 22 FIO2 26 ALARMS ARE ON AND AUDIBLE PT IN HF AWAKE BS DIMINISHED PT WEARING F\F MASK SIZE LG HHN GIVEN I\L WITH 0.5 MG PULMICORT BIPAP PLUGGED INTO RED OUTLET Addendum: 02/22/18 at 1043 by Brooke Clements RT GEL UNDER MASK
[2018-02-22 06:31] LABS: ANION GAP 10.5 (8-16); CARBON DIOXIDE 30.7 mmol/L (21-32); POTASSIUM 4.2 mmol/L (3.5-5.1)
[2018-02-22 06:34] LABS: CREATININE 4.2 mg/dL (0.7-1.3)
[2018-02-22] MEDS: HYDROcodone/APAP 10/325 MG 1 TAB TAB PO PRN ×2 (06:35→10:44)
[2018-02-22] MEDS: BLOOD GLUCOSE MONITORING 1 DEV DEV FS SCH ×4 (06:47→23:26)
[2018-02-22] MEDS: PANTOPRAZOLE 40 MG TABEC PO SCH (06:47)
--- NOTE | 2018-02-22 07:32 | NUR ---
ENDORSED PT TO DAY SHIFT RN FOR CONTINUITY OF CARE. PT IN STABLE CONDITION.
--- NOTE | 2018-02-22 07:33 | NUR ---
RECEIVED REPORT FROM CIRCUS SUPERVISOR NURSE AT BEDSIDE, PT IS AAOX4, ABLE TO FOLLOW COMMANDS AND MAKE NEEDS KNOWN, VSS, STATED PAIN TO LEFT KNEE, MEDICATION GIVEN, ON BIPAP WITH I/E 20/5, RATE 22, NO S/S OF RESP.DISTRESS, DIMINISHED LUNG SOUNDS MALCOLM. A-FIB ON WARP PREPARER, ROUND SOFT ABDOMEN WITH ACTIVE BOWEL SOUNDS, NGT TO RIGHT NARE, FEEDING WITH NOVASOURCE RENAL AT 40ML/HR, PT TOLERATED WELL, 0 ML RESIDUALS. CENTRAL LINE TO LIJ, TLC, PATENT, KVO WITH NS. ADRI NOTED, SKIN IS WARM, AND DRY TO TOUCH, OPEN WOUND PRESENT (SEE WOUND ASSESSMENT), SCROTAL EDEMA NOTED, GENERALIZED WEAKNESS NOTED, HOB ELEVATED TO 30 DEGREES, SAFETY MEASURE IN PLACE, CALL LIGHT IN REACH, WILL CONTINUE TO MONITOR.
[2018-02-22 07:35] LABS: LYMPHOCYTES % (MANUAL) 12 % (20-46); MONOCYTES % (MANUAL) 10 % (5-12)
[2018-02-22 07:36] LABS: EOSINOPHILS % (MANUAL) 5 % (0-4)
[2018-02-22 07:38] LABS: METAMYELOCYTES % 1 % (0-0); MYELOCYTES % 1 % (0-0)
[2018-02-22] MEDS: INSULIN LISPRO 100 UNITS/ML VIAL SUBQ SCH ×3 (08:00→16:28)
[2018-02-22] MEDS: VIT-B COMP/VIT-C/FOLIC ACID 1 TAB PO SCH (08:44)
[2018-02-22] MEDS: FAMOTIDINE 20 MG TAB PO SCH (08:44)
[2018-02-22] MEDS: LACTULOSE 20 GM/30 ML UDC PO SCH ×2 (08:44→20:13)
[2018-02-22] MEDS: LACTOBACILLUS RHAMNOSUS GG 1 EACH CAP PO SCH (08:44)
[2018-02-22] MEDS: DIGOXIN 0.125 MG TAB PO SCH (08:44)
[2018-02-22] MEDS: INSULIN LANTUS 100 UNITS/ML 10 ML VIAL SUBQ SCH ×2 (08:45→20:16)
--- NOTE | 2018-02-22 09:00 | NUR ---
ACCU CHECK 77MG/DL, HUMALOG AND LANTUS HELD AT THIS TIME, MD AWARE.
--- NOTE | 2018-02-22 09:38 | NUR ---
PER DR TOLBERT LEAVE PT ON BIPAP
--- NOTE | 2018-02-22 10:00 | NUR ---
NO CHANGE OF CONDITION AT THIS TIME, VSS, PAIN TO LEFT KNEE, PT'S SON AT BEDSIDE, POSITION CHANGED FOR OFF LOAD PRESSURE.
[2018-02-22] MEDS: CEFEPIME 1,000 MG in DEXTROSE 5% 50 ML IV SCH (10:43)
--- NOTE | 2018-02-22 12:00 | NUR ---
PT IS ASLEEP IN BED, DENIES PAIN, VSS, NO S/S OF DISTRESS, POSITION CHANGED FOR OFF LOAD PRESSURE.
--- NOTE | 2018-02-22 14:00 | NUR ---
NO CHANGE OF CONDITION AT THIS TIME, VSS, POSITION CHANGED FOR OFF LOAD PRESSURE.
--- NOTE | 2018-02-22 16:00 | NUR ---
PM CARE AND F/C CARE PROVIDED, ORAL CARE PROVIDED, POSITION CHANGED FOR OFF LOAD PRESSURE, WOUND CARE PROVIDED, PT HAD A SMALL PASTY STOOL, FADUMO CARE PROVIDED, PT TOLERATED WELL FOR ALL THE PROCEDURE. VSS.
[2018-02-22] MEDS: BUDESONIDE 0.5 MG/2 ML NEBU INH SCH (18:57)
--- NOTE | 2018-02-22 19:25 | NUR ---
REPORT GIVEN TO REJI ARGUELLES AT BEDSIDE FOR CONTINUE OF CARE, PT IS IN STABLE CONDITION AT THIS TIME. VSS.
--- NOTE | 2018-02-22 19:30 | NUR ---
ASSUMED CARE OF PT.INITIAL ASSESSMENT COMPLETED.PT AWAKE ALERT AND ORIENTED.AFIB ON MONITOR.ON BIPAP 20/5 RATE 22 FIO2 26% .INTERMITTENT PRODUCTIVE COUGHING NOTED.PT ABLE TO SUCTION SCANTY AMT OF WHITISH SECRETIONS.W/NGT TO RT NARES INTACT NO RESIDUALS NOTED.ON CONTINUOUS NGT FDG NOVASOURCE RENAL AT 40ML/HR.TLC TO LT IJ INTACT WITH GOOD BLOOD RETURN TO ALL 3 PORTS.PERMA CATH TO RT SC FOR HD,INTACT.W/EXCORIATION TO SACRUM.CREAM APPLIED ORDERED.PT DENIES PAIN.
--- NOTE | 2018-02-22 19:45 | NUR ---
SEEN BY DR GALVEZ,MID WIFE.UPDATE GIVEN.NEW ORDER RECEIVED.CARRIED OUT.
--- NOTE | 2018-02-22 21:40 | NUR ---
V/B PTS SON.UPDATED ON PTS PRESENT CONDITION.QUESTIONS ANSWERED. PT A/O.NO SOB NOTED.DENIES PAIN
--- NOTE | 2018-02-22 21:56 | NUR ---
PHONE CALL MADE TO ANGELICA TRUJILLO; NOTIFIED PT FOR DIALYSIS IN AM.
[2018-02-23] VITALS (19 sets, daily range): BP systolic 97–130; BP diastolic 52–96
[2018-02-23] MEDS: Z-GUARD PASTE TP SCH ×2 (00:34→12:38)
--- NOTE | 2018-02-23 00:34 | NUR ---
pt awake. still on bipap fio2 26%.no sob noted.pt denies pain.repositioned
--- NOTE | 2018-02-23 04:36 | NUR ---
pts condition remains unchanged.flacc 0.not in any distress.
[2018-02-23] MEDS: DILTIAZEM 30 MG TAB PO SCH ×3 (05:18→21:09)
[2018-02-23] MEDS: BLOOD GLUCOSE MONITORING 1 DEV DEV FS SCH ×3 (05:20→17:20)
[2018-02-23] MEDS: HYDROcodone/APAP 10/325 MG 1 TAB TAB PO PRN ×2 (05:38→21:30)
[2018-02-23] MEDS: PANTOPRAZOLE 40 MG TABEC PO SCH (05:38)
--- NOTE | 2018-02-23 05:55 | NUR ---
morning care done. z guard applied to incontinent dermatitis to buttocks.no sob noted.pain meds given earlier for pain to lt knee
--- NOTE | 2018-02-23 06:10 | NUR ---
ACCU CHECK DONE 86; NO INSULIN COVERAGE REQUIRED.
[2018-02-23 06:37] LABS: HEMATOCRIT 29.2 % (36-52); HEMOGLOBIN 8.9 g/dL (12.0-18.0); MEAN CORPUSCULAR HEMOGLOBIN 27 pg (27-31); MEAN CORPUSCULAR HGB CONC 30 g/dL (33-37); MEAN CORPUSCULAR VOLUME 87.9 fL (80-94); PLATELET COUNT (AUTO) 193 K/uL (140-450); RED BLOOD CELL COUNT(AUTO) 3.32 MIL/uL (4.20-6.10); RED CELL DISTRIBUTION WIDTH 17.7 % (11.6-13.7); WHITE BLOOD COUNT (AUTO) 8.6 K/uL (4.8-10.8)
[2018-02-23 06:57] LABS: ANION GAP 10.4 (8-16); POTASSIUM 4.4 mmol/L (3.5-5.1)
--- NOTE | 2018-02-23 06:57 | NUR ---
SPOKE TO LINEWORKER COVERING FOR DR. PATINO AND READ THE ABG RESULTS TO HIM. NOTIFIED THE LINEWORKER DRJewel THAT WE WILL INCREASE THE FIO2 TO 35% DUE WHILE KEEPING THE SATURATION OF THE PATIENT 88-92%. PATIENT IS CURRENTLY ON BIPAP AND STABLE NO RESP DISTRESS NO SHORTNESS OF BREATH. PATIENT WILL BE MONITORED CLOSELY.
[2018-02-23 07:02] LABS: CREATININE 4.8 mg/dL (0.7-1.3)
[2018-02-23 07:14] LABS: MAGNESIUM 1.8 mg/dL (1.8-2.4)
--- NOTE | 2018-02-23 07:15 | NUR ---
RECEIVED REPORT FROM CLERK MANAGER NURSE AT BEDSIDE, PT IS AAOX4, ABLE TO FOLLOW COMMANDS AND MAKE NEEDS KNOWN, VSS, DENIES PAIN, ON BIPAP WITH FIO2 35, I/E 20/5, RATE 22, NO S/S OF RESP.DISTRESS, DIMINISHED LUNG SOUNDS MALCOLM. A-FIB ON PSYCHIATRY ADULT PHYSICIAN, ROUND SOFT ABDOMEN WITH ACTIVE BOWEL SOUNDS, NGT TO RIGHT NARE, FEEDING WITH NOVASOURCE RENAL AT 40ML/HR, PT TOLERATED WELL, 0 ML RESIDUALS. CENTRAL LINE TO LIJ, TLC, PATENT, KVO WITH NS. OLIGURIA NOTED, HD ORDERED TODAY, SKIN IS WARM, AND DRY TO TOUCH, OPEN WOUND PRESENT (SEE WOUND ASSESSMENT), SCROTAL EDEMA NOTED, GENERALIZED WEAKNESS NOTED, HOB ELEVATED TO 30 DEGREES, SAFETY MEASURE IN PLACE, CALL LIGHT IN REACH, WILL CONTINUE TO MONITOR.
[2018-02-23 07:28] LABS: BASOPHILS % (MANUAL) 0 % (0-2); EOSINOPHILS % (MANUAL) 2 % (0-4); LYMPHOCYTES % (MANUAL) 12 % (20-46); METAMYELOCYTES % 1 % (0-0); MONOCYTES % (MANUAL) 9 % (5-12); MYELOCYTES % 1 % (0-0)
[2018-02-23] MEDS: INSULIN LISPRO 100 UNITS/ML VIAL SUBQ SCH ×3 (07:31→17:00)
[2018-02-23] MEDS: BUDESONIDE 0.5 MG/2 ML NEBU INH SCH ×3 (07:42→19:21)
[2018-02-23] MEDS: DIGOXIN 0.125 MG TAB PO SCH (08:25)
[2018-02-23] MEDS: LACTULOSE 20 GM/30 ML UDC PO SCH ×2 (08:25→21:09)
[2018-02-23] MEDS: LACTOBACILLUS RHAMNOSUS GG 1 EACH CAP PO SCH (08:25)
[2018-02-23] MEDS: FAMOTIDINE 20 MG TAB PO SCH (08:25)
[2018-02-23] MEDS: VIT-B COMP/VIT-C/FOLIC ACID 1 TAB PO SCH (08:25)
[2018-02-23] MEDS: INSULIN LANTUS 100 UNITS/ML 10 ML VIAL SUBQ SCH ×2 (08:27→21:26)
--- NOTE | 2018-02-23 08:45 | NUR ---
MEDICATION GIVEN SCHEDULED VIA GT, PT TOLERATED WELL.
--- NOTE | 2018-02-23 09:00 | NUR ---
HD STARTED AT BEDSIDE
[2018-02-23] MEDS ORDERED: CEFEPIME 1,000 MG in DEXTROSE 5% 50 ML IV SCH (11:00)
[2018-02-23] MEDS: CEFEPIME 1,000 MG in DEXTROSE 5% 50 ML IV SCH (11:22)
--- NOTE | 2018-02-23 11:55 | NUR ---
DR. PATINO CAME IN TO SEE PT AT BEDSIDE, WILL FOLLOW UP WITH NEW ORDERS.
[2018-02-23] MEDS ORDERED: MAG SULF 2000 MG/WATER PREMIX 50 ML IV SCH (12:00)
--- NOTE | 2018-02-23 12:25 | NUR ---
AFTER PT WAS DONE WITH DIALYSIS THE PT WANTED OFF OF BIPAP. PLACED PT 4L OXYMIZER. SP02 92%<. WILL CONTINUE TO MONITOR.
--- NOTE | 2018-02-23 12:36 | NUR ---
HD DONE WITH 3.6 L OUT PUT AT THIS TIME, VSS, DENIES PAIN, PT IS ON OXYGEN AT 4L, O2 SAT 95%
--- NOTE | 2018-02-23 14:00 | NUR ---
NO CHANGE OF CONDITION AT THIS TIME, VSS, POSITION CHANGED FOR OFF LOAD PRESSURE.
--- NOTE | 2018-02-23 16:00 | NUR ---
PM CARE AND F/C CARE PROVIDED, ORAL CARE PROVIDED, POSITION CHANGED FOR OFF LOAD PRESSURE, WOUND CARE PROVIDED, PT TOLERATED WELL FOR ALL THE PROCEDURE. VSS. PT IS ON OXYGEN AT 4L, TOLERATED WELL, O2 SAT 92%
--- NOTE | 2018-02-23 19:15 | NUR ---
REPORT GIVEN TO ANIMAL CRUELTY INVESTIGATION SUPERVISOR NURSE AT BEDSIDE FOR CONTINUE OF CARE, PT IS IN STABLE CONDITION AT THIS TIME. VSS.
--- NOTE | 2018-02-23 19:20 | NUR ---
RECEIVED REPORT FROM MORNING NURSE. PATIENT AAOX4. PERRL. ON OXYMIZER 2L/M, O2 SAT 96% NOTED. DENIES ANY PAIN OR DISCOMFORT AT THIS TIME. BILATERAL LUNGS SOUND DIMINISHED. LEFT IJ CENTRAL LINE WITH TRIPLE LUMEN. RIGHT SUBCLAVIAN PERMA CATH FOR DIALYSIS SITE. PT DIALYSIS RECEIVED TODAY AND TOOK 3.6 L OUT. BOWEL SOUNDS ACTIVE FROM ALL 4 QUADS. NGT TO RIGHT NARES AND PLACEMENT CHECKED. RESIDUAL ZERO. FEEDING RUNNING NOVASOURCE RENAL 40ML/HR. BILATERAL HANDS GRASP STRENGTH EQUAL. A-FIB ON MONITOR. HOB ELEVATED TO 30 DEGREES. BED KEPT TO THE LOWEST AND LOCKED. CALL LIGHT IN REACH. WILL CONTINUE TO MONITOR.
--- NOTE | 2018-02-23 19:23 | NUR ---
RCV'D PT ON 3 L OXIMIZER. PT REFUSED HHN TX. PT DOES NOT WANT TO USE BIPAP OF NOW. NO SOB OR DISTRESS NOTED. WILL CONTINUE TO MONITOR.
--- NOTE | 2018-02-23 21:30 | NUR ---
ADMINISTERED SCHEDULED MEDICATIONS ORDERED, PATIENT TOLERATED WELL. BS CHECKED 112 NOTED. GIVEN LANTUS 14UNITS. NO ACUTE DISTRESS NOTED. NGT PLACEMENT CHECKED, RESIDUAL 5CC NOTED. WILL CONTINUE TO MONITOR.
--- NOTE | 2018-02-23 22:15 | NUR ---
AT BEDSIDE TO CHECK THE PATIENT. WILL FOLLOW THE ORDER.
--- NOTE | 2018-02-23 22:27 | NUR ---
PT ON BIPAP. SETTINGS 20/5, RATE OF 22 FIO2 35%. PT HAS A BIG LEAK DUE TO NG TUBE. NO SOB OR DISTRESS NOTED. PT IS COMFORTABLE. WILL CONTINUE TO MONITOR.
[2018-02-24] VITALS (14 sets, daily range): BP systolic 89–152; BP diastolic 52–85
--- NOTE | 2018-02-24 00:10 | NUR ---
BS CHECKED 103 NOTED. PATIENT ON BIPAP, TOLERATED WELL. NO ACUTE DISTRESS NOTED. WILL CONTINUE TO MONITOR.
[2018-02-24] MEDS: BLOOD GLUCOSE MONITORING 1 DEV DEV FS SCH ×5 (00:13→23:46)
[2018-02-24] MEDS: Z-GUARD PASTE TP SCH ×2 (01:00→13:00)
--- NOTE | 2018-02-24 01:10 | NUR ---
PT TOLERATING BIPAP WELL. NO SOB OR DISTRESS NOTED. WILL CONTINUE TO MONITOR.
--- NOTE | 2018-02-24 02:30 | NUR ---
PATIENT IN SLEEP, AROUSABLE TO VOICE. NO ACUTE DISTRESS NOTED. TOLERATED WELL WITH BIPAP. DENIES ANY PAIN OR DISCOMFORT. WILL CONTINUE TO MONITOR.
--- NOTE | 2018-02-24 04:00 | NUR ---
PATIENT IN SLEEP, AROUSABLE TO VOICE. TOLERATED WELL WITH BIPAP. NO ACUTE DISTRESS NOTED. DENIES ANY PAIN OR DISCOMFORT. WILL CONTINUE TO MONITOR.
[2018-02-24] MEDS: DILTIAZEM 30 MG TAB PO SCH ×3 (05:42→20:43)
[2018-02-24] MEDS: PANTOPRAZOLE 40 MG TABEC PO SCH (05:42)
--- NOTE | 2018-02-24 05:42 | NUR ---
PT ASLEEP COMFORTABLY ON BIPAP. NO SOB OR DISTRESS NOTED.
--- NOTE | 2018-02-24 05:45 | NUR ---
BS CHECKED 73 NOTED. ADMINISTERED SCHEDULED MEDICATIONS ORDERED, TOLERATE WELL. NO ACUTE DISTRESS NOTED. DENIES ANY PAIN OR DISCOMFORT. WILL CONTINUE TO MONITOR.
[2018-02-24 05:47] LABS: ANION GAP 10.5 (8-16); CARBON DIOXIDE 32.3 mmol/L (21-32); POTASSIUM 4.8 mmol/L (3.5-5.1)
[2018-02-24 05:53] LABS: CREATININE 5.4 mg/dL (0.7-1.3)
[2018-02-24 05:54] LABS: MAGNESIUM 2.2 mg/dL (1.8-2.4); PHOSPHORUS 4.9 mg/dL (2.5-4.9)
[2018-02-24 06:08] LABS: EOSINOPHILS % (AUTO) 2.5 % (0.0-4.0); HEMATOCRIT 29.8 % (36-52); HEMOGLOBIN 8.9 g/dL (12.0-18.0); MEAN CORPUSCULAR HEMOGLOBIN 26 pg (27-31); MEAN CORPUSCULAR HGB CONC 30 g/dL (33-37); MEAN CORPUSCULAR VOLUME 88.6 fL (80-94); MONOCYTES % (AUTO) 11.3 % (1.7-9.3); NEUTROPHILS % (AUTO) 71.1 % (42.2-75.2); PLATELET COUNT (AUTO) 197 K/uL (140-450); RED BLOOD CELL COUNT(AUTO) 3.37 MIL/uL (4.20-6.10); RED CELL DISTRIBUTION WIDTH 18.3 % (11.6-13.7); WHITE BLOOD COUNT (AUTO) 8.1 K/uL (4.8-10.8)
[2018-02-24 06:09] LABS: BASOPHILS # (AUTO) 0.1 K/uL (0.00-0.22); BASOPHILS % (AUTO) 1.1 % (0.0-2.0); EOSINOPHILS # (AUTO) 0.2 K/uL (0-0.4); LYMPHOCYTES # (AUTO) 1.1 K/uL (2.0-11.5); MONOCYTES # (AUTO) 0.9 K/uL (0.8-1.0); NEUTROPHILS # (AUTO) 5.8 K/uL (1.8-7.7)
[2018-02-24] MEDS: BUDESONIDE 0.5 MG/2 ML NEBU INH SCH ×2 (06:31→20:02)
--- NOTE | 2018-02-24 06:31 | NUR ---
RECEIVED PT ON COOK V60 ALARMS ARE ON AND FUNCTIONAL ST 20\5 RR 22 FIO2 35 BS DIMINISHED GEL UNDER F\F MASK SIZE LG SON AT BEDSIDE HHN GIVEN I\L WITH 0.5 MG PULMICORT DECREASED FIO2 TO 24 BIPAP PLUGGED INTO RED OUTLET
--- NOTE | 2018-02-24 06:50 | NUR ---
PT REQUESTS BIPAP BE REMOVED PLACED 3 L OXYMIZER SPO2 92
--- NOTE | 2018-02-24 07:05 | NUR ---
BEDSIDE REPORT GIVEN TO ARIENE. MENDOZA.
--- NOTE | 2018-02-24 07:05 | NUR ---
RECEIVED REPORT FROM NOC RN FOR CONTINUITY OF CARE. PATIENT IS AWAKE, ORIENTED TO PERSON, PLACE, DATE AND TIME. ABLE TO FOLLOW COMMANDS. RIGHT NARES NGT PATENT AND INTACT TO NOVASOURCE RENAL AT 40 ML/H, H2O FLUSH 100 ML Q12H, TOLERATING WELL. URINE AND BOWEL CONTINENT. ABLE TO MAKE NEEDS KNOWN. RIGHT SUBCLAVIAN TRU CATHETER PATENT AND INTACT. LIJ CENTRAL LINE PATENT AND INTACT. SAFETY MEASURES IN PLACE. WILL CONTINUE CURRENT PLAN OF CARE. WILL CONTINUE TO MONITOR PATIENT.
--- NOTE | 2018-02-24 07:20 | NUR ---
DECREASE OXYMIZER TO I L SPO2 93
[2018-02-24] MEDS: INSULIN LISPRO 100 UNITS/ML VIAL SUBQ SCH ×2 (08:00→11:33)
[2018-02-24] MEDS: LACTOBACILLUS RHAMNOSUS GG 1 EACH CAP PO SCH (08:12)
[2018-02-24] MEDS: LACTULOSE 20 GM/30 ML UDC PO SCH ×2 (08:12→20:44)
[2018-02-24] MEDS: DIGOXIN 0.125 MG TAB PO SCH (08:13)
[2018-02-24] MEDS: FAMOTIDINE 20 MG TAB PO SCH (08:13)
[2018-02-24] MEDS: VIT-B COMP/VIT-C/FOLIC ACID 1 TAB PO SCH (08:13)
--- NOTE | 2018-02-24 08:30 | NUR ---
HUMALOG AND LANTUS NOT GIVEN AT THIS TIME BLOOD SUGAR 87. WILL FOLLOW UP WITH PMD.
--- NOTE | 2018-02-24 08:45 | NUR ---
PATIENT SITTING AT THE EDGE OF THE BED, PT ASSISTING.
[2018-02-24] MEDS: INSULIN LANTUS 100 UNITS/ML 10 ML VIAL SUBQ SCH ×2 (09:00→20:46)
[2018-02-24] MEDS: CEFEPIME 1,000 MG in DEXTROSE 5% 50 ML IV SCH (11:32)
[2018-02-24] MEDS: ACETAMINOPHEN 325 MG TAB PO PRN (11:39)
[2018-02-24] MEDS ORDERED: APIXABAN 2.5 MG TAB PO SCH (12:32)
--- NOTE | 2018-02-24 13:10 | NUR ---
SUBSTANCE ABUSE PREVENTION COORDINATOR NOTE [id number] S/O: Pt seen at bedside, awake and alert. Cooperative w/all tasks, son present at bedside. Pt had no c/o pain. Pt given thin liquids and solid texture, tolerated w/no difficulty. Good mastication of solids. Prompt a-p transit of all textures. No oral residues remained s/p swallow. No overt s/sx of aspiration noted s/p swallow, w/clear vocal quality noted. A/P: Pt demonstrates WFL swallow, recommend continue mech soft/ground texture + thin liquids. Recommend DC NGT prior to PO intake. STRICT aspiration precautions as noted: 1) Upright at 90 during and 15 min after intake, 2) Small bites/sips, 3) Slow rate, 4) Alternate bites/sips, 5) 1:1 feeder assistance for safety. SUBSTANCE ABUSE PREVENTION COORDINATOR to follow 5x/wk x1wk for diet intake safety and modifications as appropriate. PVE w/RN re: results and recommendations.
--- NOTE | 2018-02-24 13:30 | NUR ---
DIALYSIS STARTED BY DIALYSIS NURSE.
--- NOTE | 2018-02-24 13:38 | NUR ---
CHANGE TO 2L N/C
--- NOTE | 2018-02-24 14:04 | NUR ---
PT REQUEST BIPAP DIALYSIS BEING PLACED SAME SETTINGS FIO2 26
--- NOTE | 2018-02-24 15:01 | NUR ---
02/24/18 RD FOLLOW UP COMPLETED PLEASE REFER TO NUTRITION PROGRESS NOTE UNDER CARE ACTIVITY FOR ESTIMATED NUTRITIONAL NEEDS. 1. CONTINUE MECHANICAL SOFT/ GROUND TEXTURE, RENAL AND CCHO 60 GM DIET. 2. CONSIDER PROVIDING DIET EDUCATION REGARDING RENAL AND CCHO DIET FOR NEXT ASSESSMENT. 3. RD TO FOLLOW-UP 2-3 DAYS, HIGH RISK MARITZA ALFORD RD
--- NOTE | 2018-02-24 15:38 | NUR ---
FAXED PROGRESS NOTES, PT NOTES AND ORDER FROM DR. WATTS ABOUT HOME TRILOGY VENT. FAXED TO MALORIE [phone] PHONE [phone] X [phone] JAMEY.
--- NOTE | 2018-02-24 16:30 | NUR ---
PT WANTS BIPAP REMOVED PLACED ONE L N/C WITH H20
--- NOTE | 2018-02-24 17:00 | NUR ---
DIALYSIS DONE. PULLED OUT 3.8L. PATIENT TOLERATED WELL.
--- NOTE | 2018-02-24 18:45 | NUR ---
TRANSFERRED PATIENT TO TELE RM 122 B PER HOSPITAL BED, IN STABLE CONDITION. BEDSIDE REPORT GIVEN TO RECEIVING NURSE.
--- NOTE | 2018-02-24 18:45 | NUR ---
RECEIVED FROM ICU VIA GURNEY ACCOMPANIED BY PT. SON. AWAKE, ALERT, AND ORIENTED X4. SPEECH CLEAR. NO C/O PAIN. NO SOB, NOTED. IN STABLE CONDITION. KEEP COMFORTABLE ON BED. CALL LIGHT WITHIN REACH. WILL ENDORSE TO NIGHTSHIFT NURSE.
--- NOTE | 2018-02-24 19:46 | NUR ---
REPORT GIVEN TO LIYAH LEONG. IN STABLE CONDITION.
--- NOTE | 2018-02-24 20:00 | NUR ---
RECEIVED REPORT FROM REJI PELLETIER. PATIENT AWAKE ALERT ORIENTED X4, NO S/S OF DISTRESS NOTED, RESPIRATION EVEN AND UNLABORED, ON O2 NC 2L. DIALYSIS ACCESS TRU CATH NOTED TO THE RT IJ, DRESSING DRY AND INTACT, LT IJ CENTRAL LINE IN PLACE, DRESSING DRY AND INTACT. PLAN OF CARE DISCUSSED, PATIENT VERBALIZED UNDERSTANDING. CALL LIGHT WITHIN REACH, SAFETY MEASURE ENSURED, WILL CONTINUE TO MONITOR.
[2018-02-24] MEDS ORDERED: HYDROcodone/APAP 5/325 MG 1 TAB TAB PO PRN (20:20)
--- NOTE | 2018-02-24 20:20 | NUR ---
PATIENT STATED PAIN 7, PAGED DR, DR. LADD CHARGEMASTER ANALYST. MADE DR. LADD AWARE PAIN LEVEL 710, RECEIVED ORDER OF NORCO 5/325 MG, PO, Q6H PRN FOR MODERATE PAIN, NORCO 10/325 MG, PO, Q6H PRN FOR SEVERE PAIN. ORDER READ BACK, DR. LADD CONFIRMED.
--- NOTE | 2018-02-24 21:42 | NUR ---
PATIENT IS SLEEPING, RESPIRATION EVEN AND UNLABORED, NO S/S OF DISTRESS NOTED, CALL LIGHT WITHIN REACH, SAFETY MEASURE ENSURED, WILL CONTINUE TO MONITOR.
--- NOTE | 2018-02-24 22:05 | NUR ---
HAD BOWEL MOVEMENT, CLEANED AND REPOSITIONED PATIENT, CALL LIGHT WITHIN REACH, SAFETY MEASURE ENSURED, WILL CONTINUE TO MONITOR.
--- NOTE | 2018-02-24 22:17 | NUR ---
2210 PLACED PATIENT ON BIPAP 15 IPAP 5 EPAP. PT WANTED TO LOWER PRESSURE. PT HAS NO SOB
[2018-02-24] MEDS: APIXABAN 2.5 MG TAB PO SCH (23:29)
--- NOTE | 2018-02-24 23:55 | NUR ---
VITAL SIGNS STABLE, NO S/S OF DISTRESS NOTED, ON BIPAP. CALL LIGHT WITHIN REACH, SAFETY MEASURE ENSURED, WILL CONTINUE TO MONITOR.
[2018-02-25 00:02] VITALS: BP 124/75
[2018-02-25] MEDS: Z-GUARD PASTE TP SCH ×2 (01:35→13:30)
--- NOTE | 2018-02-25 01:35 | NUR ---
PATIENT WAS SLEEPING, NO S/S OF DISTRESS NOTED, Z-GUARD APPLIED ORDERED, PATIENT TOLERATED WELL, REPOSITIONED PATIENT TO HIS COMFORTABLE POSITION. CALL LIGHT WITHIN REACH, HEAD OF BED ELEVATED, SAFETY MEASURE ENSURED, WILL CONTINUE TO MONITOR.
[2018-02-25 04:00] VITALS: BP 137/84
[2018-02-25] MEDS: DILTIAZEM 30 MG TAB PO SCH ×3 (05:32→20:51)
[2018-02-25] MEDS: PANTOPRAZOLE 40 MG TABEC PO SCH (05:33)
--- NOTE | 2018-02-25 05:41 | NUR ---
DUE MEDICATION GIVEN, PATIENT TOLERATED WELL. NO S/S OF DISTRESS NOTED, ON BIPAP. CALL LIGHT WITHIN REACH, SAFETY MEASURE ENSURED, WILL CONTINUE TO MONITOR.
[2018-02-25] MEDS: BLOOD GLUCOSE MONITORING 1 DEV DEV FS SCH ×3 (05:51→17:31)
[2018-02-25 06:05] LABS: BASOPHILS # (AUTO) 0.1 K/uL (0.00-0.22); EOSINOPHILS # (AUTO) 0.2 K/uL (0-0.4); EOSINOPHILS % (AUTO) 2.2 % (0.0-4.0); HEMATOCRIT 28.4 % (36-52); HEMOGLOBIN 8.5 g/dL (12.0-18.0); LYMPHOCYTES # (AUTO) 1.1 K/uL (2.0-11.5); MEAN CORPUSCULAR HEMOGLOBIN 26 pg (27-31); MEAN CORPUSCULAR HGB CONC 30 g/dL (33-37); MEAN CORPUSCULAR VOLUME 87.3 fL (80-94); MONOCYTES # (AUTO) 0.7 K/uL (0.8-1.0); MONOCYTES % (AUTO) 9.3 % (1.7-9.3); NEUTROPHILS # (AUTO) 5.6 K/uL (1.8-7.7); NEUTROPHILS % (AUTO) 73.5 % (42.2-75.2); PLATELET COUNT (AUTO) 208 K/uL (140-450); RED BLOOD CELL COUNT(AUTO) 3.25 MIL/uL (4.20-6.10); RED CELL DISTRIBUTION WIDTH 17.5 % (11.6-13.7); WHITE BLOOD COUNT (AUTO) 7.6 K/uL (4.8-10.8)
[2018-02-25 06:55] LABS: ANION GAP 9.7 (8-16); CARBON DIOXIDE 31.7 mmol/L (21-32); POTASSIUM 4.4 mmol/L (3.5-5.1)
[2018-02-25 07:06] LABS: MAGNESIUM 1.9 mg/dL (1.8-2.4); PHOSPHORUS 3.6 mg/dL (2.5-4.9)
--- NOTE | 2018-02-25 07:06 | NUR ---
RECEIVED PT ON COOK V60 ON ST 15\5 RR22 FIO2 24 ALARMS ARE ON AUDIBLE BS DIMINISHED PT IN HF AWAKE SON BEDSIDE WEARING F\F MASK SIZE LG GEL UNDER MASK BIPAP PLUGGED INTO RED OUTLET PT REMOVED BIPAP PLACED ONE ONE L N\C
[2018-02-25 07:18] LABS: CREATININE 4.6 mg/dL (0.7-1.3)
--- NOTE | 2018-02-25 07:20 | NUR ---
ENDORSED PLAN OF CARE TO DAY SHIFT, PATIENT IS IN STABLE CONDITION.
--- NOTE | 2018-02-25 07:25 | NUR ---
REPORT RECEIVED FROM QUILTER FIXER NURSE, PT AAOX4, RESTING IN BED IN NAD, ON THE PHONE, TALKING WITHOUT PROBLEM, RESP EVEN UNLABORED ON 2L NC O2, ALL SAFETY MEASURES IN PLACE, PLAN OF CARE REVIEWED, DENIES PAIN OR DISCOMFORT, WILL CONTINUE TO [place].
[2018-02-25] MEDS: BUDESONIDE 0.5 MG/2 ML NEBU INH SCH ×2 (07:33→19:30)
--- NOTE | 2018-02-25 07:46 | NUR ---
RT AT BEDSIDE FOR NEB
[2018-02-25 08:00] VITALS: BP 136/84
[2018-02-25] MEDS: LACTOBACILLUS RHAMNOSUS GG 1 EACH CAP PO SCH (08:15)
[2018-02-25] MEDS: LACTULOSE 20 GM/30 ML UDC PO SCH ×2 (08:15→20:51)
[2018-02-25] MEDS: HYDROcodone/APAP 10/325 MG 1 TAB TAB PO PRN (08:16)
[2018-02-25] MEDS: FAMOTIDINE 20 MG TAB PO SCH (08:16)
[2018-02-25] MEDS: VIT-B COMP/VIT-C/FOLIC ACID 1 TAB PO SCH (08:16)
[2018-02-25] MEDS: DIGOXIN 0.125 MG TAB PO SCH (08:16)
[2018-02-25] MEDS: APIXABAN 2.5 MG TAB PO SCH ×2 (08:20→20:53)
[2018-02-25] MEDS: INSULIN LANTUS 100 UNITS/ML 10 ML VIAL SUBQ SCH ×2 (09:00→20:55)
--- NOTE | 2018-02-25 11:00 | NUR ---
I Contacted [facility] and Spoke to Ender from admissions to discuss patient's status and information. I discussed patient's need for SNF level of care after he is discharged from [facility] and asked Mrs. Handley If Patient will be able to return to their facility. Per Ender she will have to discuss with his sap administrator Jet about patient and will be calling me back with response about Patient been able to return to their facility. I agreed and ended the call.
--- NOTE | 2018-02-25 11:31 | NUR ---
RESEARCH AND DEVELOPMENT MANAGER NOTE [id number] S/O: Pt seen for dysphagia therapy, upright in bed, son present. Pt t/f from ICU to Tele, tolerating well. Pt educated on current diet and safe swallow strategies, pt voiced understanding. Pt stated he is much more comfortable to feed self, and stated he consumed >50% of morning meal w/no difficulty. A/P: Pt tolerating mech soft/ground texture, will attempt upgraded diet next therapy session. Recommend continue RESEARCH AND DEVELOPMENT MANAGER POC.
[2018-02-25] MEDS: CEFEPIME 1,000 MG in DEXTROSE 5% 50 ML IV SCH (11:47)
[2018-02-25 12:00] VITALS: BP 116/58
--- NOTE | 2018-02-25 12:00 | NUR ---
Ender from [facility] [place] call me back stating that she had discussed with her center administrator and they have decided not been able to take Patient back to their facility when Patient is ready for discharge. Per Ender Patient was scheduled to be discharge from their facility a day before he was brought back to [facility]; had a safe discharge scheduled to go live at his sister's home but facility staff had to convince her to take him due to Patient's sister been hesitant at the time. In addition Patient's family member had stay in their facility and sleep there and had to be a discussion about rules and policy of the facility. Due to all of those issues [facility] will not be able to take patient back. I informed Ender that Patient condition has declined and had to be admitted at ICU had to be intubated for a week and during these couple days, patient was moved to [place]. I inform her that Patient as of today MD has recommended him to go to to SNF due to Patient level of care he is unable to discharge home. Mrs. Handley from admissions stated that unfortunately [facility] will not be able to take patient back after his discharge and if there is any questions o please have Director Blanca to contact [facility] center administrator Jet. I thanked her for the information and ended the call.
--- NOTE | 2018-02-25 12:30 | NUR ---
Carton Forming Machine Tender Jet from [facility] came to visit and stated patient is eligible for return to their facility upon discharge.
--- NOTE | 2018-02-25 14:13 | NUR ---
SPOKE WITH JAMEY FROM [facility], [phone]. INFORMED HER THAT PATIENT WILL NEED SNF UPON DISCHARGE FOR P.T. I TOLD HER [facility] WILL TAKE PATIENT BACK. SHE WILL GIVE THE AUTH, JUST LET HER KNOW WHEN DISCHARGED. FAXED PROGRESS NOTES AND PT EVAL AND PT PROGRESS NOTES TO JAMEY AT [facility] AT [phone] .
[2018-02-25 16:00] VITALS: BP 133/78
--- NOTE | 2018-02-25 18:34 | NUR ---
PERICARE DONE, BED LINEN CHANGED, PADS CHANGED, POSITION CHANGED FOR COMFORT, PT NOW SITTING UP EATING DINNER IN NAD,
--- NOTE | 2018-02-25 19:20 | NUR ---
REPORT GIVEN TO GRITTING MACHINE OPERATOR NURSE, PT IN STABLE CONDITION.
--- NOTE | 2018-02-25 19:25 | NUR ---
RECEIVED REPORT FROM REJI PELLETIER. PATIENT AWAKE ALERT ORIENTED X4, NO S/S OF DISTRESS NOTED, RESPIRATION EVEN AND UNLABORED, ON O2 NC 2L. DIALYSIS ACCESS TRU CATH NOTED TO THE RT IJ, DRESSING DRY AND INTACT, LT IJ CENTRAL LINE IN PLACE, DRESSING DRY AND INTACT. REPOSITIONED PATIENT WITH THE MANAGER COMMODITIES, PLAN OF CARE DISCUSSED, PATIENT VERBALIZED UNDERSTANDING. CALL LIGHT WITHIN REACH, SAFETY MEASURE ENSURED, WILL CONTINUE TO MONITOR.
[2018-02-25 20:00] VITALS: BP 125/83
--- NOTE | 2018-02-25 20:10 | NUR ---
PT ASLEEP, HIS SON IN THE ROOM, REFUSED AT THIS TIME , HE WANTS LIKE 2200 WITH THE BIPAP, NO SOB
--- NOTE | 2018-02-25 20:59 | NUR ---
PATIENT REFUSED CEPHULAC DUE TO LOOSE STOOL.
--- NOTE | 2018-02-25 21:04 | NUR ---
NEED PTT LAB VALUE, SO HEPARIN HELD.
--- NOTE | 2018-02-25 22:40 | NUR ---
HAD BOWEL MOVEMENT, CLEANED AND REPOSITIONED PATIENT WITH THE SON. Z-GUARD APPLIED ORDERED, CALL LIGHT WITHIN REACH, SAFETY MEASURE ENSURED, WILL CONTINUE TO MONITOR.
--- NOTE | 2018-02-25 23:55 | NUR ---
INFORMED DR. LADD PATIENT IS ON ELIQUIS AND HEPARIN, BUT NO PT AND PTT VALUES. RECEIVED ORDER OF DRAW PT AND PTT TOMORROW AT 0500.
[2018-02-26] VITALS: BP 135/90
--- NOTE | 2018-02-26 00:23 | NUR ---
VITAL SIGNS STABLE, NO S/S OF DISTRESS NOTED, ON BIPAP. REPOSITIONED PATIENT WITH HIS SON, CALL LIGHT WITHIN REACH, SAFETY MEASURE ENSURED, WILL CONTINUE TO MONITOR.
[2018-02-26] MEDS: Z-GUARD PASTE TP SCH ×2 (01:20→13:45)
--- NOTE | 2018-02-26 01:35 | NUR ---
CK BIPAP, INCREASED FIO2 TO 28% DUE TO SAT WERE ONLY 85% WHEN PT IS SLEEPING
--- NOTE | 2018-02-26 02:22 | NUR ---
PATIENT IS SLEEPING, NO S/S OF DISTRESS NOTED, ON BIPAP. REPOSITIONED PATIENT WITH THE GEAR TOOTH GRINDING MACHINE OPERATOR, CALL LIGHT WITHIN REACH, SAFETY MEASURE ENSURED, WILL CONTINUE TO MONITOR.
[2018-02-26 04:00] VITALS: BP 136/79
--- NOTE | 2018-02-26 04:27 | NUR ---
NO CHANGE IN CONDITION, NO S/S OF DISTRESS NOTED. REPOSITIONED PATIENT WITH THE REPLANTING MACHINE CREWMAN, CALL LIGHT WITHIN REACH, SAFETY MEASURE ENSURED, WILL CONTINUE TO MONITOR.
[2018-02-26] MEDS: BLOOD GLUCOSE MONITORING 1 DEV DEV FS SCH ×4 (05:34→17:28)
[2018-02-26] MEDS: PANTOPRAZOLE 40 MG TABEC PO SCH (05:34)
[2018-02-26] MEDS: DILTIAZEM 30 MG TAB PO SCH ×3 (05:34→21:33)
[2018-02-26 06:26] LABS: BASOPHILS # (AUTO) 0.1 K/uL (0.00-0.22); EOSINOPHILS # (AUTO) 0.2 K/uL (0-0.4); HEMATOCRIT 29.5 % (36-52); HEMOGLOBIN 8.9 g/dL (12.0-18.0); LYMPHOCYTES # (AUTO) 1.2 K/uL (2.0-11.5); LYMPHOCYTES % (AUTO) 15.1 % (20.5-51.1); MEAN CORPUSCULAR HEMOGLOBIN 27 pg (27-31); MEAN CORPUSCULAR HGB CONC 30 g/dL (33-37); MEAN CORPUSCULAR VOLUME 87.7 fL (80-94); MONOCYTES # (AUTO) 0.7 K/uL (0.8-1.0); MONOCYTES % (AUTO) 9.1 % (1.7-9.3); NEUTROPHILS # (AUTO) 5.8 K/uL (1.8-7.7); NEUTROPHILS % (AUTO) 72.8 % (42.2-75.2); PLATELET COUNT (AUTO) 243 K/uL (140-450); RED BLOOD CELL COUNT(AUTO) 3.36 MIL/uL (4.20-6.10); RED CELL DISTRIBUTION WIDTH 17.4 % (11.6-13.7); WHITE BLOOD COUNT (AUTO) 7.9 K/uL (4.8-10.8)
[2018-02-26 06:44] LABS: ANION GAP 11.7 (8-16); CARBON DIOXIDE 29.9 mmol/L (21-32); POTASSIUM 4.6 mmol/L (3.5-5.1)
[2018-02-26 06:45] LABS: PROTHROMBIN TIME 11.9 secs (10.8-13.4)
[2018-02-26 06:50] LABS: PHOSPHORUS 4.6 mg/dL (2.5-4.9)
[2018-02-26 06:55] LABS: CREATININE 5.3 mg/dL (0.7-1.3)
--- NOTE | 2018-02-26 07:26 | NUR ---
ENDORSED PLAN OF CARE TO DAY SHIFT RN, PATIENT RESTING IN BED, IN STABLE CONDITION.
--- NOTE | 2018-02-26 07:27 | NUR ---
RECEIVED REPORT FROM DUPLEX TRIMMER NURSE. PATIENT LYING IN BED COMFORTABLY, SON AT BEDSIDE. NO DISTRESS NOTED. DENIES ANY PAIN AT THIS TIME. RESPIRATIONS EVEN, UNLABORED, ON ROOM AIR. AAOX4, CALM, COOPERATIVE, SKIN COLOR APPROPRIATE TO ETHNICITY, WARM TO TOUCH. HAS SKIN TEAR ON LEFT BUTTOCK AREA. LUNGS CTA ON ALL LOBES. ABDOMEN SOFT, OBESE. HAS LEFT UPPER IJ THAT IS INTACT, PATENT, AND ON SALINE LOCK. HAS RIGHT IJ TRU CATHETER IN PLACE, DRESSING DRY AND INTACT. REVIEWED PLAN OF CARE WITH PATIENT. PATIENT VERBALIZED UNDERSTANDING. SAFETY MEASURES IN PLACE, CALL LIGHT WITHIN REACH, FALL PREVENTIONS IN PLACE. WILL CONTINUE TO MONITOR.
[2018-02-26] MEDS: BUDESONIDE 0.5 MG/2 ML NEBU INH SCH ×2 (07:30→20:06)
[2018-02-26 08:00] VITALS: BP 134/79
--- NOTE | 2018-02-26 08:00 | NUR ---
HEMODIALYSIS NURSE AT BEDSIDE GETTING READY TO PERFORM HEMODIALYSIS PER MD ORDERS. WILL CONTINUE TO MONITOR.
--- NOTE | 2018-02-26 08:30 | NUR ---
HEMODIALYSIS IN PROGRESS LOC AWAKE AND ALERT RESPONSIVE TO COUNTY RECORDS MANAGEMENT OFFICER VERBAL COMMANDS PATIENT STATES "I FEEL A LIITLE ANXIOUS DURING DIALYSIS" NO SOB NOTED AT THIS TIME ON SUPPLEMENTAL OXYGEN AT 2 LPM VIA NC COUNTY RECORDS MANAGEMENT OFFICER TO ATTEMPT HHN THERAPY AT A LATER TIME Addendum: 02/26/18 at 0835 by Sanya Saldaña RT SON AT BEDSIDE
--- NOTE | 2018-02-26 08:30 | NUR ---
PT NOTE 820 UNABLE TO SEE Pt DUE TO ONGOING HD; WILL FOLLOW UP W/Pt TOMORROW, RN NOTIFIED.
[2018-02-26] MEDS ORDERED: EPOETIN ALFA 10,000 UNITS/ML VIAL IV SCH (09:00)
[2018-02-26] MEDS: INSULIN LANTUS 100 UNITS/ML 10 ML VIAL SUBQ SCH ×2 (09:00→21:00)
[2018-02-26] MEDS: FAMOTIDINE 20 MG TAB PO SCH (09:26)
[2018-02-26] MEDS: LACTOBACILLUS RHAMNOSUS GG 1 EACH CAP PO SCH (09:26)
[2018-02-26] MEDS: LACTULOSE 20 GM/30 ML UDC PO SCH ×2 (09:26→21:00)
[2018-02-26] MEDS: VIT-B COMP/VIT-C/FOLIC ACID 1 TAB PO SCH (09:26)
[2018-02-26] MEDS: APIXABAN 2.5 MG TAB PO SCH ×2 (09:30→21:37)
--- NOTE | 2018-02-26 09:39 | NUR ---
PATIENT LYING DOWN IN BED TALKING ON THE PHONE. HEMODIALYSIS CURRENTLY RUNNING WITH HD NURSE AT BEDSIDE. NO DISTRESS NOTED. DENIES ANY PAIN. SCHEDULED MEDICATIONS DUE GIVEN. SAFETY MEASURES IN PLACE, CALL LIGHT WITHIN REACH. WILL CONTINUE TO MONITOR.
--- NOTE | 2018-02-26 09:51 | NUR ---
PROCRIT ADMINISTERED VIA IV BY HEMODIALYSIS NURSE. WILL CONTINUE TO MONITOR.
[2018-02-26] MEDS: DIGOXIN 0.125 MG TAB PO SCH (10:45)
[2018-02-26] MEDS: HYDROcodone/APAP 10/325 MG 1 TAB TAB PO PRN (10:52)
--- NOTE | 2018-02-26 10:54 | NUR ---
PATIENT LYING DOWN IN BED WITH COMPLAINTS OF 7/10 GENERALIZED PAIN, NORCO GIVEN PER MD ORDERS. HEMODIALYSIS CONTINUING TO RUN. SAFETY MEASURES IN PLACE, CALL LIGHT WITHIN REACH. WILL CONTINUE TO MONITOR.
--- NOTE | 2018-02-26 11:45 | NUR ---
HEMODIALYSIS COMPLETED WITH 4,000 ML REMOVED PER DIALYSIS NURSE REPORTS. V/S STABLE. WILL CONTINUE TO MONITOR.
--- NOTE | 2018-02-26 11:49 | NUR ---
HEMODIALYSIS NURSE GAVE 5,000 UNITS HEPARIN INTO EACH PORT (DOUBLE LUMEN) OF TRU CATHETER. WILL CONTINUE TO MONITOR.
[2018-02-26] MEDS: CEFEPIME 1,000 MG in DEXTROSE 5% 50 ML IV SCH (11:51)
[2018-02-26 12:00] VITALS: BP 125/80
--- NOTE | 2018-02-26 12:01 | NUR ---
PATIENT LYING DOWN IN BED TALKING ON THE PHONE. SCHEDULED ANTIBIOTIC MEDICATIONS DUE GIVEN. SAFETY MEASURES IN PLACE, CALL LIGHT WITHIN REACH. WILL CONTINUE TO MONITOR.
[2018-02-26] MEDS ORDERED: CAR30 PO (12:59)
[2018-02-26] MEDS ORDERED: APIX2.5 PO (12:59)
--- NOTE | 2018-02-26 14:00 | NUR ---
PATIENT LYING IN BED TALKING ON THE PHONE. NO DISTRESS NOTED. DENIES ANY PAIN AT THIS TIME. CONDITION UNCHANGED. WILL CONTINUE TO MONITOR.
--- NOTE | 2018-02-26 14:47 | NUR ---
FAXED PROGRESS NOTES AND ORDER FOR TRILOGY VENT FOR HOME, WHEN DISCHARGED HOME, ALSO MED LIST. I SPOKE WITH JAMEY AND INFORMED HER. SHE SAID TO ALSO FAX THE ORDER TO TRILOGY VENT FOR HOME TO [facility], PHONE [phone]. FAXED ORDER TO [facility].
--- NOTE | 2018-02-26 15:47 | NUR ---
Shoe Reconditioner Notes: I faxed home [employer] vent order for patient when he goes home. Choral Director Alisson is aware.
[2018-02-26 16:00] VITALS: BP 143/77
--- NOTE | 2018-02-26 16:15 | NUR ---
ASSISTED PATIENT ON BEDPAN AND CLEANING. SON AT BEDSIDE. CONDITION UNCHANGED. NO DISTRESS NOTED. DENIES ANY PAIN. SAFETY MEASURES IN PLACE, CALL LIGHT WITHIN REACH. WILL CONTINUE TO MONITOR.
--- NOTE | 2018-02-26 18:00 | NUR ---
PATIENT SITTING IN BED WITH DINNER TRAY IN FRONT. NO DISTRESS NOTED. DENIES ANY PAIN. CONDITION UNCHANGED. SAFETY MEASURES IN PLACE, CALL LIGHT WITHIN REACH. WILL CONTINUE TO MONITOR.
--- NOTE | 2018-02-26 19:27 | NUR ---
GAVE REPORT TO RAIL FILLER NURSE FOR CONTINUITY OF CARE. PATIENT IN STABLE CONDITION.
--- NOTE | 2018-02-26 19:28 | NUR ---
RECD. RESTING IN BED, AWAKE, A/OX4, OBESE. NO SOB. RESPIRATION EVEN AND UNLABORED. NOTED RIGHT SUBCLAVIAN TRU CATH, DRESSING DRY AND INTACT. WITH LEFT IJ CENTRAL LINE TRIPLE LUMEN. PLAN OF CARE FOR THE SHIFT DISCUSSED. VERBALIZED UNDERSTANDING. AWARE OF POSSIBLE DISCHARGE IN AM WHEN BIPAP WILL BE AVAILABLE IN [facility]. DENIES PAIN 0/10. SON AT THE BEDSIDE.
[2018-02-26 20:00] VITALS: BP 129/75
--- NOTE | 2018-02-26 20:00 | NUR ---
Patient's Plan of Care was discussed and reviewed with HOME CARE ADMINISTRATOR: Evelin JONES
[2018-02-26] MEDS: ACETAMINOPHEN 325 MG TAB PO PRN (21:31)
--- NOTE | 2018-02-26 21:37 | NUR ---
DUE PO MEDICATIONS AND SNACK FOR THE NIGHT GIVEN.
--- NOTE | 2018-02-26 22:28 | NUR ---
RECEIVED PATIENT ON 2L NC. O2 SAT 93%. FAMILY AT BEDSIDE. SCHEDULED BREATHING TX ADMINISTERED. PT TOLERATED TX WELL, NO ADVERSE SIDE EFFECTS. NO RESPIRATORY DISTRESS NOTED AT THIS TIME. WILL CONTINUE TO MONITOR.
[2018-02-27] VITALS: BP 117/63
--- NOTE | 2018-02-27 | NUR ---
SLEEPING COMFORTABLY, BIPAP ON.
[2018-02-27] MEDS: BLOOD GLUCOSE MONITORING 1 DEV DEV FS SCH ×3 (01:00→12:11)
[2018-02-27] MEDS: Z-GUARD PASTE TP SCH ×2 (01:00→12:16)
--- NOTE | 2018-02-27 02:10 | NUR ---
CORPORATE DEVELOPMENT OFFICER BOBBIE INFORMED PATIENT HAD SOME PAUSES IN THE TELE MONITOR READING. THEN WENT BACK TO PREVIOUS PATTERN. PATIENT STILL SLEEPING COMFORTABLY, BIPAP ON. WILL ENDORSED TOMORROW FOR MD TO SEE ECG STRIP.
--- NOTE | 2018-02-27 03:32 | NUR ---
BIPAP CHECK DONE. CONTINUOUS PULSE OX ON AND FUNCTIONING. NO RESPIRATORY DISTRESS NOTED. WILL CONTINUE TO MONITOR.
[2018-02-27 04:00] VITALS: BP 139/61
--- NOTE | 2018-02-27 04:00 | NUR ---
STILL SLEEPING COMFORTABLY, BIPAP ON.
[2018-02-27] MEDS: DILTIAZEM 30 MG TAB PO SCH ×2 (06:00→12:15)
[2018-02-27 06:08] LABS: BASOPHILS # (AUTO) 0.1 K/uL (0.00-0.22); BASOPHILS % (AUTO) 1.2 % (0.0-2.0); EOSINOPHILS # (AUTO) 0.2 K/uL (0-0.4); EOSINOPHILS % (AUTO) 2.5 % (0.0-4.0); HEMOGLOBIN 9.1 g/dL (12.0-18.0); LYMPHOCYTES # (AUTO) 1.3 K/uL (2.0-11.5); LYMPHOCYTES % (AUTO) 18.5 % (20.5-51.1); MEAN CORPUSCULAR HEMOGLOBIN 27 pg (27-31); MEAN CORPUSCULAR HGB CONC 30 g/dL (33-37); MEAN CORPUSCULAR VOLUME 87.2 fL (80-94); MONOCYTES # (AUTO) 0.7 K/uL (0.8-1.0); MONOCYTES % (AUTO) 9.3 % (1.7-9.3); NEUTROPHILS # (AUTO) 4.8 K/uL (1.8-7.7); NEUTROPHILS % (AUTO) 68.5 % (42.2-75.2); PLATELET COUNT (AUTO) 254 K/uL (140-450); RED BLOOD CELL COUNT(AUTO) 3.45 MIL/uL (4.20-6.10); RED CELL DISTRIBUTION WIDTH 17.4 % (11.6-13.7)
[2018-02-27] MEDS: PANTOPRAZOLE 40 MG TABEC PO SCH (06:14)
[2018-02-27 06:16] LABS: ANION GAP 11.4 (8-16); CARBON DIOXIDE 30.8 mmol/L (21-32); POTASSIUM 4.2 mmol/L (3.5-5.1)
[2018-02-27 06:20] LABS: MAGNESIUM 1.8 mg/dL (1.8-2.4); PHOSPHORUS 4.2 mg/dL (2.5-4.9)
[2018-02-27] MEDS: HYDROcodone/APAP 10/325 MG 1 TAB TAB PO PRN ×2 (06:21→12:14)
[2018-02-27 06:34] LABS: CREATININE 4.6 mg/dL (0.7-1.3)
[2018-02-27] MEDS: BUDESONIDE 0.5 MG/2 ML NEBU INH SCH (07:30)
--- NOTE | 2018-02-27 07:30 | NUR ---
RECEIVED PT REPORT IN BED, PT IS AWAKE, ALERT, OX4. NO SOB, ON 2L VIA NC. RIGHT SUBCLAVIAN TRU CATH, DRESSING DRY AND INTACT. LEFT IJ CENTRAL LINE TRIPLE LUMEN NOTED, PATENT AND INTACT. PLAN OF CARE FOR THE SHIFT DISCUSSED. PT VERBALIZED UNDERSTANDING.PT AWARE OF POSSIBLE DISCHARGE TO [facility]. SAFETY PRECAUTIONS IN PLACE, BED IN LOWEST POSITION. CALL LIGHT WITHIN REACH. SON AT THE BEDSIDE.
--- NOTE | 2018-02-27 07:30 | NUR ---
CONDITION REMAIN STABLE. ENDORSED TO AM NURSE FOR CONTINUITY OF CARE.
--- NOTE | 2018-02-27 07:46 | NUR ---
PT EATING BREAKFAST. REFUSED HHN TX. NO SOB OR DISTRESS NOTED. PT ON 2 L NC. CLEAR BS . SPO2 95%. BIPAP AT BEDSIDE AND CONNECTED TO RED OUTLET. WILL CONTINUE TO MONITOR.
[2018-02-27 08:00] VITALS: BP 134/78
[2018-02-27] MEDS: INSULIN LANTUS 100 UNITS/ML 10 ML VIAL SUBQ SCH (09:00)
[2018-02-27] MEDS: FAMOTIDINE 20 MG TAB PO SCH (09:05)
[2018-02-27] MEDS: LACTOBACILLUS RHAMNOSUS GG 1 EACH CAP PO SCH (09:05)
[2018-02-27] MEDS: DIGOXIN 0.125 MG TAB PO SCH (09:05)
[2018-02-27] MEDS: VIT-B COMP/VIT-C/FOLIC ACID 1 TAB PO SCH (09:05)
[2018-02-27] MEDS: LACTULOSE 20 GM/30 ML UDC PO SCH (09:06)
[2018-02-27] MEDS: APIXABAN 2.5 MG TAB PO SCH (09:12)
--- NOTE | 2018-02-27 10:00 | NUR ---
PIC OF BUTTOCK TAKEN. PT RECEIVED BED BATH. PT TOLERATED WELL. Z GUARD APPLIED.
--- NOTE | 2018-02-27 11:18 | NUR ---
SECTION GANG NOTE [id number] S/O: Pt seen for dysphagia therapy at bedside, awake and alert. Son present. Pt had no c/o pain. SECTION GANG discussed w/pt current status, safe swallow strategies, and risks of aspiration w/a compromised respiratory system. Pt also educated to not eat in any event bipap must be worn during the day if respiratory status declines. Pt voiced understanding. A/P: WFL swallow, pt tolerating mech soft/thin liquid diet. Recommend dc from skilled ST services, recommend f/u at next level of care for upgraded diet as tolerated. G8997: CN G8998: CK G8998: CI Swallow NOMS 5
[2018-02-27 12:00] VITALS: BP 135/86
--- NOTE | 2018-02-27 13:56 | NUR ---
clinical review faxed to Surjit. [facility] [id number] Auth for transport # [id number] AND TO USE [facility] TO CALL AT [phone]
[2018-02-27] MEDS: ACETAMINOPHEN 325 MG TAB PO PRN (14:24)
--- NOTE | 2018-02-27 14:28 | NUR ---
Sales Clerk Food Notes: Yoni From [facility] call these functional tester typewriters about Patient been accepted back to [facility] facility at room 188 with accepting physician Flaquito. Case Felton Jade and patient's unit nurse Thanh have been informed by these functional tester typewriters.
--- NOTE | 2018-02-27 14:58 | NUR ---
02/27/18 RD FOLLOW UP COMPLETED PLEASE REFER TO NUTRITION PROGRESS NOTE UNDER CARE ACTIVITY FOR ESTIMATED NUTRITIONAL NEEDS. 1. CONTINUE MECHANICAL SOFT/ GROUND TEXTURE, RENAL AND CCHO 60 GM DIET. 2. PROVIDED DIET EDUCATION REGARDING RENAL AND CARB CONTROLLED DIET. 3. RD TO FOLLOW-UP 3-5 DAYS, MODERATE RISK MARITZA ALFORD RD
--- NOTE | 2018-02-27 15:50 | NUR ---
CALLED [facility], REPORT GIVEN TO BRUCE BEJARANO GOING TO RM 188, ACCEPTING MD DR ERAZO. PT'S SON AT BEDSIDE AND HE IS AWARE.
[2018-02-27 16:00] VITALS: BP 118/64
--- NOTE | 2018-02-27 17:10 | NUR ---
PT DISCHARGED PER MD ORDER. DISCHARGE INSTRUCTION GIVEN. MED TEACHING GIVEN. PT VERBALIZED UNDERSTANDING. LEFT SUBCLAVIAN CENTRAL LINE REMOVED. TIP INTACT, BLEEDING CONTROLLED. PRESSURE APPLIED FOR 5MIN. TOLD PT NOT TO REMOVED DRESSING FOR 24 HOURS. PT IS GOING [place] [facility].
--- NOTE | 2018-02-27 17:30 | NUR ---
PT DENIES PAIN, NO S/S OF ACUTE DISTRESS. WAITING FOR TRANSPORT.
--- NOTE | 2018-02-27 18:10 | NUR ---
PT LEFT WITH TRANSPORT, TELE BOX REMOVED, WRIST BAND REMOVED. PT LEFT IN STABLE CONDITION WITH O2 NC, PORTABLE O2 TANK.
--- NOTE | 2018-02-28 08:55 | NUR ---
LATE ENTRY FOR 02/27/18 1505 1505 CALLED [facility] [phone] AND SPOKE WITH PHILOMENA AND PROVIDED INFORMATION THAT PT NEEDS A BARIATRIC GURNEY TRANSPORT WITH O2 AT 2L. AND PROVIDED DESTINATION OF [facility] ROOM 188. PROVIDED [facility] AUTHORIZATION NUMBER [id number] AND ALSO PROVIDED [facility] UNIT CONTACT NUMBER AND REQUESTED THAT THE BE UNIT BE NOTIFIED OF WHAT COMPANY WILL BE PICKING PT UP AND WHAT TIME.
== END 2018-02-27 18:10 | disposition home or self-care (01) | DRG 720 ==
LOC: MED 13:30 → MIC 16:10 → MTU 02-24 18:45
PROVIDERS: ADMIT Hospitalist; ATTEND Hospitalist
PROC: 5A1945Z Respiratory Ventilation, 24-96 Consecutive Hours (ICD-10-PCS; principal; 2018-02-14)
PROC: 0BH18EZ Insertion of Endotracheal Airway into Trachea, Via Natural or Artificial Opening Endoscopic (ICD-10-PCS; 2018-02-14)
PROC: 5A09357 Assistance with Respiratory Ventilation, Less than 24 Consecutive Hours, Continuous Positive Airway Pressure (ICD-10-PCS; 2018-02-14)
PROC: 5A1D70Z Performance of Urinary Filtration, Intermittent, Less than 6 Hours Per Day (ICD-10-PCS; 2018-02-14)
PROC: 02HV33Z Insertion of Infusion Device into Superior Vena Cava, Percutaneous Approach (ICD-10-PCS; 2018-02-15)
PROC: B548ZZA Ultrasonography of Superior Vena Cava, Guidance (ICD-10-PCS; 2018-02-15)
PROC: 5A1D70Z Performance of Urinary Filtration, Intermittent, Less than 6 Hours Per Day (ICD-10-PCS; 2018-02-15)
PROC: 5A1D70Z Performance of Urinary Filtration, Intermittent, Less than 6 Hours Per Day (ICD-10-PCS; 2018-02-17)
PROC: 5A1D70Z Performance of Urinary Filtration, Intermittent, Less than 6 Hours Per Day (ICD-10-PCS; 2018-02-18)
PROC: 5A09357 Assistance with Respiratory Ventilation, Less than 24 Consecutive Hours, Continuous Positive Airway Pressure (ICD-10-PCS; 2018-02-19)
PROC: 5A1D70Z Performance of Urinary Filtration, Intermittent, Less than 6 Hours Per Day (ICD-10-PCS; 2018-02-19)
PROC: 5A09457 Assistance with Respiratory Ventilation, 24-96 Consecutive Hours, Continuous Positive Airway Pressure (ICD-10-PCS; 2018-02-20)
PROC: 5A1D70Z Performance of Urinary Filtration, Intermittent, Less than 6 Hours Per Day (ICD-10-PCS; 2018-02-20)
PROC: 5A1D70Z Performance of Urinary Filtration, Intermittent, Less than 6 Hours Per Day (ICD-10-PCS; 2018-02-21)
PROC: 5A1D70Z Performance of Urinary Filtration, Intermittent, Less than 6 Hours Per Day (ICD-10-PCS; 2018-02-23)
PROC: 5A09357 Assistance with Respiratory Ventilation, Less than 24 Consecutive Hours, Continuous Positive Airway Pressure (ICD-10-PCS; 2018-02-24)
PROC: 5A1D70Z Performance of Urinary Filtration, Intermittent, Less than 6 Hours Per Day (ICD-10-PCS; 2018-02-24)
PROC: 5A09357 Assistance with Respiratory Ventilation, Less than 24 Consecutive Hours, Continuous Positive Airway Pressure (ICD-10-PCS; 2018-02-25)
PROC: 5A1D70Z Performance of Urinary Filtration, Intermittent, Less than 6 Hours Per Day (ICD-10-PCS; 2018-02-26)
DX: A41.9 Sepsis, unspecified organism (principal); J96.21 Acute and chronic respiratory failure with hypoxia; I50.41 Acute combined systolic (congestive) and diastolic (congestive) heart failure; J18.9 Pneumonia, unspecified organism; N18.6 End stage renal disease; I42.0 Dilated cardiomyopathy; R18.8 Other ascites; J44.0 Chronic obstructive pulmonary disease with (acute) lower respiratory infection; I42.6 Alcoholic cardiomyopathy; E11.22 Type 2 diabetes mellitus with diabetic chronic kidney disease; I27.20 Pulmonary hypertension, unspecified; E66.2 Morbid (severe) obesity with alveolar hypoventilation; J96.22 Acute and chronic respiratory failure with hypercapnia; N40.0 Benign prostatic hyperplasia without lower urinary tract symptoms; B96.5 Pseudomonas (aeruginosa) (mallei) (pseudomallei) as the cause of diseases classified elsewhere; N39.0 Urinary tract infection, site not specified; D64.9 Anemia, unspecified; I13.2 Hypertensive heart and chronic kidney disease with heart failure and with stage 5 chronic kidney disease, or end stage renal disease; F10.10 Alcohol abuse, uncomplicated; Y90.9 Presence of alcohol in blood, level not specified; T65.91XA Toxic effect of unspecified substance, accidental (unintentional), initial encounter; E88.09 Other disorders of plasma-protein metabolism, not elsewhere classified; D63.8 Anemia in other chronic diseases classified elsewhere; I42.7 Cardiomyopathy due to drug and external agent; E87.5 Hyperkalemia; I48.91 Unspecified atrial fibrillation; J44.1 Chronic obstructive pulmonary disease with (acute) exacerbation; F41.9 Anxiety disorder, unspecified; R32 Unspecified urinary incontinence; E66.09 Other obesity due to excess calories; Z99.2 Dependence on renal dialysis; Z79.01 Long term (current) use of anticoagulants; Z79.899 Other long term (current) drug therapy; Z68.43 Body mass index [BMI] 50.0-59.9, adult; Y92.89 Other specified places as the place of occurrence of the external cause; Z79.4 Long term (current) use of insulin
CPT/HCPCS: 31500; 36415; 36600; 71045; 76856; 80048; 80053; 80202; 80305; 81001; 82150; 82550; 82553; 82803; 82948; 83036; 83605; 83690; 83735; 83880; 84100; 84436; 84439; 84443; 84484; 85025; 85610; 85730; 87040; 87070; 87081; 87086; 87186; 87205; 89220; 90935; 92526; 92610; 93005; 94002; 94003; 94640; 94660; 96374; 97110; 97116; 97140; 97530; 97799; 99291; J0282; J0692; J0885; J1160; J1644; J1815; J2704; J3370; J3475; J3480; J3490; J7030; J7060; J7626; P9046; Q0092

== ENCOUNTER 2021-08-28 14:58 | Inpatient (IN) | payer OTHER, SELFPAY ==
[~2021-08-28] VITALS: Ht 172.7 cm; Wt 134.7 kg
[~2021-08-28 14:58] MED LIST changes: +APIX2.5 PO; +DILT30TA10 PO; -DILT60TA94 PO; -DOXA2TAB1 PO; -FURO40TA9 PO; -GLIM2TAB PO; -GLUC-805 FS; -HEPA500056 SUBQ; -HUMSLIDE SUBQ; -IPRA3AMP INH; -LACT10CA NG; -METO50TE2 PO; -PANT40EC28 PO; +VITA1TAB44 PO
--- NOTE | 2021-08-28 15:05 | NUR ---
PT TRANSFERRED TO BED 01 BY flight data technician
[2021-08-28 15:10] VITALS: BP 116/75
--- NOTE | 2021-08-28 15:10 | NUR ---
51 Y/O MALE BIB [facility]MS FROM H/D FOR SOB AFTER 20 MINS. PT WAS HYPOXIC UPON ARRIVAL TO HOSPITAL. PLACED PT ON 6LPM VNC (93%). RESP EVEN AND UNLABORED, LUNG SOUNDS DIM. PT AOX4, ABLE TO MAKE ALL NEEDS KNOWN. AV SHUNT TO LEFT WRIST(+B/T). H/D CATH TO LEFT UPPER CHEST. PMHX:ESRD ON H/D, AMS, AFIB, CHF, DM II, BPH, TVR, ANEMIA, MDD, MORBID OBESITY, HYPOTHYROIDMS, HTN, UTI, PNA. ALCOHOLISM, CDIFF ALLERGIES: DENIES HOME MEDS: SEE LIST IN CHART
--- NOTE | 2021-08-28 15:20 | NUR ---
ERMD AT BEDSIDE TO ASSESS PT
--- NOTE | 2021-08-28 15:47 | NUR ---
LAB AT BEDSIDE TAKING BLOOD.
--- NOTE | 2021-08-28 15:51 | NUR ---
RADIOLOGY AT BEDSIDE TO DO XRAY
[2021-08-28 16:02] LABS: EOSINOPHILS # (AUTO) 0.1 K/uL (0-0.4); EOSINOPHILS % (AUTO) 2.4 % (0.0-4.0); HEMOGLOBIN 7.8 g/dL (12.0-18.0); LYMPHOCYTES # (AUTO) 0.9 K/uL (2.0-11.5); LYMPHOCYTES % (AUTO) 19.5 % (20.5-51.1); MEAN CORPUSCULAR HEMOGLOBIN 26 pg (27-31); MEAN CORPUSCULAR HGB CONC 30 g/dL (33-37); MEAN CORPUSCULAR VOLUME 86.3 fL (80-94); MONOCYTES # (AUTO) 0.4 K/uL (0.8-1.0); MONOCYTES % (AUTO) 9.3 % (1.7-9.3); NEUTROPHILS # (AUTO) 3.3 K/uL (1.8-7.7); NEUTROPHILS % (AUTO) 67.8 % (42.2-75.2); PLATELET COUNT (AUTO) 85 K/uL (140-450); RED BLOOD CELL COUNT(AUTO) 3.01 MIL/uL (4.20-6.10); RED CELL DISTRIBUTION WIDTH 17.9 % (11.6-13.7); WHITE BLOOD COUNT (AUTO) 4.8 K/uL (4.8-10.8)
[2021-08-28 16:12] LABS: ALBUMIN 3.1 g/dL (3.4-5.0); ANION GAP 7.6 (8-16); CARBON DIOXIDE 35.6 mmol/L (21-32); POTASSIUM 5.2 mmol/L (3.5-5.1); TOTAL BILIRUBIN 0.4 mg/dL (0.0-1.0)
--- NOTE | 2021-08-28 16:16 | NUR ---
BUN 46/CLIMATOLOGY TEACHER 6.0 REPORTED TO LASHELLD PIERCE
--- NOTE | 2021-08-28 16:49 | NUR ---
Patient appears to be resting comfortably in bed. Vital Signs within normal limits. Respirations even and unlabored. SR UP X 2. at bedside. No SOB at this time. Pt remains on 6LPM VNC at 96% 02.
[2021-08-28 17:48] VITALS: BP 111/69
--- NOTE | 2021-08-28 17:48 | NUR ---
PT PLACED ON NIV 31/05 f14 35% BIPAP PLUGGED INTO RED OUTLET W/ ALARMS ON AND AUDIBLE SISTER AT BEDSIDE ABG DRAWN AND ABNORM RESULTS WERE REPRTED TO ED DR PIERCE PH 7.181 CO2 101.4 HCO3 37.1 PO2 61.0 WILL REPEAT ABG IN A FEW HOURS SIDE NOTE - PER SISTER @ BEDSIDE DONT DRAW BLOOD ON L ARM DUE TO SHUNT
--- NOTE | 2021-08-28 17:54 | NUR ---
RT at bedside to apply biPAP to pt. Pt exp inc in confusion, unable to identify family at bedside. CARA Paz made awar. New orders noted and carried out.
--- NOTE | 2021-08-28 17:56 | NUR ---
Breaker Off at bedside to draw lactic acid.
[2021-08-28] MEDS ORDERED: AZITHROMYCIN 500 MG in DEXTROSE 5% 250 ML IV ONE (18:00)
[2021-08-28] MEDS ORDERED: cefTRIAXone 1,000 MG in DEXT 5% MINI-BAG PLUS 50 ML IV ONE (18:00)
[2021-08-28] MEDS ORDERED: cefTRIAXone 1,000 MG VIAL ONE (18:09)
[2021-08-28] MEDS ORDERED: AZITHROMYCIN 500 MG INJ VIAL IV ONE (18:09)
[2021-08-28 18:23] LABS: PROTHROMBIN TIME 11.8 secs (10.8-13.4)
--- NOTE | 2021-08-28 18:43 | NUR ---
f INCREASED TO 18 CURRENT SETTINGS 31/05 f18 35%
--- NOTE | 2021-08-28 18:54 | NUR ---
PT IS ESRD ON H/D AND DOES NOT MAKE URINE ANYMORE. ERMD AWARE.
--- NOTE | 2021-08-28 18:59 | NUR ---
PORTER SEARS SISTER : . TO BE CALLED FOR ANY CHANGES IN CONDITION.
--- NOTE | 2021-08-28 19:12 | NUR ---
Pt report given to LOKI MENDOZA. Transfer of care at this time.
--- NOTE | 2021-08-28 20:11 | NUR ---
PT REMOVED BIPAP MASK. NURSE LOKI TRIED TO PUT BACK ON AND HE SAID HE WILL TAKE IT OFF AGAIN. PT STATES HE DOES NOT WANT MASK. PT LEFT WITH NASAL CANNULA AT 97% SPO2.
--- NOTE | 2021-08-28 21:04 | NUR ---
PATIENT WEARING BIPAP AGAIN AT THIS TIME.
[2021-08-28] MEDS ORDERED: ACETAMINOPHEN 325 MG TAB PO PRN (21:15)
[2021-08-28] MEDS ORDERED: ONDANSETRON 4 MG/2 ML VIAL IVP PRN (21:15)
[2021-08-28] MEDS ORDERED: MORPHINE SULFATE 2 MG/ML SYR IVP PRN (21:15)
--- NOTE | 2021-08-28 21:43 | NUR ---
REPORT GIVEN TO CIERRA MENDOZA AT THIS TIME. RT AT BEDSIDE FOR TRANSFER
--- NOTE | 2021-08-28 22:06 | NUR ---
2200 patient was transfered to room 112a from er on bipap
--- NOTE | 2021-08-28 22:41 | NUR ---
RECEIVED A PHONE CALL FROM EDUCATIONAL AID ANGELICA AND SHE STATED THAT SHE WILL COME LATER TO DO A DIALYSIS ON THE PATIENT. PER REJI DOMINGUEZ SHE WA CALLED BY DR NAILS TO DO THE DIALYSIS. REJI DOMINGUEZ MADE AWARE THAT I DON'T HAVE A NEPHRO CONSULT AND ORDER FOR DIALYSIS. CALLED DR MCINTOSH TO ASK MD IF HE WILL ORDER A NEPHRO CONSULT AND MADE AWARE THAT DR NAILS IS ORDERING A DIALYSIS FOR THE PATIENT TONIGHT. DR MCINTOSH GAVE ME A TELEPHONE ORDER FOR NEPHRO CONSULT, DR NAILS. WILL PLACE THE ORDER.
--- NOTE | 2021-08-28 23:10 | NUR ---
PAGED DR NAILS EARLIER TO NOTIFY MD OF THE CONSULT ORDER AND TO OBTAIN INFORMED CONSENT FOR THE DIALYSIS. SPOKE WITH DR NIALS AND STATED THAT HE CANNOT COME TO THE HOSPITAL OR PROVIDE AN INFORMED CONSENT AT THIS TIME AND STATED THAT HE WILL SIGN IT FIRST THING IN THE MORNING. PER MD PATIENT NEED TO HAVE HIS DIALYSIS TONIGHT.
--- NOTE | 2021-08-28 23:15 | NUR ---
OBTAINED THE CONSENT FOR HEMODIALYSIS FROM THE PATIENT SISTER PORTER WHO IS AT THE BEDSIDE.
--- NOTE | 2021-08-28 23:25 | NUR ---
CALLED REGIONAL EDUCATION COORDINATOR ANGELICA AND SPOKE TO HER. MADE AWARE THAT THE CONSENT IS SIGNED AND DR NAILS WANTED THE PATIENT TO HAVE THE DIALYSIS TONIGHT.
--- NOTE | 2021-08-28 23:53 | NUR ---
THIS IS AN ADMISSION NOTE FOR A 51 YEAR OLD MALE PATIENT OF DOCTOR MCINTOSH FOR RESPIRATORY FAILURE. PATIENT HAS A HISTORY OF HOSPITALIZATION 2 YEARS AGO HERE. THE PATIENT SISTER NOTES THE PATIENT HAS BEEN ON RECENT HEMODIALYSIS AND WAS ON IT FOR THE SAME PROBLEM THEN. PATIENT REQUESTING TO GO HOME, EAT, AND HAVE A WARMER TEMPERATURE IN ROOM. REFINERY OPERATOR ALKYLATION OFFERED BLANKETS, BEDTIME SNACK AND POSSIBLE EXPLANATION THAT FURTHER TREATMENT MAY BE NEEDED PRIOR TO RETURNING HOME. SISTER SAYS PATIENT GETS ANXIETY WHEN HE IS STARTED ON HEMODIALYSIS AND THEN BECOMES SHORT OF BREATH. CIERRA HENNING RN
[2021-08-29] VITALS (7 sets, daily range): BP systolic 87–114; BP diastolic 43–73
--- NOTE | 2021-08-29 00:32 | NUR ---
GROUT WORKER MOON CAME AND STATED THAT SHE CANNOT DO THE DIALYSIS WITHOUT THE INFORMED CONSENT SIGN BY DR NAILS. REJI DOMINGUEZ MADE AWARE THAT DR NAILS WILL SIGN THE INFORMED CONSENT IN THE MORNING AND MD WANTED THE DIALYSIS DONE TONIGHT. PER REJI DOMINGUEZ SHE DOESN'T WANT TO GET IN TROUBLE WITH OUR DIRECTOR JENNIE BECAUSE OF THE NEW POLICY THAT WE CANNOT CONSENT THE PATIENT WITHOUT THE INFORMED CONSENT SIGNED BY FIRST. CALLED OUR DIRECTOR JENNIE AND MADE AWARE OF THE SITUATION. SPOKE WITH DIRECTOR JENNIE AND AWARE AND OK'D TO CONTINUE DIALYSIS ORDERED BY DR NAILS. REJI DOMINGUEZ MADE AWARE THAT OUR DIRECTOR JENNIE WAS NOTIFIED AND OK'D TO CONTINUE DIALYSIS.
--- NOTE | 2021-08-29 00:43 | NUR ---
PATIENT AGAIN NOTES HE FEELS NAUSEA AND SHORTNESS OF BREATH WHILE STARTING HEMODIALYSIS AT THIS TIME. CIERRA HENNING RN
--- NOTE | 2021-08-29 00:56 | NUR ---
PATIENTS SATS 87% ON 35% VIA BIPAP. INCREASED FIO2 TO 50%. SATS 91%. PATIENT IS ON DIALYSIS
--- NOTE | 2021-08-29 01:15 | NUR ---
PATIENT ANXIETY ABOUT GOING HOME. DISCUSSION ABOUT WHAT HE NEEDS AT HOME. HE SAYS HE WANTS TO BE IN HIS OWN BED. CIERRA HENNING RN
--- NOTE | 2021-08-29 04:26 | NUR ---
0420 LOWERED FIO2 TO 40%. SATS 99%
--- NOTE | 2021-08-29 04:45 | NUR ---
PATIENT REMOVES BIPAP AFTER PLACEMENT BY RESPIRATORY THERAPIST. OXYGEN PLACEMENT ON NASAL CANNULA AT THIS TIME. PATIENT THREATENS TO CALL THE POLICE PRN OCCUPATIONAL THERAPIST ATTEMPTS TO PUT ON BIPAP. CIERRA HENNING RN
[2021-08-29] MEDS: BLOOD GLUCOSE MONITORING 1 DEV DEV FS SCH ×2 (06:40→16:36)
[2021-08-29 07:11] LABS: BASOPHILS % (AUTO) 0.8 % (0.0-2.0); EOSINOPHILS # (AUTO) 0.2 K/uL (0-0.4); EOSINOPHILS % (AUTO) 3.3 % (0.0-4.0); HEMATOCRIT 23.2 % (36-52); HEMOGLOBIN 7.1 g/dL (12.0-18.0); LYMPHOCYTES # (AUTO) 0.9 K/uL (2.0-11.5); LYMPHOCYTES % (AUTO) 18.6 % (20.5-51.1); MEAN CORPUSCULAR HEMOGLOBIN 26 pg (27-31); MEAN CORPUSCULAR HGB CONC 31 g/dL (33-37); MEAN CORPUSCULAR VOLUME 84.9 fL (80-94); MONOCYTES # (AUTO) 0.6 K/uL (0.8-1.0); MONOCYTES % (AUTO) 12.8 % (1.7-9.3); NEUTROPHILS # (AUTO) 3.1 K/uL (1.8-7.7); NEUTROPHILS % (AUTO) 64.5 % (42.2-75.2); PLATELET COUNT (AUTO) 59 K/uL (140-450); RED BLOOD CELL COUNT(AUTO) 2.73 MIL/uL (4.20-6.10); RED CELL DISTRIBUTION WIDTH 17.8 % (11.6-13.7); WHITE BLOOD COUNT (AUTO) 4.8 K/uL (4.8-10.8)
--- NOTE | 2021-08-29 07:31 | NUR ---
ENDORSED TO DAY NURSE, REJI ROSA FOR CONTINUITY OF CARE. CIERRA HENNING RN
--- NOTE | 2021-08-29 07:41 | NUR ---
RCV'D PT ON 5 L NC. SPO2 92%. NO DISTRESS NOTED. BIPAP AT BEDSIDE STANDBY. PER RN PT REMOVED BIPAP AROUND 5 AND DOES NOT WANT TO WEAR IT. PT REFUSED BIPAP OF NOW. WILL CONTINUE TO MONITOR PATIENT.
[2021-08-29 07:54] LABS: ANION GAP 8.6 (8-16); CARBON DIOXIDE 31.7 mmol/L (21-32); POTASSIUM 4.3 mmol/L (3.5-5.1)
[2021-08-29 07:56] LABS: CREATININE 4.8 mg/dL (0.6-1.3)
--- NOTE | 2021-08-29 07:58 | NUR ---
RECEIVED PT FROM LACE PAPER MACHINE OPERATOR NURSE. PT IN BED NO COMPLAINS AT THIS TIME . NO S/S OF DISTRESS. PATIENT IN NASAL CANULA 5L, SAT 93, PATIENT STILL REFUSING BIPAP. PATIENT HAS AN IV IN RIGHT HAND 22G , SALINE LOCK CALL LIGHT IN REACH. ALL SAFETY MEASURES IN PLACE.
--- NOTE | 2021-08-29 09:30 | NUR ---
PATIENT IN BED NO COMPLAINS, NO SOD NOTED, CALLS LIGHT WITHIN REACH ALL SAFETY MEASURES ON PLACE
--- NOTE | 2021-08-29 09:44 | NUR ---
PATIENT HAS BEEN SCREENED AND CATEGORIZED HIGH NUTRITION RISK. PATIENT WILL BE SEEN WITHIN 1-2 DAYS OF ADMISSION. 08/29/21-08/30/21 REVIEWED BY ZAIN W[address] RD Addendum: 08/29/21 at [address] PATIENT HAS BEEN SCREENED AND CATEGORIZED MODERATE NUTRITION RISK. PATIENT WILL BE SEEN WITHIN 3-5 DAYS OF ADMISSION. 08/31/21-09/02/[address] REVIEW[address] BY ZAIN WALDROP RD
--- NOTE | 2021-08-29 10:31 | NUR ---
DC [age] YRS OLD MALE PATIENT WAS ADMITTED FROM [facility] WITH A DX OF RESP FAILURE. PATIENT HAS A HX OF ESRD ON DIALYSIS . CXR SHOWED CARDIOMEGALY WITH VASCULAR CONGESTION , SMALL RIGHT PLEURAL EFFUSION .RAPID COVID TEST NEGATIVE. ON ADMISSION ON BIPAP FIO2 50% SATING 92%. ADMINISTERED IV ABX ROCEPHIN AND AZITHROMYCIN . CONSULTED WITH SENIOR PRODUCTION SUPERVISOR FOR HEMODIALYSIS. DC PLAN TO RETURN TO [facility] WHEN STABLE. CM TO FOLLOW Addendum: 09/01/21 at 1041 by Katrina Ha RN DC PLANNING: RECEIVED A CALL FROM DR GARAY , ORDERED THAT PT NEEDS CPAP AT NIGHT. CALLED [facility] SPOKE WITH NAVNEET MARQUEZ STATED TO FAX THE SET UP ORDER AND ALSO SPOKE WITH YAHIR BETANCOURT [facility] STATED AWAITING FOR THE ORDER. FAXED THE ORDER TO [facility] AND [facility]. CM TO FOLLOW Addendum: 09/01/21 at 1615 by Katrina Ha RN DC PLANNING: PATIENT IS GOING TO [facility] ROOM # 224B NUMBER TO GIVE REPORT [phone] HARIKA SINCLAIR ARRANGED TRANSPORT WITH [facility] WILL CALL ONCE CPAP DELIVERED TO [facility] PLS CALL [facility] . NOTIFIED MARITZA TO CALL [facility] [phone]. ISREAL TO FOLLOW
--- NOTE | 2021-08-29 11:39 | NUR ---
PATIENT IN BED NO COMPLAINS, NO SOD NOTED CALLS LIGHT WITHIN REACH ALL SAFETY MEASURES ON PLACE
--- NOTE | 2021-08-29 13:49 | NUR ---
PATIENT IN BED NO COMPLAINS, NO SOD NOTED, ALL SAFETY MEASURES ON PLACE, CALLS LIGHT WITHIN REACH
[2021-08-29] MEDS ORDERED: DEXTROSE 50% 50 ML SYR IVP PRN (15:20)
[2021-08-29] MEDS ORDERED: INSULIN LISPRO SLIDING SCALE 100 UNITS/ML VIAL SUBQ PRN (15:20)
--- NOTE | 2021-08-29 16:05 | NUR ---
PATIENT IN BED NO COMPLAINS, NO SOD NOTED, ALL SAFETY MEASURES ON PLACE, CALLS LIGHT WITHIN REACH
[2021-08-29] MEDS: DILTIAZEM 60 MG TAB PO SCH (16:30)
[2021-08-29] MEDS: SEVELAMER CARBONATE 800 MG TAB PO SCH (16:30)
--- NOTE | 2021-08-29 18:15 | NUR ---
PATIENT IN BED NO COMPLAINS, NO SOD NOTED, ALL SAFETY MEASURES ON PLACE, CALLS LIGHT WITHIN REACH
--- NOTE | 2021-08-29 19:56 | NUR ---
full bedside report given to tree killer nurse
[2021-08-29] MEDS: APIXABAN 2.5 MG TAB PO SCH (21:00)
[2021-08-30] VITALS: BP 133/83
--- NOTE | 2021-08-30 01:14 | NUR ---
PATIENT ASLEEP TIL 0030 AWAKE WAS HUNGRY ASK FOR DONUTS WAS NOT HAPPY WITH THE JELLO ON MONITOR A-FIB WAS ON BI-PAP RATE 12, IPAP 14, E PAP 8 FI02 40% NOW AT 0100 ON 3 LITERS N/C. SAT 98% HAS HL IN RIGHT HAND. LUNGS DIMINISH TEMP 98.1. 2100 BLOOD SUGAR 99 NO INSULIN NEEDED. PATIENT HAS LEFT UPPPER CHEST CATH FOR DIALYSIS TOOK 3 LITERS OFF A.M 08/29/21. PATIENT SKIN INTACT NO DISTRESS NOTED NO C/O OF PAIN.
[2021-08-30 04:00] VITALS: BP 129/80
--- NOTE | 2021-08-30 05:40 | NUR ---
removed noc bipap for daytime on nasal cannula. pt tolerated bipap during most of the night. no resp distress ntoed Addendum: 08/30/21 at 0546 by Anita Irwin RT noted
[2021-08-30] MEDS: BLOOD GLUCOSE MONITORING 1 DEV DEV FS SCH ×4 (06:55→20:29)
[2021-08-30 07:04] LABS: BASOPHILS # (AUTO) 0.1 K/uL (0.00-0.22); BASOPHILS % (AUTO) 1.2 % (0.0-2.0); EOSINOPHILS # (AUTO) 0.2 K/uL (0-0.4); HEMATOCRIT 23.2 % (36-52); HEMOGLOBIN 7.1 g/dL (12.0-18.0); LYMPHOCYTES # (AUTO) 1.2 K/uL (2.0-11.5); LYMPHOCYTES % (AUTO) 24.5 % (20.5-51.1); MEAN CORPUSCULAR HEMOGLOBIN 26 pg (27-31); MEAN CORPUSCULAR HGB CONC 31 g/dL (33-37); MEAN CORPUSCULAR VOLUME 85.5 fL (80-94); MONOCYTES # (AUTO) 0.4 K/uL (0.8-1.0); MONOCYTES % (AUTO) 9.5 % (1.7-9.3); NEUTROPHILS # (AUTO) 2.8 K/uL (1.8-7.7); NEUTROPHILS % (AUTO) 60.8 % (42.2-75.2); PLATELET COUNT (AUTO) 81 K/uL (140-450); RED BLOOD CELL COUNT(AUTO) 2.72 MIL/uL (4.20-6.10); RED CELL DISTRIBUTION WIDTH 17.4 % (11.6-13.7); WHITE BLOOD COUNT (AUTO) 4.7 K/uL (4.8-10.8)
[2021-08-30 07:16] LABS: ALBUMIN 2.6 g/dL (3.4-5.0); ANION GAP 9.9 (8-16); POTASSIUM 4.9 mmol/L (3.5-5.1); TOTAL BILIRUBIN 0.3 mg/dL (0.0-1.0)
--- NOTE | 2021-08-30 07:21 | NUR ---
RECEIVED REPORT FROM HIGH SPEED PRINTER OPERATOR NURSE. PT STABLE. NO S/S OF DISTRESS. BREATHING SYMMETRICAL. CALL LIGHT IN REACH. ALL SAFETY MEASURES IN PLACE. IV INTACT, NO FLUIDS RUNNING. 3L NC. BIPAP AT BEDSIDE FOR NIGHTTIME USE.
[2021-08-30 07:50] LABS: CREATININE 5.4 mg/dL (0.6-1.3)
--- NOTE | 2021-08-30 07:57 | NUR ---
SPOKE TO ABDON IN LAB. CRITICAL VALUES REPORTED. BUN 35, CR 5.4. TRENDING UP. NOTIFIED
[2021-08-30 08:00] VITALS: BP 123/70
--- NOTE | 2021-08-30 08:15 | NUR ---
CHANGED PT. PT HAD BM, MODERATE AMOUNT. RE POSITIONED. PT TOLERATED WELL. PT STABLE. NO S/S OF DISTRESS. BREATHING SYMMETRICAL. CALL LIGHT IN REACH. ALL SAFETY MEASURES IN PLACE. TITRATED TO 2L NC.
[2021-08-30] MEDS: APIXABAN 2.5 MG TAB PO SCH ×2 (08:32→20:23)
[2021-08-30] MEDS: TAMSULOSIN 0.4 MG CAP PO SCH (08:35)
[2021-08-30] MEDS: LACTULOSE 20 GM/30 ML UDC PO SCH (08:35)
[2021-08-30] MEDS: SEVELAMER CARBONATE 800 MG TAB PO SCH ×3 (08:35→17:00)
[2021-08-30] MEDS: VIT-B COMP/VIT-C/FOLIC ACID 1 TAB PO SCH (08:35)
[2021-08-30] MEDS: DILTIAZEM 60 MG TAB PO SCH ×3 (08:35→17:00)
--- NOTE | 2021-08-30 08:39 | NUR ---
ADMINISTERED MEDICATIONS PER MD ORDER. PT TOLERATED WELL. PT VERBALIZED UNDERSTANDING OF EDUCATION. PT REFUSED LACTULOSE STATING "I DON'T HAVE ENOUGH IN MY STOMACH AND I DON'T WANT TO SHIT MYSELF". CALL LIGHT IN REACH. ALL SAFETY MEASURES IN PLACE.
--- NOTE | 2021-08-30 09:35 | NUR ---
PT STATED FEELING SHORT OF BREATH ON 2L NC. PT SATURATING AT 92%. PT REPOSITIONED. PT ASKED TO USE BIPAP AND REST. BIPAP ATTACHED AND PT RESTING IN BED. NO S/S OF DISTRESS. CALL LIGHT IN REACH. ALL SAFETY MEASURES IN PLACE.
[2021-08-30] MEDS ORDERED: ALBUTEROL SULFATE/IPRATROPIU 3 ML SOL IH PRN (10:15)
--- NOTE | 2021-08-30 10:37 | NUR ---
FOUND PT ON BIPAP. PT TOLERATING WELL SETTINGS 14/8, R12 AND FIO2 40%. PT NOT IN ANY DISTRESS AT THIS TIME. WILL OBTAIN ORDERED ABG.
--- NOTE | 2021-08-30 10:53 | NUR ---
PER ABG RESULTS BIPAP SETTINGS ADJUSTED AND INCREASED IPAP TO [id number].
--- NOTE | 2021-08-30 11:10 | NUR ---
PAGED REGARDING ABG RESULTS. WAITING FOR CALL BACK.
--- NOTE | 2021-08-30 11:27 | NUR ---
GAVE DR.KIM MORRELL RESULTS. PHYSICIAN STATES TO HAVE BIPAP PRN BUT FOR PT TO WEAR BIPAP NOC. PT AWAKE AND ALERT. WILL CONTINUE TO MONITOR.
--- NOTE | 2021-08-30 11:51 | NUR ---
PT BIPAP REMOVED AND PUT ON 2L NC. FAMILY AT BEDSIDE. NO S/S OF DISTRESS. O2 SAT 97%. CALL LIGHT IN REACH. ALL SAFETY MEASURES IN PLACE
[2021-08-30 12:00] VITALS: BP 122/78
--- NOTE | 2021-08-30 12:32 | NUR ---
PT SITTING ON EDGE OF BED. LUNCH AND FAMILY AT BEDSIDE. NO S/S OF DISTRESS. PT MEDICATED PER MD ORDERS. PT VERBALIZED UNDERSTANDING OF MEDICATIONS GIVEN. CALL LIGHT IN REACH. ALL SAFETY MEASURES IN PLACE. TAPED IV, PT STATED IT "SNAGGED" ON THE O2 TUBING. 2L NC
[2021-08-30] MEDS: METOCLOPRAMIDE 10 MG/2 ML INJ VIAL IVP PRN (14:20)
--- NOTE | 2021-08-30 14:21 | NUR ---
PT LAYING IN BED. DIALYSIS NURSE AT BEDSIDE. PT WAS PUT ON BIPAP STATING HE WAS SOB AND HAVING ANXIETY. PT BEGAN FEELING NAUSEOUS. PROVIDED EMESIS BAG, PT VOMITED A SMALL AMOUNT. ADMINISTERED REGLAN PER MD ORDER. RT CAME TO ADDRESS PT BREATHING CONCERNS AND ADJUST BIPAP SETTINGS. BIPAP SETTINGS: IPAP 16, EPAP 8, RATE 12, FIO2 60
--- NOTE | 2021-08-30 14:27 | NUR ---
NURSE PLACED PT ON BIPAP DUE TO PT STATING HE FELT SOB. PT ALSO STATES HE FEEL ANXIOUS. FIO2 INCREASED TO 60% WHILE PT ON DIALYSIS. WILL CONTINUE TO MONITOR.
--- NOTE | 2021-08-30 15:37 | NUR ---
PT RESTING IN BED WITH EYES CLOSED. NO S/S OF DISTRESS. BREATHING SYMMETRICAL. CALL LIGHT IN REACH. ALL SAFETY MEASURES IN PLACE. DIALYSIS NURSE AT BEDSIDE.
[2021-08-30 16:00] VITALS: BP 117/78
--- NOTE | 2021-08-30 17:46 | NUR ---
PT RESTING IN BED. FAMILY AT BEDSIDE. NO S/S OF DISTRESS. BREATHING SYMMETRICAL. CALL LIGHT IN REACH. ALL SAFETY MEASURES IN PLACE.
--- NOTE | 2021-08-30 19:37 | NUR ---
ENDORSED PT TO DIVISION ENGINEER NURSE. NO S/S OF DISTRESS. CALL LIGHT IN REACH. ALL SAFETY MEASURES IN PLACE.
--- NOTE | 2021-08-30 19:40 | NUR ---
RECEIVED REPORT FROM DAY SHIFT NURSE FOR CONTINUITY OF CARE.PT WAKE AND ALERT. PT STABLE. NO S/SX OF DISTRESS. BREATHING EQUAL AND UNLABORED. CALL LIGHT WITHIN REACH. ALL SAFETY MEASURES IN PLACE. IV INTACT ON LEFT HAND G22. O2 2L VIA NC. BIPAP AT BEDSIDE FOR NIGHTTIME USE. WILL CONTINUE TO MONITOR
[2021-08-30 20:00] VITALS: BP 110/75
--- NOTE | 2021-08-30 20:30 | NUR ---
ADMINISTERED SCHEDULED MEDICATION.BLOOD SUGAR CHECKED WAS 115.PT TOLERATED WELL. PT VERBALIZED UNDERSTANDING OF EDUCATION. CALL LIGHT IN REACH. ALL SAFETY MEASURES IN PLACE.
--- NOTE | 2021-08-30 21:06 | NUR ---
PLACED PT ON BIPAP FOR SLEEP. PT IS TOLERATING WELL AT THIS TIME. RN NOTIFIED. WILL CONTINUE TO MONITOR.
--- NOTE | 2021-08-30 22:35 | NUR ---
PT RESTING ON BED.PT ON BIPAP. PT TOLERATING WELL.PT NOT IN ANY DISTRESS AT THIS TIME.CALL LIGHT WITHIN REACH. WILL CONTINUE TO MONITOR.
--- NOTE | 2021-08-30 23:50 | NUR ---
MADE ROUNDS.CHANGED PT'S DIAPER. PT TOLERATED WELL.NO S/SX OF DISTRESS NOTED. CALL LIGHT WITHIN REACH. WILL CONTINUE TO MONITOR.
[2021-08-31] VITALS: BP 111/65
--- NOTE | 2021-08-31 02:45 | NUR ---
PT ASLEEP. WEARING BIPAP MACHINE. TOLERATING WELL. NO S/SX OF DISTRESS NOTED. CALL LIGHT WITHIN REACH. WILL CONTINUE TO MONITOR.
[2021-08-31 04:00] VITALS: BP 94/51
--- NOTE | 2021-08-31 05:25 | NUR ---
PT ASKED TO BE REMOVED FROM BIPAP MACHINE AND TO BE SWITCHED TO 2L O2 VIA NC. CHANGED PT POSITION FOR COMFORT. PT TOLERATED WELL. ALL NEEDS MET. CALL LIGHT WITHIN REACH. WILL CONTINUE TO MONITOR.
--- NOTE | 2021-08-31 06:42 | NUR ---
PT STABLE. NO ACUTE EVENTS THROUGHOUT THE NIGHT.NO S/SX OF DISTRESS.NO COMPLAINS AT THIS TIME. ALL NEEDS ATTENDED.SAFETY PRECAUTIONS IN PLACE.WILL ENDORSE TO AM SHIFT NURSE.
[2021-08-31 06:43] LABS: CARBON DIOXIDE 32.5 mmol/L (21-32); POTASSIUM 4.5 mmol/L (3.5-5.1)
[2021-08-31 06:47] LABS: BASOPHILS # (AUTO) 0.1 K/uL (0.00-0.22); BASOPHILS % (AUTO) 1.2 % (0.0-2.0); EOSINOPHILS # (AUTO) 0.2 K/uL (0-0.4); EOSINOPHILS % (AUTO) 2.9 % (0.0-4.0); HEMATOCRIT 22.3 % (36-52); LYMPHOCYTES # (AUTO) 1.2 K/uL (2.0-11.5); LYMPHOCYTES % (AUTO) 22.4 % (20.5-51.1); MEAN CORPUSCULAR HEMOGLOBIN 26 pg (27-31); MEAN CORPUSCULAR HGB CONC 31 g/dL (33-37); MEAN CORPUSCULAR VOLUME 84.5 fL (80-94); MONOCYTES # (AUTO) 0.5 K/uL (0.8-1.0); MONOCYTES % (AUTO) 8.9 % (1.7-9.3); NEUTROPHILS # (AUTO) 3.4 K/uL (1.8-7.7); NEUTROPHILS % (AUTO) 64.6 % (42.2-75.2); PLATELET COUNT (AUTO) 71 K/uL (140-450); RED BLOOD CELL COUNT(AUTO) 2.64 MIL/uL (4.20-6.10); RED CELL DISTRIBUTION WIDTH 17.7 % (11.6-13.7); WHITE BLOOD COUNT (AUTO) 5.2 K/uL (4.8-10.8)
[2021-08-31 07:01] LABS: CREATININE 4.5 mg/dL (0.6-1.3)
[2021-08-31] MEDS: BLOOD GLUCOSE MONITORING 1 DEV DEV FS SCH ×4 (07:14→22:28)
[2021-08-31] MEDS: SEVELAMER CARBONATE 800 MG TAB PO SCH ×3 (07:15→16:59)
--- NOTE | 2021-08-31 07:23 | NUR ---
PT ENDORSED TO AM SHIFT NURSE FOR CONTINUITY OF CARE. PT IS STABLE.
--- NOTE | 2021-08-31 07:26 | NUR ---
RECEIVED REPORT FROM CORRECTIONAL CASE MANAGER NURSE. PT STABLE. NO S/S OF DISTRESS. BREATHING SYMMETRICAL. CALL LIGHT IN REACH. ALL SAFETY MEASURES IN PLACE. 2L NC. BIPAP AT BEDSIDE FOR NIGHTTIME AND PRN USE.
[2021-08-31 08:00] VITALS: BP 123/70
[2021-08-31 08:11] LABS: HEMOGLOBIN 6.8 g/dL (12.0-18.0)
--- NOTE | 2021-08-31 08:15 | NUR ---
SPOKE TO ERIKA IN LAB. CRITICAL VALUES RECEIVED HGB 6.8, HCT 22.3. NOTIFIED DR. WATSON. NO NEW ORDER RECEIVED AT THIS TIME.
[2021-08-31] MEDS: APIXABAN 2.5 MG TAB PO SCH ×2 (08:35→21:56)
[2021-08-31] MEDS: TAMSULOSIN 0.4 MG CAP PO SCH (08:38)
[2021-08-31] MEDS: LACTULOSE 20 GM/30 ML UDC PO SCH (08:38)
[2021-08-31] MEDS: DILTIAZEM 60 MG TAB PO SCH ×3 (08:38→16:59)
[2021-08-31] MEDS: VIT-B COMP/VIT-C/FOLIC ACID 1 TAB PO SCH (08:39)
--- NOTE | 2021-08-31 08:42 | NUR ---
PT RESTING IN BED. PT STABLE. NO S/S OF DISTRESS. BREATHING SYMMETRICAL. CALL LIGHT IN REACH. ALL SAFETY MEASURES IN PLACE. 2L NC. PT REFUSED LACTULOSE. ALL OTHER MEDICATIONS ADMINISTERED PER MD ORDER. PT VERBALIZED UNDERSTANDING OF EDUCATION. ALL QUESTIONS ANSWERED.
[2021-08-31] MEDS: METOCLOPRAMIDE 10 MG/2 ML INJ VIAL IVP PRN (11:40)
--- NOTE | 2021-08-31 11:41 | NUR ---
PT STATED FEELING NAUSEOUS. PT MEDICATED PER MD ORDERS. TURNED TO LEFT SIDE. PT VERBALIZED UNDERSTANDING OF EDUCATION. NO S/S OF DISTRESS. CALL LIGHT IN REACH. ALL SAFETY MEASURES IN PLACE. 2L NC
[2021-08-31 12:00] VITALS: BP 117/50
--- NOTE | 2021-08-31 12:00 | NUR ---
RECEIVED CONSENT FOR PRBC. PT WILL RECEIVE 2 UNITS AND THEN BEGIN DIALYSIS. PT STABLE. NO S/S OF DISTRESS. CALL LIGHT IN REACH. ALL SAFETY MEASURES IN PLACE
[2021-08-31] MEDS ORDERED: LORazepam 2 MG/ML VIAL IVP PRN (12:15)
--- NOTE | 2021-08-31 14:52 | NUR ---
DC PLANNING: ISREAL SPOKE WITH DR WATSON REGARDING DISCHARGE PLANNING. THE PATIENT IS RECEIVING A TRANSFUSION TODAY AND IS HAVING DIALYSIS TO COMPENSATE FOR THIS. NEPHROLOGY NOTES FLUID OVERLOAD WITH SERIAL HD'S TO DECREASE THIS, THE PATIENT HAS ALSO BEEN ON BIPAP NOC, PULMONOLOGY NOTES STATE TO CONTINUE PRN. DR WATSON STATES THAT THE PATIENT MIGHT DC IN AM, UNCLEAR IF HE WILL NEED BIPAP AT [facility]. ISREAL ALSO SPOKE WITH NAVNEET AT [facility], THEY RECEIVED THE PATIENT FROM [facility] AND HE HAS BEEN ON 2L O2 NC THERE BUT NOT ON BIPAP. ISREAL SPOKE WITH ISREAL VARNER FROM [facility], AND GAVE HIM CLINICAL UPDATE INCLUDING THE POTENTIAL DC TOMORROW. ISREAL WILL CONTINUE TO FOLLOW FOR NEEDS. Addendum: 08/31/21 at 1504 by Debbie Martin CM DC PLANNING: ISREAL CONFIRMED WITH NAVNEET FROM [facility] THAT THE PATIENT GOES TO [facility] ON , , . ISREAL WILL FOLLOW FOR NEEDS. Addendum: 08/31/21 at 1808 by Deisi Mack CM DC PLANNING PATIENT IS A 51 YEAR-OLD MALE ADMITTED AT [facility]/ED ON 08/28/2021. DUE TO SHORTNESS OF BREATH DURING HIS REGULAR DIALYSIS TIME. SW MEET WITH PATIENT AT BED SIDE TO DISCUSS AND GATHER PATIENTS COLLATERAL INFORMATION. PER PATIENT HE HAS HOSPITALIZED ABOUT 10 DAYS AGO AND SEND TO [facility] LAST WEEK. STATED THAT HE HAS A FAMILY SUPPORT FROM HIS SON SARA AND HIS SISTER PORTER. PER PATIENT HIS SON IS HIS EMERGENCY CONTAC AND MEDICAL DECISION MAKER. PATIENT STATED THAT HE HAS ALREADY COMPLETED AND IN PLACE AN ADVANCE DIRECTIVE AND WAS NOT INTERESTED ON GETTING INFORMATION PACKET PROVIDED BY THESE DIFFUSION FURNACE OPERATOR. PER PATIENT HE HAS HIS PCP DIANE ARORA AND FOLLOWS UP WITH HIM REGULARLY EVEN WHEN HE IS AT [facility]. PATIENT STATED THAT HE WILL LIKE TO RETURN BACK TO [facility] WHEN HE IS DISCHARGE FROM [facility]. SW WILL FOLLOW UP WITH PATIENT NEEDED Addendum: 09/01/21 at 1159 by Katrina Ha RN DC PLANNING CALLED DR MIGUEL BOND UNDERWRITER DISCUSSED THE DIALYSIS ORDER. PER NO DIALYSIS NEEDED TODAY CAN BE CONTINUED AND F/U OUT PATIENT DIALYSIS CENTER. CALLED HARIKA SPOKE WITH YAHIR STATED WILL FAX THE C-PAP FORM TO BE FILLED WITH OUR RT AND WILL ORDER THE C-PAP TO BE DELIVERED AT THE [facility] TO FOLLOW
--- NOTE | 2021-08-31 15:45 | NUR ---
PT BEGAN RECEIVING PBRC'S. VITAL SIGNS ARE WNL. NO S/S OF DISTRESS. CALL LIGHT IN REACH, ALL SAFETY MEASURES IN PLACE. NURSE AT BEDSIDE.
[2021-08-31 16:00] VITALS: BP 108/64
--- NOTE | 2021-08-31 17:15 | NUR ---
PT ST RECEIVING PRBC. FIRST OF 2 UNITS. PT TOLERATING WELL. NO SIGNS OF ADVERSE EFFECTS. WILL [id number] TO MONITOR. CALL LIGHT IN REACH. ALL SAFETY MEASURES IN PLACE. VITAL SIGNS WNL
--- NOTE | 2021-08-31 19:38 | NUR ---
ENDORSED PT TO PEACH GROWER NURSE. NO S/S OF DISTRESS. CALL LIGHT IN REACH. ALL SAFETY MEASURES IN PLACE. 2ND UNIT PBRC RUNNING. DIALYSIS NURSE NOTIFIED. Addendum: 08/31/21 at 1939 by Bozena Tapia RN RN Jovita KEYES
--- NOTE | 2021-08-31 19:40 | NUR ---
RECEIVED REPORT FROM DAY SHIFT NURSE FOR CONTINUITY OF CARE.PT AWAKE AND ALERT. PT STABLE.FAMILY AT BEDSIDE. NO S/SX OF DISTRESS. BREATHING EQUAL AND UNLABORED WITH 2L O2 VIA NC. CALL LIGHT WITHIN REACH. ALL SAFETY MEASURES IN PLACE. IV INTACT ON LEFT HAND G22. O2 2L VIA NC. PT WAS STARTED 2ND UNIT PRBC. WILL CONTINUE TO MONITOR
[2021-08-31 20:00] VITALS: BP 117/64
--- NOTE | 2021-08-31 21:15 | NUR ---
PT REPORTED HAVING SHORTNESS OF BREATH. CALLED RT ON BEDSIDE.PT WANTED THE BIPAP TO BE REMOVED AND WAS PUT ON 2L NC. PT ASKED TO BE SEATED AT THE EDGE OF BED. PRN ATIVAN GIVEN FOR ANXIETY. ALL PRECAUTIONS IN PLACE. WILL CONTINUE TO MONITOR.
--- NOTE | 2021-08-31 21:30 | NUR ---
BLOOD TRANSFUSION DONE. NO REACTION NOTED. PT TOLERATED WELL. HE IS STILL HAVING DIALYSIS ON BEDSIDE.WILL CONTINUE MONITOR
--- NOTE | 2021-08-31 22:00 | NUR ---
HEPARIN [id number] UNITS TO BE GIVEN BY THE DIALYSIS NURSE.
[2021-09-01] VITALS: BP 115/69
--- NOTE | 2021-09-01 00:45 | NUR ---
PT REFUSED TO HAVE A NEW IV INSERTED. EDUCATED PT WHY HE NEEDS A NEW LINE. ALL NEEDS ATTENDED. WILL CONTINUE TO MONITOR.
--- NOTE | 2021-09-01 02:00 | NUR ---
REMOVED BI-PAP AT THIS TIME DUE TO PT DISCOMFORT, PT IS SATURATING 95% ON A NASAL CANNULA, AND IS IN NO DISTRESS, WILL CONTINUE TO MONITOR
--- NOTE | 2021-09-01 02:30 | NUR ---
PT ASLEEP ON 2L O2 VIA NC WITH O2 SAT AT 96%. BREATHING EQUAL AND UNLABORED. NO S/SX OF DISTRESS NOTED. CALL LIGHT WITHIN REACH. WILL CONTINUE TO MONITOR.
[2021-09-01 04:00] VITALS: BP 109/66
--- NOTE | 2021-09-01 04:15 | NUR ---
PT RESTING IN BED.NO ACUTE RESPIRATORY DISTRESS NOTED. VITAL SIGNS STABLE. NO COMPLAINS AT THIS TIME. ALL PRECAUTIONS IN PLACE. CALL LIGHT WITHIN REACH.WILL CONTINUE TO MONITOR.
--- NOTE | 2021-09-01 06:39 | NUR ---
PT STABLE. NO ACUTE EVENTS THROUGHOUT THE NIGHT. PT NOT IN ANY DISTRESS. ALL NEEDS ATTENDED. CALL LIGHT WITHIN REACH, WILL ENDORSE TO AM SHIFT NURSE.
[2021-09-01] MEDS: BLOOD GLUCOSE MONITORING 1 DEV DEV FS SCH ×3 (06:40→16:57)
[2021-09-01 07:02] LABS: BASOPHILS % (AUTO) 0.7 % (0.0-2.0); EOSINOPHILS # (AUTO) 0.1 K/uL (0-0.4); EOSINOPHILS % (AUTO) 2.2 % (0.0-4.0); HEMATOCRIT 25.9 % (36-52); HEMOGLOBIN 8.2 g/dL (12.0-18.0); LYMPHOCYTES % (AUTO) 16.5 % (20.5-51.1); MEAN CORPUSCULAR HEMOGLOBIN 27 pg (27-31); MEAN CORPUSCULAR HGB CONC 32 g/dL (33-37); MEAN CORPUSCULAR VOLUME 84.5 fL (80-94); MONOCYTES # (AUTO) 0.6 K/uL (0.8-1.0); MONOCYTES % (AUTO) 9.3 % (1.7-9.3); NEUTROPHILS # (AUTO) 4.5 K/uL (1.8-7.7); NEUTROPHILS % (AUTO) 71.3 % (42.2-75.2); RED BLOOD CELL COUNT(AUTO) 3.07 MIL/uL (4.20-6.10); WHITE BLOOD COUNT (AUTO) 6.3 K/uL (4.8-10.8)
[2021-09-01 07:12] LABS: ALBUMIN 2.7 g/dL (3.4-5.0); ANION GAP 9.1 (8-16); CREATININE 3.9 mg/dL (0.6-1.3); POTASSIUM 4.1 mmol/L (3.5-5.1); TOTAL BILIRUBIN 0.5 mg/dL (0.0-1.0)
[2021-09-01 07:13] LABS: PLATELET COUNT (AUTO) 60 K/uL (140-450)
--- NOTE | 2021-09-01 07:39 | NUR ---
PT ENDORSED TO AM SHIFT NURSE FOR CONTINUITY OF CARE. PT STABLE.
--- NOTE | 2021-09-01 07:40 | NUR ---
RECEIVED REPORT FROM PLODDING OPERATOR NURSE FOR CONTINUITY OF CARE. PATIENT IS IN BED WATCHING TELEVISION AT THIS TIME. RESPIRATIONS ARE EVEN AND UNLABORED, WITH NO SIGNS OF DISTRESS NOTED. PATIENT IS ALERT AND ORIENTED X4. PATIENT IS ON 2L 02 VIA NC. WITH 02 SAT AT 98%. PATIENT IS ON RENAL DIET, ABD IS SOFT, NON-TENDER, AND NON-DISTENDED WITH BOWEL SOUNDS PRESENT. LAST BM WAS 08/31/21. PATIENT HAS NO IV ACCESS AT THIS TIME, WILL ATTEMPT TO PLACE IV LATER. SKIN IS INTACT. PATIENT HAS DIALYSIS SCHEDULED FOR TODAY. PT HAS DIALYSIS PORT TO LEFT UPPER CHEST. WILL CONTINUE TO MONITOR. ALL SAFETY MEASURES IN PLACE. CALL LIGHT WITHIN REACH.
[2021-09-01 08:00] VITALS: BP 100/61
[2021-09-01] MEDS: LACTULOSE 20 GM/30 ML UDC PO SCH (08:57)
[2021-09-01] MEDS: DILTIAZEM 60 MG TAB PO SCH ×2 (08:58→12:10)
[2021-09-01] MEDS: TAMSULOSIN 0.4 MG CAP PO SCH (08:58)
[2021-09-01] MEDS: SEVELAMER CARBONATE 800 MG TAB PO SCH ×2 (08:58→12:10)
[2021-09-01] MEDS: VIT-B COMP/VIT-C/FOLIC ACID 1 TAB PO SCH (09:08)
[2021-09-01] MEDS: APIXABAN 2.5 MG TAB PO SCH (09:09)
--- NOTE | 2021-09-01 11:34 | NUR ---
PATIENT'S BLOOD GLUCOSE WAS 77. PATIENT IS AWAKE AND ALERT. STATED HE HAD A BIG BREAKFAST THIS MORNING. AND WANTED TO KNOW WHAT WAS FOR LUNCH. NO INSULIN COVERAGE NEEDED PER SLIDING SCALE. WILL CONTINUE TO MONITOR.
[2021-09-01 12:00] VITALS: BP 107/71
--- NOTE | 2021-09-01 13:40 | NUR ---
DID ROUNDS ON PATIENT. PATIENT UPSET, STATING HE IS TIRED OF BEING HERE AND STATED "YOU ALL BUG ME TOO MUCH". NO COMPLAINTS OF PAIN OR DISCOMFORT. PATIENT STATING THAT "I JUST NEED TO BE CHANGED. CHANGE ME AND LEAVE". ASSISTED WITH CHANGING AND REPOSITIONING PATIENT. WILL CONTINUE TO MONITOR.
[2021-09-01] MEDS ORDERED: ACET-1182 PO (14:14)
--- NOTE | 2021-09-01 15:06 | NUR ---
PATIENT CALLED ASKING WHEN WAS HE GOING TO BE DISCHARGED. INFORMED PATIENT THAT I WOULD CONTACT CASE MANAGEMENT. WILL FOLLOW UP.
--- NOTE | 2021-09-01 17:32 | NUR ---
PATIENT DISCHARGED TO [facility]. WENT OVER DISCHARGE PAPERWORK WITH PATIENT, AND ANSWERED ALL QUESTIONS. PATIENT SIGNED ALL PAPERWORK. ALL BELONGINGS TAKEN WITH PATIENT UPON DISCHARGE. WRIST BAND REMOVED. SKIN IN TACT. PATIENT LEFT VIA [facility]. GAVE REPORT TO BETZAIDA AT [facility].
== END 2021-09-01 17:32 | DRG 291 ==
LOC: MED 14:58 → MTU 21:16
PROVIDERS: ADMIT Hospitalist; ATTEND Hospitalist
PROC: 5A09357 Assistance with Respiratory Ventilation, Less than 24 Consecutive Hours, Continuous Positive Airway Pressure (ICD-10-PCS; 2021-08-28)
PROC: 5A1D70Z Performance of Urinary Filtration, Intermittent, Less than 6 Hours Per Day (ICD-10-PCS; 2021-08-29)
PROC: 5A1D70Z Performance of Urinary Filtration, Intermittent, Less than 6 Hours Per Day (ICD-10-PCS; 2021-08-30)
PROC: 30233N1 Transfusion of Nonautologous Red Blood Cells into Peripheral Vein, Percutaneous Approach (ICD-10-PCS; principal; 2021-08-31)
PROC: 5A09357 Assistance with Respiratory Ventilation, Less than 24 Consecutive Hours, Continuous Positive Airway Pressure (ICD-10-PCS; 2021-08-31)
PROC: 5A1D70Z Performance of Urinary Filtration, Intermittent, Less than 6 Hours Per Day (ICD-10-PCS; 2021-08-31)
PROC: 5A09357 Assistance with Respiratory Ventilation, Less than 24 Consecutive Hours, Continuous Positive Airway Pressure (ICD-10-PCS; 2021-09-01)
DX: I11.0 Hypertensive heart disease with heart failure (principal); I50.23 Acute on chronic systolic (congestive) heart failure; J96.01 Acute respiratory failure with hypoxia; N18.6 End stage renal disease; J18.9 Pneumonia, unspecified organism; J96.02 Acute respiratory failure with hypercapnia; E66.2 Morbid (severe) obesity with alveolar hypoventilation; Z68.42 Body mass index [BMI] 45.0-49.9, adult; I42.0 Dilated cardiomyopathy; D63.1 Anemia in chronic kidney disease; E03.9 Hypothyroidism, unspecified; N40.0 Benign prostatic hyperplasia without lower urinary tract symptoms; I48.91 Unspecified atrial fibrillation; Z20.822 Contact with and (suspected) exposure to COVID-19; E11.22 Type 2 diabetes mellitus with diabetic chronic kidney disease; Z99.2 Dependence on renal dialysis; Z79.01 Long term (current) use of anticoagulants; Z79.4 Long term (current) use of insulin; Z79.899 Other long term (current) drug therapy; Z91.14 Patient's other noncompliance with medication regimen; Z87.891 Personal history of nicotine dependence; E87.70 Fluid overload, unspecified
CPT/HCPCS: 36415; 36600; 71045; 80048; 80053; 82803; 82948; 83605; 83735; 83880; 84484; 85025; 85610; 85730; 86886; 86900; 86901; 86920; 87081; 93005; 94660; 96365; 99285; J0456; J0696; J1644; J2060; J2765; P9016; Q0092